=== PATIENT | female | born 1980 | race Caucasian/White ===

== ENCOUNTER 2024-02-06 08:03 | Outpatient (OUT) | payer BC, SELFPAY ==
--- NOTE | 2024-02-06 08:38 | P.CN_ITS ---
Consult Note: HPI Data of Consult Patient: new to practice Requesting Physician: Melissa Chi NP Primary Care Provider: CATRACHO ROSALES Consult Narrative Reason for consult: establish chronic low back pain Narrative: Eileen Dobson a pleasant 43 year old female presents for evaluation and management of chronic low back pain greater than 3 years. Patient reports chronic low back pain, today 6/10 sharp stabbing ache, increasing to 10/10 with twisting standing walking and bending, improved with medications and rest. Patient continues have moderate to severe pain impacting functional ability despite benefit from gabapentin 400mg TID, tramadol 50mg q6hrs, ibuprofen q8hrs, and orphenadrine. Patient underwent recent lumbar xray and MRI which is consistent with lumbar ddd and lumbar facet arthropathy. Patient has an upcoming NS consult next week with Dr Arcos. Engaged in provider guided HEP greater than 6 weeks without benefit, upcoming water therapy. Patient denies numbness tignling radiaiton. cc:: CC: Melissa Chi NP Review of Systems ROS Status of ROS 10 or more systems reviewed and unremark able except as noted in history and below Musculoskeletal Reports: back pain and joint pain Exam Constitutional Documenting provider has reviewed patient's vital signs: yes Common normals: no apparent distress, oriented x3, healthy appearing, alert and well nourished General appearance: cooperative HENMT Common normals: normocephalic, hearing grossly normal bilaterally and moist oral mucous membranes Head and scalp: normocephalic Eye Common normals: PERRL Pupil: PERRL Neck & C-Spine Common normals: full ROM General: normal visual inspection Chest Common normals: inspection of chest normal Respiratory Common normals: normal respiratory effort, no retractions and no use of accessory muscles Back & Pelvis Lumbar spine/lower back: ROM limited, pain with ROM and straight leg raise negative bilaterally Sacroiliac joints: SI joint(s) abnormal Other: positive facet loading left greater than right pain and tenderness over bilateral L4-S1 facets left SIJ positive mahesh(patricks), gaenslens, thigh thrust, compression test strength 5/5 in BLE, sensation equal and intact Extremity Common normals: normal to inspection and full ROM Neuro Common normals: oriented x3, CN's II-XII intact bilaterally, moves all extremities, no focal motor deficits, no sensory deficits noted, deep tendon reflexes 2+ bilaterally and gait normal Sensorium/orientation: alert Motor exam: strength 5/5 throughout and no movement abnormalities noted Psych Common normals: mental status grossly normal, thought process normal, cooperative, affect normal, speech normal and activity/motor behavior normal Speech: normal speech Thought process: normal thought process Results Additional Findings Additional findings: If on a controlled substance or opioids, I have checked an [place] report on this patient and there are no aberrancies noted in the prescribing history.??If on a controlled substance or opioid a drug screen was completed and reviewed within the last year, and if there has not been a drug screen completed we ordered one today to monitor higher risk, state monitored pain medication use. As part of providing excellent, safe, comprehensive care, the following was completed at our patient's visit: 1. A medication reconciliation and review to ensure accurate knowledge of current/active medications, including asking our patients to inform us about any [id number] medications or herbal remedies/nutritional supplements/alternative remedies. 2. A review to specifically ensure our patients have had annual screening for screening for depression, screening for tobacco use, and screening for unhealthy alcohol use. For concerning screenings had a discussion with the patient, provided patient education, and recommended follow-up with primary care provider when appropriate. If patient noted with a risk of falling, they received education on strength, gait, and balance training to prevent future risk of falling. Assessment and Plan Assessment and Plan (1) Lumbar spondylosis: Assessment and Plan: The patient has had over 3 months of moderate to severe low back pain with functional impairment and inadequate response to conservative care including NSAIDS (unless there are contraindication such as concurrent blood thinners), m ultiple oral or topical pain medications, and home exercise program/physical therapy.? Patient has completed >6 weeks of guided home exercise program and/or formal physical therapy program without relief of their symptoms.? I have reviewed the imaging of the lumbar spine and no red flags were identified.? The imaging reveals radiographic findings consistent with lumbar DDD and lumbar spondylosis We discussed the risks and benefits of the procedure with the patient, and we are NOT planning on using sedation as outlined in the guidelines from Medicare unless there is a documented reason that sedation would be strongly recommended.?? The procedure will be completed with fluoroscopic guidance.? (2) Lumbar degenerative disc disease: (3) Chronic low back pain without sciatica: Plan imaging reviewed with patient, based on physical exam, history and failure to respond to greater than 6 weeks HEP and conservative measures I reccomend bilateral L4-5 L5-S1 medial branch block x2 working towards RFA patient would like to meet with NS first, can call to schedule injections f/u 1 week after each injection, or as needed at this time continue medication management through PCP
== END 2024-02-06 08:04 | disposition home or self-care (01) ==
LOC: PM 08:04
PROVIDERS: PCP Family Medicine; Visit Provider Nurse Practitioner
DX: M47.816 Spondylosis without myelopathy or radiculopathy, lumbar region (principal); M51.36 Other intervertebral disc degeneration, lumbar region; M54.50 Low back pain, unspecified
CPT/HCPCS: G0463

== ENCOUNTER 2024-02-13 08:55 | Outpatient (RCR) | payer BC, SELFPAY | END 2024-03-14 10:00 | disposition home or self-care (01) | LOC: PT 08:55 | PROVIDERS: PCP Family Medicine; Visit Provider Family Medicine | DX: M51.37 Other intervertebral disc degeneration, lumbosacral region (principal); M50.30 Other cervical disc degeneration, unspecified cervical region; R20.2 Paresthesia of skin; M79.601 Pain in right arm; M79.602 Pain in left arm; M46.1 Sacroiliitis, not elsewhere classified | CPT/HCPCS: 97113 ==

== ENCOUNTER 2024-03-17 08:20 | Day surgery (SDC) | payer BC, SELFPAY ==
--- OUTSIDE RECORDS SUMMARY | 2024-03-17 08:42 | XMS_ITS | CCD ---
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 Apprentice Name Role Phone CLAUDY ., DR SKY Admitting Unavailable REQUEST, DR MALAIKA LISTED Primary Care Unavaila ble CLAUDY ., DR SKY Consulting Unavailable CLAUDY ., DR SKY Attending Unavailable REQUEST, DR MALAIKA LISTED Consulting Unavaila ble CLAUDY ., DR SKY Admitting Unavailable HEMEYER ., DR HAYDEN Primary Care Unavailable CLAUDY ., DR SKY Consulting Unavailable CLAUDY ., DR SKY Attending Unavailable HEMEYER ., DR HAYDEN Attending Unavailable HEMEYER ., DR HAYDEN Admitting Unavailable HEMEYER ., DR HAYDEN Primary Care Unavailable CLAUDY ., DR SKY Admitting Unavailable HEMEYER ., DR HAYDEN Consulting Unavailable HEMEYER ., DR HAYDEN Primary Care Unavailable CLAUDY ., DR SKY Attending Unavailable CLAUDY ., DR SKY Consulting Unavailable AGUBOSILazarus, ULICES Consulting Unavailable YESSY PATEL Consulting Unavailable CLAUDY ., DR SKY Consulting Unavailable HEMEYER ., DR HAYDEN Primary Care Unavailable CLAUDY ., DR SKY Attending Unavailable CLAUDY ., DR SKY Admitting Unavailable CLAUDY ., DR SKY Admitting Unavailable HEMEYER ., DR HAYDEN Primary Care Unavailable CLAUDY ., DR SKY Consulting Unavailable CLAUDY ., DR SKY Attending Unavailable SANDHU, JULIO Consulting Unavailable HEMEYER ., DR HAYDEN Primary Care Unavailable HELEN SANCHEZ Attending Unavailable HELEN SANCHEZ Admitting Unavailable HELEN SANCHEZ Consulting Unavailable REBA LOWRY Consulting Unavailable HEMEYER ., DR HAYDEN Primary Care Unavailable HAY ., DR HOUSTON Admitting Unavailable HAY ., DR HOUSTON Attending Unavailable GRECHNY ., JILLIAN HORVATH Consulting Unavailabl e HEMEYER ., DR HAYDEN Primary Care Unavailable HEMEYER ., DR HAYDEN Consulting Unavailable HEMEYER ., DR HAYDEN Attending Unavailable HEMEYER ., DR HAYDEN Admitting Unavailable CLAUDY ., DR SKY Admitting Unavailable CLAUDY ., DR SKY Consulting Unavailable CLAUDY ., DR SKY Attending Unavailable HEMEYER ., DR HAYDEN Primary Care Unavailable ZIEBER, DR AHSAN Robert Consulting Unavailable CLAUDY ., DR SKY Consulting Unavailable HEMEYER ., DR HAYDEN Primary Care Unavailable CLAUDY ., DR SKY Attending Unavailable CLAUDY ., DR SKY Admitting Unavailable HEMEYER ., DR HAYDEN Primary Care Unavailable CLAUDY ., DR SKY Consulting Unavailable CLAUDY ., DR SKY Attending Unavailable CLAUDY ., DR SKY Admitting Unavailable CLAUDY ., DR SKY Admitting Unavailable HEMEYER ., DR HAYDEN Primary Care Unavailable CLAUDY ., DR SKY Attending Unavailable CLAUDY ., DR SKY Consulting Unavailable ZIEBER, DR AHSAN Robert Consulting Unavailable HEMEYER, EDWARD J Attending Unavailable HEMEYER, EDWARD J Referring Unavailable HEMEYER, EDWARD J Referring Unavailable HEMEYER, EDWARD J Attending Unavailable HEMEYER, EDWARD J Referring Unavailable HEMEYER, EDWARD J Referring Unavailable HEMEYER, EDWARD J Referring Unavailable SELLFRIEDA Attending Unavailable Allergies Allergy Classification Reported Allergen(s) Allergy Type Date of Onset Reaction(s) Facility (2 sources) Acetaminophen Drug Allergy [facility] Repository (2 sources) ferric carboxymaltose Drug Allergy 2 [facility] Repository (1 source) Acetaminophen; Translations: [ACETAMINOPHEN] Drug Allergy 4 [facility] Repository (1 source) Hydroxychloroquine; Translations: [HYDROXYCHLOROQUINE ] Drug Allergy 3 [facility] Repository Problems Active Problems Problem Classification Problem Date Documented Date Episodic/Chronic E Codes: Adverse effects of medical drugs (1 source) Adverse effect of other systemic antibiotics, initial encounter; Translations: [ADVERSE EFF OTH SYS ABX INITIAL ENC] Onset: 12-05-2022 Episodic Fever of unknown origin (1 source) Fever, unspecified; Translations: [FEVER UNSPECIFIED] Onset: 12-05-2022 Episodic Headache; including migraine (1 source) Headache; including migraine; Translations: [HEADACHE UNSPECIFIED] Onset: 12-05-2022 Malaise and fatigue (1 source) Chronic fatigue, unspecified; Translations: [CHRONIC FATIGUE UNSPECIFIED] Onset: 03-21-2022 Chronic Menstrual disorders (5 sources) Excessive and frequent menstruation with irregular cycle; Translations: [Excessive and frequent menstruation with regular cycle] Onset: 04-05-2022 Chronic Other aftercare (1 source) Other senior care (current) drug therapy; Translations: [OTH RETIREMENT CURRENT DRUG THERAPY] Onset: 12-05-2022 Episodic Other female genital disorders (1 source) Abnormal uterine and vaginal bleeding, unspecified; Translations: [ABNORMAL UTERINE VAGINAL BLEED UNS] Onset: 04-17-2022 Chronic Other upper respiratory infections (1 source) Acute upper respiratory infection, unspecified; Translations: [ACUTE UP RESPIRATORY INFECTION UNS] Onset: 12-05-2022 Episodic Residual codes; unclassified (1 source) Pain, unspecified; Translations: [Pain, unspecified] Onset: 02-27-2024 Episodic Spondylosis; intervertebral disc disorders; other back problems (3 sources) Other intervertebral disc degeneration, lumbosacral region; Translations: [Spondylosis without myelopathy or radiculopathy, cervical region] Onset: 02-27-2024 Chronic Spondylosis; intervertebral disc disorders; other back problems (1 source) Spinal stenosis, cervical region; Translations: [Spinal stenosis, cervical region] Onset: 02-27-2024 Episodic Substance-related disorders (1 source) Nicotine dependence, cigarettes, uncomplicated; Translations: [NICOTINE DEPEND CIGARETTES UNCOMP] Onset: 12-05-2022 Chronic Thyroid disorders (3 sources) Hypothyroidism, unspecified; Translations: [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 crisis or storm] Onset: 03-21-2022 Chronic Unclassified (1 source) CONTACT W/AND (SUSP) EXPOS COVID-19; Translations: [CONTACT W/AND (SUSP) EXPOS COVID-19] Onset: 12-05-2022 Unclassified (2 sources) COUGH, UNSPECIFIED; Translations: [COUGH, UNSPECIFIED] Onset: 12-05-2022 Unclassified (1 source) Low back pain, unspecified; Translations: [Low back pain, unspecified] Onset: 02-27-2024 Unclassified (1 source) Consult Onset: 02-27-2024 Past or Other Problems Problem Classification Problem Date Documented Date Episodic/Chronic Allergic reactions (4 sources) Urticaria, unspecified; Translations: [URTICARIA UNSPECIFIED] Onset: 03-02-2022 Episodic Deficiency and other anemia (1 source) Anemia, unspecified; Translations: [ANEMIA UNSPECIFIED] Onset: 04-04-2022 Episodic Deficiency and other anemia (5 sources) Iron deficiency anemia, unspecified; Translations: [IRON DEFICIENCY ANEMIA UNSPECIFIED] Onset: 03-02-2022 Episodic Immunizations and screening for infectious disease (1 source) Encounter for screening for human papillomavirus (HPV); Translations: [ENC SCREENING HUMAN PAPILLOMAVIRUS] Onset: 06-21-2022 Episodic Other aftercare (4 sources) Encounter for follow-up examination after completed treatment for conditions other than malignant neoplasm; Translations: [ENC F/U EX AFTR CMPL TX NOT MAL JUJU] Onset: 05-08-2022 Episodic Other screening for suspected conditions (not mental disorders or infectious disease) (4 sources) Encounter for screening for malignant neoplasm of cervix; Translations: [ENC SCREENING MALIG NEOPLASM CERV] Onset: 06-19-2022 Episodic Ovarian cyst (4 sources) Other ovarian cyst, unspecified side; Translations: [OTHER OVARIAN CYST UNSPECIFIED SIDE] Onset: 03-30-2022 Episodic Screening and history of mental health and substance abuse codes (1 source) Personal history of nicotine dependence; Translations: [PERSONAL HISTORY OF NICOTINE DEPEND] Onset: 03-03-2022 Episodic Thyroid disorders (4 sources) Sick-euthyroid syndrome; Translations: [SICK-EUTHYROID SYNDROME] Onset: 03-16-2022 Episodic Unclassified (1 source) COUGH, UNSPECIFIED; Translations: [COUGH, UNSPECIFIED] Onset: 12-02-2022 Results Test Name Value Interpretation Reference Range Facility MR CERVICAL SPINE WO CONTRAS Ton 12-06-2023 MR CERVICAL SPINE WO CONTRAST EXAMINATION: MR CERVICAL SPINE WO CONTRAST HISTORY: Neck pain with bilateral upper extremity radiculopathy. No recent injury. No prior cervical spine surgery. TECHNIQUE: Routine cervical spine MR protocol without gadolinium. COMPARISON: Radiographs 11/19/2023. RESULT: CERVICAL: Counting reference: Craniocervical junction. Anatomic Variants: None. Alignment: Alignment is anatomic. Craniocervical junction: Craniocervical junction is normal. Cord: The cervical spinal cord is within normal limits of signal intensity and morphology. Bone marrow signal/fracture: No evidence for acute or chronic fracture. No pathologic marrow infiltration. Cervical soft tissues: The paraspinal soft tissues are unremarkable. C2-C3: No significant canal or foraminal narrowing. C3-C4: No significant canal or foraminal narrowing. C4-C5: No significant canal or foraminal narrowing. C5-C6: Broad-based disc bulge. Endplate osteophytes. No significant canal or foraminal narrowing. C6-C7: Disc height loss. Broad-based disc bulge. Endplate osteophytes. Moderate bilateral foraminal narrowing with mild to moderate canal narrowing. C7-T1: No significant canal or foraminal narrowing. Upper thoracic spine: Visualized upper thoracic canal and foramina are without significant narrowing. IMPRESSION: Degenerative changes, worst at C6-C7. ELECTRONICALLY SIGNED BY: Asa Perez MD Normal Not Available MR LUMBAR SPINE WO CONTRASTo n 12-06-2023 MR LUMBAR SPINE WO CONTRAST EXAMINATION: MR LUMBAR SPINE WO CONTRAST HISTORY: Chronic low back pain. Denies prior lumbar surgery. TECHNIQUE: Routine lumbosacral spine MR protocol without gadolinium. CONTRAST: None. COMPARISON: 11/19/2023 radiographs. RESULT: Counting reference: Lumbosacral junction. For the purposes of this report, there is transitional lumbosacral anatomy, with partial lumbarization of S1 with tiny disc space at the S1-S2 level, with the level of the iliac crest nearest the L4-L5 level. Alignment: Alignment is anatomic. Bone marrow signal: No evidence for acute or chronic fracture. No destructive osseous lesions. Endplate degenerative signal especially at L5-S1. Conus: The conus is within normal limits of signal intensity and morphology. Paraspinal soft tissues: Unremarkable. Lower thoracic spine: Visualized lower thoracic canal and foramina without significant narrowing. T12-L1: Tiny disc bulge without significant canal or foraminal narrowing. L1-L2: Tiny disc bulge without significant canal or foraminal narrowing. L2-L3: No significant canal or foraminal narrowing. L3-L4: Tiny disc bulge and facet degenerative changes without significant canal or foraminal narrowing. L4-L5: Tiny disc bulge and facet degenerative changes without significant canal or foraminal narrowing. L5-S1: Disc height loss. Endplate degenerative signal. Disc bulge with small central zone disc protrusion. Facet degenerative changes. Mild bilateral foraminal narrowing without significant canal narrowing. Sacrum and iliac wings: The visualized sacrum and iliac wings are within normal limits. IMPRESSION: Transitional lumbosacral anatomy as discussed. Degenerative changes as discussed. Small central zone disc protrusion at L5-S1. No high-grade canal or foraminal narrowing. ELECTRONICALLY SIGNED BY: Asa Perez MD Normal Not Available XR CERVICAL SPINE AP/LAT/FLE X/EXT/OBLIQUESon 11-19-2023 XR CERVICAL SPINE AP/LAT/FLEX/EXT/OBLI QUES EXAMINATION: CERVICAL SPINE CLINICAL HISTORY: Bilateral neck pain. No history of acute trauma COMPARISON: NONE Findings: 7 views of the cervical spine including flexion and extension views are submitted. Straightening of the normal expected cervical doses. Prevertebral soft tissues are unremarkable. There is narrowing of the C6-7 disc base. There is anterior spondylosis. No significant listhesis. Flexion and extension views show no significant darryl or retrolisthesis. Neuroforamina are grossly patent. No focal bony abnormality. No acute fracture.. IMPRESSION: MILD OSTEOARTHRITIS OF THE LOWER CERVICAL SPINE. NO ACUTE FRACTURE IF THERE ARE FINDINGS OF RADICULOPATHY THEN TO THE TEST OF CHOICE TO FURTHER EVALUATE IS MRI ELECTRONICALLY SIGNED BY: Humphrey De La Fuente MD Normal Not Available CBC W MANUAL DIFFon 12-03-19 23 ATYPICAL LYMPH # Normal [facility] Comment on above: Performed By: #### C BCMAN #### [facility] [address] [place] [address] Dr. Ellen Ramirez ATYPICAL LYMPH % Normal [facility] Comment on above: Performed By: #### C BCMAN #### [facility] [address] [place] [address] Dr. Ellen Ramirez BAND # 0.0 103/ul Normal 0.0-0.3 [facility] Comment on above: Performed By: #### C BCMAN #### [facility] [address] [place] [address] Dr. Ellen Ramirez BAND % 0 % Normal 0-5 [facility] Comment on above: Performed By: #### C BCMAN #### [facility] [address] [place] [address] Dr. Ellen Ramirez BASOM # 0.00 103/ul Normal 0.00-0.10 [facility] Comment on above: Performed By: #### C BCVIRGINIE #### [facility] [address] [place] [address] Dr. Ellen Ramirez BASOM % 0.0 % Critically low 0.2-2.0 [facility] Comment on above: Performed By: #### C BCMAN #### [facility] [address] [address] [address] Ellen Ramirez BLAST # Normal [facility] Comment on above: Performed By: #### C BCMAN #### [facility] [address] [place] [address] Dr. Ellen Ramirez BLAST % Normal [facility] Comment on above: Performed By: #### C BCVIRGINIE #### [facility] [address] [address] [address] Ellen Ramirez CORRECTED WBC Normal 4.0-11.0 [facility] Comment on above: Performed By: #### C BCVIRGINIE #### [facility] [address] [place] [address] Dr. Ellen Ramirez EOS # 0.46 103/ul Normal 0.00-0.70 [facility] Comment on above: Performed By: #### C BCVIRGINIE #### [facility] [address] [place] [address] Dr. Ellen Ramirez EOS% 6.0 % Normal 0.9-7.0 [facility] Comment on above: Performed By: #### C BCVIRGINIE #### [facility] [address] [place] [address] Dr. Ellen Ramirez HCT 33.6 % Critically low 36.0-48.0 [facility] Comment on above: Performed By: #### C BCMAN #### [facility] [address] [place] [address] Dr. Ellen Ramirez HGB 11.5 g/dl Critically low 12.0-16.0 [facility] Comment on above: Performed By: #### C BCMAN #### [facility] [address] [place] [address] Dr. Ellen Ramirez LYMPHM # 0.15 103/ul Critically low 1.20-3.[address] [facility] Comment on above: Performed By: #### C BCMAN #### [facility] [address] [address] [address] Ellen Ramirez LYMPHM% 2.0 % Critically low 20.5-60.0 [facility] Comment on above: Performed By: #### C HUSSAIN #### [facility] [address] [place] [address] Dr. Ellen Ramirez MCH 29.3 pg Normal 26.7-34.0 [facility] Comment on above: Performed By: #### C HUSSAIN #### [facility] [address] [place] [address] Dr. Ellen Ramirez MCHC 34.2 g/dl Normal 29.9-35.2 [facility] Comment on above: Performed By: #### C HUSSAIN #### [facility] [address] [place] [address] Dr. Ellen Ramirez MCV 85.5 fL Normal 81.0-99.0 [facility] Comment on above: Performed By: #### C HUSSAIN #### [facility] [address] [place] [address] Dr. Ellen Ramirez METAMYELOCYTE # Normal [facility] Comment on above: Performed By: #### C HUSSAIN #### [facility] [address] [place] [address] Dr. Ellen Ramirez METAMYELOCYTE % Normal [facility] Comment on above: Performed By: #### C HUSSAIN #### [facility] [address] [place] [address] Dr. Ellen Ramirez MONOM# 0.38 103/ul Normal 0.30-0.80 [facility] Comment on above: Performed By: #### C HUSSAIN #### [facility] [address] [place] [address] Dr. Ellen Ramirez MONOM% 5.0 % Normal 1.7-12.0 [facility] Comment on above: Performed By: #### C HUSSAIN #### [facility] [address] [place] [address] Dr. Ellen Ramirez MPV 9.4 fL Critically low 9.5-13.5 [facility] Comment on above: Performed By: #### C BCVIRGINIE #### [facility] [address] [address] [address] Ellen Ramirez MYELOCYTE # Normal [facility] Comment on above: Performed By: #### C HUSSAIN #### [facility] [address] [address] [address] Ellen Ramirez MYELOCYTE % Normal [facility] Comment on above: Performed By: #### C BCVIRGINIE #### [facility] [address] [address] [address] Ellen Ramirez NRBC Normal [facility] Comment on above: Performed By: #### C HUSSANI #### [facility] [address] [address] [address] Ellen Ramirez PLT 281 103/ul Normal 150-450 [facility] Comment on above: Performed By: #### C HUSSAIN #### [facility] [address] [address] [address] Ellen Ramirez RBC 3.93 106/ul Critically low 4.20-5.40 [facility] Comment on above: Performed By: #### C HUSSAIN #### [facility] [address] [address] [address] Ellen Ramirez RDW 13.0 % Normal 11.0-15.0 [facility] Comment on above: Performed By: #### C HUSSAIN #### [facility] [address] [address] [address] Ellen Ramirez SEG # 6.61 103/ul Critically high 1.40-6.50 [facility] Comment on above: Performed By: #### C HUSSAIN #### [facility] [address] [address] [address] Ellen Ramirez SEG % 87.0 % Critically high 43.0-75.0 [facility] Comment on above: Performed By: #### C HUSSAIN #### [facility] [address] [address] [address] Ellen Ramirez WBC 7.6 103/ul Normal 4.0-11.0 [facility] Comment on above: Performed By: #### C HUSSAIN #### [facility] [address] [address] [address] Ellen Ramirez CPKon 12-02-2022 CK [Catalytic activity/Vol] 50 U/L Normal 26-192 [facility] Comment on above: Performed By: #### C BCMAN #### [facility] [address] [address] [address] Ellen Ramirez CRPon 12-02-2022 CRP 5.4 mg/dL Critically high <=1.[address] [facility] Comment on above: Performed By: #### C BCMAN #### [facility] [address] [address] [address] HEAD WO CONon 12-02-2022 CT HEAD WO CON EXAMINATION: CT HEAD WO CON HISTORY: HEADACHE COMPARISON: None. TECHNIQUE: CT examination of the head without IV contrast. Multiplanar reformats generated. Dose reduction techniques were achieved by using automated exposure control and/or adjustment of mA and/or kV according to patient size and/or use of iterative reconstruction technique. FINDINGS: Acute Findings: No evidence of acute intracranial hemorrhage, large acute territorial infarct, or suggestion of mass effect. No midline shift. MRI is more sensitive for detecting acute processes such as infarct, and may be considered if clinically warranted. Chronic Changes: None. White matter appears within normal limits for age. Ventricles and sulci: Appear within normal limits. Other: The skull appears grossly intact, without visualized fracture. No significant fluid is seen in the visualized paranasal sinuses. Mild mucosal thickening left maxillary sinus and a few anterior ethmoid air cells. Mastoid air cells are clear. Visualized portions of the orbits and extracranial soft tissues show no gross abnormality. IMPRESSION: No CT evidence of an acute intracranial abnormality. Electronically authenticated by: REBA LOWRY Date: 2022-12-02 00:24 Normal [facility] ER URINE PROFILEon 3 Bilirubin Ql (U) Negative Normal NEGATIVE [facility] Comment on above: Performed By: #### L ACT #### [facility] [address] [place] [address] Dr. Ellen Ramirez Clarity (U) CLEAR Normal CLEAR [facility] Comment on above: Performed By: #### L ACT #### [facility] [address] [place] [address] Dr. Ellen Ramirez Color (U) YELLOW Normal YELLOW [facility] Comment on above: Performed By: #### L ACT #### [facility] [address] [place] [address] Dr. Ellen ESCAMILLA A micrscopic examination will be performed if indicated. Normal [facility] Comment on above: Performed By: #### L ACT #### [facility] [address] [place] [address] Dr. Ellen Ramirez Glucose Ql (U) Negative Normal NEGATIVE [facility] Comment on above: Performed By: #### L ACT #### [facility] [address] [place] [address] Dr. Ellen Ramirez Hemoglobin Ql (U) TRACE-INTACT Abnormal NEGATIVE [facility] Comment on above: Performed By: #### L ACT #### [facility] [address] [place] [address] Dr. Ellen Ramirez Ketones Ql (U) >=80 Abnormal NEGATIVE [facility] Comment on above: Performed By: #### L ACT #### [facility] [address] [place] [address] Dr. Ellen Ramirez LEUKOCYTES Negative Normal NEGATIVE [facility] Comment on above: Performed By: #### L ACT #### [facility] [address] [place] [address] Dr. Ellen Ramirez Nitrite Ql (U) Negative Normal NEGATIVE [facility] Comment on above: Performed By: #### L ACT #### [facility] [address] [place] [address] Dr. Ellen Ramirez pH (U) 6.0 [pH] Normal 5-9 [facility] Comment on above: Performed By: #### L ACT #### [facility] [address] [place] [address] Dr. Ellen Ramirez SPEC GRAVITY 1.015 Normal 1.005-<=1.025 [facility] Comment on above: Performed By: #### L ACT #### [facility] [address] [place], [place] [id number] Dr. Ellen Ramirez UA PROTEIN Negative Normal NEGATIVE/ TRACE [facility] Comment on above: Performed By: #### L ACT #### [facility] [address] [place] [address] Dr. Ellen Ramirez UR MICRO IND NOT INDICATED Normal [facility] Comment on above: Performed By: #### L ACT #### [facility] [address] [place] [address] Dr. Ellen Ramirez Urobilinogen Qn (U) 0.2 {Ajith'U}/dL Normal 0.2 - 1. 0 [facility] Comment on above: Performed By: #### L ACT #### [facility] [address] [place] [address] Dr. Ellen Ramirez LACTATE/LACTIC ACIDon 2022 Lactate [Moles/Vol] 0.7 mmol/L Normal 0.4-2.0 [facility] Comment on above: Performed By: #### L ACT #### [facility] [address] [place] [address] Dr. Ellen Ramirez MYOGLOBINon 12-02-2022 LORENA 30 ng/mL Normal 9-82 [facility] Comment on above: Performed By: #### C HUSSAIN #### [facility] [address] [place] [address] Dr. Ellen Ramirez PROF 14(COMP METB)on 023 Albumin [Mass/Vol] 3.7 g/dL Normal 3.4-5.0 [facility] Comment on above: Performed By: #### C HUSSAIN #### [facility] [address] [place] [address] Dr. Ellen Ramirez Albumin/Globulin [Mass ratio] 1.1 {ratio} Normal [facility] Comment on above: Performed By: #### C HUSSAIN #### [facility] [address] [place] [address] Dr. Ellen Ramirez ALP [Catalytic activity/Vol] 87 U/L Normal 46-116 [facility] Comment on above: Performed By: #### C HUSSAIN #### [facility] [address] [address] [address] Ellen Ramirez ALT [Catalytic activity/Vol] 43 U/L Normal 14-59 [facility] Comment on above: Performed By: #### C HUSSAIN #### [facility] [address] [address] [address] Ellen Ramirez Anion gap [Moles/Vol] 10.9 mmol/L Normal [facility] Comment on above: Performed By: #### C HUSSAIN #### [facility] [address] [address] [address] Ellen Ramirez AST [Catalytic activity/Vol] 35 U/L Normal 15-37 [facility] Comment on above: Performed By: #### C HUSSAIN #### [facility] [address] [place] [address] Dr. Ellen Ramirez Bilirubin [Mass/Vol] 0.3 mg/dL Normal 0.2-1.0 [facility] Comment on above: Performed By: #### C HUSSAIN #### [facility] [address] [place] [address] Dr. Ellen Ramirez Calcium [Mass/Vol] 8.6 mg/dL Normal 8.5-10.1 [facility] Comment on above: Performed By: #### C HUSSAIN #### [facility] [address] [place] [address] Dr. Ellen Ramirez Chloride [Moles/Vol] 102 mmol/L Normal 98-107 [facility] Comment on above: Performed By: #### C HUSSAIN #### [facility] [address] [place] [address] Dr. Ellen Ramirez CO2 [Moles/Vol] 25.4 mmol/L Normal 21.0-32.0 [facility] Comment on above: Performed By: #### C HUSSAIN #### [facility] [address] [address] [address] Ellen Ramirez Creatinine [Mass/Vol] 0.99 mg/dL Normal 0.55-1.02 [facility] Comment on above: Performed By: #### C HUSSAIN #### [facility] [address] [address] [address] Ellen Ramirez EGFR-AF FAROESE >60 Normal >=60 [facility] Comment on above: Performed By: #### C BCMAN #### [facility] [address] [place] [address] Dr. Ellen Ramirez EGFR-NON AF FAROESE >60 Normal >=60 [facility] Comment on above: Performed By: #### C BCMAN #### [facility] [address] [place] [address] Dr. Ellen Ramirez Globulin (S) [Mass/Vol] 3.3 g/dL Normal [facility] Comment on above: Performed By: #### C HUSSAIN #### [facility] [address] [place] [address] Dr. Ellen Ramirez Glucose [Mass/Vol] 107 mg/dL Critically high 74-106 [facility] Comment on above: Performed By: #### C HUSSAIN #### [facility] [address] [place] [address] Dr. Ellen Ramirez Potassium [Moles/Vol] 3.3 mmol/L Critically low 3.5-5.1 [facility] Comment on above: Performed By: #### C HUSSAIN #### [facility] [address] [place] [address] Dr. Ellen Ramirez Protein [Mass/Vol] 7.0 g/dL Normal 6.4-8.2 [facility] Comment on above: Performed By: #### C BCVIRGINIE #### [facility] [address] [place] [address] Dr. Ellen Ramirez Sodium [Moles/Vol] 135 mmol/L Critically low 136-[address] [facility] Comment on above: Performed By: #### C BCVIRGINIE #### [facility] [address] [place] [address] Dr. Ellen Ramirez Urea nitrogen [Mass/Vol] 11.0 mg/dL Normal 7.0-18.0 [facility] Comment on above: Performed By: #### C HUSSAIN #### [facility] [address] [place] [address] Dr. Ellen Ramirez Urea nitrogen/Creatinine [Mass ratio] 11.1 mg/mg Normal [facility] Comment on above: Performed By: #### C BCMAN #### [facility] [address] [place] [address] Dr. Ellen Ramirez RESPIRATORY PANEL PLUSon Adenovirus Not detected Normal NOT DETECTED [facility] Comment on above: Performed By: #### C BCMAN #### [facility] [address] [place] [address] Dr. Ellen Haro Parapertusis Not detected Normal NOT DETECTED [facility] Comment on above: Performed By: #### C BCMAN #### [facility] [address] [place] [address] Dr. Ellen Haro Pertussis Not detected Normal NOT DETECTED [facility] Comment on above: Performed By: #### C BCMAN #### [facility] [address] [place] [address] Dr. Ellen Ramirez Chlamydia Pneumoniae Not detected Normal NOT DETECTED [facility] Comment on above: Performed By: #### C BCMAN #### [facility] [address] [place] [address] Dr. Ellen Ramirez Coronavirus 229E Not detected Normal NOT DETECTED [facility] Comment on above: Performed By: #### C BCMAN #### [facility] [address] [place] [address] Dr. Ellen Ramirez Coronavirus HKU1 Not detected Normal NOT DETECTED [facility] Comment on above: Performed By: #### C BCMAN #### [facility] [address] [place] [address] Dr. Ellen Ramirez Coronavirus NL63 Not detected Normal NOT DETECTED [facility] Comment on above: Performed By: #### C BCMAN #### [facility] [address] [place] [address] Dr. Ellen Ramirez Coronavirus OC43 Not detected Normal NOT DETECTED [facility] Comment on above: Performed By: #### C BCMAN #### [facility] [address] [place] [address] Dr. Ellen Ramirez Influenza A H1 Not detected Normal NOT DETECTED [facility] Comment on above: Performed By: #### C BCMAN #### [facility] [address] [address] [address] Ellen Ramirez Influenza A H1 2009 Not detected Normal NOT DETECTED [facility] Comment on above: Performed By: #### C BCMAN #### [facility] [address] [address] [address] Ellen Ramirez Influenza A H3 Not detected Normal NOT DETECTED [facility] Comment on above: Performed By: #### C BCMAN #### [facility] [address] [address] [address] Ellen Ramirez Influenza B Not detected Normal NOT DETECTED [facility] Comment on above: Performed By: #### C BCMAN #### [facility] [address] [address] [address] Ellen Ramirez Metapneumovirus Not detected Normal NOT DETECTED [facility] Comment on above: Performed By: #### C BCMAN #### [facility] [address] [address] [address] Ellen Ramirez Mycoplas. Pneumoniae Not detected Normal NOT DETECTED [facility] Comment on above: Performed By: #### C BCMAN #### [facility] [address] [address] [address] Ellen Ramirez Parainfluenza 1 Not detected Normal NOT DETECTED [facility] Comment on above: Performed By: #### C BCMAN #### [facility] [address] [address] [address] Ellen Ramirez Parainfluenza 2 Not detected Normal NOT DETECTED [facility] Comment on above: Performed By: #### C BCMAN #### [facility] [address] [address] [address] Ellen Ramirez Parainfluenza 3 Not detected Normal NOT DETECTED [facility] Comment on above: Performed By: #### C BCMAN #### [facility] [address] [address] [address] Ellen Ramirez Parainfluenza 4 Not detected Normal NOT DETECTED [facility] Comment on above: Performed By: #### C HUSSAIN #### [facility] [address] [place] [address] Dr. Ellen Ramirez Rhino/Enterovirus Not detected Normal NOT DETECTED [facility] Comment on above: Performed By: #### C HUSSAIN #### [facility] [address] [place] [address] Dr. Ellen Ramirez RP2 Header 1 RESPIRATORY PANEL: VIRUSES Normal [facility] Comment on above: Performed By: #### C HUSSAIN #### [facility] [address] [place] [address] Dr. Ellen Ramirez RP2 Header 2 RESPIRATORY PANEL: BACTERIA Normal [facility] Comment on above: Performed By: #### C HUSSAIN #### [facility] [address] [place] [address] Dr. Ellen Ramirez RSV Not detected Normal NOT DETECTED [facility] Comment on above: Performed By: #### C HUSSAIN #### [facility] [address] [place] [address] Dr. Ellen Ramirez SARS-CoV-2 (COVID-19) RNA BEULAH+probe Ql (Unsp spec) Not detected Normal NOT DETECTED [facility] Comment on above: Performed By: #### C HUSSAIN #### [facility] [address] [place] [address] Dr. Ellen Ramirez SED RATE [facility] 2022 SED RATE 22 mm/hr Critically high <=20 [facility] Comment on above: Performed By: #### C HUSSAIN #### [facility] [address] [place] [address] Dr. Ellen Ramirez TSHon 12-02-2022 TSH 12.836 uIU/mL Critically high 0.358-3.740 [facility] Comment on above: Performed By: #### T SH #### [facility] [address] [place] [address] Dr. Ellen Ramirez XR CHEST 2 Von 12-02-2022 XR CHEST 2 V EXAM: XR CHEST 2 V HISTORY: COUGH COMPARISON: None. TECHNIQUE: Chest two views. FINDINGS: Lines/tubes/devices: None. Cardiomediastinum: Heart size is normal. Unremarkable mediastinal silhouette. Vasculature: No increased vasculature. Lungs/pleura: No consolidation, sizeable effusion, or visible pneumothorax. Bones/soft tissues: Bony thorax appears grossly intact as seen. Regional soft tissues appear unremarkable. IMPRESSION: No focal airspace disease. Electronically authenticated by: REBA LOWRY Date: 2022-12-02 00:05 Normal [facility] PAP ACOG PANEL 2: 30 to 65on 06-26-2022 . . Normal [facility] Comment on above: Result Comment: Perf ormed at: WB Performed By: #### [id number] #### [facility] [address] [address] [address] Ellen Ramirez Age Gdln ACOG Testing 30-65 Normal [facility] Comment on above: Performed By: #### [id number] #### [facility] [address] [address] [address] Ellen Ramirez DIAGNOSIS: Comment Normal [facility] Comment on above: Result Comment: NEGA TIVE FOR INTRAEPITHELIAL LESION OR MALIGNANCY. Performed at: WB Performed By: #### [id number] #### [facility] [address] [address] [address] Ellen Ramirez HPV Aptima Negative Normal Negative [facility] Comment on above: Result Comment: This nucleic acid amplification test detects fourteen high-risk HPV types (16,18,31,33,35,39,45,51,52,56,58,59,66,68) without differentiation. Performed at: =G Performed By: #### [id number] #### [facility] [address] [address] [address] Ellen Ramirez Methodology: Comment Normal [facility] Comment on above: Result Comment: This liquid based ThinPrep(R) pap test was screened with the use of an image guided system. Performed at: WB Performed By: #### [id number] #### [facility] [address] [address] [address] Ellen Ramirez Note: Comment Normal [facility] Comment on above: Result Comment: The Pap smear is a screening test designed to aid in the detection of premalignant and malignant conditions of the uterine cervix. It is not a diagnostic procedure and should not be used as the sole means of detecting cervical cancer. Both false-positive and false-negative reports do occur. . Performed at: WB Performed By: #### [id number] #### [facility] [address] [place] [address] Dr. Ellen Ramirez Performed by: Comment Normal [facility] Comment on above: Result Comment: Pretty Aguilar, Inspecting Engineer (ASCP) Performed at: WB Performed By: #### [id number] #### [facility] [address] [place] [address] Dr. Ellen Ramirez Specimen adequacy: Comment Normal [facility] Comment on above: Result Comment: Sati sfactory for evaluation. Endocervical and/or squamous metaplastic cells (endocervical component) are present. Performed at: WB Performed By: #### [id number] #### [facility] [address] [place] [address] Dr. Ellen Ramirez CBC AUTO DIFFon 05-08-2022 BASO # 0.0 103/ul Normal 0.0-0.1 [facility] Comment on above: Performed By: #### C BC #### [facility] [address] [place] [address] Dr. Ellen Ramirez Basophils/100 WBC (Bld) 0.4 % Normal 0.2-2.0 [facility] Comment on above: Performed By: #### C BC #### [facility] [address] [place] [address] Dr. Ellen Ramirez EO # 0.1 103/ul Normal 0.0-0.7 [facility] Comment on above: Performed By: #### C BC #### [facility] [address] [place] [address] Dr. Ellen Ramirez Eosinophils/100 WBC (Bld) 1.1 % Normal 0.9-7.0 [facility] Comment on above: Performed By: #### C BC #### [facility] [address] [place] [address] Dr. Ellen Ramirez Erythrocyte distribution width (RBC) [Ratio] 18.5 % Critically high 11.0-15.0 [facility] Comment on above: Performed By: #### C BC #### [facility] [address] [place] [address] Dr. Ellen Ramirez Hematocrit (Bld) [Volume fraction] 37.2 % Normal 36.0-48.0 [facility] Comment on above: Performed By: #### C BC #### [facility] [address] [place] [address] Dr. Ellen Ramirez Hemoglobin (Bld) [Mass/Vol] 12.0 g/dL Normal 12.0-16.0 [facility] Comment on above: Performed By: #### C BC #### [facility] [address] [place] [address] Dr. Ellen Ramirez IG # 0.01 10e3/ul Normal 0.00-0.03 [facility] Comment on above: Performed By: #### C BC #### [facility] [address] [place] [address] Dr. Ellen Ramirez IG % 0.2 % Normal 0.0-0.5 [facility] Comment on above: Performed By: #### C BC #### [facility] [address] [place] [address] Dr. Ellen Ramirez LYMPH # 1.4 103/ul Normal 1.2-3.8 [facility] Comment on above: Performed By: #### C BC #### [facility] [address] [place] [address] Dr. Ellen Ramirez Lymphocytes/100 WBC (Bld) 29.2 % Normal 20.5-60.0 [facility] Comment on above: Performed By: #### C BC #### [facility] [address] [place] [address] Dr. Ellen Ramirez MANUAL DIFF REQ NO Normal [facility] Comment on above: Performed By: #### C BC #### [facility] [address] [place] [address] Dr. Ellen Ramirez MCH (RBC) [Entitic mass] 28.0 pg Normal 26.7-34.0 [facility] Comment on above: Performed By: #### C BC #### [facility] [address] [address] [address] Ellen Ramirez MCHC (RBC) [Mass/Vol] 32.3 g/dL Normal 29.9-35.2 [facility] Comment on above: Performed By: #### C BC #### [facility] [address] [address] [address] Ellen Ramirez MCV (RBC) [Entitic vol] 86.7 fL Normal 81.0-99.0 [facility] Comment on above: Performed By: #### C BC #### [facility] [address] [place] [address] Dr. Ellen Ramirez MONO # 0.4 103/ul Normal 0.3-0.8 [facility] Comment on above: Performed By: #### C BC #### [facility] [address] [place] [address] Dr. Ellen Ramirez Monocytes/100 WBC (Bld) 8.0 % Normal 1.7-12.0 [facility] Comment on above: Performed By: #### C BC #### [facility] [address] [place] [address] Dr. Ellen Ramirez NEUT # 2.9 103/ul Normal 1.4-6.5 [facility] Comment on above: Performed By: #### C BC #### [facility] [address] [place] [address] Dr. Ellen Ramirez Neutrophils/100 WBC (Bld) 61.1 % Normal 43.0-75.0 [facility] Comment on above: Performed By: #### C BC #### [facility] [address] [place] [address] Dr. Ellen Ramirez Platelet mean volume (Bld) [Entitic vol] 9.5 fL Normal 9.5-13.5 [facility] Comment on above: Performed By: #### C BC #### [facility] [address] [place] [address] Dr. Ellen Ramirez PLT 282 103/ul Normal 150-450 [facility] Comment on above: Performed By: #### C BC #### [facility] [address] [place] [address] Dr. Ellen Ramirez RBC 4.29 106/ul Normal 4.20-5.40 [facility] Comment on above: Performed By: #### C BC #### [facility] [address] [place] [address] Dr. Ellen Ramirez WBC 4.7 103/ul Normal 4.0-11.0 [facility] Comment on above: Performed By: #### C BC #### [facility] [address] [place] [address] Dr. Ellen Ramirez FERRITINon 05-08-2022 Ferritin [Mass/Vol] 92.0 ng/mL Normal 6.2-137.0 [facility] Comment on above: Performed By: #### F ERR, FT4 #### [facility] [address] [place] [address] Dr. Ellen Ramirez FREE T4on 05-08-2022 Free T4 [Mass/Vol] 0.72 ng/dL Critically low 0.76-1.46 [facility] Comment on above: Performed By: #### F ERR, FT4 #### [facility] [address] [place] [address] Dr. Ellen Ramirez TSHon 05-08-2022 TSH 3.626 uIU/mL Normal 0.358-3.740 [facility] Comment on above: Performed By: #### C BCMAN #### [facility] [address] [place] [address] Dr. Ellen Ramirez CBC AUTO DIFFon 04-14-2022 BASO # 0.0 103/ul Normal 0.0-0.1 [facility] Comment on above: Performed By: #### L ACT #### [facility] [address] [place] [address] Dr. Ellen Ramirez Basophils/100 WBC (Bld) 0.5 % Normal 0.2-2.0 [facility] Comment on above: Performed By: #### L ACT #### [facility] [address] [place] [address] Dr. Ellen Ramirez EO # 0.1 103/ul Normal 0.0-0.7 [facility] Comment on above: Performed By: #### L ACT #### [facility] [address] [place] [address] Dr. Ellen Ramirez Eosinophils/100 WBC (Bld) 2.8 % Normal 0.9-7.0 [facility] Comment on above: Performed By: #### L ACT #### [facility] [address] [place] [address] Dr. Ellen Ramirez Erythrocyte distribution width (RBC) [Ratio] 24.2 % Critically high 11.0-15.0 [facility] Comment on above: Performed By: #### L ACT #### [facility] [address] [place] [address] Dr. Ellen Ramirez Hematocrit (Bld) [Volume fraction] 36.3 % Normal 36.0-48.0 [facility] Comment on above: Performed By: #### L ACT #### [facility] [address] [place] [address] Dr. Ellen Ramirez Hemoglobin (Bld) [Mass/Vol] 11.4 g/dL Critically low 12.0-16.0 [facility] Comment on above: Performed By: #### L ACT #### [facility] [address] [place] [address] Dr. Ellen Ramirez IG # 0.01 10e3/ul Normal 0.00-0.03 [facility] Comment on above: Performed By: #### L ACT #### [facility] [address] [place] [address] Dr. Ellen Ramirez IG % 0.3 % Normal 0.0-0.5 [facility] Comment on above: Performed By: #### L ACT #### [facility] [address] [place] [address] Dr. Ellen Ramirez LYMPH # 1.3 103/ul Normal 1.2-3.8 [facility] Comment on above: Performed By: #### L ACT #### [facility] [address] [place] [address] Dr. Ellen Ramirez Lymphocytes/100 WBC (Bld) 32.6 % Normal 20.5-60.0 [facility] Comment on above: Performed By: #### L ACT #### [facility] [address] [place] [address] Dr. Ellen Ramirez MANUAL DIFF REQ NO Normal [facility] Comment on above: Performed By: #### L ACT #### [facility] [address] [place] [address] Dr. Ellen Ramirez MCH (RBC) [Entitic mass] 25.9 pg Critically low 26.7-34.0 [facility] Comment on above: Performed By: #### L ACT #### [facility] [address] [place] [address] Dr. Ellen Ramirez MCHC (RBC) [Mass/Vol] 31.4 g/dL Normal 29.9-35.2 [facility] Comment on above: Performed By: #### L ACT #### [facility] [address] [place] [address] Dr. Ellen Ramirez MCV (RBC) [Entitic vol] 82.5 fL Normal 81.0-99.0 [facility] Comment on above: Performed By: #### L ACT #### [facility] [address] [place] [address] Dr. Ellen Ramirez MONO # 0.3 103/ul Normal 0.3-0.8 [facility] Comment on above: Performed By: #### L ACT #### [facility] [address] [place] [address] Dr. Ellen Ramirez Monocytes/100 WBC (Bld) 8.5 % Normal 1.7-12.0 [facility] Comment on above: Performed By: #### L ACT #### [facility] [address] [place] [address] Dr. Ellen Ramirez NEUT # 2.4 103/ul Normal 1.4-6.5 [facility] Comment on above: Performed By: #### L ACT #### [facility] [address] [place] [address] Dr. Ellen Rmairez Neutrophils/100 WBC (Bld) 60.0 % Normal 43.0-75.0 [facility] Comment on above: Performed By: #### L ACT #### [facility] [address] [place] [address] Dr. Ellen Ramirez Platelet mean volume (Bld) [Entitic vol] 9.6 fL Normal 9.5-13.5 [facility] Comment on above: Performed By: #### L ACT #### [facility] [address] [place] [address] Dr. Ellen Ramirez PLT 264 103/ul Normal 150-450 [facility] Comment on above: Performed By: #### L ACT #### [facility] [address] [place] [address] Dr. Ellen Ramirez RBC 4.40 106/ul Normal 4.20-5.40 [facility] Comment on above: Performed By: #### L ACT #### [facility] [address] [place] [address] Dr. Ellen Ramirez WBC 3.9 103/ul Critically low 4.0-11.0 [facility] Comment on above: Performed By: #### L ACT #### [facility] [address] [place] [address] Dr. Ellen Ramirez PREG HCG QUALon 04-14-2022 , QUAL Negative Normal NEGATIVE [facility] Comment on above: Performed By: #### P REG #### [facility] [address] [place] [address] Dr. Ellen Ramirez Covid-19 PCR (CVDTB)on 03-24 SARS-CoV-2 (COVID-19) RNA BEULAH+probe Ql (Unsp spec) Not detected Normal NOT DETECTED [facility] Comment on above: Result Comment: This test is not yet approved or cleared by the [place] FDA. When there are no FDA-approved or cleared tests available, and other criteria are met, FDA can make tests available under an emergency access mechanism called an Emergency Use Authorization (EUA). The EUA for this test is supported by the [place] of Health and Human Service's (HHS's) declaration that circumstances exist to justify the emergency use of in vitro diagnostics for the detection and/or diagnosis of the virus that causes COVID-19. This EUA will remain in effect (meaning this test can be used) for the duration of the COVID-19 declaration justifying emergency of IVDs, unless it is terminated or revoked by FDA (after which the test may no longer be used). When diagnostic testing is negative, the possibility of a false negative should be considered in the context of a patient's recent exposures and the presence of clinical signs and symptoms consistent with SARS-CoV-2. Performed By: #### C VDTB #### [facility] [address] [place] [address] Dr. Ellen Ramirez CBC W MANUAL DIFFon 03-30-20 22 ACANTHOCYTES 1+ Normal [facility] Comment on above: Result Comment: Prev iously reported as: 1+ On 03/30/2022 14:46 By BQ2 Performed By: #### C HUSSAIN #### [facility] [address] [place] [address] Dr. Ellen Ramirez ATYPICAL LYMPH # Normal [facility] Comment on above: Performed By: #### C HUSSAIN #### [facility] [address] [place] [address] Dr. Ellen Ramirez ATYPICAL LYMPH % Normal [facility] Comment on above: Performed By: #### C HUSSAIN #### [facility] [address] [place] [address] Dr. Ellen Ramirez BAND # Normal 0.0-0.3 [facility] Comment on above: Performed By: #### Chavez NIXON #### [facility] [address] [place] [address] Dr. Ellen Ramirez BAND % Normal 0-5 [facility] Comment on above: Performed By: #### C HUSSAIN #### [facility] [address] [place] [address] Dr. Ellen Ramirez BASOM # 0.00 103/ul Normal 0.00-0.10 [facility] Comment on above: Performed By: #### C HUSSAIN #### [facility] [address] [place] [address] Dr. Ellen Ramirez BASOM % 0.0 % Critically low 0.2-2.0 [facility] Comment on above: Performed By: #### C BCVIRGINIE #### [facility] [address] [place] [address] Dr. Ellen Ramirez BLAST # Normal [facility] Comment on above: Performed By: #### C HUSSAIN #### [facility] [address] [place] [address] Dr. Ellen Ramirez BLAST % Normal [facility] Comment on above: Performed By: #### C HUSSAIN #### [facility] [address] [place] [address] Dr. Ellen Ramirez CORRECTED WBC Normal 4.0-11.0 [facility] Comment on above: Performed By: #### C HUSSAIN #### [facility] [address] [place] [address] Dr. Ellen Ramirez EOS # 0.10 103/ul Normal 0.00-0.70 [facility] Comment on above: Performed By: #### C HUSSAIN #### [facility] [address] [place] [address] Dr. Ellen Ramirez EOS% 2.0 % Normal 0.9-7.0 [facility] Comment on above: Performed By: #### C HUSSAIN #### [facility] [address] [place] [address] Dr. Ellen Ramirez HCT 33.3 % Critically low 36.0-48.0 [facility] Comment on above: Performed By: #### C HUSSAIN #### [facility] [address] [place] [address] Dr. Ellen Ramirez HGB 10.4 g/dl Critically low 12.0-16.0 [facility] Comment on above: Performed By: #### C HUSSAIN #### [facility] [address] [place] [address] Dr. Ellen Ramirez LYMPHM # 1.78 103/ul Normal 1.20-3.80 [facility] Comment on above: Performed By: #### C HUSSAIN #### [facility] [address] [place] [address] Dr. Ellen Ramirez LYMPHM% 37.0 % Normal 20.5-60.0 [facility] Comment on above: Performed By: #### C HUSSAIN #### [facility] [address] [place] [address] Dr. Ellen Ramirez MCH 25.6 pg Critically low 26.7-34.0 [facility] Comment on above: Performed By: #### C HUSSAIN #### [facility] [address] [place] [address] Dr. Ellen Ramirez MCHC 31.2 g/dl Normal 29.9-35.2 [facility] Comment on above: Performed By: #### C HUSSAIN #### [facility] [address] [place] [address] Dr. Ellen Ramirez MCV 81.8 fL Normal 81.0-99.0 [facility] Comment on above: Performed By: #### C HUSSAIN #### [facility] [address] [place] [address] Dr. Ellen Ramirez METAMYELOCYTE # Normal [facility] Comment on above: Performed By: #### C HUSSAIN #### [facility] [address] [place] [address] Dr. Ellen Ramirez METAMYELOCYTE % Normal [facility] Comment on above: Performed By: #### C HUSSAIN #### [facility] [address] [place] [address] Dr. Ellen Ramirez MONOM# 0.43 103/ul Normal 0.30-0.80 [facility] Comment on above: Performed By: #### C HUSSAIN #### [facility] [address] [place] [address] Dr. Ellen Ramirez MONOM% 9.0 % Normal 1.7-12.0 [facility] Comment on above: Performed By: #### C HUSSAIN #### [facility] [address] [place] [address] Dr. Ellen Ramirez MPV 10.2 fL Normal 9.5-13.5 [facility] Comment on above: Performed By: #### C HUSSAIN #### [facility] [address] [address] [address] Ellen Ramirez MYELOCYTE # Normal [facility] Comment on above: Performed By: #### C HUSSAIN #### [facility] [address] [place] [address] Dr. Ellen Ramirez MYELOCYTE % Normal [facility] Comment on above: Performed By: #### C HUSSAIN #### [facility] [address] [place] [address] Dr. Ellen Ramirez NRBC Normal [facility] Comment on above: Performed By: #### C HUSSAIN #### [facility] [address] [place] [address] Dr. Ellen Ramirez OVALOCYTES 1+ Normal [facility] Comment on above: Result Comment: Prev iously reported as: 1+ On 03/30/2022 14:46 By BQ2 Performed By: #### C HUSSAIN #### [facility] [address] [place] [address] Dr. Ellen Ramirez PLT 302 103/ul Normal 150-450 [facility] Comment on above: Performed By: #### C HUSSAIN #### [facility] [address] [place] [address] Dr. Ellen Raimrez RBC 4.07 106/ul Critically low 4.20-5.40 [facility] Comment on above: Performed By: #### C HUSSAIN #### [facility] [address] [place] [address] Dr. Ellen Ramirez RDW 26.7 % Critically high 11.0-15.0 [facility] Comment on above: Performed By: #### C HUSSAIN #### [facility] [address] [place] [address] Dr. Ellen Ramirez SEG # 2.50 103/ul Normal 1.40-6.50 [facility] Comment on above: Performed By: #### C HUSSAIN #### [facility] [address] [place] [address] Dr. Ellen Ramirez SEG % 52.0 % Normal 43.0-75.0 [facility] Comment on above: Performed By: #### C HUSSAIN #### [facility] [address] [address] [address] Ellen Ramirez TEAR DROP CELLS 1+ Normal [facility] Comment on above: Result Comment: Prev iously reported as: 1+ On 03/30/2022 14:46 By BQ2 Performed By: #### C HUSSAIN #### [facility] [address] [address] [address] Ellen Ramirez WBC 4.8 103/ul Normal 4.0-11.0 [facility] Comment on above: Performed By: #### C HUSSAIN #### [facility] [address] [address] [address] Ellen Ramirez US PELVIS AND TRANSVAGon US PELVIS AND TRANSVAG EXAMINATION: US PELVIS AND TRANSVAG HISTORY: Cyst of ovary ; follow-up right ovarian cyst COMPARISON: Ultrasound pelvis 02/14/2022 TECHNIQUE: Transabdominal and transvaginal sonographic examination. FINDINGS: UTERUS: Normal size and appearance. Uterus size: 9.7 x 6.7 x 5.4 cm ENDOMETRIUM: Normal homogeneous appearance. Endometrial thickness: 7 mm RIGHT OVARY: Normal size and appearance. Duplex Doppler demonstrates normal waveform and flow; resistive index 0.5. Ovary size: 3.0 x 2.5 x 2.0 cm LEFT OVARY: Normal size and appearance. Duplex Doppler demonstrates normal waveform and flow; resistive index 0.6. Ovary size: 3.2 x 1.7 x 1.7 cm CUL-DE-SAC: Unremarkable. No significant free fluid. BLADDER: Unremarkable. OTHER: None. IMPRESSION: 1. Normal pelvic ultrasound. Resolution of previously seen complex right ovarian cyst. Electronically authenticated by: AHSAN FLORES Date: 2022-03-30 18:10 Normal [facility] TSHon 03-16-2022 TSH 2.199 uIU/mL Normal 0.358-3.740 [facility] Comment on above: Performed By: #### T #### [facility] [address] [place] [address] Dr. Ellen Ramirez CBC AUTO DIFFon 02-14-2022 BASO # 0.0 103/ul Normal 0.0-0.1 [facility] Comment on above: Performed By: #### C HUSSAIN #### [facility] [address] [address] [address] Ellen Ramirez Basophils/100 WBC (Bld) 0.4 % Normal 0.2-2.0 [facility] Comment on above: Performed By: #### C HUSSAIN #### [facility] [address] [place] [address] Dr. Ellen Ramirez EO # 0.0 103/ul Normal 0.0-0.7 [facility] Comment on above: Performed By: #### C HUSSAIN #### [facility] [address] [place] [address] Dr. Ellen Ramirez Eosinophils/100 WBC (Bld) 0.4 % Critically low 0.9-7.0 [facility] Comment on above: Performed By: #### C HUSSAIN #### [facility] [address] [place] [address] Dr. Ellen Ramirez Erythrocyte distribution width (RBC) [Ratio] 16.4 % Critically high 11.0-15.0 [facility] Comment on above: Performed By: #### C HUSSAIN #### [facility] [address] [place] [address] Dr. Ellen Ramirez Hematocrit (Bld) [Volume fraction] 24.4 % Critically low 36.0-48.0 [facility] Comment on above: Performed By: #### C HUSSAIN #### [facility] [address] [place] [address] Dr. Ellen Ramirez Hemoglobin (Bld) [Mass/Vol] 7.0 g/dL Critically low 12.0-16.0 [facility] Comment on above: Performed By: #### C BCVIRGINIE #### [facility] [address] [place] [address] Dr. Ellen Ramirez IG # 0.02 10e3/ul Normal 0.00-0.03 [facility] Comment on above: Performed By: #### C HUSSAIN #### [facility] [address] [place] [address] Dr. Ellen Ramirez IG % 0.3 % Normal 0.0-0.5 [facility] Comment on above: Performed By: #### C HUSSAIN #### [facility] [address] [address] [address] Ellen Ramirez LYMPH # 1.6 103/ul Normal 1.2-3.8 [facility] Comment on above: Performed By: #### C HUSSAIN #### [facility] [address] [address] [address] Ellen Ramirez Lymphocytes/100 WBC (Bld) 21.8 % Normal 20.5-60.0 [facility] Comment on above: Performed By: #### C HUSSAIN #### [facility] [address] [place] [address] Dr. Ellen Ramirez MANUAL DIFF REQ NO Normal [facility] Comment on above: Performed By: #### C HUSSAIN #### [facility] [address] [place] [address] Dr. Ellen Ramirez MCH (RBC) [Entitic mass] 20.0 pg Critically low 26.7-34.0 [facility] Comment on above: Performed By: #### C HUSSAIN #### [facility] [address] [place] [address] Dr. Ellen Ramirez MCHC (RBC) [Mass/Vol] 28.7 g/dL Critically low 29.9-35.2 [facility] Comment on above: Result Comment: HYPO CHROMIC MICROCYTIC STOMATOCYTES SEEN Performed By: #### C HUSSAIN #### [facility] [address] [place] [address] Dr. Ellen Ramirez MCV (RBC) [Entitic vol] 69.7 fL Critically low 81.0-99.0 [facility] Comment on above: Performed By: #### C HUSSAIN #### [facility] [address] [place] [address] Dr. Ellen Ramirez MONO # 0.7 103/ul Normal 0.3-0.8 [facility] Comment on above: Performed By: #### C HUSSAIN #### [facility] [address] [place] [address] Dr. Ellen Ramirez Monocytes/100 WBC (Bld) 9.3 % Normal 1.7-12.0 [facility] Comment on above: Performed By: #### C HUSSAIN #### [facility] [address] [place] [address] Dr. Ellen Ramirez NEUT # 4.9 103/ul Normal 1.4-6.5 [facility] Comment on above: Performed By: #### C HUSSAIN #### [facility] [address] [place] [address] Dr. Ellen Ramirez Neutrophils/100 WBC (Bld) 67.8 % Normal 43.0-75.0 [facility] Comment on above: Performed By: #### C HUSSAIN #### [facility] [address] [place] [address] Dr. Ellen Ramirez Platelet mean volume (Bld) [Entitic vol] 9.8 fL Normal 9.5-13.5 [facility] Comment on above: Performed By: #### Chavez NIXON #### [facility] [address] [place] [address] Dr. Ellen Ramirez PLT 391 103/ul Normal 150-450 [facility] Comment on above: Performed By: #### Chavez NIXON #### [facility] [address] [place] [address] Dr. Ellen Ramirez RBC 3.50 106/ul Critically low 4.20-5.[address] [facility] Comment on above: Performed By: #### Chavez NIXON #### [facility] [address] [place] [address] Dr. Ellen Ramirez WBC 7.2 103/ul Normal 4.0-11.0 [facility] Comment on above: Performed By: #### C HUSSAIN #### [facility] [address] [place] [address] Dr. Ellen Ramirez PREG QUANT HCGon 02-14-2022 HCG QUANT <1 Normal [facility] Comment on above: Performed By: #### L ACT #### [facility] [address] [place] [address] Dr. Ellen Ramirez HCG RANGE SEE BELOW Normal [facility] Comment on above: Result Comment: 5-50 0-1 WEEK 40-300 1-2 WEEKS 100-1,000 2-3 WEEKS 500-6,000 3-4 WEEKS 5,000-200,000 1-2 MONTHS 10,000-100,000 2-3 MONTHS 3,000-50,000 2ND TRIMESTER 1,000-50,000 3RD TRIMESTER Performed By: #### L ACT #### [facility] [address] [address] [address] Ellen Ramirez PROTIMEon 02-14-2022 INR Coag (PPP) [Relative time] 1.00 {INR} Normal [facility] Comment on above: Performed By: #### L ACT #### [facility] [address] [place] [address] Dr. Ellen Ramirez INR GUIDELINES SEE BELOW Normal [facility] Comment on above: Result Comment: CARMEN RED INR: 2.0 - 3.0 CONDITIONS NOT LISTED BELOW 2.5 - 3.5 FOR PROSTHETIC HEART VALVE REPLACEMENT 2.5 - 3.5 RECURRENT THROMBOSIS Performed By: #### L ACT #### [facility] [address] [place] [address] Dr. Ellen Ramirez PT Coag (PPP) [Time] 10.8 s Normal 9.0-11.6 [facility] Comment on above: Performed By: #### L ACT #### [facility] [address] [place] [address] Dr. Ellen Ramirez PTTon 02-14-2022 aPTT Coag (Bld) [Time] 25.7 s Normal 22.3-36.2 [facility] Comment on above: Performed By: #### L ACT #### [facility] [address] [place] [address] Dr. Ellen Ramirez TSHon 02-14-2022 TSH 15.176 uIU/mL Critically high 0.358-3.740 [facility] Comment on above: Performed By: #### L ACT #### [facility] [address] [place] [address] Dr. Ellen Ramirez TSH RANGE SEE BELOW Normal [facility] Comment on above: Result Comment: <0.3 4 UIU/ml HYPERTHYROID 0.34-5.60 UIU/ml EUTHYROID >5.60 UIU/ml HYPOTHYROID Performed By: #### L ACT #### [facility] [address] [place] [address] Dr. Ellen Ramirez US PELVIS AND TRANSVAGon US PELVIS AND TRANSVAG EXAMINATION: US PELVIS AND TRANSVAG HISTORY: Excessive menstruation with irregular cycle COMPARISON: No relevant comparison available. TECHNIQUE: Transabdominal and transvaginal sonographic examination. FINDINGS: UTERUS: Normal size and appearance. Uterus size: 9.7 x 6.6 x 5.8 cm ENDOMETRIUM: Normal homogeneous appearance. Endometrial thickness: 13 mm RIGHT OVARY: Contains a thick-walled 2.5 x 2.2 x 1.7 cm complex cyst. Duplex Doppler demonstrates normal waveform and flow; resistive index 0.5. Ovary size: 3.5 x 2.9 x 2.2 cm LEFT OVARY: Normal size and appearance. Duplex Doppler demonstrates normal waveform and flow; resistive index 0.5. Ovary size: 3.6 x 2.2 x 1.8 cm CUL-DE-SAC: Small moderate free fluid in cul-de-sac, likely physiologic. BLADDER: Unremarkable. OTHER: None. IMPRESSION: 1. Normal appearance of the uterus and endometrium; no suspicious findings to account for patient's symptoms. 2. Complex left ovarian cyst. Consider follow-up ultrasound evaluation in 6 weeks to document regression. Electronically authenticated by: AHSAN FLORES Date: 2022-02-14 15:03 Normal [facility] Encounters Encounter Date Encounter Type Care Provider Facility Start: 02-27-2024 End: 02-27-2024 ambulatory CATRACHO ROSALES [facility] Ambulatory [facility] Start: 12-06-2023 End: 12-07-2023 ambulatory CATRACHO ROSALES Not Available Start: 11-22-2023 End: 11-22-2023 ambulatory CATRACHO ROSALES Not Available Start: 11-19-2023 End: 11-20-2023 ambulatory CATRACHO ROSALES Not Available Start: 11-15-2023 End: 11-15-2023 ambulatory CATRACHO ROSALES Not Available Start: 12-02-2022 End: 12-02-[address] CATRACHO ROSALES . Facility: Start: 08-02-[address] CATRACHO ROSALES . Fac ility:[facility] Start: 06-19-2022 End: 06-19-[address] CATRACHO ROSALES . Facility:[facility] Start: 05-08-2022 End: 05-09-[address] JOSE DANIEL ROOT . Facility:[facility] Start: 04-14-2022 End: 04-14-[address] JOSE DANIEL ROOT . Facility:[facility] Start: 04-13-2022 Encounter for preprocedural laboratory examination DR JOSE DANIEL ROOT . [facility] Start: 04-11-2022 End: 04-12-[address] JOSE DANIEL ROOT . Facility:[facility] Start: 04-11-2022 End: 04-12-2022 Encounter for preprocedural laboratory examination DR JOSE DANIEL ROOT . Facility:[facility] Start: 04-05-2022 Encounter for other preprocedural examination DR JOSE DANIEL ROOT . [facility] Start: 04-03-2022 End: 04-04-[address] JOSE DANIEL ROOT . Facility:[facility] Start: 04-03-2022 End: 04-04-2022 Encounter for other preprocedural examination DR JOSE DANIEL ROOT . Facility:[facility] Start: 03-30-2022 End: 03-31-[address] JOSE DANIEL ROOT . Facility:[facility] Start: 03-16-2022 End: 03-17-[address] CATRACHO ROSALES . Facility:[facility] Start: 03-02-2022 End: 03-02-[address] CATRACHO ROSALES . Facility:[facility] Start: 03-02-2022 End: 03-02-[address] JOSE DANIEL ROOT . Facility:[facility] Start: 02-23-2022 End: 02-23-[address] JOSE DANIEL ROOT . Facility:[facility] Start: 02-14-2022 End: 02-15-[address] JOSE DANIEL ROOT . Facility:[facility] Payers Date Payer Category Payer Unknown [id number] . [id number] 1980 Unknown [id number] 11.09.83 [id number] 1980 Unknown [id number] 2.16.84 0.1.462753.3.579.2.593 1980 Unknown [id number] 2.16.84 0.1.691531.3.579.2.593 1980 Unknown [id number] 2.16.84 0.1.176561.3.579.2.593 1980 Unknown [id number] 2.16.84 0.1.014770.3.579.2.593 1980 Unknown [id number] 2.16.84 0.1.828381.3.579.2.593 1980 Unknown [id number] 2.16.84 0.1.175690.3.579.2.593 1980 Unknown [id number] 2.16.84 0.1.198313.3.579.2.593 1980 Unknown [id number] 2.16.84 0.1.622447.3.579.2.593 1980 Unknown [id number] 2.16.84 0.1.917431.3.579.2.593 1980 Unknown [id number] 2.16.84 0.1.227071.3.579.2.593 1980 Unknown [id number] 2.16.84 0.1.704538.3.579.2.593 1980 Unknown [id number] 2.16.84 0.1.907714.3.579.2.1259 1980 Unknown [id number] 2.16.84 0.1.622163.3.579.2.1259 1980 Unknown [id number] 2.16.84 0.1.181476.3.579.2.1259 1980 Unknown [id number] 2.16.84 0.1.473783.3.579.2.1259 1980 Unknown [id number] 2.16.84 0.1.878113.3.579.2.1259 1980 Unknown [id number] 2.16.84 0.1.072781.3.579.2.1259 1980 Unknown [id number] 2.16.8 40.1.949902.3.579.2.1286 1980 Unknown [id number] 2.16.8 40.1.214055.3.579.2.1285 1980 Unknown [id number] 2.16.8 40.1.545283.3.579.2.1286 1980 Unknown [id number] 2.16.8 40.1.635381.3.579.2.1285 1980 Unknown [id number] 2.16.8 40.1.613178.3.579.2.6 1980 Unknown [id number] 2.16.8 40.1.576525.3.579.2.1286 1959 Self-pay [id number] 1959 Unknown [id number] Clinical Note 11-19-2023 Note Date & Type Note Facility 11-19-2023 Note CLINICAL HISTORY: Pr ogressive Lumbar pain with failed conservative treatment COMPARISON: NONE FINDINGS: There is no acute fracture or subluxation. There is no loss of vertebral body height. There is preservation of the lordotic curvature of the lumbar spine. There is no significant change in alignment between flexion or extension. There is severe degenerative disc narrowing and vacuum joint phenomenon at L5-S1. The remaining levels demonstrate mild intervertebral disc space narrowing. The SI joints are symmetric. IMPRESSION: Impression: There are degenerative changes, spondylosis of the lower lumbar spine. ELECTRONICALLY SIGNED BY: Andres Hui MD Not Available Clinical Note 04-14-2022 Note Date & Type Note Facility 04-14-2022 Note OPERATIVE NOTE OPERATION DATE: 04/14/2022 PROCEDURE: Lilibeth endometrial ablation. PREOPERATIVE DIAGNOSIS: Menorrhagia. POSTOPERATIVE DIAGNOSIS: Menorrhagia. ANESTHESIA: General. SURGEON: Jose Daniel Root D.O. BRASS SORTER: None. FINDINGS: Normal appearing cavity. No gross evidence of polyps, fibroids or malignancy. Both ostia seen. SPECIMEN: None. URINE OUTPUT: Yellow and clear. BLOOD LOSS: 5 mL. PROCEDURE: The patient was taken back to the OR where she was prepped and draped in the normal sterile fashion after being placed in the dorsal lithotomy position, after being placed under general anesthesia without difficulty. A weighted speculum was placed into the vagina. The anterior lip was grasped with a single tooth tenaculum. The patient was then sounded to approximated 8 cm. The patient's cervix was gently dilated using Hegar dilators. The hysteroscope was passed through the cervix into the uterus where both ostia were seen. No gross evidence of polyps, fibroids or malignancy. The cervical length was noted to be 4 cm. The total cavity length is 4 cm. The Lilibeth ablation apparatus was set to approximately 4 cm in length. This was placed through the cervix and into the uterus. After the seal was tested, at that time the total ablation of 120 seconds was performed with the Lilibeth without difficulty. All instruments were removed from the vagina. Excellent hemostasis noted. Sponge and lap count correct times 2. Patient taken to recovery in stable condition. [facility] Summary Purpose Family History No Family History Records FoundNo Family History Records FoundNo Family History Records Found Advance Directives No Advanced Directives Records FoundNo Advanced Directives Records FoundNo Advanced Directives Records Found Additional Source Comments INFORMATION SOURCE (unrecogn ized section and content) DATE CREATED AUTHOR [facility]/06/2022 [facility] DATE CREATED AUTHOR AUTHOR'S ORGANIZ ATION 12/09/2023 [facility] EPIC DATE CREATED AUTHOR AUTHOR'S ORGANIZ ATION 02/28/2024 [facility] FOR RECORDS PERTAINING TO PATIENTS WHO ARE OR HAVE BEEN ENROLLED IN A CHEMICAL DEPENDENCY/SUBSTANCEABUSE PROGRAM, SOME INFORMATION MAY BE OMITTED. This clinical summary was aggregated from multiple sources. Caution should be exercised in using it in the provision of clinical care. This summary normalizes information from multiple sources, and as a consequence, information in this document may materially change the coding, format and clinical context of patient data. In addition, data may be omitted in some cases. CLINICAL DECISIONS SHOULD BE BASED ON THE PRIMARY CLINICAL RECORDS. [facility]. provides no warranty or guarantee of the accuracy or completeness of information in this document.
[2024-03-17 08:51] VITALS: BP 114/77; PULSE 76; TEMP 36.6; O2SAT 100
[2024-03-17 09:42] VITALS: BP 126/66; PULSE 73; O2SAT 99
[2024-03-17 09:43] VITALS: BP 126/71; PULSE 70; O2SAT 98
--- NOTE | 2024-03-17 09:48 | W.PM.PROCNOT ---
Date of procedure: 03/17/24 Pre-op diagnosis: Pain due to lumbar spondylosis without myelopathy Post-op diagnosis: same as pre-op Procedure: Procedure: Bilateral L4-5, L5-S1 medial branch block Medications: Bupivacaine 0.25% 6cc The patient was seen and examined in the preoperative holding area.? An informed consent was obtained and placed on the chart.? The patient was brought to the medical procedure unit and placed in the prone position.? A timeout was completed verifying correct patient, procedure site, positioning, plan, and special equipment.? Using aseptic technique, the needle was placed at left L4. Under direct fluoroscopic visualization a Quincke-tipped spinal needle was advanced to the junction of the superior articulating process with the transverse process at the designated medial branch segment.? Preceded by negative aspiration, the above-mentioned injectate was placed in 1 mL aliquots.? The procedure was repeated at left L5, S1.? The needle was removed and insertion site was covered. The same procedure, at the same levels, was completed on the right side. The patient was taken to the postprocedural recovery area and monitored for an appropriate length of time before found suitable for discharge in the company of a responsible adult. Anesthesia: Local Surgeon: Patsy Villafana Pathology: none sent Condition: stable Disposition: no change
[2024-03-17] MEDS: BUPIVACAINE HCL 0.25% PF 25 MG/10 ML VIAL 8 ML INJ (09:50)
[2024-03-17] MEDS: LIDOCAINE HCL 2% 400 MG/20 ML MDV INJ (09:50)
== END 2024-03-17 09:51 | disposition home or self-care (01) ==
LOC: SURGOUT 08:20
PROVIDERS: PCP Family Medicine; Visit Provider Anesthesiology
DX: M47.816 Spondylosis without myelopathy or radiculopathy, lumbar region (principal)
CPT/HCPCS: 64493; 64494; J0665

== ENCOUNTER 2024-03-20 09:47 | Outpatient (OUT) | payer BC, SELFPAY ==
--- NOTE | 2024-03-20 09:49 | P.CN_ITS ---
Consult Note: HPI Data of Consult Patient: known to practice within the last 3 years Requesting Physician: Melissa Chi NP Primary Care Provider: CATRACHO ROSALES Consult Narrative Reason for consult: establish chronic low back pain Narrative: Eileen Dobson a pleasant 43 year old female presents for evaluation and management of chronic low back pain greater than 3 years. Patient reports chronic low back pain, today 5/10 sharp stabbing ache, increasing to 8/10 with twisting standing walking and bending, improved with medications and rest. Patient continues have moderate to severe pain impacting functional ability despite benefit from gabapentin 400mg TID, tramadol 50mg q6hrs, ibuprofen q8hrs, and orphenadrine. Patient underwent recent lumbar xray and MRI which is consistent with lumbar ddd and lumbar facet arthropathy. Patient has an upcoming NS consult next week with Dr Arcos. Engaged in provider guided HEP greater than 6 weeks without benefit, and water therapy without benefit. recently underwent bilateral L4-5 L5-S1 MBB #1 with >80% improvement greater than 2 hours, patient noticed significant improvement in pain and functional ability. cc:: CC: Melissa Chi NP Review of Systems ROS Status of ROS 10 or more systems reviewed and unremark able except as noted in history and below Musculoskeletal Reports: back pain Meds Home Medications and Allergies Home Medications ?Medication ?Instructions ?Recorded ?Confirmed ?Type gabapentin 400 mg capsule 400 mg PO TID 03/05/24 03/17/24 History ibuprofen 400 mg tablet (IBU) 400 mg PO Q8H PRN pain 03/05/24 03/17/24 History levothyroxine 75 mcg capsule 75 mcg PO DAILY 03/05/24 03/17/24 History orphenadrine citrate 100 mg mg PO 03/05/24 History tablet,extended release tramadol 50 mg tablet mg 03/05/24 History Allergies Allergy/AdvReac Type Severity Reaction Status Date / Time acetaminophen [From Tylenol] Allergy Mild Verified 03/17/24 08:54 iron AdvReac Mild Verified 03/17/24 08:54 Exam Constitutional Documenting provider has reviewed patient's vital signs: yes Common normals: no apparent distress, oriented x3, healthy appearing, alert and well nourished General appearance: cooperative HENMT Common normals: normocephalic, hearing grossly normal bilaterally and moist oral mucous membranes Head and scalp: normocephalic Eye Common normals: PERRL Pupil: PERRL Neck & C-Spine Common normals: full ROM General: normal visual inspection Chest Common normals: inspection of chest normal Respiratory Common normals: normal respiratory effort, no retractions and no use of accessory muscles Back & Pelvis Lumbar spine/lower back: ROM limited, pain with ROM and straight leg raise negative bilaterally Sacroiliac joints: SI joint(s) abnormal Other: positive facet loading left greater than right pain and tenderness over bilateral L4-S1 facets left SIJ positive mahesh(patricks), gaenslens, thigh thrust, compression test strength 5/5 in BLE, sensation equal and intact Extremity Common normals: normal to inspection and full ROM Neuro Common normals: oriented x3, CN's II-XII intact bilaterally, moves all extremities, no focal motor deficits, no sensory deficits noted and deep tendon reflexes 2+ bilaterally Sensorium/orientation: alert Motor exam: strength 5/5 throughout and no movement abnormalities noted Psych Common normals: mental status grossly normal, thought process normal, cooperative, affect normal, speech normal and activity/motor behavior normal Speech: normal speech Thought process: normal thought process Results Additional Findings Additional findings: If on a controlled substance or opioids, I have checked an [place] report on this patient and there are no aberrancies noted in the prescribing history.??If on a controlled substance or opioid a drug screen was completed and reviewed within the last year, and if there has not been a drug screen completed we ordered one today to monitor higher risk, state monitored pain medication use. As part of providing excellent, safe, comprehensive care, the following was completed at our patient's visit: 1. A medication reconciliation and review to ensure accurate knowledge of cu rrent/active medications, including asking our patients to inform us about any [id number] medications or herbal remedies/nutritional supplements/alternative remedies. 2. A review to specifically ensure our patients have had annual screening for screening for depression, screening for tobacco use, and screening for unhealthy alcohol use. For concerning screenings had a discussion with the patient, provided patient education, and recommended follow-up with primary care provider when appropriate. If patient noted with a risk of falling, they received education on strength, gait, and balance training to prevent future risk of falling. Assessment and Plan Assessment and Plan (1) Lumbar spondylosis: Assessment and Plan: The patient has had over 3 months of moderate to severe low back pain with functional impairment and inadequate response to conservative care including NSAIDS (unless there are contraindication such as concurrent blood thinners), multiple oral or topical pain medications, and home exercise program/physical therapy.? Patient has completed >6 weeks of guided home exercise program and/or formal physical therapy program without relief of their symptoms.? I have reviewed the imaging of the lumbar spine and no red flags were identified.? The imaging reveals radiographic findings consistent with lumbar DDD and lumbar spondylosis We discussed the risks and benefits of the procedure with the patient, and we are NOT planning on using sedation as outlined in the guidelines from Medicare unless there is a documented reason that sedation would be strongly recommended.?? The procedure will be completed with fluoroscopic guidance.? (2) Lumbar degenerative disc disease: (3) Chronic low back pain without sciatica: Plan bilateral L4-5 L5-S1 MBB #2 working towards RFA to be completed under fluoroscopy continue HEP as tolerated continue medications through PCP f/u after injection.
--- OUTSIDE RECORDS SUMMARY | 2024-03-20 09:55 | XMS_ITS | CCD ---
Author Organization [facility] Care Team Providers Care Canal Superintendent Name Role Phone CLAUDY ., DR SKY [...] Unavailable CLAUDY ., DR SKY Consulting Unavailable ULICES HAMM Consulting Unavailable YESSY PATEL Consulting Unavailable CLAUDY [...] Referring Unavailable HEMEYER, EDWARD J Referring Unavailable FRIEDA RUBI Attending Unavailable Ledy AVALOS, Patsy Willams Attending Unavailable Allergies Allergy Classification Reported Allergen(s) Allergy Type Date of Onset Reaction(s) Facility (2 sources) Acetaminophen Drug Allergy [facility] Repository (2 sources) ferric carboxymaltose Drug Allergy 2 [facility] Repository (1 source) Acetaminophen; Translations: [ACETAMINOPHEN] [...] 04-05-2022 Chronic Other aftercare (1 source) 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 Ellen Ramirez ATYPICAL LYMPH % Normal [facility] Comment on above: Performed By: #### C HUSSAIN #### [facility] [address] [place] [address] Dr. Ellen Ramirez BAND # 0.0 103/ul Normal 0.0-0.3 [facility] Comment on above: Performed By: #### C HUSSAIN #### [facility] [address] [place] [address] Dr. Ellen Ramirez BAND % 0 % Normal 0-5 [facility] Comment on above: Performed By: #### C HUSSAIN #### [facility] [address] [place] [address] Dr. Ellen Ramirez BASOM # 0.00 103/ul Normal 0.00-0.10 [facility] Comment on above: Performed By: #### C HUSSAIN #### [facility] [address] [address] [address] Ellen Ramirez BASOM % 0.0 % Critically low 0.2-2.0 [facility] Comment on above: Performed By: #### C BCMAN #### [facility] [address] [address] [address] Ellen Ramirez BLAST # Normal [facility] Comment on above: Performed By: #### C BCMAN #### [facility] [address] [address] [address] Ellen Ramirez BLAST % Normal [facility] Comment on above: Performed By: #### C BCVIRGINIE #### [facility] [address] [place] [address] Dr. Ellen Ramirez CORRECTED WBC Normal 4.0-11.0 [facility] Comment on above: Performed By: #### C BCVIRGINIE #### [facility] [address] [place] [address] Dr. Ellen Ramirez EOS # 0.46 103/ul Normal 0.00-0.70 [facility] Comment on above: Performed By: #### C BCVIRGINIE #### [facility] [address] [place] [address] Dr. Ellen Ramirez EOS% 6.0 % Normal 0.9-7.0 [facility] Comment on above: Performed By: #### C BCVIRGINIE #### [facility] [address] [place] [address] Dr. Ellen Ramirez HCT 33.6 % Critically low 36.0-48.0 [facility] Comment on above: Performed By: #### C BCMAN #### [facility] [address] [place] [address] Dr. Ellen Ramirez HGB 11.5 g/dl Critically low 12.0-16.0 [facility] Comment on above: Performed By: #### C BCMAN #### [facility] [address] [place] [address] Dr. Ellen Ramirez LYMPHM # 0.15 103/ul Critically low 1.20-3.80 [facility] Comment on above: Performed By: #### C HUSSAIN #### [facility] [address] [address] [address] Ellen Ramirez LYMPHM% 2.0 % Critically low 20.5-60.0 [facility] Comment on above: Performed By: #### C HUSSAIN #### [facility] [address] [place] [address] Dr. Ellen Ramirez MCH 29.3 pg Normal 26.7-34.0 [facility] Comment on above: Performed By: #### C HUSSAIN #### [facility] [address] [place] [address] Dr. Ellen Ramirez MCHC 34.2 g/dl Normal 29.9-35.2 [facility] Comment on above: Performed By: #### C HUSSAIN #### [facility] [address] [place] [address] Dr. Ellen Ramirez MCV 85.5 fL Normal 81.0-99.0 [facility] Comment on above: Performed By: #### C HUSSAIN #### [facility] [address] [place] [address] Dr. Ellen Ramirez METAMYELOCYTE # Normal [facility] Comment on above: Performed By: #### C HUSSAIN #### [facility] [address] [place] [address] Dr. Ellen Ramirez METAMYELOCYTE % Normal [facility] Comment on above: Performed By: #### C HUSSAIN #### [facility] [address] [place] [address] Dr. Ellen Ramirez MONOM# 0.38 103/ul Normal 0.30-0.80 [facility] Comment on above: Performed By: #### C HUSSAIN #### [facility] [address] [place] [address] Dr. Ellen Ramirez MONOM% 5.0 % Normal 1.7-12.0 [facility] Comment on above: Performed By: #### C HUSSAIN #### [facility] [address] [place] [address] Dr. Ellen Ramirez MPV 9.4 fL Critically low 9.5-13.5 [facility] Comment on above: Performed By: #### C BCVIRGINIE #### [facility] [address] [place] [address] Dr. Ellen Ramirez MYELOCYTE # Normal [facility] Comment on above: Performed By: #### C BCVIRGINIE #### [facility] [address] [address] [address] Ellen Ramirez MYELOCYTE % Normal [facility] Comment on above: Performed By: #### C BCVIRGINIE #### [facility] [address] [address] [address] Ellen Ramirez NRBC Normal [facility] Comment on above: Performed By: #### C HUSSAIN #### [facility] [address] [place] [address] Dr. Ellen Ramirez PLT 281 103/ul Normal 150-450 [facility] Comment on above: Performed By: #### C HUSSAIN #### [facility] [address] [place] [address] Dr. Ellen Ramirez RBC 3.93 106/ul Critically low 4.20-5.40 [facility] Comment on above: Performed By: #### C HUSSAIN #### [facility] [address] [place] [address] Dr. Ellen Ramirez RDW 13.0 % Normal 11.0-15.0 [facility] Comment on above: Performed By: #### C HUSSAIN #### [facility] [address] [place] [address] Dr. Ellen Ramirez SEG # 6.61 103/ul Critically high 1.40-6.50 [facility] Comment on above: Performed By: #### C BCVIRGINIE #### [facility] [address] [place] [address] Dr. Ellen Ramirez SEG % 87.0 % Critically high 43.0-75.0 [facility] Comment on above: Performed By: #### C HUSSAIN #### [facility] [address] [address] [address] Ellen Ramirez WBC 7.6 103/ul Normal 4.0-11.0 [facility] Comment on above: Performed By: #### C BCMAN #### [facility] [address] [address] [address] Ellen Ramirez CPKon 12-02-2022 CK [Catalytic activity/Vol] 50 U/L Normal 26-192 [facility] Comment on above: Performed By: #### C BCMAN #### [facility] [address] [address] [address] Ellen Ramirez CRPon 12-02-2022 CRP 5.4 mg/dL Critically high <=1.0 [facility] Comment on above: Performed By: #### C BCMAN #### [facility] [address] [address] [address] HEAD WO CONon [...] REBA LOWRY Date: 2022-12-02 00:24 Normal [facility] ER URINE PROFILEon 3 Bilirubin Ql (U) Negative Normal NEGATIVE [facility] Comment on above: Performed By: #### L ACT #### [facility] [address] [address] [address] Ellen Ramirez Clarity (U) CLEAR Normal CLEAR [facility] Comment on above: Performed By: #### L ACT #### [facility] [address] [place] [address] Dr. Ellen Ramirez Color (U) YELLOW Normal YELLOW [facility] Comment on above: Performed By: #### L ACT #### [facility] [address] [place] [address] Dr. Ellen Ramirez ERUAHD A micrscopic examination will be performed if indicated. Normal [facility] Comment on above: Performed By: #### L ACT #### [facility] [address] [place] [address] Dr. Ellen Ramirez Glucose Ql (U) Negative Normal NEGATIVE [facility] Comment on above: Performed By: #### L ACT #### [facility] [address] [place] [address] Dr. Ellen Ramirez Hemoglobin Ql (U) TRACE-INTACT Abnormal NEGATIVE [facility] Comment on above: Performed By: #### L ACT #### [facility] [address] [place] [address] Dr. Ellen Ramirez Ketones Ql (U) >=80 Abnormal NEGATIVE [facility] Comment on above: Performed By: #### L ACT #### [facility] [address] [place] [address] Dr. Ellen Ramirez LEUKOCYTES Negative Normal NEGATIVE [facility] Comment on above: Performed By: #### L ACT #### [facility] [address] [place] [address] Dr. Ellen Ramirez Nitrite Ql (U) Negative Normal NEGATIVE [facility] Comment on above: Performed By: #### L ACT #### [facility] [address] [place] [address] Dr. Ellen Ramirez pH (U) 6.0 [pH] Normal 5-9 [facility] Comment on above: Performed By: #### L ACT #### [facility] [address] [place] [address] Dr. Ellen Ramirez SPEC GRAVITY 1.015 Normal 1.005-<=1.025 [facility] Comment on above: Performed By: #### L ACT #### [facility] [address] [address] [address] Ellen Ramirez UA PROTEIN Negative Normal NEGATIVE/ TRACE [facility] Comment on above: Performed By: #### L ACT #### [facility] [address] [address] [address] Ellen Ramirez UR MICRO IND NOT INDICATED Normal [facility] Comment on above: Performed By: #### L ACT #### [facility] [address] [address] [address] Ellen Ramirez Urobilinogen Qn (U) 0.2 {Ajith'U}/dL Normal 0.2 - 1. 0 [facility] Comment on above: Performed By: #### L ACT #### [facility] [address] [place] [address] Dr. Ellen Ramirez LACTATE/LACTIC ACIDon 2022 Lactate [Moles/Vol] 0.7 mmol/L Normal 0.4-2.0 [facility] Comment on above: Performed By: #### L ACT #### [facility] [address] [place] [address] Dr. Ellen Ramirez MYOGLOBINon 12-02-2022 LORENA 30 ng/mL Normal 9-82 [facility] Comment on above: Performed By: #### C HUSSAIN #### [facility] [address] [place] [address] Dr. Ellen Ramirez PROF 14(COMP METB)on 023 Albumin [Mass/Vol] 3.7 g/dL Normal 3.4-5.0 [facility] Comment on above: Performed By: #### C HUSSAIN #### [facility] [address] [place] [address] Dr. Ellen Ramirez Albumin/Globulin [Mass ratio] 1.1 {ratio} Normal [facility] Comment on above: Performed By: #### C HUSSAIN #### [facility] [address] [place] [address] Dr. Ellen Ramirez ALP [Catalytic activity/Vol] 87 U/L Normal 46-116 [facility] Comment on above: Performed By: #### C BCVIRGINIE #### [facility] [address] [address] [address] Ellen Ramirez ALT [Catalytic activity/Vol] 43 U/L Normal 14-59 [facility] Comment on above: Performed By: #### C BCVIRGINIE #### [facility] [address] [address] [address] Ellen Ramirez Anion gap [Moles/Vol] 10.9 mmol/L Normal [facility] Comment on above: Performed By: #### C BCVIRGINIE #### [facility] [address] [address] [address] Ellen Ramirez AST [Catalytic activity/Vol] 35 U/L Normal 15-37 [facility] Comment on above: Performed By: #### C HUSSAIN #### [facility] [address] [place] [address] Dr. Ellen Ramirez Bilirubin [Mass/Vol] 0.3 mg/dL Normal 0.2-1.0 [facility] Comment on above: Performed By: #### C BCVIRGINIE #### [facility] [address] [place] [address] Dr. Ellen Ramirez Calcium [Mass/Vol] 8.6 mg/dL Normal 8.5-10.1 [facility] Comment on above: Performed By: #### C HUSSAIN #### [facility] [address] [place] [address] Dr. Ellen Ramirez Chloride [Moles/Vol] 102 mmol/L Normal 98-107 [facility] Comment on above: Performed By: #### C BCVIRGINIE #### [facility] [address] [address] [address] Ellen aRmirez CO2 [Moles/Vol] 25.4 mmol/L Normal 21.0-32.0 [facility] Comment on above: Performed By: #### C BCVIRGINIE #### [facility] [address] [address] [address] Ellen Ramirez Creatinine [Mass/Vol] 0.99 mg/dL Normal 0.55-1.02 [facility] Comment on above: Performed By: #### C BCVIRGINIE #### [facility] [address] [address] [address] Ellen Ramirez EGFR-AF BELARUSIAN >60 Normal >=60 [facility] Comment on above: Performed By: #### C HUSSAIN #### [facility] [address] [address] [address] Ellen Ramirez EGFR-NON AF BELARUSIAN >60 Normal >=60 [facility] Comment on above: Performed By: #### C JOVANMAN #### [facility] [address] [address] [address] Ellen Ramirez Globulin (S) [Mass/Vol] 3.3 g/dL Normal [facility] Comment on above: Performed By: #### C HUSSAIN #### [facility] [address] [place] [address] Dr. Ellen Ramirez Glucose [Mass/Vol] 107 mg/dL Critically high 74-106 [facility] Comment on above: Performed By: #### C HUSSAIN #### [facility] [address] [address] [address] Ellen Ramirez Potassium [Moles/Vol] 3.3 mmol/L Critically low 3.5-5.1 [facility] Comment on above: Performed By: #### C HUSSAIN #### [facility] [address] [place] [address] Dr. Ellen Ramirez Protein [Mass/Vol] 7.0 g/dL Normal 6.4-8.2 [facility] Comment on above: Performed By: #### C HUSSAIN #### [facility] [address] [address] [address] Ellen Ramirez Sodium [Moles/Vol] 135 mmol/L Critically low 136-145 [facility] Comment on above: Performed By: #### C HUSSAIN #### [facility] [address] [address] [address] Ellen Ramirez Urea nitrogen [Mass/Vol] 11.0 mg/dL Normal 7.0-18.0 [facility] Comment on above: Performed By: #### C HUSSAIN #### [facility] [address] [place] [address] Dr. Ellen Ramirez Urea nitrogen/Creatinine [Mass ratio] 11.1 mg/mg Normal [facility] Comment on above: Performed By: #### C BCMAN #### [facility] [address] [place] [address] Dr. Ellen Ramirez RESPIRATORY PANEL PLUSon Adenovirus Not detected Normal NOT DETECTED [facility] Comment on above: Performed By: #### C BCMAN #### [facility] [address] [place] [address] Dr. Ellen Verduzco. Parapertusis Not detected Normal NOT DETECTED [facility] Comment on above: Performed By: #### C BCMAN #### [facility] [address] [place] [address] Dr. Ellen Verduzco. Pertussis Not detected Normal NOT DETECTED [facility] Comment on above: Performed By: #### C BCMAN #### [facility] [address] [place] [address] Dr. Ellen Ramirez Chlamydia Pneumoniae Not detected Normal NOT DETECTED [facility] Comment on above: Performed By: #### C BCMAN #### [facility] [address] [place] [address] Dr. Ellen Ramirez Coronavirus 229E Not detected Normal NOT DETECTED [facility] Comment on above: Performed By: #### C BCMAN #### [facility] [address] [place] [address] Dr. Ellen Ramirez Coronavirus HKU1 Not detected Normal NOT DETECTED [facility] Comment on above: Performed By: #### C BCMAN #### [facility] [address] [place] [address] Dr. Ellen Ramirez Coronavirus NL63 Not detected Normal NOT DETECTED [facility] Comment on above: Performed By: #### C BCMAN #### [facility] [address] [place] [address] Dr. Ellen Ramirez Coronavirus OC43 Not detected Normal NOT DETECTED [facility] Comment on above: Performed By: #### C BCMAN #### [facility] [address] [place] [address] Dr. Ellen Ramirez Influenza A H1 Not detected Normal NOT DETECTED [facility] Comment on above: Performed By: #### C BCMAN #### [facility] [address] [address] [address] Ellen Ramirez Influenza A H1 2009 Not detected Normal NOT DETECTED [facility] Comment on above: Performed By: #### C BCMAN #### [facility] [address] [address] [address] Ellen Ramirez Influenza A H3 Not detected Normal NOT DETECTED [facility] Comment on above: Performed By: #### C BCMAN #### [facility] [address] [address] [address] Ellen Ramirez Influenza B Not detected Normal NOT DETECTED [facility] Comment on above: Performed By: #### C BCMAN #### [facility] [address] [place] [address] Dr. Ellen Ramirez Metapneumovirus Not detected Normal NOT DETECTED [facility] Comment on above: Performed By: #### C BCMAN #### [facility] [address] [place] [address] Dr. Ellen Ramirez Mycoplas. Pneumoniae Not detected Normal NOT DETECTED [facility] Comment on above: Performed By: #### C BCMAN #### [facility] [address] [place] [address] Dr. Ellen Ramirez Parainfluenza 1 Not detected Normal NOT DETECTED [facility] Comment on above: Performed By: #### C BCMAN #### [facility] [address] [address] [address] Ellen Ramirez Parainfluenza 2 Not detected Normal NOT DETECTED [facility] Comment on above: Performed By: #### C BCMAN #### [facility] [address] [place] [address] Dr. Ellen Ramirez Parainfluenza 3 Not detected Normal NOT DETECTED [facility] Comment on above: Performed By: #### C BCMAN #### [facility] [address] [address] [address] Ellen Ramirez Parainfluenza 4 Not detected Normal NOT DETECTED [facility] Comment on above: Performed By: #### C HUSSAIN #### [facility] [address] [place] [address] Dr. Ellen Ramirez Rhino/Enterovirus Not detected Normal NOT DETECTED [facility] Comment on above: Performed By: #### C HUSSAIN #### [facility] [address] [place] [address] Dr. Ellen Ramirez RP2 Header 1 RESPIRATORY PANEL: VIRUSES Normal [facility] Comment on above: Performed By: #### C HUSSAIN #### [facility] [address] [place] [address] Dr. Ellen Ramirez RP2 Header 2 RESPIRATORY PANEL: BACTERIA Normal [facility] Comment on above: Performed By: #### C HUSSAIN #### [facility] [address] [place] [address] Dr. Ellen Ramirez RSV Not detected Normal NOT DETECTED [facility] Comment on above: Performed By: #### C HUSSAIN #### [facility] [address] [place] [address] Dr. Ellen Ramirez SARS-CoV-2 (COVID-19) RNA BEULAH+probe Ql (Unsp spec) Not detected Normal NOT DETECTED [facility] Comment on above: Performed By: #### C HUSSAIN #### [facility] [address] [place] [address] Dr. Ellen Ramirez [facility] SED [facility]ATE 22 mm/hr Critically high <=20 [facility] Comment on above: Performed By: #### C HUSSAIN #### [facility] [address] [place] [address] Dr. Ellen Ramirez TSHon 12-02-2022 TSH 12.836 uIU/mL Critically high 0.358-3.740 [facility] Comment on above: Performed By: #### T SH #### [facility] [address] [place] [address] Dr. Ellen Ramirez XR CHEST 2 Von [...] by: REBA LOWRY Date: 2022-12-02 00:05 Normal [facility] PAP ACOG PANEL 2: 30 to 65on 06-26-2022 . . Normal [facility] Comment on above: Result Comment: Perf ormed at: WB Performed By: #### [id number] #### [facility] [address] [address] [address] Ellen Ramirez Age Gdln ACOG Testing 30-65 [facility] Comment on above: Performed By: #### [id number] #### [facility] [address] [address] [address] Ellen Ramirez DIAGNOSIS: Comment Normal [facility] Comment on above: Result Comment: NEGA TIVE FOR INTRAEPITHELIAL LESION OR MALIGNANCY. Performed at: WB Performed By: #### [id number] #### [facility] [address] [address] [address] Ellen Ramirez HPV Aptima Negative Normal Negative [facility] Comment on above: Result Comment: This nucleic acid amplification test detects fourteen high-risk HPV types (16,18,31,33,35,39,45,51,52,56,58,59,66,68) without differentiation. Performed at: =G Performed By: #### [id number] #### [facility] [address] [address] [address] Ellen Ramirez Methodology: Comment Normal [facility] Comment on above: Result Comment: This liquid based ThinPrep(R) pap test was screened with the use of an image guided system. Performed at: WB Performed By: #### [id number] #### [facility] [address] [address] [address] Ellen Ramirez Note: Comment Normal [facility] Comment on above: Result Comment: The Pap smear is a screening test designed to aid in the detection of premalignant and malignant conditions of the uterine cervix. It is not a diagnostic procedure and should not be used as the sole means of detecting cervical cancer. Both false-positive and false-negative reports do occur. . Performed at: WB Performed By: #### [id number] #### [facility] [address] [place] [address] Dr. Ellen Ramirez Performed by: Comment Normal [facility] Comment on above: Result Comment: Pretty Aguilar, Assistant Men'S Lacrosse Coach (ASCP) Performed at: WB Performed By: #### [id number] #### [facility] [address] [place] [address] Dr. Ellen Ramirez Specimen adequacy: Comment Normal [facility] Comment on above: Result Comment: Sati sfactory for evaluation. Endocervical and/or squamous metaplastic cells (endocervical component) are present. Performed at: WB Performed By: #### [id number] #### [facility] [address] [place] [address] Dr. Ellen Ramirez CBC AUTO DIFFon 05-08-2022 BASO # 0.0 103/ul Normal 0.0-0.1 [facility] Comment on above: Performed By: #### C BC #### [facility] [address] [place] [address] Dr. Ellen Ramirez Basophils/100 WBC (Bld) 0.4 % Normal 0.2-2.0 [facility] Comment on above: Performed By: #### C BC #### [facility] [address] [place] [address] Dr. Ellen Ramirez EO # 0.1 103/ul Normal 0.0-0.7 [facility] Comment on above: Performed By: #### C BC #### [facility] [address] [place] [address] Dr. Ellen Ramirez Eosinophils/100 WBC (Bld) 1.1 % Normal 0.9-7.0 [facility] Comment on above: Performed By: #### C BC #### [facility] [address] [place] [address] Dr. Ellen Ramirez Erythrocyte distribution width (RBC) [Ratio] 18.5 % Critically high 11.0-15.0 [facility] Comment on above: Performed By: #### C BC #### [facility] [address] [place] [address] Dr. Ellen Ramirez Hematocrit (Bld) [Volume fraction] 37.2 % Normal 36.0-48.0 [facility] Comment on above: Performed By: #### C BC #### [facility] [address] [place] [address] Dr. Ellen Ramirez Hemoglobin (Bld) [Mass/Vol] 12.0 g/dL Normal 12.0-16.0 [facility] Comment on above: Performed By: #### C BC #### [facility] [address] [place] [address] Dr. Ellen Ramirez IG # 0.01 10e3/ul Normal 0.00-0.03 [facility] Comment on above: Performed By: #### C BC #### [facility] [address] [place] [address] Dr. Ellen Ramirez IG % 0.2 % Normal 0.0-0.5 [facility] Comment on above: Performed By: #### C BC #### [facility] [address] [place] [address] Dr. Ellen Ramirez LYMPH # 1.4 103/ul Normal 1.2-3.8 [facility] Comment on above: Performed By: #### C BC #### [facility] [address] [place] [address] Dr. Ellen Ramirez Lymphocytes/100 WBC (Bld) 29.2 % Normal 20.5-60.0 [facility] Comment on above: Performed By: #### C BC #### [facility] [address] [place] [address] Dr. Ellen Ramirez MANUAL DIFF REQ NO Normal [facility] Comment on above: Performed By: #### C BC #### [facility] [address] [place] [address] Dr. Ellen Ramirez MCH (RBC) [Entitic mass] 28.0 pg Normal 26.7-34.0 [facility] Comment on above: Performed By: #### C BC #### [facility] [address] [place] [address] Dr. Ellen Ramirez MCHC (RBC) [Mass/Vol] 32.3 g/dL Normal 29.9-35.2 [facility] Comment on above: Performed By: #### C BC #### [facility] [address] [place] [address] Dr. Ellen Ramirez MCV (RBC) [Entitic vol] 86.7 fL Normal 81.0-99.0 [facility] Comment on above: Performed By: #### C BC #### [facility] [address] [place] [address] Dr. Ellen Ramirez MONO # 0.4 103/ul Normal 0.3-0.8 [facility] Comment on above: Performed By: #### C BC #### [facility] [address] [place] [address] Dr. Ellen Ramirez Monocytes/100 WBC (Bld) 8.0 % Normal 1.7-12.0 [facility] Comment on above: Performed By: #### C BC #### [facility] [address] [place] [address] Dr. Ellen Ramirez NEUT # 2.9 103/ul Normal 1.4-6.5 [facility] Comment on above: Performed By: #### C BC #### [facility] [address] [place] [address] Dr. Ellen Ramirez Neutrophils/100 WBC (Bld) 61.1 % Normal 43.0-75.0 [facility] Comment on above: Performed By: #### C BC #### [facility] [address] [place] [address] Dr. Ellen Ramirez Platelet mean volume (Bld) [Entitic vol] 9.5 fL Normal 9.5-13.5 [facility] Comment on above: Performed By: #### C BC #### [facility] [address] [place] [address] Dr. Ellen Ramirez PLT 282 103/ul Normal 150-450 [facility] Comment on above: Performed By: #### C BC #### [facility] [address] [place] [address] Dr. Ellen Ramirez RBC 4.29 106/ul Normal 4.20-5.40 [facility] Comment on above: Performed By: #### C BC #### [facility] [address] [place] [address] Dr. Ellen Ramirez WBC 4.7 103/ul Normal 4.0-11.0 [facility] Comment on above: Performed By: #### C BC #### [facility] [address] [place] [address] Dr. Ellen Ramirez FERRITINon 05-08-2022 Ferritin [Mass/Vol] 92.0 ng/mL Normal 6.2-137.0 [facility] Comment on above: Performed By: #### F ERR, FT4 #### [facility] [address] [place] [address] Dr. Ellen Ramirez FREE T4on 05-08-2022 Free T4 [Mass/Vol] 0.72 ng/dL Critically low 0.76-1.46 [facility] Comment on above: Performed By: #### F ERR, FT4 #### [facility] [address] [place] [address] Dr. Ellen Ramirez TSHon 05-08-2022 TSH 3.626 uIU/mL Normal 0.358-3.740 [facility] Comment on above: Performed By: #### C BCMAN #### [facility] [address] [place] [address] Dr. Ellen Ramirez CBC AUTO DIFFon 04-14-2022 BASO # 0.0 103/ul Normal 0.0-0.1 [facility] Comment on above: Performed By: #### L ACT #### [facility] [address] [place] [address] Dr. Ellen Ramirez Basophils/100 WBC (Bld) 0.5 % Normal 0.2-2.0 [facility] Comment on above: Performed By: #### L ACT #### [facility] [address] [place] [address] Dr. Ellen Ramirez EO # 0.1 103/ul Normal 0.0-0.7 [facility] Comment on above: Performed By: #### L ACT #### [facility] [address] [place] [address] Dr. Ellen Ramirez Eosinophils/100 WBC (Bld) 2.8 % Normal 0.9-7.0 [facility] Comment on above: Performed By: #### L ACT #### [facility] [address] [place] [address] Dr. Ellen Ramirez Erythrocyte distribution width (RBC) [Ratio] 24.2 % Critically high 11.0-15.0 [facility] Comment on above: Performed By: #### L ACT #### [facility] [address] [place] [address] Dr. Ellen Ramirez Hematocrit (Bld) [Volume fraction] 36.3 % Normal 36.0-48.0 [facility] Comment on above: Performed By: #### L ACT #### [facility] [address] [place] [address] Dr. Ellen Ramirez Hemoglobin (Bld) [Mass/Vol] 11.4 g/dL Critically low 12.0-16.0 [facility] Comment on above: Performed By: #### L ACT #### [facility] [address] [place] [address] Dr. Ellen Ramirez IG # 0.01 10e3/ul Normal 0.00-0.03 [facility] Comment on above: Performed By: #### L ACT #### [facility] [address] [place] [address] Dr. Ellen Ramirez IG % 0.3 % Normal 0.0-0.5 [facility] Comment on above: Performed By: #### L ACT #### [facility] [address] [place] [address] Dr. Ellen Ramirez LYMPH # 1.3 103/ul Normal 1.2-3.8 [facility] Comment on above: Performed By: #### L ACT #### [facility] [address] [address] [address] Ellen Ramirez Lymphocytes/100 WBC (Bld) 32.6 % Normal 20.5-60.0 [facility] Comment on above: Performed By: #### L ACT #### [facility] [address] [place] [address] Dr. Ellen Ramirez MANUAL DIFF REQ NO Normal [facility] Comment on above: Performed By: #### L ACT #### [facility] [address] [address] [address] Ellen Ramirez MCH (RBC) [Entitic mass] 25.9 pg Critically low 26.7-34.0 [facility] Comment on above: Performed By: #### L ACT #### [facility] [address] [place] [address] Dr. Ellen Ramirez MCHC (RBC) [Mass/Vol] 31.4 g/dL Normal 29.9-35.2 [facility] Comment on above: Performed By: #### L ACT #### [facility] [address] [place] [address] Dr. Ellen Ramirez MCV (RBC) [Entitic vol] 82.5 fL Normal 81.0-99.0 [facility] Comment on above: Performed By: #### L ACT #### [facility] [address] [place] [address] Dr. Ellen Ramirez MONO # 0.3 103/ul Normal 0.3-0.8 [facility] Comment on above: Performed By: #### L ACT #### [facility] [address] [place] [address] Dr. Ellen Ramirez Monocytes/100 WBC (Bld) 8.5 % Normal 1.7-12.0 [facility] Comment on above: Performed By: #### L ACT #### [facility] [address] [place] [address] Dr. Ellen Ramirez NEUT # 2.4 103/ul Normal 1.4-6.5 [facility] Comment on above: Performed By: #### L ACT #### [facility] [address] [place] [address] Dr. Ellen Ramirez Neutrophils/100 WBC (Bld) 60.0 % Normal 43.0-75.0 [facility] Comment on above: Performed By: #### L ACT #### [facility] [address] [place] [address] Dr. Ellen Ramirez Platelet mean volume (Bld) [Entitic vol] 9.6 fL Normal 9.5-13.5 [facility] Comment on above: Performed By: #### L ACT #### [facility] [address] [place] [address] Dr. Ellen Ramirez PLT 264 103/ul Normal 150-450 [facility] Comment on above: Performed By: #### L ACT #### [facility] [address] [place] [address] Dr. Ellen Ramirez RBC 4.40 106/ul Normal 4.20-5.40 [facility] Comment on above: Performed By: #### L ACT #### [facility] [address] [place] [address] Dr. Ellen Ramirez WBC 3.9 103/ul Critically low 4.0-11.0 [facility] Comment on above: Performed By: #### L ACT #### [facility] [address] [place] [address] Dr. Ellen Ramirez PREG HCG QUALon 04-14-2022 , QUAL Negative Normal NEGATIVE [facility] Comment on above: Performed By: #### P REG #### [facility] [address] [place] [address] Dr. Ellen Ramirez Covid-19 PCR (CVDTB)on 03-24 SARS-CoV-2 (COVID-19) RNA BEULAH+probe Ql (Unsp spec) Not detected Normal NOT DETECTED [facility] Comment on above: Result Comment: This test is not yet approved or cleared by the [place] FDA. When there are no FDA-approved or cleared tests available, and other criteria are met, FDA can make tests available under an emergency access mechanism called an Emergency Use Authorization (EUA). The EUA for this test is supported by the Hatcher[employer] Manager of Health and Human Service's (HHS's) declaration [...] consistent with SARS-CoV-2. Performed By: #### C VDTBH #### [facility] [address] [place] [address] Dr. Ellen Ramirez CBC W MANUAL DIFFon 03-30-20 22 ACANTHOCYTES 1+ Normal [facility] Comment on above: Result Comment: Prev iously reported as: 1+ On 03/30/2022 14:46 By BQ2 Performed By: #### C HUSSAIN #### [facility] [address] [place] [address] Dr. Ellen Ramirez ATYPICAL LYMPH # Normal [facility] Comment on above: Performed By: #### C HUSSAIN #### [facility] [address] [place] [address] Dr. Ellen Ramirez ATYPICAL LYMPH % Normal [facility] Comment on above: Performed By: #### C HUSSAIN #### [facility] [address] [place] [address] Dr. Ellen Ramirez BAND # Normal 0.0-0.3 [facility] Comment on above: Performed By: #### C HUSSAIN #### [facility] [address] [place] [address] Dr. Ellen Ramirez BAND % Normal 0-5 [facility] Comment on above: Performed By: #### C HUSSAIN #### [facility] [address] [place] [address] Dr. Ellen Ramirez BASOM # 0.00 103/ul Normal 0.00-0.10 [facility] Comment on above: Performed By: #### C HUSSAIN #### [facility] [address] [place] [address] Dr. Ellen Ramirez BASOM % 0.0 % Critically low 0.2-2.0 [facility] Comment on above: Performed By: #### C BCMAN #### [facility] [address] [place] [address] Dr. Ellen Ramirez BLAST # Normal [facility] Comment on above: Performed By: #### C BCVIRGINIE #### [facility] [address] [place] [address] Dr. Ellen Ramirez BLAST % Normal [facility] Comment on above: Performed By: #### C BCVIRGINIE #### [facility] [address] [place] [address] Dr. Ellen Ramirez CORRECTED WBC Normal 4.0-11.0 [facility] Comment on above: Performed By: #### C BCVIRGINIE #### [facility] [address] [place] [address] Dr. Ellen Ramirez EOS # 0.10 103/ul Normal 0.00-0.70 [facility] Comment on above: Performed By: #### C BCVIRGINIE #### [facility] [address] [place] [address] Dr. Ellen Ramirez EOS% 2.0 % Normal 0.9-7.0 [facility] Comment on above: Performed By: #### C HUSSAIN #### [facility] [address] [place] [address] Dr. Ellen Ramirez HCT 33.3 % Critically low 36.0-48.0 [facility] Comment on above: Performed By: #### C BCMAN #### [facility] [address] [place] [address] Dr. Ellen Ramirez HGB 10.4 g/dl Critically low 12.0-16.0 [facility] Comment on above: Performed By: #### C BCVIRGINIE #### [facility] [address] [place] [address] Dr. Ellen Ramirez LYMPHM # 1.78 103/ul Normal 1.20-3.80 [facility] Comment on above: Performed By: #### C BCVIRGINIE #### [facility] [address] [place] [address] Dr. Ellen Ramirez LYMPHM% 37.0 % Normal 20.5-60.0 [facility] Comment on above: Performed By: #### C HUSSAIN #### [facility] [address] [place] [address] Dr. Ellen Ramirez MCH 25.6 pg Critically low 26.7-34.0 [facility] Comment on above: Performed By: #### C HUSSAIN #### [facility] [address] [place] [address] Dr. Ellen Ramirez MCHC 31.2 g/dl Normal 29.9-35.2 [facility] Comment on above: Performed By: #### C HUSSAIN #### [facility] [address] [place] [address] Dr. Ellen Ramirez MCV 81.8 fL Normal 81.0-99.0 [facility] Comment on above: Performed By: #### C HUSSAIN #### [facility] [address] [place] [address] Dr. Ellen Ramirez METAMYELOCYTE # Normal [facility] Comment on above: Performed By: #### C HUSSAIN #### [facility] [address] [place] [address] Dr. Ellen Ramirez METAMYELOCYTE % Normal [facility] Comment on above: Performed By: #### C HUSSAIN #### [facility] [address] [place] [address] Dr. Ellen Ramirez MONOM# 0.43 103/ul Normal 0.30-0.80 [facility] Comment on above: Performed By: #### C HUSSAIN #### [facility] [address] [place] [address] Dr. Ellen Ramirez MONOM% 9.0 % Normal 1.7-12.0 [facility] Comment on above: Performed By: #### C HUSSAIN #### [facility] [address] [place] [address] Dr. Ellen Ramirez MPV 10.2 fL Normal 9.5-13.5 [facility] Comment on above: Performed By: #### C HUSSAIN #### [facility] [address] [address] [address] Ellen Ramirez MYELOCYTE # Normal [facility] Comment on above: Performed By: #### C HUSSAIN #### [facility] [address] [place] [address] Dr. Ellen Ramirez MYELOCYTE % Normal [facility] Comment on above: Performed By: #### C HUSSANI #### [facility] [address] [place] [address] Dr. Ellen Ramirez NRBC Normal [facility] Comment on above: Performed By: #### C HUSSAIN #### [facility] [address] [place] [address] Dr. Ellen Ramirez OVALOCYTES 1+ Normal [facility] Comment on above: Result Comment: Prev iously reported as: 1+ On 03/30/2022 14:46 By BQ2 Performed By: #### C HUSSAIN #### [facility] [address] [place] [address] Dr. Ellen Ramirez PLT 302 103/ul Normal 150-450 [facility] Comment on above: Performed By: #### C HUSSAIN #### [facility] [address] [place] [address] Dr. Ellen Ramirez RBC 4.07 106/ul Critically low 4.20-5.40 [facility] Comment on above: Performed By: #### C HUSSAIN #### [facility] [address] [place] [address] Dr. Ellen Ramirez RDW 26.7 % Critically high 11.0-15.0 [facility] Comment on above: Performed By: #### C HUSSAIN #### [facility] [address] [place] [address] Dr. Ellen Ramirez SEG # 2.50 103/ul Normal 1.40-6.50 [facility] Comment on above: Performed By: #### C HUSSAIN #### [facility] [address] [place] [address] Dr. Ellen Ramirez SEG % 52.0 % Normal 43.0-75.0 [facility] Comment on above: Performed By: #### C BCMAN #### [facility] [address] [address] [address] Ellen Ramirez TEAR DROP CELLS 1+ Normal [facility] Comment on above: Result Comment: Prev iously reported as: 1+ On 03/30/2022 14:46 By BQ2 Performed By: #### C HUSSAIN #### [facility] [address] [address] [address] Ellen Ramirez WBC 4.8 103/ul Normal 4.0-11.0 [facility] Comment on above: Performed By: #### C BCMAN #### [facility] [address] [address] [address] Ellen Ramirez US PELVIS AND TRANSVAGon [...] AHSAN FLORES Date: 2022-03-30 18:10 Normal [facility] TSHon 03-16-2022 TSH 2.199 uIU/mL Normal 0.358-3.740 [facility] Comment on above: Performed By: #### T #### [facility] [address] [address] [address] Ellen Ramirez CBC AUTO DIFFon 02-14-2022 BASO # 0.0 103/ul Normal 0.0-0.1 [facility] Comment on above: Performed By: #### C HUSSAIN #### [facility] [address] [place] [address] Dr. Ellen Ramirez Basophils/100 WBC (Bld) 0.4 % Normal 0.2-2.0 [facility] Comment on above: Performed By: #### C HUSSAIN #### [facility] [address] [place] [address] Dr. Ellen Ramirez EO # 0.0 103/ul Normal 0.0-0.7 [facility] Comment on above: Performed By: #### C HUSSAIN #### [facility] [address] [place] [address] Dr. Ellen Ramirez Eosinophils/100 WBC (Bld) 0.4 % Critically low 0.9-7.0 [facility] Comment on above: Performed By: #### C HUSSAIN #### [facility] [address] [place] [address] Dr. Ellen Ramierz Erythrocyte distribution width (RBC) [Ratio] 16.4 % Critically high 11.0-15.0 [facility] Comment on above: Performed By: #### C HUSSAIN #### [facility] [address] [place] [address] Dr. Ellen Ramirez Hematocrit (Bld) [Volume fraction] 24.4 % Critically low 36.0-48.0 [facility] Comment on above: Performed By: #### C HUSSAIN #### [facility] [address] [place] [address] Dr. Ellen Ramirez Hemoglobin (Bld) [Mass/Vol] 7.0 g/dL Critically low 12.0-16.0 [facility] Comment on above: Performed By: #### C HUSSAIN #### [facility] [address] [place] [address] Dr. Ellen Ramirez IG # 0.02 10e3/ul Normal 0.00-0.03 [facility] Comment on above: Performed By: #### C HUSSAIN #### [facility] [address] [place] [address] Dr. Ellen Ramirez IG % 0.3 % Normal 0.0-0.5 [facility] Comment on above: Performed By: #### C HUSSAIN #### [facility] [address] [place] [address] Dr. Ellen Ramirez LYMPH # 1.6 103/ul Normal 1.2-3.8 [facility] Comment on above: Performed By: #### C HUSSAIN #### [facility] [address] [place] [address] Dr. Ellen Ramirez Lymphocytes/100 WBC (Bld) 21.8 % Normal 20.5-60.0 [facility] Comment on above: Performed By: #### C HUSSAIN #### [facility] [address] [place] [address] Dr. Ellen Ramirez MANUAL DIFF REQ NO Normal [facility] Comment on above: Performed By: #### C HUSSAIN #### [facility] [address] [place] [address] Dr. Ellen Ramirez MCH (RBC) [Entitic mass] 20.0 pg Critically low 26.7-34.0 [facility] Comment on above: Performed By: #### C HUSSAIN #### [facility] [address] [place] [address] Dr. Ellen Ramirez MCHC (RBC) [Mass/Vol] 28.7 g/dL Critically low 29.9-35.2 [facility] Comment on above: Result Comment: HYPO CHROMIC MICROCYTIC STOMATOCYTES SEEN Performed By: #### C HUSSAIN #### [facility] [address] [place] [address] Dr. Ellen Ramirez MCV (RBC) [Entitic vol] 69.7 fL Critically low 81.0-99.0 [facility] Comment on above: Performed By: #### C HUSSAIN #### [facility] [address] [place] [address] Dr. Ellen Ramirez MONO # 0.7 103/ul Normal 0.3-0.8 [facility] Comment on above: Performed By: #### C HUSSAIN #### [facility] [address] [place], [place] [id number] Dr. Ellen Ramirez Monocytes/100 WBC (Bld) 9.3 % Normal 1.7-12.0 [facility] Comment on above: Performed By: #### C HUSSAIN #### [facility] [address] [place] [address] Dr. Ellen Ramirez NEUT # 4.9 103/ul Normal 1.4-6.5 [facility] Comment on above: Performed By: #### C HUSSAIN #### [facility] [address] [place] [address] Dr. Ellen Ramirez Neutrophils/100 WBC (Bld) 67.8 % Normal 43.0-75.0 [facility] Comment on above: Performed By: #### C HUSSAIN #### [facility] [address] [place] [address] Dr. Ellen Ramirez Platelet mean volume (Bld) [Entitic vol] 9.8 fL Normal 9.5-13.5 [facility] Comment on above: Performed By: #### C HUSSAIN #### [facility] [address] [place] [address] Dr. Ellen Ramirez PLT 391 103/ul Normal 150-450 [facility] Comment on above: Performed By: #### C HUSSAIN #### [facility] [address] [place] [address] Dr. Ellen Ramirez RBC 3.50 106/ul Critically low 4.20-5.40 [facility] Comment on above: Performed By: #### C HUSSAIN #### [facility] [address] [place] [address] Dr. Ellen Ramirez WBC 7.2 103/ul Normal 4.0-11.0 [facility] Comment on above: Performed By: #### C HUSSAIN #### [facility] [address] [place] [address] Dr. Ellen Ramirez PREG QUANT HCGon 02-14-2022 HCG QUANT <1 Normal [facility] Comment on above: Performed By: #### L ACT #### [facility] [address] [place] [address] Dr. Ellen Ramirez HCG RANGE SEE BELOW Normal [facility] Comment on above: Result Comment: 5-50 0-1 WEEK 40-300 1-2 WEEKS 100-1,000 2-3 WEEKS 500-6,000 3-4 WEEKS 5,000-200,000 1-2 MONTHS 10,000-100,000 2-3 MONTHS 3,000-50,000 2ND TRIMESTER 1,000-50,000 3RD TRIMESTER Performed By: #### L ACT #### [facility] [address] [address] [address] Ellen Ramirez PROTIMEon 02-14-2022 INR Coag (PPP) [Relative time] 1.00 {INR} Normal [facility] Comment on above: Performed By: #### L ACT #### [facility] [address] [place] [address] Dr. Ellen Ramirez INR GUIDELINES SEE BELOW Normal [facility] Comment on above: Result Comment: CARMEN RED INR: 2.0 - 3.0 CONDITIONS NOT LISTED BELOW 2.5 - 3.5 FOR PROSTHETIC HEART VALVE REPLACEMENT 2.5 - 3.5 RECURRENT THROMBOSIS Performed By: #### L ACT #### [facility] [address] [address] [address] Ellen Ramirez PT Coag (PPP) [Time] 10.8 s Normal 9.0-11.6 [facility] Comment on above: Performed By: #### L ACT #### [facility] [address] [place] [address] Dr. Ellen Ramirez PTTon 02-14-2022 aPTT Coag (Bld) [Time] 25.7 s Normal 22.3-36.2 [facility] Comment on above: Performed By: #### L ACT #### [facility] [address] [address] [address] Ellen Ramirez TSHon 02-14-2022 TSH 15.176 uIU/mL Critically high 0.358-3.740 [facility] Comment on above: Performed By: #### L ACT #### [facility] [address] [address] [address] Ellen Ramirez TSH RANGE SEE BELOW Normal [facility] Comment on above: Result Comment: <0.3 4 UIU/ml HYPERTHYROID 0.34-5.60 UIU/ml EUTHYROID >5.60 UIU/ml HYPOTHYROID Performed By: #### L ACT #### [facility] [address] [address] [address] Ellen Ramirez US PELVIS AND TRANSVAGon [...] AHSAN FLORES Date: 2022-02-14 15:03 Normal [facility] Encounters Encounter Date Encounter Type Care Provider Facility Start: 03-17-2024 End: 03-17-2024 ambulatory Patsy Villafana MD Facility:[facility] Start: 02-27-2024 End: 02-27-2024 ambulatory CATRACHO ROSALES [facility] Start: 12-06-2023 End: 12-07-2023 ambulatory CATRACHO ROSALES Not Available Start: 11-22-2023 End: 11-22-2023 ambulatory CATRACHO ROSALES Not Available Start: 11-19-2023 End: 11-20-2023 ambulatory CATRACHO ROSALES Not Available Start: 11-15-2023 End: 11-15-2023 ambulatory CATRACHO ROSALES Not Available Start: 12-02-2022 End: 12-02-[address] CATRACHO ROSALES . Facility:[facility] Start: 08-02-[address] CATRACHO ROSALES . Fac ility:[facility] Start: 06-19-2022 End: 06-19-[address] CATRACHO ROSALES . Facility:[facility] Start: 05-08-2022 End: 05-09-[address] JOSE DANIEL ROOT . Facility:[facility] Start: 04-14-2022 End: 04-14-[address] JOSE DANIEL ROOT . Facility:[facility] Start: 04-13-2022 Encounter for preprocedural laboratory examination DR JOSE DANIEL ROOT . [facility] Start: 04-11-2022 End: 04-12-[address] JOSE DANIEL ROOT . Facility:[facility] Start: 04-11-2022 End: 04-12-2022 Encounter for preprocedural laboratory examination DR JOSE DANIEL ROOT . Facility:[facility] Start: 04-05-2022 Encounter for other preprocedural examination DR JOSE DANIEL ROOT . [facility] Start: 04-03-2022 End: 04-04-[address] [...] Facility:[facility] Payers Date Payer Category Payer Unknown 1980 Unknown [id number] 2.16.84 0.1.807226.3.579.2.593 1980 Unknown [id number] 2.16.84 0.1.561314.3.579.2.593 1980 Unknown [id number] 2.16.84 0.1.169548.3.579.2.593 1980 Unknown [id number] 2.16.84 0.1.810570.3.579.2.593 1980 Unknown [id number] 2.16.84 0.1.511437.3.579.2.593 1980 Unknown [id number] .16.84 0.1.103149.3.579.2.593 1980 Unknown [id number] 2.16.84 0.1.656094.3.579.2.593 1980 Unknown [id number] 2.16.84 0.1.226743.3.579.2.593 1980 Unknown [id number] 2.16.84 0.1.388657.3.579.2.593 1980 Unknown [id number] 2.16.84 0.1.757472.3.579.2.593 1980 Unknown [id number] 2.16.84 0.1.547400.3.579.2.593 1980 Unknown [id number] 2.16.84 0.1.509165.3.579.2.593 1980 Unknown [id number] 2.16.84 0.1.590973.3.579.2.593 1980 Unknown [id number] 2.16.84 0.1.635758.3.579.2.1259 1980 Unknown [id number] 2.16.84 0.1.283417.3.579.2.1259 1980 Unknown [id number] 2.16.84 0.1.657434.3.579.2.1258 1980 Unknown [id number] 2.16.84 0.1.294063.3.579.2.1258 1980 Unknown [id number] 2.16.84 0.1.407257.3.579.2.1258 1980 Unknown [id number] 2.16.84 0.1.309682.3.579.2.1258 1980 Unknown [id number] 2.16.8 40.1.989715.3.579.2.1285 1980 Unknown [id number] 2.16.8 40.1.861504.3.579.2.1285 1980 Unknown [id number] 2.16.8 40.1.785692.3.579.2.1285 1980 Unknown [id number] 2.16.8 40.1.273881.3.579.2.1285 1980 Unknown [id number] 2.16.8 40.1.915954.3.579.2.1285 1980 Unknown [id number] 2.16.8 40.1.832294.3.579.2.1285 1980 Unknown [id number] 2.16. 840.1.357985.3.579.2.196 1959 Self-pay [id number] Unknown [id number] Clinical Note 11-19-2023 Note Date & Type [...] ANESTHESIA: General. SURGEON: Jose Daniel Root D.O. EXECUTIVE VICE PRESIDENT AND CHIEF OPERATING OFFICER: None. FINDINGS: Normal appearing cavity. No gross [...] taken to recovery in stable condition. [facility] Summary Purpose Family History No Family History Records FoundNo Family History Records FoundNo Family History Records FoundNo Family History Records Found Advance Directives No Advanced Directives Records FoundNo Advanced Directives Records FoundNo Advanced Directives Records FoundNo Advanced Directives Records Found Additional Source Comments INFORMATION SOURCE (unrecogn ized section and content) DATE CREATED AUTHOR [facility] DATE CREATED AUTHOR AUTHOR'S ORGANIZ ATION 12/09/2023 [facility] EPIC DATE CREATED AUTHOR AUTHOR'S ORGANIZ ATION 02/28/2024 [facility] DATE CREATED AUTHOR AUTHOR'S ORGANIZ ATION 03/19/[address] [facility] FOR RECORDS PERTAINING TO PATIENTS WHO ARE [...] BE BASED ON THE PRIMARY CLINICAL RECORDS. [facility] [employer] [facility]. provides no warranty or guarantee of the accuracy or completeness of information in this document.
== END 2024-03-20 09:48 | disposition home or self-care (01) ==
LOC: PM 09:48
PROVIDERS: PCP Family Medicine; Visit Provider Nurse Practitioner
DX: M47.816 Spondylosis without myelopathy or radiculopathy, lumbar region (principal); M51.36 Other intervertebral disc degeneration, lumbar region; M54.50 Low back pain, unspecified; G89.29 Other chronic pain
CPT/HCPCS: G0463

== ENCOUNTER 2024-03-31 07:18 | Day surgery (SDC) | payer BC, SELFPAY ==
--- OUTSIDE RECORDS SUMMARY | 2024-03-31 07:20 | XMS_ITS | CCD ---
Author Organization 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 Ellen Ramirez ATYPICAL LYMPH % Normal [facility] Comment on above: Performed By: #### C HUSSAIN #### [facility] [address] [place] [address] Dr. Ellen Ramirez BAND # 0.0 103/ul Normal 0.0-0.3 [facility] Comment on above: Performed By: #### C HUSSAIN #### [facility] [address] [place] [address] Dr. Ellen Ramirez BAND % 0 % Normal 0-5 [facility] Comment on above: Performed By: #### C HUSSAIN #### [facility] [address] [place] [address] Dr. Ellen Ramirez BASOM # 0.00 103/ul Normal 0.00-0.10 [facility] Comment on above: Performed By: #### C HUSSAIN #### [facility] [address] [address] [address] Ellen Ramirez BASOM % 0.0 % Critically low 0.2-2.0 [facility] Comment on above: Performed By: #### C BCMAN #### [facility] [address] [address] [address] Ellen Ramirez BLAST # Normal [facility] Comment on above: Performed By: #### C BCMAN #### [facility] [address] [address] [address] Ellen Ramirez BLAST % Normal [facility] Comment on above: Performed By: #### C BCVIRGINIE #### [facility] [address] [place] [address] Dr. Ellen Ramirez CORRECTED WBC Normal 4.0-11.0 [facility] Comment on above: Performed By: #### C BCVIRGINIE #### [facility] [address] [place] [address] Dr. Ellen Ramirez EOS # 0.46 103/ul Normal 0.00-0.70 [facility] Comment on above: Performed By: #### C BCVIRGINIE #### [facility] [address] [place] [address] Dr. Ellen Ramirez EOS% 6.0 % Normal 0.9-7.0 [facility] Comment on above: Performed By: #### C BCVIRGINIE #### [facility] [address] [place] [address] Dr. Ellen Ramirez HCT 33.6 % Critically low 36.0-48.0 [facility] Comment on above: Performed By: #### C BCMAN #### [facility] [address] [place] [address] Dr. Ellen Ramirez HGB 11.5 g/dl Critically low 12.0-16.0 [facility] Comment on above: Performed By: #### C BCMAN #### [facility] [address] [place] [address] Dr. Ellen Ramirez LYMPHM # 0.15 103/ul Critically low 1.20-3.80 [facility] Comment on above: Performed By: #### C HUSSAIN #### [facility] [address] [address] [address] Ellen Ramirez LYMPHM% 2.0 % Critically low 20.5-60.0 [facility] Comment on above: Performed By: #### C HUSSAIN #### [facility] [address] [place] [address] Dr. Ellen Ramirez MCH 29.3 pg Normal 26.7-34.0 [facility] Comment on above: Performed By: #### C HUSSAIN #### [facility] [address] [place] [address] Dr. Ellen Ramirez MCHC 34.2 g/dl Normal 29.9-35.2 [facility] Comment on above: Performed By: #### C HUSSAIN #### [facility] [address] [place] [address] Dr. Ellen Ramirez MCV 85.5 fL Normal 81.0-99.0 [facility] Comment on above: Performed By: #### C HUSSAIN #### [facility] [address] [place] [address] Dr. Ellen Ramirez METAMYELOCYTE # Normal [facility] Comment on above: Performed By: #### C HUSSAIN #### [facility] [address] [place] [address] Dr. Ellen Ramirez METAMYELOCYTE % Normal [facility] Comment on above: Performed By: #### C HUSSAIN #### [facility] [address] [place] [address] Dr. Ellne Ramirez MONOM# 0.38 103/ul Normal 0.30-0.80 [facility] Comment on above: Performed By: #### C HUSSAIN #### [facility] [address] [place] [address] Dr. Ellen Ramirez MONOM% 5.0 % Normal 1.7-12.0 [facility] Comment on above: Performed By: #### C HUSSAIN #### [facility] [address] [place] [address] Dr. Ellen Ramirez MPV 9.4 fL Critically low 9.5-13.5 [facility] Comment on above: Performed By: #### C BCVIRGINIE #### [facility] [address] [place] [address] Dr. Ellen Ramirez MYELOCYTE # Normal [facility] Comment on above: Performed By: #### C BCVIRGINIE #### [facility] [address] [address] [address] Ellen Ramirez MYELOCYTE % Normal [facility] Comment on above: Performed By: #### C BCVIRGINIE #### [facility] [address] [address] [address] Ellen Ramirez NRBC Normal [facility] Comment on above: Performed By: #### C HUSSAIN #### [facility] [address] [place] [address] Dr. Ellen Ramirez PLT 281 103/ul Normal 150-450 [facility] Comment on above: Performed By: #### C HUSSAIN #### [facility] [address] [place] [address] Dr. Ellen Ramirez RBC 3.93 106/ul Critically low 4.20-5.40 [facility] Comment on above: Performed By: #### C HUSSAIN #### [facility] [address] [place] [address] Dr. Ellen Ramirez RDW 13.0 % Normal 11.0-15.0 [facility] Comment on above: Performed By: #### C HUSSAIN #### [facility] [address] [place] [address] Dr. Ellen Ramirez SEG # 6.61 103/ul Critically high 1.40-6.50 [facility] Comment on above: Performed By: #### C BCVIRGINIE #### [facility] [address] [place] [address] Dr. Ellen Ramirez SEG % 87.0 % Critically high 43.0-75.0 [facility] Comment on above: Performed By: #### C HUSSAIN #### [facility] [address] [address] [address] Ellen Ramirez WBC 7.6 103/ul Normal 4.0-11.0 [facility] Comment on above: Performed By: #### C BCMAN #### [facility] [address] [address] [address] Ellen Ramirez CPKon 12-02-2022 CK [Catalytic activity/Vol] 50 U/L Normal 26-192 [facility] Comment on above: Performed By: #### C BCMAN #### [facility] [address] [address] [address] Ellen Ramirez CRPon 12-02-2022 CRP 5.4 mg/dL Critically high <=1.0 [facility] Comment on above: Performed By: #### C BCMAN #### [facility] [address] [address] [address] HEAD WO CONon [...] REBA LOWRY Date: 2022-12-02 00:24 Normal [facility] ER URINE PROFILEon 3 Bilirubin Ql (U) Negative Normal NEGATIVE [facility] Comment on above: Performed By: #### L ACT #### [facility] [address] [address] [address] Ellen Ramirez Clarity (U) CLEAR Normal CLEAR [facility] Comment on above: Performed By: #### L ACT #### [facility] [address] [place] [address] Dr. Ellen Ramirez Color (U) YELLOW Normal YELLOW [facility] Comment on above: Performed By: #### L ACT #### [facility] [address] [place] [address] Dr. Ellen Ramirez ERUAHD A micrscopic examination will be performed if indicated. Normal [facility] Comment on above: Performed By: #### L ACT #### [facility] [address] [place] [address] Dr. Ellen Ramirez Glucose Ql (U) Negative Normal NEGATIVE [facility] Comment on above: Performed By: #### L ACT #### [facility] [address] [place] [address] Dr. Ellen Ramirez Hemoglobin Ql (U) TRACE-INTACT Abnormal NEGATIVE [facility] Comment on above: Performed By: #### L ACT #### [facility] [address] [place] [address] Dr. Ellen Ramirez Ketones Ql (U) >=80 Abnormal NEGATIVE [facility] Comment on above: Performed By: #### L ACT #### [facility] [address] [place] [address] Dr. Ellen Ramirez LEUKOCYTES Negative Normal NEGATIVE [facility] Comment on above: Performed By: #### L ACT #### [facility] [address] [place] [address] Dr. Ellen Ramirez Nitrite Ql (U) Negative Normal NEGATIVE [facility] Comment on above: Performed By: #### L ACT #### [facility] [address] [place] [address] Dr. Ellen Ramirez pH (U) 6.0 [pH] Normal 5-9 [facility] Comment on above: Performed By: #### L ACT #### [facility] [address] [place] [address] Dr. Ellen Ramirez SPEC GRAVITY 1.015 Normal 1.005-<=1.025 [facility] Comment on above: Performed By: #### L ACT #### [facility] [address] [address] [address] Ellen Ramirez UA PROTEIN Negative Normal NEGATIVE/ TRACE [facility] Comment on above: Performed By: #### L ACT #### [facility] [address] [address] [address] Ellen Ramirez UR MICRO IND NOT INDICATED Normal [facility] Comment on above: Performed By: #### L ACT #### [facility] [address] [address] [address] Ellen Ramirez Urobilinogen Qn (U) 0.2 {Ajith'U}/dL Normal 0.2 - 1. 0 [facility] Comment on above: Performed By: #### L ACT #### [facility] [address] [place] [address] Dr. Ellen Ramirez LACTATE/LACTIC ACIDon 2022 Lactate [Moles/Vol] 0.7 mmol/L Normal 0.4-2.0 [facility] Comment on above: Performed By: #### L ACT #### [facility] [address] [place] [address] Dr. Ellen Ramirez MYOGLOBINon 12-02-2022 LORENA 30 ng/mL Normal 9-82 [facility] Comment on above: Performed By: #### C HUSSAIN #### [facility] [address] [place] [address] Dr. Ellen Ramirez PROF 14(COMP METB)on 023 Albumin [Mass/Vol] 3.7 g/dL Normal 3.4-5.0 [facility] Comment on above: Performed By: #### C HUSSAIN #### [facility] [address] [place] [address] Dr. Ellen Ramirez Albumin/Globulin [Mass ratio] 1.1 {ratio} Normal [facility] Comment on above: Performed By: #### C HUSSAIN #### [facility] [address] [place] [address] Dr. Ellen Ramirez ALP [Catalytic activity/Vol] 87 U/L Normal 46-116 [facility] Comment on above: Performed By: #### C BCVIRGINIE #### [facility] [address] [address] [address] Ellne Ramirez ALT [Catalytic activity/Vol] 43 U/L Normal 14-59 [facility] Comment on above: Performed By: #### C BCVIRGINIE #### [facility] [address] [address] [address] Ellen Ramirez Anion gap [Moles/Vol] 10.9 mmol/L Normal [facility] Comment on above: Performed By: #### C BCVIRGINIE #### [facility] [address] [address] [address] Ellen Ramirez AST [Catalytic activity/Vol] 35 U/L Normal 15-37 [facility] Comment on above: Performed By: #### C HUSSAIN #### [facility] [address] [place] [address] Dr. Ellen Ramirez Bilirubin [Mass/Vol] 0.3 mg/dL Normal 0.2-1.0 [facility] Comment on above: Performed By: #### C BCVIRGINIE #### [facility] [address] [place] [address] Dr. Ellen Ramirez Calcium [Mass/Vol] 8.6 mg/dL Normal 8.5-10.1 [facility] Comment on above: Performed By: #### C HUSSAIN #### [facility] [address] [place] [address] Dr. Ellen Ramirez Chloride [Moles/Vol] 102 mmol/L Normal 98-107 [facility] Comment on above: Performed By: #### C BCVIRGINIE #### [facility] [address] [address] [address] Ellen Ramirez CO2 [Moles/Vol] 25.4 mmol/L Normal 21.0-32.0 [facility] Comment on above: Performed By: #### C BCVIRGINIE #### [facility] [address] [address] [address] Ellen Ramirez Creatinine [Mass/Vol] 0.99 mg/dL Normal 0.55-1.02 [facility] Comment on above: Performed By: #### C BCVIRGINIE #### [facility] [address] [address] [address] Ellen Ramirez EGFR-AF SRI LANKAN >60 Normal >=60 [facility] Comment on above: Performed By: #### C HUSSAIN #### [facility] [address] [address] [address] Ellen Ramirez EGFR-NON AF SRI LANKAN >60 Normal >=60 [facility] Comment on above: Performed By: #### C JOVANMAN #### [facility] [address] [address] [address] Ellen Ramirez Globulin (S) [Mass/Vol] 3.3 g/dL Normal [facility] Comment on above: Performed By: #### C HUSSAIN #### [facility] [address] [place] [address] Dr. Ellen Ramirez Glucose [Mass/Vol] 107 mg/dL Critically high 74-106 [facility] Comment on above: Performed By: #### C HUSSAIN #### [facility] [address] [address] [address] Ellen Ramirez Potassium [Moles/Vol] 3.3 mmol/L Critically low 3.5-5.1 [facility] Comment on above: Performed By: #### C HUSSAIN #### [facility] [address] [place] [address] Dr. Ellen Ramirez Protein [Mass/Vol] 7.0 g/dL Normal 6.4-8.2 [facility] Comment on above: Performed By: #### C HUSSAIN #### [facility] [address] [address] [address] Ellen Ramirez Sodium [Moles/Vol] 135 mmol/L Critically low 136-145 [facility] Comment on above: Performed By: #### C HUSSAIN #### [facility] [address] [address] [address] Ellen Ramirez Urea nitrogen [Mass/Vol] 11.0 mg/dL Normal 7.0-18.0 [facility] Comment on above: Performed By: #### C HUSSAIN #### [facility] [address] [place] [address] Dr. Ellen Ramirez Urea nitrogen/Creatinine [Mass ratio] 11.1 mg/mg Normal [facility] Comment on above: Performed By: #### C BCMAN #### [facility] [address] [place] [address] Dr. Ellen Ramirez RESPIRATORY PANEL PLUSon Adenovirus Not detected Normal NOT DETECTED [facility] Comment on above: Performed By: #### C BCMAN #### [facility] [address] [place] [address] Dr. Ellen Verduzco. Parapertusis Not detected Normal NOT DETECTED [facility] Comment on above: Performed By: #### C BCMAN #### [facility] [address] [place] [address] Dr. Ellen Verduzco. Pertussis Not detected Normal NOT DETECTED [facility] Comment on above: Performed By: #### C BCMAN #### [facility] [address] [place] [address] Dr. Ellen Ramirez Chlamydia Pneumoniae Not detected Normal NOT DETECTED [facility] Comment on above: Performed By: #### C BCMAN #### [facility] [address] [place] [address] Dr. Ellen Ramirez Coronavirus 229E Not detected Normal NOT DETECTED [facility] Comment on above: Performed By: #### C BCMAN #### [facility] [address] [place] [address] Dr. Ellen Ramirez Coronavirus HKU1 Not detected Normal NOT DETECTED [facility] Comment on above: Performed By: #### C BCMAN #### [facility] [address] [place] [address] Dr. Ellen Ramirez Coronavirus NL63 Not detected Normal NOT DETECTED [facility] Comment on above: Performed By: #### C BCMAN #### [facility] [address] [place] [address] Dr. Ellen Ramirez Coronavirus OC43 Not detected Normal NOT DETECTED [facility] Comment on above: Performed By: #### C BCMAN #### [facility] [address] [place] [address] Dr. Ellen Ramirez Influenza A H1 Not detected Normal NOT DETECTED [facility] Comment on above: Performed By: #### C BCMAN #### [facility] [address] [address] [address] Ellen Ramirez Influenza A H1 2009 Not detected Normal NOT DETECTED [facility] Comment on above: Performed By: #### C BCMAN #### [facility] [address] [address] [address] Ellen aRmirez Influenza A H3 Not detected Normal NOT DETECTED [facility] Comment on above: Performed By: #### C BCMAN #### [facility] [address] [address] [address] Ellen Ramirez Influenza B Not detected Normal NOT DETECTED [facility] Comment on above: Performed By: #### C BCMAN #### [facility] [address] [place] [address] Dr. Ellen Ramirez Metapneumovirus Not detected Normal NOT DETECTED [facility] Comment on above: Performed By: #### C BCMAN #### [facility] [address] [place] [address] Dr. Ellen Ramirez Mycoplas. Pneumoniae Not detected Normal NOT DETECTED [facility] Comment on above: Performed By: #### C BCMAN #### [facility] [address] [place] [address] Dr. Ellen Ramirez Parainfluenza 1 Not detected Normal NOT DETECTED [facility] Comment on above: Performed By: #### C BCMAN #### [facility] [address] [address] [address] Ellen Ramirez Parainfluenza 2 Not detected Normal NOT DETECTED [facility] Comment on above: Performed By: #### C BCMAN #### [facility] [address] [place] [address] Dr. Ellen Ramirez Parainfluenza 3 Not detected Normal NOT DETECTED [facility] Comment on above: Performed By: #### C BCMAN #### [facility] [address] [address] [address] Ellen Ramirez Parainfluenza 4 Not detected Normal NOT DETECTED [facility] Comment on above: Performed By: #### C HUSSAIN #### [facility] [address] [place] [address] Dr. Ellen Ramirez Rhino/Enterovirus Not detected Normal NOT DETECTED [facility] Comment on above: Performed By: #### C HUSSAIN #### [facility] [address] [place] [address] Dr. Ellen Ramirez RP2 Header 1 RESPIRATORY PANEL: VIRUSES Normal [facility] Comment on above: Performed By: #### C HUSSAIN #### [facility] [address] [place] [address] Dr. Ellen Ramirez RP2 Header 2 RESPIRATORY PANEL: BACTERIA Normal [facility] Comment on above: Performed By: #### C HUSSAIN #### [facility] [address] [place] [address] Dr. Ellen Ramirez RSV Not detected Normal NOT DETECTED [facility] Comment on above: Performed By: #### C HUSSAIN #### [facility] [address] [place] [address] Dr. Ellen Ramirez SARS-CoV-2 (COVID-19) RNA BEULAH+probe Ql (Unsp spec) Not detected Normal NOT DETECTED [facility] Comment on above: Performed By: #### C HUSSAIN #### [facility] [address] [place] [address] Dr. Ellen Ramirez [facility] 22 mm/hr Critically high <=20 [facility] Comment on above: Performed By: #### C HUSSAIN #### [facility] [address] [place] [address] Dr. Ellen Ramirez TSHon 12-02-2022 TSH 12.836 uIU/mL Critically high 0.358-3.740 [facility] Comment on above: Performed By: #### T SH #### [facility] [address] [place] [address] Dr. Ellen Ramirez XR CHEST 2 Von [...] by: REBA LOWRY Date: 2022-12-02 00:05 Normal [facility] PAP ACOG PANEL 2: 30 to 65on 06-26-2022 . . Normal [facility] Comment on above: Result Comment: Perf ormed at: WB Performed By: #### [id number] #### [facility] [address] [address] [address] Ellen Ramirez Age Gdln ACOG Testing 30-65 [facility] Comment on above: Performed By: #### [id number] #### [facility] [address] [address] [address] Ellen Ramirez DIAGNOSIS: Comment Normal [facility] Comment on above: Result Comment: NEGA TIVE FOR INTRAEPITHELIAL LESION OR MALIGNANCY. Performed at: WB Performed By: #### [id number] #### [facility] [address] [address] [address] Ellen Ramirez HPV Aptima Negative Normal Negative [facility] Comment on above: Result Comment: This nucleic acid amplification test detects fourteen high-risk HPV types (16,18,31,33,35,39,45,51,52,56,58,59,66,68) without differentiation. Performed at: =G Performed By: #### [id number] #### [facility] [address] [address] [address] Ellen Ramirez Methodology: Comment Normal [facility] Comment on above: Result Comment: This liquid based ThinPrep(R) pap test was screened with the use of an image guided system. Performed at: WB Performed By: #### [id number] #### [facility] [address] [address] [address] Ellen Ramirez Note: Comment Normal [facility] Comment on above: Result Comment: The Pap smear is a screening test designed to aid in the detection of premalignant and malignant conditions of the uterine cervix. It is not a diagnostic procedure and should not be used as the sole means of detecting cervical cancer. Both false-positive and false-negative reports do occur. . Performed at: WB Performed By: #### [id number] #### [facility] [address] [place] [address] Dr. Ellen Ramirez Performed by: Comment Normal [facility] Comment on above: Result Comment: Pretty Aguilar, Portable Trackman (ASCP) Performed at: WB Performed By: #### [id number] #### [facility] [address] [place] [address] Dr. Ellen Ramirez Specimen adequacy: Comment Normal [facility] Comment on above: Result Comment: Sati sfactory for evaluation. Endocervical and/or squamous metaplastic cells (endocervical component) are present. Performed at: WB Performed By: #### [id number] #### [facility] [address] [place] [address] Dr. Ellen Ramirez CBC AUTO DIFFon 05-08-2022 BASO # 0.0 103/ul Normal 0.0-0.1 [facility] Comment on above: Performed By: #### C BC #### [facility] [address] [place] [address] Dr. Ellen Ramirez Basophils/100 WBC (Bld) 0.4 % Normal 0.2-2.0 [facility] Comment on above: Performed By: #### C BC #### [facility] [facility] [address] [place] [address] Dr. Ellen Ramirez EO # 0.1 103/ul Normal 0.0-0.7 [facility] Comment on above: Performed By: #### C BC #### [facility] [address] [place] [address] Dr. Ellen Ramirez Eosinophils/100 WBC (Bld) 1.1 % Normal 0.9-7.0 [facility] Comment on above: Performed By: #### C BC #### [facility] [address] [place] [address] Dr. Ellen Ramirez Erythrocyte distribution width (RBC) [Ratio] 18.5 % Critically high 11.0-15.0 [facility] Comment on above: Performed By: #### C BC #### [facility] [address] [place] [address] Dr. Ellen Ramirez Hematocrit (Bld) [Volume fraction] 37.2 % Normal 36.0-48.0 [facility] Comment on above: Performed By: #### C BC #### [facility] [address] [place] [address] Dr. Ellen Ramirez Hemoglobin (Bld) [Mass/Vol] 12.0 g/dL Normal 12.0-16.0 [facility] Comment on above: Performed By: #### C BC #### [facility] [address] [place] [address] Dr. Ellen Ramirez IG # 0.01 10e3/ul Normal 0.00-0.03 [facility] Comment on above: Performed By: #### C BC #### [facility] [address] [place] [address] Dr. Ellen Ramirez IG % 0.2 % Normal 0.0-0.5 [facility] Comment on above: Performed By: #### C BC #### [facility] [address] [place] [address] Dr. Ellen Ramirez LYMPH # 1.4 103/ul Normal 1.2-3.8 [facility] Comment on above: Performed By: #### C BC #### [facility] [address] [place] [address] Dr. Ellen Ramirez Lymphocytes/100 WBC (Bld) 29.2 % Normal 20.5-60.0 [facility] Comment on above: Performed By: #### C BC #### [facility] [address] [place] [address] Dr. Ellen Ramirez MANUAL DIFF REQ NO Normal [facility] Comment on above: Performed By: #### C BC #### [facility] [address] [place] [address] Dr. Ellen Ramirez MCH (RBC) [Entitic mass] 28.0 pg Normal 26.7-34.0 [facility] Comment on above: Performed By: #### C BC #### [facility] [address] [place] [address] Dr. Ellen Ramirez MCHC (RBC) [Mass/Vol] 32.3 g/dL Normal 29.9-35.2 [facility] Comment on above: Performed By: #### C BC #### [facility] [address] [place] [address] Dr. Ellen Ramirez MCV (RBC) [Entitic vol] 86.7 fL Normal 81.0-99.0 [facility] Comment on above: Performed By: #### C BC #### [facility] [address] [place] [address] Dr. Ellen Ramirez MONO # 0.4 103/ul Normal 0.3-0.8 [facility] Comment on above: Performed By: #### C BC #### [facility] [address] [place] [address] Dr. Ellen Ramirez Monocytes/100 WBC (Bld) 8.0 % Normal 1.7-12.0 [facility] Comment on above: Performed By: #### C BC #### [facility] [address] [place] [address] Dr. Ellen Ramirez NEUT # 2.9 103/ul Normal 1.4-6.5 [facility] Comment on above: Performed By: #### C BC #### [facility] [address] [place] [address] Dr. Ellen Ramirez Neutrophils/100 WBC (Bld) 61.1 % Normal 43.0-75.0 [facility] Comment on above: Performed By: #### C BC #### [facility] [address] [place] [address] Dr. Ellen Ramirez Platelet mean volume (Bld) [Entitic vol] 9.5 fL Normal 9.5-13.5 [facility] Comment on above: Performed By: #### C BC #### [facility] [address] [place] [address] Dr. Ellen Ramirez PLT 282 103/ul Normal 150-450 [facility] Comment on above: Performed By: #### C BC #### [facility] [address] [place] [address] Dr. Ellen Ramirez RBC 4.29 106/ul Normal 4.20-5.40 [facility] Comment on above: Performed By: #### C BC #### [facility] [address] [place] [address] Dr. Ellen Ramirez WBC 4.7 103/ul Normal 4.0-11.0 [facility] Comment on above: Performed By: #### C BC #### [facility] [address] [place] [address] Dr. Ellen Ramirez FERRITINon 05-08-2022 Ferritin [Mass/Vol] 92.0 ng/mL Normal 6.2-137.0 [facility] Comment on above: Performed By: #### F ERR, FT4 #### [facility] [address] [place] [address] Dr. Ellen Ramirez FREE T4on 05-08-2022 Free T4 [Mass/Vol] 0.72 ng/dL Critically low 0.76-1.46 [facility] Comment on above: Performed By: #### F ERR, FT4 #### [facility] [address] [place] [address] Dr. Ellen Ramirez TSHon 05-08-2022 TSH 3.626 uIU/mL Normal 0.358-3.740 [facility] Comment on above: Performed By: #### C BCMAN #### [facility] [address] [place] [address] Dr. Ellen Ramirez CBC AUTO DIFFon 04-14-2022 BASO # 0.0 103/ul Normal 0.0-0.1 [facility] Comment on above: Performed By: #### L ACT #### [facility] [address] [place] [address] Dr. Ellen Ramirez Basophils/100 WBC (Bld) 0.5 % Normal 0.2-2.0 [facility] Comment on above: Performed By: #### L ACT #### [facility] [address] [place] [address] Dr. Ellen Ramirez EO # 0.1 103/ul Normal 0.0-0.7 [facility] Comment on above: Performed By: #### L ACT #### [facility] [address] [place] [address] Dr. Ellen Ramirez Eosinophils/100 WBC (Bld) 2.8 % Normal 0.9-7.0 [facility] Comment on above: Performed By: #### L ACT #### [facility] [address] [place] [address] Dr. Ellen Ramirez Erythrocyte distribution width (RBC) [Ratio] 24.2 % Critically high 11.0-15.0 [facility] Comment on above: Performed By: #### L ACT #### [facility] [address] [place] [address] Dr. Ellen Ramirez Hematocrit (Bld) [Volume fraction] 36.3 % Normal 36.0-48.0 [facility] Comment on above: Performed By: #### L ACT #### [facility] [address] [place] [address] Dr. Ellen Ramirez Hemoglobin (Bld) [Mass/Vol] 11.4 g/dL Critically low 12.0-16.0 [facility] Comment on above: Performed By: #### L ACT #### [facility] [address] [place] [address] Dr. Ellen Ramirez IG # 0.01 10e3/ul Normal 0.00-0.03 [facility] Comment on above: Performed By: #### L ACT #### [facility] [address] [place] [address] Dr. Ellen Ramirez IG % 0.3 % Normal 0.0-0.5 [facility] Comment on above: Performed By: #### L ACT #### [facility] [address] [place] [address] Dr. Ellen Ramirez LYMPH # 1.3 103/ul Normal 1.2-3.8 [facility] Comment on above: Performed By: #### L ACT #### [facility] [address] [address] [address] Ellen Ramirez Lymphocytes/100 WBC (Bld) 32.6 % Normal 20.5-60.0 [facility] Comment on above: Performed By: #### L ACT #### [facility] [address] [place] [address] Dr. Ellen Ramirez MANUAL DIFF REQ NO Normal [facility] Comment on above: Performed By: #### L ACT #### [facility] [address] [address] [address] Ellen Ramirez MCH (RBC) [Entitic mass] 25.9 pg Critically low 26.7-34.0 [facility] Comment on above: Performed By: #### L ACT #### [facility] [address] [place] [address] Dr. Ellen Ramirez MCHC (RBC) [Mass/Vol] 31.4 g/dL Normal 29.9-35.2 [facility] Comment on above: Performed By: #### L ACT #### [facility] [address] [place] [address] Dr. Ellen Ramirez MCV (RBC) [Entitic vol] 82.5 fL Normal 81.0-99.0 [facility] Comment on above: Performed By: #### L ACT #### [facility] [address] [place] [address] Dr. Ellen Ramirez MONO # 0.3 103/ul Normal 0.3-0.8 [facility] Comment on above: Performed By: #### L ACT #### [facility] [address] [place] [address] Dr. Ellen Ramirez Monocytes/100 WBC (Bld) 8.5 % Normal 1.7-12.0 [facility] Comment on above: Performed By: #### L ACT #### [facility] [address] [place] [address] Dr. Ellen Ramirez NEUT # 2.4 103/ul Normal 1.4-6.5 [facility] Comment on above: Performed By: #### L ACT #### [facility] [address] [place] [address] Dr. Ellen Ramirez Neutrophils/100 WBC (Bld) 60.0 % Normal 43.0-75.0 [facility] Comment on above: Performed By: #### L ACT #### [facility] [address] [place] [address] Dr. Ellen Ramirez Platelet mean volume (Bld) [Entitic vol] 9.6 fL Normal 9.5-13.5 [facility] Comment on above: Performed By: #### L ACT #### [facility] [address] [place] [address] Dr. Ellen Ramirez PLT 264 103/ul Normal 150-450 [facility] Comment on above: Performed By: #### L ACT #### [facility] [address] [place] [address] Dr. Ellen Ramirez RBC 4.40 106/ul Normal 4.20-5.40 [facility] Comment on above: Performed By: #### L ACT #### [facility] [address] [place] [address] Dr. Ellen Ramirez WBC 3.9 103/ul Critically low 4.0-11.0 [facility] Comment on above: Performed By: #### L ACT #### [facility] [address] [place] [address] Dr. Ellen Ramirez PREG HCG QUALon 04-14-2022 , QUAL Negative Normal NEGATIVE [facility] Comment on above: Performed By: #### P REG #### [facility] [address] [place] [address] Dr. Ellen Ramirez Covid-19 PCR (CVDTB)on 03-24 SARS-CoV-2 (COVID-19) RNA BEULAH+probe Ql (Unsp spec) Not detected Normal NOT DETECTED [facility] Comment on above: Result Comment: This test is not yet approved or cleared by the [place] FDA. When there are no FDA-approved or cleared tests available, and other criteria are met, FDA can make tests available under an emergency access mechanism called an Emergency Use Authorization (EUA). The EUA for this test is supported by the [employer] of Health and Human Service's (HHS's) declaration [...] SARS-CoV-2. Performed By: #### C VDTBH #### [facility] [address] [place] [address] Dr. Ellen Ramirez CBC W MANUAL DIFFon 03-30-20 22 ACANTHOCYTES 1+ Normal [facility] Comment on above: Result Comment: Prev iously reported as: 1+ On 03/30/2022 14:46 By BQ2 Performed By: #### C HUSSAIN #### [facility] [address] [place] [address] Dr. Ellen Ramirez ATYPICAL LYMPH # Normal [facility] Comment on above: Performed By: #### C HUSSAIN #### [facility] [address] [place] [address] Dr. Ellen Ramirez ATYPICAL LYMPH % Normal [facility] Comment on above: Performed By: #### C HUSSAIN #### [facility] [address] [place] [address] Dr. Ellen Ramirez BAND # Normal 0.0-0.3 [facility] Comment on above: Performed By: #### C HUSSAIN #### [facility] [address] [place] [address] Dr. Ellen Ramirez BAND % Normal 0-5 [facility] Comment on above: Performed By: #### C HUSSAIN #### [facility] [address] [place] [address] Dr. Ellen Ramirez BASOM # 0.00 103/ul Normal 0.00-0.10 [facility] Comment on above: Performed By: #### C HUSSAIN #### [facility] [address] [place] [address] Dr. Ellen Ramirez BASOM % 0.0 % Critically low 0.2-2.0 [facility] Comment on above: Performed By: #### C BCMAN #### [facility] [address] [place] [address] Dr. Ellen Ramirez BLAST # Normal [facility] Comment on above: Performed By: #### C BCVIRGINIE #### [facility] [address] [place] [address] Dr. Ellen Ramirez BLAST % Normal [facility] Comment on above: Performed By: #### C BCVIRGINIE #### [facility] [address] [place] [address] Dr. Ellen Ramirez CORRECTED WBC Normal 4.0-11.0 [facility] Comment on above: Performed By: #### C BCVIRGINIE #### [facility] [address] [place] [address] Dr. Ellen Ramirez EOS # 0.10 103/ul Normal 0.00-0.70 [facility] Comment on above: Performed By: #### C BCVIRGINIE #### [facility] [address] [place] [address] Dr. Ellen Ramirez EOS% 2.0 % Normal 0.9-7.0 [facility] Comment on above: Performed By: #### C HUSSAIN #### [facility] [address] [place] [address] Dr. Ellen Ramirez HCT 33.3 % Critically low 36.0-48.0 [facility] Comment on above: Performed By: #### C BCMAN #### [facility] [address] [place] [address] Dr. Ellen Ramirez HGB 10.4 g/dl Critically low 12.0-16.0 [facility] Comment on above: Performed By: #### C BCVIRGINIE #### [facility] [address] [place] [address] Dr. Ellen Ramirez LYMPHM # 1.78 103/ul Normal 1.20-3.80 [facility] Comment on above: Performed By: #### C BCVIRGINIE #### [facility] [address] [place] [address] Dr. Ellen Ramirez LYMPHM% 37.0 % Normal 20.5-60.0 [facility] Comment on above: Performed By: #### C HUSSAIN #### [facility] [address] [place] [address] Dr. Ellen Ramirez MCH 25.6 pg Critically low 26.7-34.0 [facility] Comment on above: Performed By: #### C HUSSAIN #### [facility] [address] [place] [address] Dr. Ellen Ramirez MCHC 31.2 g/dl Normal 29.9-35.2 [facility] Comment on above: Performed By: #### C HUSSAIN #### [facility] [address] [place] [address] Dr. Ellen Ramirez MCV 81.8 fL Normal 81.0-99.0 [facility] Comment on above: Performed By: #### C HUSSAIN #### [facility] [address] [place] [address] Dr. Ellen Ramirez METAMYELOCYTE # Normal [facility] Comment on above: Performed By: #### C HUSSAIN #### [facility] [address] [place] [address] Dr. Ellen Ramirez METAMYELOCYTE % Normal [facility] Comment on above: Performed By: #### C HUSSAIN #### [facility] [address] [place] [address] Dr. Ellen Ramirez MONOM# 0.43 103/ul Normal 0.30-0.80 [facility] Comment on above: Performed By: #### C HUSSAIN #### [facility] [address] [place] [address] Dr. Ellen Ramirez MONOM% 9.0 % Normal 1.7-12.0 [facility] Comment on above: Performed By: #### C HUSSAIN #### [facility] [address] [place] [address] Dr. Ellen Ramirez MPV 10.2 fL Normal 9.5-13.5 [facility] Comment on above: Performed By: #### C HUSSAIN #### [facility] [address] [address] [address] Ellen Ramirez MYELOCYTE # Normal [facility] Comment on above: Performed By: #### C HUSSAIN #### [facility] [address] [place] [address] Dr. Ellen Ramirez MYELOCYTE % Normal [facility] Comment on above: Performed By: #### C HUSSAIN #### [facility] [address] [place] [address] Dr. Ellen Ramirez NRBC Normal [facility] Comment on above: Performed By: #### C HUSSAIN #### [facility] [address] [place] [address] Dr. Ellen Ramirez OVALOCYTES 1+ Normal [facility] Comment on above: Result Comment: Prev iously reported as: 1+ On 03/30/2022 14:46 By BQ2 Performed By: #### C HUSSAIN #### [facility] [address] [place] [address] Dr. Ellen Ramirez PLT 302 103/ul Normal 150-450 [facility] Comment on above: Performed By: #### C HUSSAIN #### [facility] [address] [place] [address] Dr. Ellen Ramirez RBC 4.07 106/ul Critically low 4.20-5.40 [facility] Comment on above: Performed By: #### C HUSSAIN #### [facility] [address] [place] [address] Dr. Ellen Ramirez RDW 26.7 % Critically high 11.0-15.0 [facility] Comment on above: Performed By: #### C HUSSAIN #### [facility] [address] [place] [address] Dr. Ellen Ramirez SEG # 2.50 103/ul Normal 1.40-6.50 [facility] Comment on above: Performed By: #### C HUSSAIN #### [facility] [address] [place] [address] Dr. Ellen Ramirez SEG % 52.0 % Normal 43.0-75.0 [facility] Comment on above: Performed By: #### C BCMAN #### [facility] [address] [address] [address] Ellen Ramirez TEAR DROP CELLS 1+ Normal [facility] Comment on above: Result Comment: Prev iously reported as: 1+ On 03/30/2022 14:46 By BQ2 Performed By: #### C HUSSAIN #### [facility] [address] [address] [address] Ellen Ramirez WBC 4.8 103/ul Normal 4.0-11.0 [facility] Comment on above: Performed By: #### C BCMAN #### [facility] [address] [address] [address] Ellen Ramirez US PELVIS AND TRANSVAGon [...] AHSAN FLORES Date: 2022-03-30 18:10 Normal [facility] TSHon 03-16-2022 TSH 2.199 uIU/mL Normal 0.358-3.740 [facility] Comment on above: Performed By: #### T #### [facility] [address] [address] [address] Ellen Ramirez CBC AUTO DIFFon 02-14-2022 BASO # 0.0 103/ul Normal 0.0-0.1 [facility] Comment on above: Performed By: #### C HUSSAIN #### [facility] [address] [place] [address] Dr. Ellen Ramirez Basophils/100 WBC (Bld) 0.4 % Normal 0.2-2.0 [facility] Comment on above: Performed By: #### C HUSSAIN #### [facility] [address] [place] [address] Dr. Ellen Ramirez EO # 0.0 103/ul Normal 0.0-0.7 [facility] Comment on above: Performed By: #### C HUSSAIN #### [facility] [address] [place] [address] Dr. Ellen Ramirez Eosinophils/100 WBC (Bld) 0.4 % Critically low 0.9-7.0 [facility] Comment on above: Performed By: #### C HUSSAIN #### [facility] [address] [place] [address] Dr. Ellen Ramirez Erythrocyte distribution width (RBC) [Ratio] 16.4 % Critically high 11.0-15.0 [facility] Comment on above: Performed By: #### C HUSSAIN #### [facility] [address] [place] [address] Dr. Ellen Ramirez Hematocrit (Bld) [Volume fraction] 24.4 % Critically low 36.0-48.0 [facility] Comment on above: Performed By: #### C HUSSAIN #### [facility] [address] [place] [address] Dr. Ellen Ramirez Hemoglobin (Bld) [Mass/Vol] 7.0 g/dL Critically low 12.0-16.0 [facility] Comment on above: Performed By: #### C HUSSAIN #### [facility] [address] [place] [address] Dr. Ellen Ramirez IG # 0.02 10e3/ul Normal 0.00-0.03 [facility] Comment on above: Performed By: #### C HUSSAIN #### [facility] [address] [place] [address] Dr. Ellen Ramirez IG % 0.3 % Normal 0.0-0.5 [facility] Comment on above: Performed By: #### C HUSSAIN #### [facility] [address] [place] [address] Dr. Ellen Ramirez LYMPH # 1.6 103/ul Normal 1.2-3.8 [facility] Comment on above: Performed By: #### C HUSSAIN #### [facility] [address] [place] [address] Dr. Ellen Ramirez Lymphocytes/100 WBC (Bld) 21.8 % Normal 20.5-60.0 [facility] Comment on above: Performed By: #### C HUSSAIN #### [facility] [address] [place] [address] Dr. Ellen Ramirez MANUAL DIFF REQ NO Normal [facility] Comment on above: Performed By: #### C HUSSAIN #### [facility] [address] [place] [address] Dr. Ellen Ramirez MCH (RBC) [Entitic mass] 20.0 pg Critically low 26.7-34.0 [facility] Comment on above: Performed By: #### C HUSSAIN #### [facility] [address] [place] [address] Dr. Ellen Ramirez MCHC (RBC) [Mass/Vol] 28.7 g/dL Critically low 29.9-35.2 [facility] Comment on above: Result Comment: HYPO CHROMIC MICROCYTIC STOMATOCYTES SEEN Performed By: #### C HUSSAIN #### [facility] [address] [place] [address] Dr. Ellen Ramirez MCV (RBC) [Entitic vol] 69.7 fL Critically low 81.0-99.0 [facility] Comment on above: Performed By: #### C HUSSAIN #### [facility] [address] [place] [address] Dr. Ellen Ramirez MONO # 0.7 103/ul Normal 0.3-0.8 [facility] Comment on above: Performed By: #### C HUSSAIN #### [facility] [address] [place], [place] [id number] Dr. Ellen Ramirez Monocytes/100 WBC (Bld) 9.3 % Normal 1.7-12.0 [facility] Comment on above: Performed By: #### C HUSSAIN #### [facility] [address] [place] [address] Dr. Ellen Ramirez NEUT # 4.9 103/ul Normal 1.4-6.5 [facility] Comment on above: Performed By: #### C HUSSAIN #### [facility] [address] [place] [address] Dr. Ellen Ramirez Neutrophils/100 WBC (Bld) 67.8 % Normal 43.0-75.0 [facility] Comment on above: Performed By: #### C HUSSAIN #### [facility] [address] [place] [address] Dr. Ellen Ramirez Platelet mean volume (Bld) [Entitic vol] 9.8 fL Normal 9.5-13.5 [facility] Comment on above: Performed By: #### C HUSSAIN #### [facility] [address] [place] [address] Dr. Ellen Ramirez PLT 391 103/ul Normal 150-450 [facility] Comment on above: Performed By: #### C HUSSAIN #### [facility] [address] [place] [address] Dr. Ellen Ramirez RBC 3.50 106/ul Critically low 4.20-5.40 [facility] Comment on above: Performed By: #### C HUSSAIN #### [facility] [address] [place] [address] Dr. Ellen Ramirez WBC 7.2 103/ul Normal 4.0-11.0 [facility] Comment on above: Performed By: #### C HUSSAIN #### [facility] [address] [place] [address] Dr. Ellen Ramirez PREG QUANT HCGon 02-14-2022 HCG QUANT <1 Normal [facility] Comment on above: Performed By: #### L ACT #### [facility] [address] [place] [address] Dr. Ellen Ramirez HCG RANGE SEE BELOW Normal [facility] Comment on above: Result Comment: 5-50 0-1 WEEK 40-300 1-2 WEEKS 100-1,000 2-3 WEEKS 500-6,000 3-4 WEEKS 5,000-200,000 1-2 MONTHS 10,000-100,000 2-3 MONTHS 3,000-50,000 2ND TRIMESTER 1,000-50,000 3RD TRIMESTER Performed By: #### L ACT #### [facility] [address] [address] [address] Ellen Ramirez PROTIMEon 02-14-2022 INR Coag (PPP) [Relative time] 1.00 {INR} Normal [facility] Comment on above: Performed By: #### L ACT #### [facility] [address] [place] [address] Dr. Ellen Ramirez INR GUIDELINES SEE BELOW Normal [facility] Comment on above: Result Comment: CARMEN RED INR: 2.0 - 3.0 CONDITIONS NOT LISTED BELOW 2.5 - 3.5 FOR PROSTHETIC HEART VALVE REPLACEMENT 2.5 - 3.5 RECURRENT THROMBOSIS Performed By: #### L ACT #### [facility] [address] [address] [address] Ellen Ramirez PT Coag (PPP) [Time] 10.8 s Normal 9.0-11.6 [facility] Comment on above: Performed By: #### L ACT #### [facility] [address] [place] [address] Dr. Ellen Ramirez PTTon 02-14-2022 aPTT Coag (Bld) [Time] 25.7 s Normal 22.3-36.2 [facility] Comment on above: Performed By: #### L ACT #### [facility] [address] [address] [address] Ellen Ramirez TSHon 02-14-2022 TSH 15.176 uIU/mL Critically high 0.358-3.740 [facility] Comment on above: Performed By: #### L ACT #### [facility] [address] [address] [address] Ellen Ramirez TSH RANGE SEE BELOW Normal [facility] Comment on above: Result Comment: <0.3 4 UIU/ml HYPERTHYROID 0.34-5.60 UIU/ml EUTHYROID >5.60 UIU/ml HYPOTHYROID Performed By: #### L ACT #### [facility] [address] [address] [address] Ellen Ramirez US PELVIS AND TRANSVAGon [...] AHSAN FLORES Date: 2022-02-14 15:03 Normal [facility] Encounters Encounter Date Encounter Type Care Provider Facility Start: 03-17-2024 End: 03-17-2024 ambulatory Patsy Villafana MD Facility:[facility] Start: 02-27-2024 End: 02-27-2024 ambulatory CATRACHO ROSALES [facility] Start: 12-06-2023 End: 12-07-2023 [...] examination DR JOSE DANIEL ROOT . [facility] Start: 04-11-2022 End: 04-12-[address] JOSE DANIEL ROTO . Facility:[facility] Start: 04-11-2022 End: 04-12-2022 Encounter for preprocedural laboratory examination DR JOSE DANIEL ROOT . Facility:[facility] Start: 04-05-2022 Encounter for other preprocedural examination DR JOSE DANIEL ROOT . [facility] Start: 04-03-2022 End: 04-04-[address] [...] Date Payer Category Payer Unknown 1980 Unknown [id number] 2.16.84 0.1.352259.3.579.2.593 1980 Unknown [id number] 2.16.84 0.1.981059.3.579.2.593 1980 Unknown [id number] 2.16.84 0.1.365527.3.579.2.593 1980 Unknown [id number] 2.16.84 0.1.285891.3.579.2.593 1980 Unknown [id number] 2.16.84 0.1.805333.3.579.2.593 1980 Unknown [id number] .16.84 0.1.268968.3.579.2.593 1980 Unknown [id number] 2.16.84 0.1.971099.3.579.2.593 1980 Unknown [id number] 2.16.84 0.1.576955.3.579.2.593 1980 Unknown [id number] 2.16.84 0.1.872372.3.579.2.593 1980 Unknown [id number] 2.16.84 0.1.906098.3.579.2.593 1980 Unknown [id number] 2.16.84 0.1.263300.3.579.2.593 1980 Unknown [id number] 2.16.84 0.1.431352.3.579.2.593 1980 Unknown [id number] 2.16.84 0.1.781529.3.579.2.593 1980 Unknown [id number] 2.16.84 0.1.998725.3.579.2.1259 1980 Unknown [id number] 2.16.84 0.1.413628.3.579.2.1259 1980 Unknown [id number] 2.16.84 0.1.473145.3.579.2.1258 1980 Unknown [id number] 2.16.84 0.1.312651.3.579.2.1258 1980 Unknown [id number] 2.16.84 0.1.077284.3.579.2.1258 1980 Unknown [id number] 2.16.84 0.1.779393.3.579.2.1258 1980 Unknown [id number] 2.16.8 40.1.524085.3.579.2.1285 1980 Unknown [id number] 2.16.8 40.1.274456.3.579.2.1285 1980 Unknown [id number] 2.16.8 40.1.336935.3.579.2.1285 1980 Unknown [id number] 2.16.8 40.1.456044.3.579.2.1285 1980 Unknown [id number] 2.16.8 40.1.690123.3.579.2.1285 1980 Unknown [id number] 2.16.8 40.1.815604.3.579.2.1285 1980 Unknown [id number] 2.16. 840.1.118728.3.579.2.196 1959 Self-pay [id number] 1959 Unknown [id number] Clinical Note 11-19-2023 Note Date & Type [...] ANESTHESIA: General. SURGEON: Jose Daniel Root D.O. COMPUTER LAB PARA PROFESSIONAL: None. FINDINGS: Normal appearing cavity. No gross [...] taken to recovery in stable condition. [facility] Summary Purpose Family History No Family History Records FoundNo Family History Records FoundNo Family History Records FoundNo Family History Records Found Advance Directives No Advanced Directives Records FoundNo Advanced Directives Records FoundNo Advanced Directives Records FoundNo Advanced Directives Records Found Additional Source Comments INFORMATION SOURCE (unrecogn ized section and content) DATE CREATED AUTHOR 12/06/2022 [facility] DATE CREATED AUTHOR AUTHOR'S ORGANIZ ATION 12/09/2023 [facility] EP[facility] DATE CREATED AUTHOR AUTHOR'S ORGANIZ ATION 02/28/2024 [facility] DATE CREATED AUTHOR AUTHOR'S ORGANIZ ATION 03/19/2024 [facility] FOR RECORDS PERTAINING TO PATIENTS WHO [...] BE BASED ON THE PRIMARY CLINICAL RECORDS. [facility]. provides no warranty or guarantee of the accuracy or completeness of information in this document.
[2024-03-31 07:22] VITALS: BP 104/70; PULSE 82; TEMP 36.7; O2SAT 99
[2024-03-31] MEDS: BUPIVACAINE HCL 0.25% PF 25 MG/10 ML VIAL INJ (07:32)
[2024-03-31] MEDS: LIDOCAINE HCL 2% 400 MG/20 ML MDV 15 ML INJ (07:33)
[2024-03-31 07:34] VITALS: BP 137/65; BP 139/65; PULSE 86; PULSE 88; O2SAT 98; O2SAT 99
--- NOTE | 2024-03-31 07:35 | P.ON_ITS ---
Date of procedure: 03/31/24 Pre-op diagnosis: Lumbar spondylosis without myelopathy Post-op diagnosis: same as pre-op Procedure: Procedure: Bilateral L4-5, L5-S1 medial branch block Medications: Bupivacaine 0.25% 6cc The patient was seen and examined in the preoperative holding area.? An informed consent was obtained and placed on the chart.? The patient was brought to the medical procedure unit and placed in the prone position.? A timeout was completed verifying correct patient, procedure site, positioning, plan, and special equipment.? Using aseptic technique, the needle was placed at left L4. Under direct fluoroscopic visualization a Quincke-tipped spinal needle was ad vanced to the junction of the superior articulating process with the transverse process at the designated medial branch segment.? Preceded by negative aspiration, the above-mentioned injectate was placed in 1 mL aliquots.? The procedure was repeated at left L5, S1.? The needle was removed and insertion site was covered. The same procedure, at the same levels, was completed on the right side. The patient was taken to the postprocedural recovery area and monitored for an appropriate length of time before found suitable for discharge in the company of a responsible adult. Anesthesia: Local Surgeon: Patsy Villafana Pathology: none sent Condition: stable Disposition: no change
== END 2024-03-31 07:40 | disposition home or self-care (01) ==
PROVIDERS: PCP Family Medicine; Visit Provider Anesthesiology
DX: M47.816 Spondylosis without myelopathy or radiculopathy, lumbar region (principal)
CPT/HCPCS: 64493; 64494; 84703; J0665

== ENCOUNTER 2024-04-09 11:27 | Outpatient (OUT) | payer BC, SELFPAY ==
--- OUTSIDE RECORDS SUMMARY | 2024-04-09 11:30 | XMS_ITS | CCD ---
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 Ellen Ramirez ATYPICAL LYMPH % Normal [facility] Comment on above: Performed By: #### C HUSSAIN #### [facility] [address] [place] [address] Dr. Ellen Ramirez BAND # 0.0 103/ul Normal 0.0-0.3 [facility] Comment on above: Performed By: #### C HUSSAIN #### [facility] [address] [place] [address] Dr. Ellen Ramirez BAND % 0 % Normal 0-5 [facility] Comment on above: Performed By: #### C HUSSAIN #### [facility] [address] [place] [address] Dr. Ellen Ramirez BASOM # 0.00 103/ul Normal 0.00-0.10 [facility] Comment on above: Performed By: #### C HUSSAIN #### [facility] [address] [address] [address] Ellen Ramirez BASOM % 0.0 % Critically low 0.2-2.0 [facility] Comment on above: Performed By: #### C BCMAN #### [facility] [address] [address] [address] Ellen Ramirez BLAST # Normal [facility] Comment on above: Performed By: #### C BCMAN #### [facility] [address] [address] [address] Ellen Ramirez BLAST % Normal [facility] Comment on above: Performed By: #### C BCVIRGINIE #### [facility] [address] [place] [address] Dr. Ellen Ramirez CORRECTED WBC Normal 4.0-11.0 [facility] Comment on above: Performed By: #### C BCVIRGINIE #### [facility] [address] [place] [address] Dr. Ellen Ramirez EOS # 0.46 103/ul Normal 0.00-0.70 [facility] Comment on above: Performed By: #### C BCVIRGINIE #### [facility] [address] [place] [address] Dr. Ellen Ramirez EOS% 6.0 % Normal 0.9-7.0 [facility] Comment on above: Performed By: #### C BCVIRGINIE #### [facility] [address] [place] [address] Dr. Ellen Ramirez HCT 33.6 % Critically low 36.0-48.0 [facility] Comment on above: Performed By: #### C BCMAN #### [facility] [address] [place] [address] Dr. Ellen Ramirez HGB 11.5 g/dl Critically low 12.0-16.0 [facility] Comment on above: Performed By: #### C BCMAN #### [facility] [address] [place] [address] Dr. Ellen Ramirez LYMPHM # 0.15 103/ul Critically low 1.20-3.80 [facility] Comment on above: Performed By: #### C HUSSAIN #### [facility] [address] [address] [address] Ellen Raimrez LYMPHM% 2.0 % Critically low 20.5-60.0 [facility] Comment on above: Performed By: #### C HUSSAIN #### [facility] [address] [place] [address] Dr. Ellen Ramirez MCH 29.3 pg Normal 26.7-34.0 [facility] Comment on above: Performed By: #### C HUSSAIN #### [facility] [address] [place] [address] Dr. Ellen Ramirez MCHC 34.2 g/dl Normal 29.9-35.2 [facility] Comment on above: Performed By: #### C HUSSAIN #### [facility] [address] [place] [address] Dr. Ellen Ramirez MCV 85.5 fL Normal 81.0-99.0 [facility] Comment on above: Performed By: #### C HUSSAIN #### [facility] [address] [place] [address] Dr. Ellen Ramirez METAMYELOCYTE # Normal [facility] Comment on above: Performed By: #### C HUSSAIN #### [facility] [address] [place] [address] Dr. Ellen Ramirez METAMYELOCYTE % Normal [facility] Comment on above: Performed By: #### C HUSSAIN #### [facility] [address] [place] [address] Dr. Ellen Ramirez MONOM# 0.38 103/ul Normal 0.30-0.80 [facility] Comment on above: Performed By: #### C HUSSAIN #### [facility] [address] [place] [address] Dr. Ellen Ramirez MONOM% 5.0 % Normal 1.7-12.0 [facility] Comment on above: Performed By: #### C HUSSAIN #### [facility] [address] [place] [address] Dr. Ellen Ramirez MPV 9.4 fL Critically low 9.5-13.5 [facility] Comment on above: Performed By: #### C BCVIRGINIE #### [facility] [address] [place] [address] Dr. Ellen Ramirez MYELOCYTE # Normal [facility] Comment on above: Performed By: #### C BCVIRGINIE #### [facility] [address] [address] [address] Ellen Ramirez MYELOCYTE % Normal [facility] Comment on above: Performed By: #### C BCVIRGINIE #### [facility] [address] [address] [address] Ellen Ramirez NRBC Normal [facility] Comment on above: Performed By: #### C HUSSAIN #### [facility] [address] [place] [address] Dr. Ellen Ramirez PLT 281 103/ul Normal 150-450 [facility] Comment on above: Performed By: #### C HUSSAIN #### [facility] [address] [place] [address] Dr. Ellen Ramirez RBC 3.93 106/ul Critically low 4.20-5.40 [facility] Comment on above: Performed By: #### C HUSSAIN #### [facility] [address] [place] [address] Dr. Ellen Ramirez RDW 13.0 % Normal 11.0-15.0 [facility] Comment on above: Performed By: #### C HUSSAIN #### [facility] [address] [place] [address] Dr. Ellen Ramirez SEG # 6.61 103/ul Critically high 1.40-6.50 [facility] Comment on above: Performed By: #### C BCVIRGINIE #### [facility] [address] [place] [address] Dr. Ellen Ramirez SEG % 87.0 % Critically high 43.0-75.0 [facility] Comment on above: Performed By: #### C HUSSAIN #### [facility] [address] [address] [address] Ellen Ramirez WBC 7.6 103/ul Normal 4.0-11.0 [facility] Comment on above: Performed By: #### C BCMAN #### [facility] [address] [address] [address] Ellen Ramirez CPKon 12-02-2022 CK [Catalytic activity/Vol] 50 U/L Normal 26-192 [facility] Comment on above: Performed By: #### C BCMAN #### [facility] [address] [address] [address] Ellen Ramirez CRPon 12-02-2022 CRP 5.4 mg/dL Critically high <=1.0 [facility] Comment on above: Performed By: #### C BCMAN #### [facility] [address] [address] [address] HEAD WO CONon [...] REBA LOWRY Date: 2022-12-02 00:24 Normal [facility] ER URINE PROFILEon 3 Bilirubin Ql (U) Negative Normal NEGATIVE [facility] Comment on above: Performed By: #### L ACT #### [facility] [address] [address] [address] Ellen Ramirez Clarity (U) CLEAR Normal CLEAR [facility] Comment on above: Performed By: #### L ACT #### [facility] [address] [place] [address] Dr. Ellen Ramirez Color (U) YELLOW Normal YELLOW [facility] Comment on above: Performed By: #### L ACT #### [facility] [address] [place] [address] Dr. Ellen Ramirez ERUAHD A micrscopic examination will be performed if indicated. Normal [facility] Comment on above: Performed By: #### L ACT #### [facility] [address] [place] [address] Dr. Ellen Ramirez Glucose Ql (U) Negative Normal NEGATIVE [facility] Comment on above: Performed By: #### L ACT #### [facility] [address] [place] [address] Dr. Ellen Ramirez Hemoglobin Ql (U) TRACE-INTACT Abnormal NEGATIVE [facility] Comment on above: Performed By: #### L ACT #### [facility] [address] [place] [address] Dr. Ellen Ramirez Ketones Ql (U) >=80 Abnormal NEGATIVE [facility] Comment on above: Performed By: #### L ACT #### [facility] [address] [place] [address] Dr. Ellen Ramirez LEUKOCYTES Negative Normal NEGATIVE [facility] Comment on above: Performed By: #### L ACT #### [facility] [address] [place] [address] Dr. Ellen Ramirez Nitrite Ql (U) Negative Normal NEGATIVE [facility] Comment on above: Performed By: #### L ACT #### [facility] [address] [place] [address] Dr. Ellen Ramirez pH (U) 6.0 [pH] Normal 5-9 [facility] Comment on above: Performed By: #### L ACT #### [facility] [address] [place] [address] Dr. Ellen Ramirez SPEC GRAVITY 1.015 Normal 1.005-<=1.025 [facility] Comment on above: Performed By: #### L ACT #### [facility] [address] [address] [address] Ellen Ramirez UA PROTEIN Negative Normal NEGATIVE/ TRACE [facility] Comment on above: Performed By: #### L ACT #### [facility] [address] [address] [address] Ellen Ramirez UR MICRO IND NOT INDICATED Normal [facility] Comment on above: Performed By: #### L ACT #### [facility] [address] [address] [address] Ellen Ramirez Urobilinogen Qn (U) 0.2 {Ajith'U}/dL Normal 0.2 - 1. 0 [facility] Comment on above: Performed By: #### L ACT #### [facility] [address] [place] [address] Dr. Ellen Ramirez LACTATE/LACTIC ACIDon 2022 Lactate [Moles/Vol] 0.7 mmol/L Normal 0.4-2.0 [facility] Comment on above: Performed By: #### L ACT #### [facility] [address] [place] [address] Dr. Ellen Ramirez MYOGLOBINon 12-02-2022 LORENA 30 ng/mL Normal 9-82 [facility] Comment on above: Performed By: #### C HUSSAIN #### [facility] [address] [place] [address] Dr. Ellen Ramirez PROF 14(COMP METB)on 023 Albumin [Mass/Vol] 3.7 g/dL Normal 3.4-5.0 [facility] Comment on above: Performed By: #### C HUSSAIN #### [facility] [address] [place] [address] Dr. Ellen Ramirez Albumin/Globulin [Mass ratio] 1.1 {ratio} Normal [facility] Comment on above: Performed By: #### C HUSSAIN #### [facility] [address] [place] [address] Dr. Ellen Ramirez ALP [Catalytic activity/Vol] 87 U/L Normal 46-116 [facility] Comment on above: Performed By: #### C BCVIRGINIE #### [facility] [address] [address] [address] Ellen Ramirez ALT [Catalytic activity/Vol] 43 U/L Normal 14-59 [facility] Comment on above: Performed By: #### C BCVIRGINIE #### [facility] [address] [address] [address] Ellen Ramirez Anion gap [Moles/Vol] 10.9 mmol/L Normal [facility] Comment on above: Performed By: #### C BCVIRGINIE #### [facility] [address] [address] [address] Ellen Ramirez AST [Catalytic activity/Vol] 35 U/L Normal 15-37 [facility] Comment on above: Performed By: #### C HUSSAIN #### [facility] [address] [place] [address] Dr. Ellen Ramirez Bilirubin [Mass/Vol] 0.3 mg/dL Normal 0.2-1.0 [facility] Comment on above: Performed By: #### C BCVIRGINIE #### [facility] [address] [place] [address] Dr. Ellen Ramirez Calcium [Mass/Vol] 8.6 mg/dL Normal 8.5-10.1 [facility] Comment on above: Performed By: #### C HUSSAIN #### [facility] [address] [place] [address] Dr. Ellen Ramirez Chloride [Moles/Vol] 102 mmol/L Normal 98-107 [facility] Comment on above: Performed By: #### C BCVIRGINIE #### [facility] [address] [address] [address] Ellen Ramirez CO2 [Moles/Vol] 25.4 mmol/L Normal 21.0-32.0 [facility] Comment on above: Performed By: #### C BCVIRGINIE #### [facility] [address] [address] [address] Ellen Ramirez Creatinine [Mass/Vol] 0.99 mg/dL Normal 0.55-1.02 [facility] Comment on above: Performed By: #### C BCVIRGINIE #### [facility] [address] [address] [address] Ellen Ramirez EGFR-AF LIBERIAN >60 Normal >=60 [facility] Comment on above: Performed By: #### C HUSSAIN #### [facility] [address] [address] [address] Ellen Ramirez EGFR-NON AF LIBERIAN >60 Normal >=60 [facility] Comment on above: Performed By: #### C JOVANMAN #### [facility] [address] [address] [address] Ellen Ramirez Globulin (S) [Mass/Vol] 3.3 g/dL Normal [facility] Comment on above: Performed By: #### C HUSSAIN #### [facility] [address] [place] [address] Dr. Ellen Ramirez Glucose [Mass/Vol] 107 mg/dL Critically high 74-106 [facility] Comment on above: Performed By: #### C HUSSAIN #### [facility] [address] [address] [address] Ellen Ramirez Potassium [Moles/Vol] 3.3 mmol/L Critically low 3.5-5.1 [facility] Comment on above: Performed By: #### C HUSSAIN #### [facility] [address] [place] [address] Dr. Ellen Ramirez Protein [Mass/Vol] 7.0 g/dL Normal 6.4-8.2 [facility] Comment on above: Performed By: #### C HUSSAIN #### [facility] [address] [address] [address] Ellen Ramirez Sodium [Moles/Vol] 135 mmol/L Critically low 136-145 [facility] Comment on above: Performed By: #### C HUSSAIN #### [facility] [address] [address] [address] Ellen Ramirez Urea nitrogen [Mass/Vol] 11.0 mg/dL Normal 7.0-18.0 [facility] Comment on above: Performed By: #### C HUSSAIN #### [facility] [address] [place] [address] Dr. Ellen Ramirez Urea nitrogen/Creatinine [Mass ratio] 11.1 mg/mg Normal [facility] Comment on above: Performed By: #### C BCMAN #### [facility] [address] [place] [address] Dr. Ellen Ramirez RESPIRATORY PANEL PLUSon Adenovirus Not detected Normal NOT DETECTED [facility] Comment on above: Performed By: #### C BCMAN #### [facility] [address] [place] [address] Dr. Ellen Verduzco. Parapertusis Not detected Normal NOT DETECTED The [facility] Comment on above: Performed By: #### C BCMAN #### [facility] [address] [place] [address] Dr. Ellen Verduzco. Pertussis Not detected Normal NOT DETECTED [facility] Comment on above: Performed By: #### C BCMAN #### [facility] [address] [place] [address] Dr. Ellen Ramirez Chlamydia Pneumoniae Not detected Normal NOT DETECTED [facility] Comment on above: Performed By: #### C BCMAN #### [facility] [address] [place] [address] Dr. Ellen Ramirez Coronavirus 229E Not detected Normal NOT DETECTED [facility] Comment on above: Performed By: #### C BCMAN #### [facility] [address] [place] [address] Dr. Ellen Ramirez Coronavirus HKU1 Not detected Normal NOT DETECTED [facility] Comment on above: Performed By: #### C BCMAN #### [facility] [address] [place] [address] Dr. Ellen Ramirez Coronavirus NL63 Not detected Normal NOT DETECTED [facility] Comment on above: Performed By: #### C BCMAN #### [facility] [address] [place] [address] Dr. Ellen Ramirez Coronavirus OC43 Not detected Normal NOT DETECTED [facility] Comment on above: Performed By: #### C BCMAN #### [facility] [address] [place] [address] Dr. Ellen Ramirez Influenza A H1 Not detected Normal NOT DETECTED [facility] Comment on above: Performed By: #### C BCMAN #### [facility] [address] [address] [address] Ellen Ramirez Influenza A H1 2009 Not detected Normal NOT DETECTED [facility] Comment on above: Performed By: #### C BCMAN #### [facility] [address] [address] [address] Ellen Ramirez Influenza A H3 Not detected Normal NOT DETECTED [facility] Comment on above: Performed By: #### C BCMAN #### [facility] [address] [address] [address] Ellen Ramirez Influenza B Not detected Normal NOT DETECTED [facility] Comment on above: Performed By: #### C BCMAN #### [facility] [address] [place] [address] Dr. Ellen Ramirez Metapneumovirus Not detected Normal NOT DETECTED The [facility] Comment on above: Performed By: #### C BCMAN #### [facility] [address] [place] [address] Dr. Ellen Ramirez Mycoplas. Pneumoniae Not detected Normal NOT DETECTED [facility] Comment on above: Performed By: #### C BCMAN #### [facility] [address] [place] [address] Dr. Ellen Ramirez Parainfluenza 1 Not detected Normal NOT DETECTED The [facility] Comment on above: Performed By: #### C BCMAN #### [facility] [address] [address] [address] Ellen Ramirez Parainfluenza 2 Not detected Normal NOT DETECTED The [facility] Comment on above: Performed By: #### C BCMAN #### [facility] [address] [place] [address] Dr. Ellen Ramirez Parainfluenza 3 Not detected Normal NOT DETECTED The [facility] Comment on above: Performed By: #### C BCMAN #### [facility] [address] [address] [address] Ellen Ramirez Parainfluenza 4 Not detected Normal NOT DETECTED [facility] Comment on above: Performed By: #### C HUSSAIN #### [facility] [address] [place] [address] Dr. Ellen Ramirez Rhino/Enterovirus Not detected Normal NOT DETECTED [facility] Comment on above: Performed By: #### C HUSSAIN #### [facility] [address] [place] [address] Dr. Ellen Ramirez RP2 Header 1 RESPIRATORY PANEL: VIRUSES Normal [facility] Comment on above: Performed By: #### C HUSSAIN #### [facility] [address] [place] [address] Dr. Ellen Ramirez RP2 Header 2 RESPIRATORY PANEL: BACTERIA Normal [facility] Comment on above: Performed By: #### C HUSSAIN #### [facility] [address] [place] [address] Dr. Ellen Ramirez RSV Not detected Normal NOT DETECTED [facility] Comment on above: Performed By: #### C HUSSAIN #### [facility] [address] [place] [address] Dr. Ellen Ramirez SARS-CoV-2 (COVID-19) RNA BEULAH+probe Ql (Unsp spec) Not detected Normal NOT DETECTED [facility] Comment on above: Performed By: #### C HUSSAIN #### [facility] [address] [place] [address] Dr. Ellen Ramirez [facility] mm/hr Critically high <=20 [facility] Comment on above: Performed By: #### C HUSSAIN #### [facility] [address] [place] [address] Dr. Ellen Ramirez TSHon 12-02-2022 TSH 12.836 uIU/mL Critically high 0.358-3.740 [facility] Comment on above: Performed By: #### T SH #### [facility] [address] [place] [address] Dr. Ellen Ramirez XR CHEST 2 Von [...] by: REBA LOWRY Date: 2022-12-02 00:05 Normal [facility] PAP ACOG PANEL 2: 30 to 65on 06-26-2022 . . Normal [facility] Comment on above: Result Comment: Perf ormed at: WB Performed By: #### [id number] #### [facility] [address] [address] [address] Ellen Ramirez Age Gdln ACOG Testing 30-65 [facility] Comment on above: Performed By: #### [id number] #### [facility] [address] [address] [address] Ellen Ramirez DIAGNOSIS: Comment Normal [facility] Comment on above: Result Comment: NEGA TIVE FOR INTRAEPITHELIAL LESION OR MALIGNANCY. Performed at: WB Performed By: [id number] #### [facility] [address] [address] [address] Ellen Ramirez HPV Aptima Negative Normal Negative [facility] Comment on above: Result Comment: This nucleic acid amplification test detects fourteen high-risk HPV types (16,18,31,33,35,39,45,51,52,56,58,59,66,68) without differentiation. Performed at: =G Performed By: [id number] #### [facility] [address] [address] [address] Ellen Ramirez Methodology: Comment Normal [facility] Comment on above: Result Comment: This liquid based ThinPrep(R) pap test was screened with the use of an image guided system. Performed at: WB Performed By: #### [id number] #### [facility] [address] [address] [address] Ellen Ramirez Note: Comment Normal [facility] Comment on above: Result Comment: The Pap smear is a screening test designed to aid in the detection of premalignant and malignant conditions of the uterine cervix. It is not a diagnostic procedure and should not be used as the sole means of detecting cervical cancer. Both false-positive and false-negative reports do occur. . Performed at: WB Performed By: #### [id number] #### [facility] [address] [place] [address] Dr. Ellen Ramirez Performed by: Comment Normal [facility] Comment on above: Result Comment: Pretty Aguilar, Reeling Operator (ASCP) Performed at: WB Performed By: [id number] #### [facility] [address] [place] [address] Dr. Ellen Ramirez Specimen adequacy: Comment Normal [facility] Comment on above: Result Comment: Sati sfactory for evaluation. Endocervical and/or squamous metaplastic cells (endocervical component) are present. Performed at: WB Performed By: #### [id number] #### [facility] [address] [place] [address] Dr. Ellen Ramirez CBC AUTO DIFFon 05-08-2022 BASO # 0.0 103/ul Normal 0.0-0.1 [facility] Comment on above: Performed By: #### C BC #### [facility] [address] [place] [address] Dr. Ellen Ramirez Basophils/100 WBC (Bld) 0.4 % Normal 0.2-2.0 [facility] Comment on above: Performed By: #### C BC #### [facility] [address] [place] [address] Dr. Ellen Ramirez EO # 0.1 103/ul Normal 0.0-0.7 [facility] Comment on above: Performed By: #### C BC #### [facility] [address] [place] [address] Dr. Ellen Ramirez Eosinophils/100 WBC (Bld) 1.1 % Normal 0.9-7.0 [facility] Comment on above: Performed By: #### C BC #### [facility] [address] [place] [address] Dr. Ellen Ramirez Erythrocyte distribution width (RBC) [Ratio] 18.5 % Critically high 11.0-15.0 [facility] Comment on above: Performed By: #### C BC #### [facility] [address] [place] [address] Dr. Ellen Ramirez Hematocrit (Bld) [Volume fraction] 37.2 % Normal 36.0-48.0 [facility] Comment on above: Performed By: #### C BC #### [facility] [address] [place] [address] Dr. Ellen Ramirez Hemoglobin (Bld) [Mass/Vol] 12.0 g/dL Normal 12.0-16.0 [facility] Comment on above: Performed By: #### C BC #### [facility] [address] [place] [address] Dr. Ellen Ramirez IG # 0.01 10e3/ul Normal 0.00-0.03 [facility] Comment on above: Performed By: #### C BC #### [facility] [address] [place] [address] Dr. Ellen Ramirez IG % 0.2 % Normal 0.0-0.5 [facility] Comment on above: Performed By: #### C BC #### [facility] [address] [place] [address] Dr. Ellen Ramirez LYMPH # 1.4 103/ul Normal 1.2-3.8 [facility] Comment on above: Performed By: #### C BC #### [facility] [address] [place] [address] Dr. Ellen Ramirez Lymphocytes/100 WBC (Bld) 29.2 % Normal 20.5-60.0 [facility] Comment on above: Performed By: #### C BC #### [facility] [address] [place] [address] Dr. Ellen Ramirez MANUAL DIFF REQ NO Normal [facility] Comment on above: Performed By: #### C BC #### [facility] [address] [place] [address] Dr. Ellen Ramirez MCH (RBC) [Entitic mass] 28.0 pg Normal 26.7-34.0 [facility] Comment on above: Performed By: #### C BC #### [facility] [address] [place] [address] Dr. Ellen Ramirez MCHC (RBC) [Mass/Vol] 32.3 g/dL Normal 29.9-35.2 [facility] Comment on above: Performed By: #### C BC #### [facility] [address] [place] [address] Dr. Ellen Ramirez MCV (RBC) [Entitic vol] 86.7 fL Normal 81.0-99.0 [facility] Comment on above: Performed By: #### C BC #### [facility] [address] [place] [address] Dr. Ellen Ramirez MONO # 0.4 103/ul Normal 0.3-0.8 [facility] Comment on above: Performed By: #### C BC #### [facility] [address] [place] [address] Dr. Ellen Ramirez Monocytes/100 WBC (Bld) 8.0 % Normal 1.7-12.0 [facility] Comment on above: Performed By: #### C BC #### [facility] [address] [place] [address] Dr. Ellen Ramirez NEUT # 2.9 103/ul Normal 1.4-6.5 [facility] Comment on above: Performed By: #### C BC #### [facility] [address] [place] [address] Dr. Ellen Ramirez Neutrophils/100 WBC (Bld) 61.1 % Normal 43.0-75.0 [facility] Comment on above: Performed By: #### C BC #### [facility] [address] [place] [address] Dr. Ellen Ramirez Platelet mean volume (Bld) [Entitic vol] 9.5 fL Normal 9.5-13.5 [facility] Comment on above: Performed By: #### C BC #### [facility] [address] [place] [address] Dr. Ellen Ramirez PLT 282 103/ul Normal 150-450 [facility] Comment on above: Performed By: #### C BC #### [facility] [address] [place] [address] Dr. Ellen Ramirez RBC 4.29 106/ul Normal 4.20-5.40 [facility] Comment on above: Performed By: #### C BC #### [facility] [address] [place] [address] Dr. Ellen Ramirez WBC 4.7 103/ul Normal 4.0-11.0 [facility] Comment on above: Performed By: #### C BC #### [facility] [address] [place] [address] Dr. Ellen Ramirez FERRITINon 05-08-2022 Ferritin [Mass/Vol] 92.0 ng/mL Normal 6.2-137.0 [facility] Comment on above: Performed By: #### F ERR, FT4 #### [facility] [address] [place] [address] Dr. Ellen Ramirez FREE T4on 05-08-2022 Free T4 [Mass/Vol] 0.72 ng/dL Critically low 0.76-1.46 [facility] Comment on above: Performed By: #### F ERR, FT4 #### [facility] [address] [place] [address] Dr. Ellen Ramirez TSHon 05-08-2022 TSH 3.626 uIU/mL Normal 0.358-3.740 [facility] Comment on above: Performed By: #### C BCMAN #### [facility] [address] [place] [address] Dr. Ellen Ramirez CBC AUTO DIFFon 04-14-2022 BASO # 0.0 103/ul Normal 0.0-0.1 [facility] Comment on above: Performed By: #### L ACT #### [facility] [address] [place] [address] Dr. Ellen Ramirez Basophils/100 WBC (Bld) 0.5 % Normal 0.2-2.0 [facility] Comment on above: Performed By: #### L ACT #### [facility] [address] [place] [address] Dr. Ellen Ramirez EO # 0.1 103/ul Normal 0.0-0.7 [facility] Comment on above: Performed By: #### L ACT #### [facility] [address] [place] [address] Dr. Ellen Ramirez Eosinophils/100 WBC (Bld) 2.8 % Normal 0.9-7.0 [facility] Comment on above: Performed By: #### L ACT #### [facility] [address] [place] [address] Dr. Ellen Ramirez Erythrocyte distribution width (RBC) [Ratio] 24.2 % Critically high 11.0-15.0 [facility] Comment on above: Performed By: #### L ACT #### [facility] [address] [place] [address] Dr. Ellen Ramirez Hematocrit (Bld) [Volume fraction] 36.3 % Normal 36.0-48.0 [facility] Comment on above: Performed By: #### L ACT #### [facility] [address] [place] [address] Dr. Ellen Ramirez Hemoglobin (Bld) [Mass/Vol] 11.4 g/dL Critically low 12.0-16.0 [facility] Comment on above: Performed By: #### L ACT #### [facility] [address] [place] [address] Dr. Ellen Ramirez IG # 0.01 10e3/ul Normal 0.00-0.03 [facility] Comment on above: Performed By: #### L ACT #### [facility] [address] [place] [address] Dr. Ellen Ramirez IG % 0.3 % Normal 0.0-0.5 [facility] Comment on above: Performed By: #### L ACT #### [facility] [address] [place] [address] Dr. Ellen Ramirez LYMPH # 1.3 103/ul Normal 1.2-3.8 [facility] Comment on above: Performed By: #### L ACT #### [facility] [address] [address] [address] Ellen Ramirez Lymphocytes/100 WBC (Bld) 32.6 % Normal 20.5-60.0 [facility] Comment on above: Performed By: #### L ACT #### [facility] [address] [place] [address] Dr. Ellen Ramirez MANUAL DIFF REQ NO Normal [facility] Comment on above: Performed By: #### L ACT #### [facility] [address] [address] [address] Ellen Ramirez MCH (RBC) [Entitic mass] 25.9 pg Critically low 26.7-34.0 [facility] Comment on above: Performed By: #### L ACT #### [facility] [address] [place] [address] Dr. Ellen Ramirez MCHC (RBC) [Mass/Vol] 31.4 g/dL Normal 29.9-35.2 [facility] Comment on above: Performed By: #### L ACT #### [facility] [address] [place] [address] Dr. Ellen Ramirez MCV (RBC) [Entitic vol] 82.5 fL Normal 81.0-99.0 [facility] Comment on above: Performed By: #### L ACT #### [facility] [address] [place] [address] Dr. Ellen Ramirez MONO # 0.3 103/ul Normal 0.3-0.8 [facility] Comment on above: Performed By: #### L ACT #### [facility] [address] [place] [address] Dr. Ellen Ramirez Monocytes/100 WBC (Bld) 8.5 % Normal 1.7-12.0 [facility] Comment on above: Performed By: #### L ACT #### [facility] [address] [place] [address] Dr. Ellen Ramirez NEUT # 2.4 103/ul Normal 1.4-6.5 [facility] Comment on above: Performed By: #### L ACT #### [facility] [address] [place] [address] Dr. Ellen Ramirez Neutrophils/100 WBC (Bld) 60.0 % Normal 43.0-75.0 [facility] Comment on above: Performed By: #### L ACT #### [facility] [address] [place] [address] Dr. Ellen Ramirez Platelet mean volume (Bld) [Entitic vol] 9.6 fL Normal 9.5-13.5 [facility] Comment on above: Performed By: #### L ACT #### [facility] [address] [place] [address] Dr. Ellen Ramirez PLT 264 103/ul Normal 150-450 [facility] Comment on above: Performed By: #### L ACT #### [facility] [address] [place] [address] Dr. Ellen Ramirez RBC 4.40 106/ul Normal 4.20-5.40 [facility] Comment on above: Performed By: #### L ACT #### [facility] [address] [place] [address] Dr. Ellen Ramirez WBC 3.9 103/ul Critically low 4.0-11.0 [facility] Comment on above: Performed By: #### L ACT #### [facility] [address] [place] [address] Dr. Ellen Ramirez PREG HCG QUALon 04-14-2022 , QUAL Negative Normal NEGATIVE [facility] Comment on above: Performed By: #### P REG #### [facility] [address] [place] [address] Dr. Ellen Ramirez Covid-19 PCR (CVDTB)on 03-24 SARS-CoV-2 (COVID-19) RNA BEULAH+probe Ql (Unsp spec) Not detected Normal NOT DETECTED [facility] Comment on above: Result Comment: This test is not yet approved or cleared by the [place] FDA. When there are no FDA-approved or cleared tests available, and other criteria are met, FDA can make tests available under an emergency access mechanism called an Emergency Use Authorization (EUA). The EUA for this test is supported by the [place] Director of Health and Human Service's (HHS's) declaration [...] SARS-CoV-2. Performed By: #### C VDTBH #### [facility] [address] [place] [address] Dr. Ellen Ramirez CBC W MANUAL DIFFon 03-30-20 22 ACANTHOCYTES 1+ Normal [facility] Comment on above: Result Comment: Prev iously reported as: 1+ On 03/30/2022 14:46 By BQ2 Performed By: #### C HUSSAIN #### [facility] [address] [place] [address] Dr. Ellen Ramirez ATYPICAL LYMPH # Normal [facility] Comment on above: Performed By: #### C HUSSAIN #### [facility] [address] [place] [address] Dr. Ellen Ramirez ATYPICAL LYMPH % Normal [facility] Comment on above: Performed By: #### C HUSSAIN #### [facility] [address] [place] [address] Dr. Ellen Ramirez BAND # Normal 0.0-0.3 [facility] Comment on above: Performed By: #### C HUSSAIN #### [facility] [address] [place] [address] Dr. Ellen Ramirez BAND % Normal 0-5 [facility] Comment on above: Performed By: #### C HUSSAIN #### [facility] [address] [place] [address] Dr. Ellen Ramirez BASOM # 0.00 103/ul Normal 0.00-0.10 [facility] Comment on above: Performed By: #### C HUSSAIN #### [facility] [address] [place] [address] Dr. Ellen Ramirez BASOM % 0.0 % Critically low 0.2-2.0 [facility] Comment on above: Performed By: #### C BCMAN #### [facility] [address] [place] [address] Dr. Ellen Ramirez BLAST # Normal [facility] Comment on above: Performed By: #### C BCVIRGINIE #### [facility] [address] [place] [address] Dr. Ellen Ramirez BLAST % Normal [facility] Comment on above: Performed By: #### C BCVIRGINIE #### [facility] [address] [place] [address] Dr. Ellen Ramirez CORRECTED WBC Normal 4.0-11.0 [facility] Comment on above: Performed By: #### C BCVIRGINIE #### [facility] [address] [place] [address] Dr. Ellen Ramirez EOS # 0.10 103/ul Normal 0.00-0.70 [facility] Comment on above: Performed By: #### C BCVIRGINIE #### [facility] [address] [place] [address] Dr. Ellen Ramirez EOS% 2.0 % Normal 0.9-7.0 [facility] Comment on above: Performed By: #### C HUSSAIN #### [facility] [address] [place] [address] Dr. Ellen Ramirez HCT 33.3 % Critically low 36.0-48.0 [facility] Comment on above: Performed By: #### C BCMAN #### [facility] [address] [place] [address] Dr. Ellen Ramirez HGB 10.4 g/dl Critically low 12.0-16.0 [facility] Comment on above: Performed By: #### C BCVIRGINIE #### [facility] [address] [place] [address] Dr. Ellen Ramirez LYMPHM # 1.78 103/ul Normal 1.20-3.80 [facility] Comment on above: Performed By: #### C BCVIRGINIE #### [facility] [address] [place] [address] Dr. Ellen Ramirez LYMPHM% 37.0 % Normal 20.5-60.0 [facility] Comment on above: Performed By: #### C HUSSAIN #### [facility] [address] [place] [address] Dr. Ellen Ramirez MCH 25.6 pg Critically low 26.7-34.0 [facility] Comment on above: Performed By: #### C HUSSAIN #### [facility] [address] [place] [address] Dr. Ellen Ramirez MCHC 31.2 g/dl Normal 29.9-35.2 [facility] Comment on above: Performed By: #### C HUSSAIN #### [facility] [address] [place] [address] Dr. Ellen Ramirez MCV 81.8 fL Normal 81.0-99.0 [facility] Comment on above: Performed By: #### C HUSSANI #### [facility] [address] [place] [address] Dr. Ellen Ramirez METAMYELOCYTE # Normal [facility] Comment on above: Performed By: #### C HUSSAIN #### [facility] [address] [place] [address] Dr. Ellen Ramirez METAMYELOCYTE % Normal [facility] Comment on above: Performed By: #### C HUSSAIN #### [facility] [address] [place] [address] Dr. Ellen Ramirez MONOM# 0.43 103/ul Normal 0.30-0.80 [facility] Comment on above: Performed By: #### C HUSSAIN #### [facility] [address] [place] [address] Dr. Ellen Ramirez MONOM% 9.0 % Normal 1.7-12.0 [facility] Comment on above: Performed By: #### C HUSSAIN #### [facility] [address] [place] [address] Dr. Ellen Ramirez MPV 10.2 fL Normal 9.5-13.5 [facility] Comment on above: Performed By: #### C HUSSAIN #### [facility] [address] [address] [address] Ellen Ramirez MYELOCYTE # Normal [facility] Comment on above: Performed By: #### C HUSSAIN #### [facility] [address] [place] [address] Dr. Ellen Ramirez MYELOCYTE % Normal [facility] Comment on above: Performed By: #### C HUSSAIN #### [facility] [address] [place] [address] Dr. Ellen Ramirez NRBC Normal [facility] Comment on above: Performed By: #### C HUSSAIN #### [facility] [address] [place] [address] Dr. Ellen Ramirez OVALOCYTES 1+ Normal [facility] Comment on above: Result Comment: Prev iously reported as: 1+ On 03/30/2022 14:46 By BQ2 Performed By: #### C HUSSAIN #### [facility] [address] [place] [address] Dr. Ellen Ramirez PLT 302 103/ul Normal 150-450 [facility] Comment on above: Performed By: #### C HUSSAIN #### [facility] [address] [place] [address] Dr. Ellen Ramirez RBC 4.07 106/ul Critically low 4.20-5.40 [facility] Comment on above: Performed By: #### C HUSSAIN #### [facility] [address] [place] [address] Dr. Ellen Ramirez RDW 26.7 % Critically high 11.0-15.0 [facility] Comment on above: Performed By: #### C HUSSAIN #### [facility] [address] [place] [address] Dr. Ellen Ramirez SEG # 2.50 103/ul Normal 1.40-6.50 [facility] Comment on above: Performed By: #### C HUSSAIN #### [facility] [address] [place] [address] Dr. Ellen Ramirez SEG % 52.0 % Normal 43.0-75.0 [facility] Comment on above: Performed By: #### C BCMAN #### [facility] [address] [address] [address] Ellen Ramirez TEAR DROP CELLS 1+ Normal [facility] Comment on above: Result Comment: Prev iously reported as: 1+ On 03/30/2022 14:46 By BQ2 Performed By: #### C HUSSAIN #### [facility] [address] [address] [address] Ellen Ramirez WBC 4.8 103/ul Normal 4.0-11.0 [facility] Comment on above: Performed By: #### C BCMAN #### [facility] [address] [address] [address] Ellen Ramirez US PELVIS AND TRANSVAGon [...] AHSAN FLORES Date: 2022-03-30 18:10 Normal [facility] TSHon 03-16-2022 TSH 2.199 uIU/mL Normal 0.358-3.740 [facility] Comment on above: Performed By: #### T #### [facility] [address] [address] [address] Ellen Ramirez CBC AUTO DIFFon 02-14-2022 BASO # 0.0 103/ul Normal 0.0-0.1 [facility] Comment on above: Performed By: #### C HUSSAIN #### [facility] [address] [place] [address] Dr. Ellen Ramirez Basophils/100 WBC (Bld) 0.4 % Normal 0.2-2.0 [facility] Comment on above: Performed By: #### C HUSSAIN #### [facility] [address] [place] [address] Dr. Ellen Ramirez EO # 0.0 103/ul Normal 0.0-0.7 [facility] Comment on above: Performed By: #### C HUSSAIN #### [facility] [address] [place] [address] Dr. Ellen Ramirez Eosinophils/100 WBC (Bld) 0.4 % Critically low 0.9-7.0 [facility] Comment on above: Performed By: #### C HUSSAIN #### [facility] [address] [place] [address] Dr. Ellen Ramirez Erythrocyte distribution width (RBC) [Ratio] 16.4 % Critically high 11.0-15.0 [facility] Comment on above: Performed By: #### C HUSSAIN #### [facility] [address] [place] [address] Dr. Ellen Ramirez Hematocrit (Bld) [Volume fraction] 24.4 % Critically low 36.0-48.0 [facility] Comment on above: Performed By: #### C HUSSAIN #### [facility] [address] [place] [address] Dr. Ellen Ramirez Hemoglobin (Bld) [Mass/Vol] 7.0 g/dL Critically low 12.0-16.0 [facility] Comment on above: Performed By: #### C HUSSAIN #### [facility] [address] [place] [address] Dr. Ellen Ramirez IG # 0.02 10e3/ul Normal 0.00-0.03 [facility] Comment on above: Performed By: #### C HUSSAIN #### [facility] [address] [place] [address] Dr. Ellen Ramirez IG % 0.3 % Normal 0.0-0.5 [facility] Comment on above: Performed By: #### C HUSSAIN #### [facility] [address] [place] [address] Dr. Ellen Ramirez LYMPH # 1.6 103/ul Normal 1.2-3.8 [facility] Comment on above: Performed By: #### C HUSSAIN #### [facility] [address] [place] [address] Dr. Ellen Ramirez Lymphocytes/100 WBC (Bld) 21.8 % Normal 20.5-60.0 [facility] Comment on above: Performed By: #### C HUSSAIN #### [facility] [address] [place] [address] Dr. Ellen Ramirez MANUAL DIFF REQ NO Normal [facility] Comment on above: Performed By: #### C HUSSAIN #### [facility] [address] [place] [address] Dr. Ellen Ramirez MCH (RBC) [Entitic mass] 20.0 pg Critically low 26.7-34.0 [facility] Comment on above: Performed By: #### C HUSSAIN #### [facility] [address] [place] [address] Dr. Ellen Ramirez MCHC (RBC) [Mass/Vol] 28.7 g/dL Critically low 29.9-35.2 [facility] Comment on above: Result Comment: HYPO CHROMIC MICROCYTIC STOMATOCYTES SEEN Performed By: #### C HUSSAIN #### [facility] [address] [place] [address] Dr. Ellen Ramirez MCV (RBC) [Entitic vol] 69.7 fL Critically low 81.0-99.0 [facility] Comment on above: Performed By: #### C HUSSAIN #### [facility] [address] [place] [address] Dr. Ellen Ramirez MONO # 0.7 103/ul Normal 0.3-0.8 [facility] Comment on above: Performed By: #### C HUSSAIN #### [facility] [address] [place], [place] [id number] Dr. Ellen Ramirez Monocytes/100 WBC (Bld) 9.3 % Normal 1.7-12.0 [facility] Comment on above: Performed By: #### C HUSSAIN #### [facility] [address] [place] [address] Dr. Ellen Ramirez NEUT # 4.9 103/ul Normal 1.4-6.5 [facility] Comment on above: Performed By: #### C HUSSAIN #### [facility] [address] [place] [address] Dr. Ellen Ramirez Neutrophils/100 WBC (Bld) 67.8 % Normal 43.0-75.0 [facility] Comment on above: Performed By: #### C HUSSAIN #### [facility] [address] [place] [address] Dr. Ellen Ramirez Platelet mean volume (Bld) [Entitic vol] 9.8 fL Normal 9.5-13.5 [facility] Comment on above: Performed By: #### C HUSSAIN #### [facility] [address] [place] [address] Dr. Ellen Ramirez PLT 391 103/ul Normal 150-450 [facility] Comment on above: Performed By: #### C HUSSAIN #### [facility] [address] [place] [address] Dr. Ellen Ramirez RBC 3.50 106/ul Critically low 4.20-5.40 [facility] Comment on above: Performed By: #### C HUSSAIN #### [facility] [address] [place] [address] Dr. Ellen Ramirez WBC 7.2 103/ul Normal 4.0-11.0 [facility] Comment on above: Performed By: #### C HUSSAIN #### [facility] [address] [place] [address] Dr. Ellen Ramirez PREG QUANT HCGon 02-14-2022 HCG QUANT <1 Normal [facility] Comment on above: Performed By: #### L ACT #### [facility] [address] [place] [address] Dr. Ellen Ramirez HCG RANGE SEE BELOW Normal [facility] Comment on above: Result Comment: 5-50 0-1 WEEK 40-300 1-2 WEEKS 100-1,000 2-3 WEEKS 500-6,000 3-4 WEEKS 5,000-200,000 1-2 MONTHS 10,000-100,000 2-3 MONTHS 3,000-50,000 2ND TRIMESTER 1,000-50,000 3RD TRIMESTER Performed By: #### L ACT #### [facility] [address] [address] [address] Ellen Ramirez PROTIMEon 02-14-2022 INR Coag (PPP) [Relative time] 1.00 {INR} Normal [facility] Comment on above: Performed By: #### L ACT #### [facility] [address] [place] [address] Dr. Ellen Ramirez INR GUIDELINES SEE BELOW Normal [facility] Comment on above: Result Comment: CARMEN RED INR: 2.0 - 3.0 CONDITIONS NOT LISTED BELOW 2.5 - 3.5 FOR PROSTHETIC HEART VALVE REPLACEMENT 2.5 - 3.5 RECURRENT THROMBOSIS Performed By: #### L ACT #### [facility] [address] [address] [address] Ellen Ramirez PT Coag (PPP) [Time] 10.8 s Normal 9.0-11.6 [facility] Comment on above: Performed By: #### L ACT #### [facility] [address] [place] [address] Dr. Ellen Ramirez PTTon 02-14-2022 aPTT Coag (Bld) [Time] 25.7 s Normal 22.3-36.2 [facility] Comment on above: Performed By: #### L ACT #### [facility] [address] [address] [address] Ellen Ramirez TSHon 02-14-2022 TSH 15.176 uIU/mL Critically high 0.358-3.740 [facility] Comment on above: Performed By: #### L ACT #### [facility] [address] [address] [address] Ellen Ramirez TSH RANGE SEE BELOW Normal [facility] Comment on above: Result Comment: <0.3 4 UIU/ml HYPERTHYROID 0.34-5.60 UIU/ml EUTHYROID >5.60 UIU/ml HYPOTHYROID Performed By: #### L ACT #### [facility] [address] [address] [address] Ellen Ramirez US PELVIS AND TRANSVAGon [...] AHSAN FLORES Date: 2022-02-14 15:03 Normal [facility] Encounters Encounter Date Encounter Type Care Provider Facility Start: 03-17-2024 End: 03-17-2024 ambulatory Patsy Villafana MD Facility:[facility] Start: 02-27-2024 End: 02-27-2024 ambulatory CATRACHO ROSALES [facility] Start: 12-06-2023 End: 12-07-2023 [...] examination DR JOSE DANIEL ROOT . [facility] Start: 04-11-2022 End: 04-12-[address] JOSE DANIEL ROOT . Facility:[facility] Start: 04-11-2022 End: 04-12-2022 Encounter for preprocedural laboratory examination DR JOSE DANIEL ROOT . Facility:[facility] Start: 04-05-2022 Encounter for other preprocedural examination DR JOSE DANIEL ROOT . [facility] Start: 04-03-2022 End: 04-04-[address] [...] Date Payer Category Payer Unknown 1980 Unknown [id number] 2.16.84 0.1.477125.3.579.2.593 1980 Unknown [id number] 2.16.84 0.1.864382.3.579.2.593 1980 Unknown [id number] 2.16.84 0.1.458227.3.579.2.593 1980 Unknown [id number] 2.16.84 0.1.628694.3.579.2.593 1980 Unknown [id number] 2.16.84 0.1.019079.3.579.2.593 1980 Unknown [id number] .16.84 0.1.169556.3.579.2.593 1980 Unknown [id number] 2.16.84 0.1.284295.3.579.2.593 1980 Unknown [id number] 2.16.84 0.1.168680.3.579.2.593 1980 Unknown [id number] 2.16.84 0.1.463713.3.579.2.593 1980 Unknown [id number] 2.16.84 0.1.395189.3.579.2.593 1980 Unknown [id number] 2.16.84 0.1.700379.3.579.2.593 1980 Unknown [id number] 2.16.84 0.1.464509.3.579.2.593 1980 Unknown [id number] 2.16.84 0.1.369022.3.579.2.593 1980 Unknown [id number] 2.16.84 0.1.854657.3.579.2.1259 1980 Unknown [id number] 2.16.84 0.1.189600.3.579.2.1259 1980 Unknown [id number] 2.16.84 0.1.629465.3.579.2.1258 1980 Unknown [id number] 2.16.84 0.1.765678.3.579.2.1258 1980 Unknown [id number] 2.16.84 0.1.440519.3.579.2.1258 1980 Unknown [id number] 2.16.84 0.1.432730.3.579.2.1258 1980 Unknown [id number] 2.16.8 40.1.823895.3.579.2.1285 1980 Unknown [id number] 2.16.8 40.1.880234.3.579.2.1285 1980 Unknown [id number] 2.16.8 40.1.533842.3.579.2.1285 1980 Unknown [id number] 2.16.8 40.1.422042.3.579.2.1285 1980 Unknown [id number] 2.16.8 40.1.776263.3.579.2.1285 1980 Unknown [id number] 2.16.8 40.1.279588.3.579.2.1285 1980 Unknown [id number] 2.16. 840.1.968525.3.579.2.196 1959 Self-pay [id number] 1959 Unknown [id number] Clinical Note 11-19-2023 Note Date & Type [...] ANESTHESIA: General. SURGEON: Jose Daniel Root D.O. IUSS ANALYST: None. FINDINGS: Normal appearing cavity. No gross [...] taken to recovery in stable condition. [facility] Summary Purpose Family History No Family History Records FoundNo Family History Records FoundNo Family History Records FoundNo Family History Records Found Advance Directives No Advanced Directives Records FoundNo Advanced Directives Records FoundNo Advanced Directives Records FoundNo Advanced Directives Records Found Additional Source Comments INFORMATION SOURCE (unrecogn ized section and content) DATE CREATED AUTHOR 12/06/2022 [facility] DATE CREATED AUTHOR AUTHOR'S ORGANIZ ATION 12/09/2023 [facility] EPIC DATE CREATED AUTHOR AUTHOR'S ORGANIZ ATION 02/28/2024 [facility] DATE CREATED AUTHOR AUTHOR'S ORGANIZ ATION 03/19/2024 [facility] FOR RECORDS PERTAINING TO PATIENTS WHO ARE [...] BE BASED ON THE PRIMARY CLINICAL RECORDS. [facility] [employer] [facility]. provides no warranty or guarantee of the accuracy or completeness of information in this document.
--- NOTE | 2024-04-09 11:48 | P.CN_ITS ---
Consult Note: HPI Data of Consult Patient: known to practice within the last 3 years Requesting Physician: Melissa Chi NP Primary Care Provider: CATRACHO ROSALES Consult Narrative Reason for consult: chronic low back pain Narrative: Eileen Dobson a pleasant 43 year old female presents for evaluation and management of chronic low back pain greater than 3 years. Patient reports chronic low back pain, today 5/10 sharp stabbing ache, increasing to 8/10 with twisting standing walking and bending, improved with medications and rest. Patient continues have moderate to severe pain impacting functional ability despite benefit from gabapentin 400mg TID, tramadol 50mg q6hrs, ibuprofen q8hrs, and orphenadrine. Patient underwent recent lumbar xray and MRI which is consistent with lumbar ddd and lumbar facet arthropathy. Patient has an upcoming NS consult next week with Dr Arcos. Engaged in provider guided HEP greater than 6 weeks without benefit, and water therapy without benefit. recently underwent bilateral L4-5 L5-S1 MBB #1 and#2 with >80% improvement greater than 2 hours, patient noticed significant improvement in pain and functional ability. cc:: CC: Melissa Chi NP Review of Systems ROS Status of ROS 10 or more systems reviewed and unremark able except as noted in history and below Musculoskeletal Reports: back pain PFSH PFSH Medical History (Updated 03/25/24 @ 11:44 by Nesha Lundberg RN) Arthritis ?M19.90 - Unspecified osteoarthritis, unspecified site (ICD-10) Acid reflux ?K21.9 - Gastro-esophageal reflux disease without esophagitis (ICD-10) Hypothyroid ?E03.9 - Hypothyroidism, unspecified (ICD-10) Surgical History History of wisdom tooth extraction ?K08.409 - Partial loss of teeth, unspecified cause, unspecified class (ICD- 10) History of endometrial ablation ?Z98.890 - Other specified postprocedural states (ICD-10) History of tubal ligation ?Z98.51 - Tubal ligation status (ICD-10) Meds Home Medications and Allergies Home Medications ?Medication ?Instructions ?Recorded ?Confirmed ?Type gabapentin 400 mg capsule 400 mg PO TID 03/05/24 03/31/24 History ibuprofen 400 mg tablet (IBU) 400 mg PO Q8H PRN pain 03/05/24 03/31/24 History levothyroxine 75 mcg capsule 75 mcg PO DAILY 03/05/24 03/31/24 History orphenadrine citrate 100 mg mg PO 03/05/24 History tablet,extended release tramadol 50 mg tablet mg 03/05/24 History Allergies Allergy/AdvReac Type Severity Reaction Status Date / Time acetaminophen [From Tylenol] Allergy Mild Unknown Verified 03/31/24 07:25 iron AdvReac Mild Unknown Verified 03/31/24 07:25 Exam Constitutional Documenting provider has reviewed patient's vital signs: yes Common normals: no apparent distress, oriented x3, healthy appearing, alert and well nourished General appearance: cooperative HENMT Common normals: normocephalic, hearing grossly normal bilaterally and moist oral mucous membranes Head and scalp: normocephalic Eye Common normals: PERRL Pupil: PERRL Neck & C-Spine Common normals: full ROM General: normal visual inspection Chest Common normals: inspection of chest normal Respiratory Common normals: normal respiratory effort, no retractions and no use of accessory muscles Back & Pelvis Lumbar spine/lower back: ROM limited, pain with ROM and straight leg raise negative bilaterally Sacroiliac joints: SI joint(s) abnormal Other: positive facet loading left greater than right pain and tenderness over bilateral L4-S1 facets left SIJ positive mahesh(patricks), gaenslens, thigh thrust, compression test strength 5/5 in BLE, sensation equal and intact Extremity Common normals: normal to inspection and full ROM Neuro Common normals: oriented x3, CN's II-XII intact bilaterally, moves all extremities, no focal motor deficits, no sensory deficits noted and deep tendon reflexes 2+ bilaterally Sensorium/orientation: alert Motor exam: strength 5/5 throughout and no movement abnormalities noted Psych Common normals: mental status grossly normal, thought process normal, cooperative, affect normal, speech normal and activity/motor behavior normal Speech: normal speech Thought process: normal thought process Results Additional Findings Additional findings: If on a controlled substance or opioids, I have checked an [place] report on this patient and there are no aberrancies noted in the prescribing history.??If on a controlled substance or opioid a drug screen was completed and reviewed within the last year, and if there has not been a drug screen completed we ordered one today to monitor higher risk, state monitored pain medication use. As part of providing excellent, safe, comprehensive care, the following was completed at our patient's visit: 1. A medication reconciliation and review to ensure accurate knowledge of current/active medications, including asking our patients to inform us about any [id number] medications or herbal remedies/nutritional supplements/alternative remedies. 2. A review to specifically ensure our patients have had annual screening for screening for depression, screening for tobacco use, and screening for unhealthy alcohol use. For concerning screenings had a discussion with the patient, provided patient education, and recommended follow-up with primary care provider when appropriate. If patient noted with a risk of falling, they received education on strength, gait, and balance training to prevent future risk of falling. Assessment and Plan Assessment and Plan (1) Lumbar spondylosis: Assessment and Plan: The patient has had over 3 months of moderate to severe low back pain with functional impairment and inadequate response to conservative care including NSAIDS (unless there are contraindication such as concurrent blood thinners), multiple oral or topical pain medications, and home exercise program/physical therapy.? Patient has completed >6 weeks of guided home exercise program and/or formal physical therapy program without relief of their symptoms.? I have reviewed the imaging of the lumbar spine and no red flags were identified.? The imaging reveals radiographic findings consistent with lumbar DDD and lumbar spondylosis We discussed the risks and benefits of the procedure with the patient, and we are NOT planning on using sedation as outlined in the guidelines from Medicare unless there is a documented reason that sedation would be strongly recommended.?? The procedure will be completed with fluoroscopic guidance.? (2) Lumbar degenerative disc disease: (3) Chronic low back pain without sciatica: Plan bilateral L4-5 L5-S1 facet joint RFA to be completed under fluoroscopy with 10mg PO valium 30 mins prior to procedure for anxiety continue HEP as tolerated continue medications through PCP f/u 1 month after RFA complete
== END 2024-04-09 11:28 | disposition home or self-care (01) ==
LOC: PM 11:27
PROVIDERS: PCP Family Medicine; Visit Provider Nurse Practitioner
DX: M47.816 Spondylosis without myelopathy or radiculopathy, lumbar region (principal); M51.36 Other intervertebral disc degeneration, lumbar region; M54.50 Low back pain, unspecified
CPT/HCPCS: G0463

== ENCOUNTER 2024-04-21 07:58 | Day surgery (SDC) | payer BC, SELFPAY ==
--- OUTSIDE RECORDS SUMMARY | 2024-04-21 08:08 | XMS_ITS ---
Patient Summarization (C-CDA 2.1 CCD) Created on: April 21, 2024 Eileen Dobson : 1980 Sex: Female Author Organization Sample organization Care Team Providers Care Building Engineer Name Role Phone CLAUDY ., DR SKY [...] Unavailable CLAUDY ., DR SKY Consulting Unavailable AGUBOSIM, ULICES Consulting Unavailable YESSY PATEL Consulting Unavailable [...] Unavailable Ledy AVALOS, Patsy Willams Attending Unavailable Ledy AVALOS, Patsy Willams Attending Unavailable Allergies Allergy Classification Reported Allergen(s) Allergy Type Date of Onset Reaction(s) Facility (2 sources) Acetaminophen Drug Allergy [facility] Repository (2 sources) ferric carboxymaltose Drug Allergy 2 [facility]ository (1 source) Acetaminophen; Translations: [ACETAMINOPHEN] Drug Allergy 4 [facility] Rep[facility] (1 source) Hydroxychloroquine; Translations: [HYDROXYCHLOROQUINE ] Drug Allergy 3 [facility] Encounters Encounter Date Encounter Type Care Provider Facility Start: 03-31-2024 End: 03-31-2024 ambulatory [facility] Start: 03-17-2024 End: 03-17-2024 ambulatory Patsy Villafana MD [facility] Start: 02-27-2024 End: 02-27-2024 ambulatory CATRACHO ROSALES [facility] Start: 12-06-2023 End: [...] examination DR JOSE DANIEL ROOT . [facility] Start: 04-11-2022 End: 04-12-[address] JOSE DANIEL ROOT . Facility:[facility] Start: 04-11-2022 End: 04-12-2022 Encounter for preprocedural laboratory examination DR JOSE DANIEL ROOT . Facility:[facility] Start: 04-05-2022 Encounter for other preprocedural examination DR JOSE DANIEL ROOT . [facility] Start: 04-03-2022 End: 04-04-[address] [...] 02-15-[address] JOSE DANIEL ROOT . Facility: Payers Date Payer Category Payer Unknown 1980 Unknown [id number] 2.16.84 0.1.816498.3.579.2.593 1980 Unknown [id number] 2.16.84 0.1.771359.3.579.2.593 1980 Unknown [id number] 2.16.84 0.1.528105.3.579.2.593 1980 Unknown [id number] 2.16.84 0.1.443640.3.579.2.593 1980 Unknown [id number] 2.16.84 0.1.429923.3.579.2.593 1980 Unknown [id number] 2.16.84 0.1.140700.3.579.2.593 1980 Unknown [id number] 2.16.84 0.1.191673.3.579.2.593 1980 Unknown [id number] 2.16.84 0.1.466054.3.579.2.593 1980 Unknown [id number] 2.16.84 0.1.578503.3.579.2.593 1980 Unknown [id number] 2.16.84 0.1.918126.3.579.2.593 1980 Unknown [id number] 2.16.84 0.1.818635.3.579.2.593 1980 Unknown [id number] 2.16.84 0.1.415415.3.579.2.593 1980 Unknown [id number] 2.16.84 0.1.985071.3.579.2.593 1980 Unknown [id number] 2.16.84 0.1.790838.3.579.2.1258 1980 Unknown [id number] 2.16.84 0.1.793061.3.579.2.1258 1980 Unknown [id number] 2.16.84 0.1.454176.3.579.2.1258 1980 Unknown [id number] 2.16.84 0.1.042734.3.579.2.1258 1980 Unknown [id number] 2.16.84 0.1.532474.3.579.2.1258 1980 Unknown [id number] 2.16.84 0.1.648944.3.579.2.1258 1980 Unknown [id number] 2.16.8 40.1.280387.3.579.2.1285 1980 Unknown [id number] 2.16.8 40.1.612411.3.579.2.1285 1980 Unknown [id number] 2.16.8 40.1.469614.3.579.2.1285 1980 Unknown [id number] 2.16.8 40.1.347072.3.579.2.1285 1980 Unknown [id number] 2.16.8 40.1.121835.3.579.2.1285 1980 Unknown [id number] 2.16.8 40.1.572409.3.579.2.1285 1980 Unknown [id number] 2.16. 840.1.264286.3.579.2. 1980 Unknown [id number] 2.16. 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 Ellen Ramirez ATYPICAL LYMPH % Normal [facility] Comment on above: Performed By: #### C BCVIRGINIE #### [facility] [address] [address] [address] Ellen Ramirez BAND # 0.0 103/ul Normal 0.0-0.3 [facility] Comment on above: Performed By: #### C HUSSAIN #### [facility] [address] [address] [address] Ellen Ramirez BAND % 0 % Normal 0-5 [facility] Comment on above: Performed By: #### C HUSSAIN #### [facility] [address] [address] [address] Ellen Ramirez BASOM # 0.00 103/ul Normal 0.00-0.10 [facility] Comment on above: Performed By: #### C BCMAN #### [facility] [address] [address] [address] Ellen Ramirez BASOM % 0.0 % Critically low 0.2-2.0 [facility] Comment on above: Performed By: #### C BCMAN #### [facility] [address] [address] [address] Ellen Ramirez BLAST # Normal [facility] Comment on above: Performed By: #### C BCMAN #### [facility] [address] [place] [address] Dr. Ellen Ramirez BLAST % Normal [facility] Comment on above: Performed By: #### C BCVIRGINIE #### [facility] [address] [place] [address] Dr. Ellen Ramirez CORRECTED WBC Normal 4.0-11.0 [facility] Comment on above: Performed By: #### C BCVIRGINIE #### [facility] [address] [place] [address] Dr. Ellen Ramirez EOS # 0.46 103/ul Normal 0.00-0.70 [facility] Comment on above: Performed By: #### C BCVIRGINIE #### [facility] [address] [place] [address] Dr. Ellen Ramirez EOS% 6.0 % Normal 0.9-7.0 [facility] Comment on above: Performed By: #### C BCVIRGINIE #### [facility] [address] [place] [address] Dr. Ellen Ramirez HCT 33.6 % Critically low 36.0-48.0 [facility] Comment on above: Performed By: #### C BCMAN #### [facility] [address] [place] [address] Dr. Ellen Ramirez HGB 11.5 g/dl Critically low 12.0-16.0 [facility] Comment on above: Performed By: #### C HUSSAIN #### [facility] [address] [address] [address] Ellen Ramirez LYMPHM # 0.15 103/ul Critically low 1.20-3.80 [facility] Comment on above: Performed By: #### C HUSSAIN #### [facility] [address] [address] [address] Ellen Ramirez LYMPHM% 2.0 % Critically low 20.5-60.0 [facility] Comment on above: Performed By: #### C HUSSAIN #### [facility] [address] [place] [address] Dr. Ellen Ramirez MCH 29.3 pg Normal 26.7-34.0 [facility] Comment on above: Performed By: #### C HUSSAIN #### [facility] [address] [place] [address] Dr. Ellen Ramirez MCHC 34.2 g/dl Normal 29.9-35.2 [facility] Comment on above: Performed By: #### Chavez NIXON #### [facility] [address] [place] [address] Dr. Ellen Ramirez MCV 85.5 fL Normal 81.0-99.0 [facility] Comment on above: Performed By: #### C HUSSAIN #### [facility] [address] [place] [address] Dr. Ellen Ramirez METAMYELOCYTE # Normal [facility] Comment on above: Performed By: #### Chavez NIXON #### [facility] [address] [place] [address] Dr. Ellen Ramirez METAMYELOCYTE % Normal [facility] Comment on above: Performed By: #### C HUSSAIN #### [facility] [address] [place] [address] Dr. Ellen Ramirez MONOM# 0.38 103/ul Normal 0.30-0.80 [facility] Comment on above: Performed By: #### Chavez NIXON #### [facility] [address] [place] [address] Dr. Ellen Ramirez MONOM% 5.0 % Normal 1.7-12.0 [facility] Comment on above: Performed By: #### C HUSSAIN #### [facility] [address] [place] [address] Dr. Ellen Ramirez MPV 9.4 fL Critically low 9.5-13.5 [facility] Comment on above: Performed By: #### C HUSSAIN #### [facility] [address] [place] [address] Dr. Ellen Ramirez MYELOCYTE # Normal [facility] Comment on above: Performed By: #### C HUSSAIN #### [facility] [address] [place] [address] Dr. Ellen Ramirez MYELOCYTE % Normal [facility] Comment on above: Performed By: #### C HUSSAIN #### [facility] [address] [place] [address] Dr. Ellen Ramirez NRBC Normal [facility] Comment on above: Performed By: #### C HUSSAIN #### [facility] [address] [place] [address] Dr. Ellen Ramirez PLT 281 103/ul Normal 150-450 [facility] Comment on above: Performed By: #### C HUSSAIN #### [facility] [address] [place] [address] Dr. Ellen Ramirez RBC 3.93 106/ul Critically low 4.20-5.40 [facility] Comment on above: Performed By: #### C HUSSAIN #### [facility] [address] [place] [address] Dr. Ellen Ramirez RDW 13.0 % Normal 11.0-15.0 [facility] Comment on above: Performed By: #### C HUSSAIN #### [facility] [address] [place] [address] Dr. Ellen Ramirez SEG # 6.61 103/ul Critically high 1.40-6.50 [facility] Comment on above: Performed By: #### C HUSSAIN #### [facility] [address] [place] [address] Dr. Ellen Ramirez SEG % 87.0 % Critically high 43.0-75.0 [facility] Comment on above: Performed By: #### C HUSSAIN #### [facility] [address] [address] [address] Ellen Ramirez WBC 7.6 103/ul Normal 4.0-11.0 [facility] Comment on above: Performed By: #### C JOVANVIRGINIE #### [facility] [address] [place] [address] Dr. Eleln Ramirez CPKon 12-02-2022 CK [Catalytic activity/Vol] 50 U/L Normal 26-192 [facility] Comment on above: Performed By: #### C JOVANVIRGINIE #### [facility] [address] [place] [address] Dr. Ellen Ramirez CRPon 12-02-2022 CRP 5.4 mg/dL Critically high <=1.0 [facility] Comment on above: Performed By: #### Chvaez NIXON #### [facility] [address] [place] [address] HEAD WO CONon [...] REBA LOWRY Date: 2022-12-02 00:24 Normal [facility] ER URINE PROFILEon 3 Bilirubin Ql (U) Negative Normal NEGATIVE [facility] Comment on above: Performed By: #### L ACT #### [facility] [address] [place] [address] Dr. Ellen Ramirez Clarity (U) CLEAR Normal CLEAR [facility] Comment on above: Performed By: #### L ACT #### [facility] [address] [place] [address] Dr. Ellen Ramirez Color (U) YELLOW Normal YELLOW [facility] Comment on above: Performed By: #### L ACT #### [facility] [address] [place] [address] Dr. Ellen Ramirez ERUAHD A micrscopic examination will be performed if indicated. Normal [facility] Comment on above: Performed By: #### L ACT #### [facility] [address] [place] [address] Dr. Ellen Ramirez Glucose Ql (U) Negative Normal NEGATIVE [facility] Comment on above: Performed By: #### L ACT #### [facility] [address] [place] [address] Dr. Ellen Ramirez Hemoglobin Ql (U) TRACE-INTACT Abnormal NEGATIVE [facility] Comment on above: Performed By: #### L ACT #### [facility] [address] [place] [address] Dr. Ellen Ramirez Ketones Ql (U) >=80 Abnormal NEGATIVE [facility] Comment on above: Performed By: #### L ACT #### [facility] [address] [place] [address] Dr. Ellen Ramirez LEUKOCYTES Negative Normal NEGATIVE [facility] Comment on above: Performed By: #### L ACT #### [facility] [address] [place] [address] Dr. Ellen Ramirez Nitrite Ql (U) Negative Normal NEGATIVE [facility] Comment on above: Performed By: #### L ACT #### [facility] [address] [place] [address] Dr. Ellen Ramirez pH (U) 6.0 [pH] Normal 5-9 [facility] Comment on above: Performed By: #### L ACT #### [facility] [address] [place] [address] Dr. Ellen Ramirez SPEC GRAVITY 1.015 Normal 1.005-<=1.025 [facility] Comment on above: Performed By: #### L ACT #### [facility] [address] [address] [address] Ellen Ramirez UA PROTEIN Negative Normal NEGATIVE/ TRACE [facility] Comment on above: Performed By: #### L ACT #### [facility] [address] [place] [address] Dr. Ellen Ramirez UR MICRO IND NOT INDICATED Normal [facility] Comment on above: Performed By: #### L ACT #### [facility] [address] [place] [address] Dr. Ellen Ramirez Urobilinogen Qn (U) 0.2 {Ajith'U}/dL Normal 0.2 - 1. 0 [facility] Comment on above: Performed By: #### L ACT #### [facility] [address] [place] [address] Dr. Ellen Ramirez LACTATE/LACTIC ACIDon 2022 Lactate [Moles/Vol] 0.7 mmol/L Normal 0.4-2.0 [facility] Comment on above: Performed By: #### L ACT #### [facility] [address] [place] [address] Dr. Ellen Ramirez MYOGLOBINon 12-02-2022 LORENA 30 ng/mL Normal 9-82 [facility] Comment on above: Performed By: #### C HUSSAIN #### [facility] [address] [place] [address] Dr. Ellen Ramirez PROF 14(COMP METB)on 023 Albumin [Mass/Vol] 3.7 g/dL Normal 3.4-5.0 [facility] Comment on above: Performed By: #### C HUSSAIN #### [facility] [address] [place] [address] Dr. Ellen Ramirez Albumin/Globulin [Mass ratio] 1.1 {ratio} Normal [facility] Comment on above: Performed By: #### C BCVIRGINIE #### [facility] [address] [address] [address] Ellen Ramirez ALP [Catalytic activity/Vol] 87 U/L Normal 46-116 [facility] Comment on above: Performed By: #### C BCVIRGINIE #### [facility] [address] [address] [address] Ellen Ramirez ALT [Catalytic activity/Vol] 43 U/L Normal 14-59 [facility] Comment on above: Performed By: #### C BCVIRGINIE #### [facility] [address] [address] [address] Ellen Ramirez Anion gap [Moles/Vol] 10.9 mmol/L Normal [facility] Comment on above: Performed By: #### C BCVIRGINIE #### [facility] [address] [place] [address] Dr. Ellen Ramirez AST [Catalytic activity/Vol] 35 U/L Normal 15-37 [facility] Comment on above: Performed By: #### C BCVIRGINIE #### [facility] [address] [place] [address] Dr. Ellen Ramirez Bilirubin [Mass/Vol] 0.3 mg/dL Normal 0.2-1.0 [facility] Comment on above: Performed By: #### C HUSSAIN #### [facility] [address] [place] [address] Dr. Ellen Ramirez Calcium [Mass/Vol] 8.6 mg/dL Normal 8.5-10.1 [facility] Comment on above: Performed By: #### C BCVIRGINIE #### [facility] [address] [place] [address] Dr. Ellen Ramirez Chloride [Moles/Vol] 102 mmol/L Normal 98-107 [facility] Comment on above: Performed By: #### C BCVIRGINIE #### [facility] [address] [place] [address] Dr. Ellen Ramirez CO2 [Moles/Vol] 25.4 mmol/L Normal 21.0-32.0 [facility] Comment on above: Performed By: #### C BCVIRGINIE #### [facility] [address] [address] [address] Ellen Ramirez Creatinine [Mass/Vol] 0.99 mg/dL Normal 0.55-1.02 [facility] Comment on above: Performed By: #### C HUSSAIN #### [facility] [address] [address] [address] Ellen Ramirez EGFR-AF VINCENTIAN >60 Normal >=60 [facility] Comment on above: Performed By: #### C HUSSAIN #### [facility] [address] [address] [address] Ellen Ramirez EGFR-NON AF VINCENTIAN >60 Normal >=60 [facility] Comment on above: Performed By: #### C HUSSAIN #### [facility] [address] [place] [address] Dr. Ellen Ramirez Globulin (S) [Mass/Vol] 3.3 g/dL Normal [facility] Comment on above: Performed By: #### C HUSSAIN #### [facility] [address] [address] [address] Ellen Ramirez Glucose [Mass/Vol] 107 mg/dL Critically high 74-106 [facility] Comment on above: Performed By: #### C HUSSAIN #### [facility] [address] [place] [address] Dr. Ellen Ramirez Potassium [Moles/Vol] 3.3 mmol/L Critically low 3.5-5.1 [facility] Comment on above: Performed By: #### C HUSSAIN #### [facility] [address] [place] [address] Dr. Ellen Ramirez Protein [Mass/Vol] 7.0 g/dL Normal 6.4-8.2 [facility] Comment on above: Performed By: #### C HUSSAIN #### [facility] [address] [place] [address] Dr. Ellen Ramirez Sodium [Moles/Vol] 135 mmol/L Critically low 136-145 [facility] Comment on above: Performed By: #### C HUSSAIN #### [facility] [address] [place] [address] Dr. Ellen Ramirez Urea nitrogen [Mass/Vol] 11.0 mg/dL Normal 7.0-18.0 [facility] Comment on above: Performed By: #### C BCMAN #### [facility] [address] [place] [address] Dr. Ellen Ramirez Urea nitrogen/Creatinine [Mass ratio] 11.1 mg/mg Normal [facility] Comment on above: Performed By: #### C BCMAN #### [facility] [address] [place] [address] Dr. Ellen Ramirez RESPIRATORY PANEL PLUSon Adenovirus Not detected Normal NOT DETECTED [facility] Comment on above: Performed By: #### C BCMAN #### [facility] [address] [place] [address] Dr. Ellen Verduzco. Parapertusis Not detected Normal NOT DETECTED [facility] Comment on above: Performed By: #### C BCMAN #### [facility] [address] [place] [address] Dr. Ellen Ramirez B. Pertussis Not detected Normal NOT DETECTED [facility] Comment on above: Performed By: #### C BCMAN #### [facility] [address] [place] [address] Dr. Ellen Ramirez Chlamydia Pneumoniae Not detected Normal NOT DETECTED [facility] Comment on above: Performed By: #### C BCMAN #### [facility] [address] [place] [address] Dr. Ellen Ramirez Coronavirus 229E Not detected Normal NOT DETECTED [facility] Comment on above: Performed By: #### C BCMAN #### [facility] [address] [place] [address] Dr. Ellen Ramirez Coronavirus HKU1 Not detected Normal NOT DETECTED [facility] Comment on above: Performed By: #### C BCMAN #### [facility] [address] [place] [address] Dr. Ellen Ramirez Coronavirus NL63 Not detected Normal NOT DETECTED [facility] Comment on above: Performed By: #### C BCMAN #### [facility] [address] [address] [address] Ellen Ramirez Coronavirus OC43 Not detected Normal NOT DETECTED [facility] Comment on above: Performed By: #### C BCMAN #### [facility] [address] [address] [address] Ellen Ramirez Influenza A H1 Not detected Normal NOT DETECTED [facility] Comment on above: Performed By: #### C BCMAN #### [facility] [address] [address] [address] Ellen Ramirez Influenza A H1 2009 Not detected Normal NOT DETECTED [facility] Comment on above: Performed By: #### C BCMAN #### [facility] [address] [place] [address] Dr. Ellen Ramirez Influenza A H3 Not detected Normal NOT DETECTED [facility] Comment on above: Performed By: #### C BCMAN #### [facility] [address] [place] [address] Dr. Ellen Ramirez Influenza B Not detected Normal NOT DETECTED [facility] Comment on above: Performed By: #### C BCMAN #### [facility] [address] [place] [address] Dr. Ellen Ramirez Metapneumovirus Not detected Normal NOT DETECTED [facility] Comment on above: Performed By: #### C BCMAN #### [facility] [address] [place] [address] Dr. Ellen Ramirez Mycoplas. Pneumoniae Not detected Normal NOT DETECTED [facility] Comment on above: Performed By: #### C BCMAN #### [facility] [address] [place] [address] Dr. Ellen Ramirez Parainfluenza 1 Not detected Normal NOT DETECTED [facility] Comment on above: Performed By: #### C BCMAN #### [facility] [address] [place] [address] Dr. Ellen Ramirez Parainfluenza 2 Not detected Normal NOT DETECTED [facility] Comment on above: Performed By: #### C BCMAN #### [facility] [address] [place] [address] Dr. Ellen Ramirez Parainfluenza 3 Not detected Normal NOT DETECTED [facility] Comment on above: Performed By: #### C HUSSAIN #### [facility] [address] [place] [address] Dr. Ellen Ramirez Parainfluenza 4 Not detected Normal NOT DETECTED [facility] Comment on above: Performed By: #### C BCMAN #### [facility] [address] [place] [address] Dr. Ellen Ramirez Rhino/Enterovirus Not detected Normal NOT DETECTED [facility] Comment on above: Performed By: #### C JOVANMAN #### [facility] [address] [place] [address] Dr. Ellen Ramirez RP2 Header 1 RESPIRATORY PANEL: VIRUSES Normal [facility] Comment on above: Performed By: #### C HUSSAIN #### [facility] [address] [place] [address] Dr. Ellen Ramirez RP2 Header 2 RESPIRATORY PANEL: BACTERIA Normal [facility] Comment on above: Performed By: #### C BCMAN #### [facility] [address] [place] [address] Dr. Ellen Ramirez RSV Not detected Normal NOT DETECTED [facility] Comment on above: Performed By: #### C JOVANMAN #### [facility] [address] [place] [address] Dr. Ellen Ramirez SARS-CoV-2 (COVID-19) RNA BEULAH+probe Ql (Unsp spec) Not detected Normal NOT DETECTED [facility] Comment on above: Performed By: #### C BCMAN #### [facility] [address] [place] [address] Dr. Ellen Ramirez SED RATE [facility] 2022 SED RATE 22 mm/hr Critically high <=20 [facility] Comment on above: Performed By: #### C BCMAN #### [facility] [address] [place] [address] Dr. Ellen Ramirez TSHon 12-02-2022 TSH 12.836 uIU/mL Critically high 0.358-3.740 [facility] Comment on above: Performed By: #### T SH #### [facility] [address] [address] [address] Ellen Ramirez XR CHEST 2 Von [...] by: REBA LOWRY Date: 2022-12-02 00:05 Normal [facility] PAP ACOG PANEL 2: 30 to 65on 06-26-2022 . . Normal [facility] Comment on above: Result Comment: Perf ormed at: WB Performed By: #### [id number] #### [facility] [address] [place] [address] Dr. Ellen Ramirez Age Gdln ACOG Testing 30-65 Normal [facility] Comment on above: Performed By: #### [id number] #### [facility] [address] [address] [address] Ellen Ramirez DIAGNOSIS: Comment Normal [facility] Comment on above: Result Comment: NEGA TIVE FOR INTRAEPITHELIAL LESION OR MALIGNANCY. Performed at: WB Performed By: #### [id number] #### [facility] [address] [address] [address] Ellen Ramirez HPV Aptima Negative Normal Negative [facility] Comment on above: Result Comment: This nucleic acid amplification test detects fourteen high-risk HPV types (16,18,31,33,35,39,45,51,52,56,58,59,66,68) without differentiation. Performed at: =G Performed By: #### [id number] #### [facility] [address] [place] [address] Dr. Ellen Ramirez Methodology: Comment Normal [facility] Comment on above: Result Comment: This liquid based ThinPrep(R) pap test was screened with the use of an image guided system. Performed at: WB Performed By: #### [id number] #### [facility] [address] [place] [address] Dr. Ellen Ramirez Note: Comment Normal [facility] Comment on above: Result Comment: The Pap smear is a screening test designed to aid in the detection of premalignant and malignant conditions of the uterine cervix. It is not a diagnostic procedure and should not be used as the sole means of detecting cervical cancer. Both false-positive and false-negative reports do occur. . Performed at: WB Performed By: #### [id number] #### [facility] [address] [place] [address] Dr. Ellen Ramirez Performed by: Comment Normal [facility] Comment on above: Result Comment: Pretty Aguilar, Collator Operator (ASCP) Performed at: WB Performed By: #### [id number] #### [facility] [address] [place] [address] Dr. Ellen Ramirez Specimen adequacy: Comment Normal [facility] Comment on above: Result Comment: Sati sfactory for evaluation. Endocervical and/or squamous metaplastic cells (endocervical component) are present. Performed at: WB Performed By: #### [id number] #### [facility] [address] [place] [address] Dr. Ellen Ramirez CBC AUTO DIFFon 05-08-2022 BASO # 0.0 103/ul Normal 0.0-0.1 [facility] Comment on above: Performed By: #### C BC #### [facility] [address] [place] [address] Dr. Ellen Ramirez Basophils/100 WBC (Bld) 0.4 % Normal 0.2-2.0 [facility] Comment on above: Performed By: #### C BC #### [facility] [address] [place] [address] Dr. Ellen Ramirez EO # 0.1 103/ul Normal 0.0-0.7 [facility] Comment on above: Performed By: #### C BC #### [facility] [address] [place] [address] Dr. Ellen Ramirez Eosinophils/100 WBC (Bld) 1.1 % Normal 0.9-7.0 [facility] Comment on above: Performed By: #### C BC #### [facility] [address] [place] [address] Dr. Ellen Ramirez Erythrocyte distribution width (RBC) [Ratio] 18.5 % Critically high 11.0-15.0 [facility] Comment on above: Performed By: #### C BC #### [facility] [address] [place] [address] Dr. Ellen Ramirez Hematocrit (Bld) [Volume fraction] 37.2 % Normal 36.0-48.0 [facility] Comment on above: Performed By: #### C BC #### [facility] [address] [place] [address] Dr. Ellen Ramirez Hemoglobin (Bld) [Mass/Vol] 12.0 g/dL Normal 12.0-16.0 [facility] Comment on above: Performed By: #### C BC #### [facility] [address] [place] [address] Dr. Ellen Ramirez IG # 0.01 10e3/ul Normal 0.00-0.03 [facility] Comment on above: Performed By: #### C BC #### [facility] [address] [place] [address] Dr. Ellne Ramirez IG % 0.2 % Normal 0.0-0.5 [facility] Comment on above: Performed By: #### C BC #### [facility] [address] [place] [address] Dr. Ellen Ramirez LYMPH # 1.4 103/ul Normal 1.2-3.8 [facility] Comment on above: Performed By: #### C BC #### [facility] [address] [place] [address] Dr. Ellen Ramirez Lymphocytes/100 WBC (Bld) 29.2 % Normal 20.5-60.0 [facility] Comment on above: Performed By: #### C BC #### [facility] [address] [place] [address] Dr. Ellen Ramirez MANUAL DIFF REQ NO Normal [facility] Comment on above: Performed By: #### C BC #### [facility] [address] [place] [address] Dr. Ellen Ramirez MCH (RBC) [Entitic mass] 28.0 pg Normal 26.7-34.0 [facility] Comment on above: Performed By: #### C BC #### [facility] [address] [place] [address] Dr. Ellen Ramirez MCHC (RBC) [Mass/Vol] 32.3 g/dL Normal 29.9-35.2 [facility] Comment on above: Performed By: #### C BC #### [facility] [address] [place] [address] Dr. Ellen Ramirez MCV (RBC) [Entitic vol] 86.7 fL Normal 81.0-99.0 [facility] Comment on above: Performed By: #### C BC #### [facility] [address] [place] [address] Dr. Ellen Ramirez MONO # 0.4 103/ul Normal 0.3-0.8 [facility] Comment on above: Performed By: #### C BC #### [facility] [address] [place] [address] Dr. Ellen Ramirez Monocytes/100 WBC (Bld) 8.0 % Normal 1.7-12.0 [facility] Comment on above: Performed By: #### C BC #### [facility] [address] [place] [address] Dr. Ellen Ramirez NEUT # 2.9 103/ul Normal 1.4-6.5 [facility] Comment on above: Performed By: #### C BC #### [facility] [address] [place] [address] Dr. Ellen Ramirez Neutrophils/100 WBC (Bld) 61.1 % Normal 43.0-75.0 [facility] Comment on above: Performed By: #### C BC #### [facility] [address] [place] [address] Dr. Ellen Ramirez Platelet mean volume (Bld) [Entitic vol] 9.5 fL Normal 9.5-13.5 [facility] Comment on above: Performed By: #### C BC #### [facility] [address] [place] [address] Dr. Ellen Ramirez PLT 282 103/ul Normal 150-450 [facility] Comment on above: Performed By: #### C BC #### [facility] [address] [place] [address] Dr. Ellen Ramirez RBC 4.29 106/ul Normal 4.20-5.40 [facility] Comment on above: Performed By: #### C BC #### [facility] [address] [place] [address] Dr. Ellen Ramirez WBC 4.7 103/ul Normal 4.0-11.0 [facility] Comment on above: Performed By: #### C BC #### [facility] [address] [place] [address] Dr. Ellen Ramirez FERRITINon 05-08-2022 Ferritin [Mass/Vol] 92.0 ng/mL Normal 6.2-137.0 [facility] Comment on above: Performed By: #### F ERR, FT4 #### [facility] [address] [place] [address] Dr. Ellen Ramirez FREE T4on 05-08-2022 Free T4 [Mass/Vol] 0.72 ng/dL Critically low 0.76-1.[address] [facility] Comment on above: Performed By: #### F ERR, FT4 #### [facility] [address] [place] [address] Dr. Ellen Ramirez TSHon 05-08-2022 TSH 3.626 uIU/mL Normal 0.358-3.740 [facility] Comment on above: Performed By: #### C BCMAN #### [facility] [address] [place] [address] Dr. Ellen Ramirez CBC AUTO DIFFon 04-14-2022 BASO # 0.0 103/ul Normal 0.0-0.1 [facility] Comment on above: Performed By: #### L ACT #### [facility] [address] [address] [address] Ellen Rmairez Basophils/100 WBC (Bld) 0.5 % Normal 0.2-2.0 [facility] Comment on above: Performed By: #### L ACT #### [facility] [address] [address] [address] Ellen Ramirez EO # 0.1 103/ul Normal 0.0-0.7 [facility] Comment on above: Performed By: #### L ACT #### [facility] [address] [address] [address] Ellen Ramirez Eosinophils/100 WBC (Bld) 2.8 % Normal 0.9-7.0 [facility] Comment on above: Performed By: #### L ACT #### [facility] [address] [place] [address] Dr. Ellen Ramirez Erythrocyte distribution width (RBC) [Ratio] 24.2 % Critically high 11.0-15.0 [facility] Comment on above: Performed By: #### L ACT #### [facility] [address] [place] [address] Dr. Ellen Ramirez Hematocrit (Bld) [Volume fraction] 36.3 % Normal 36.0-48.0 [facility] Comment on above: Performed By: #### L ACT #### [facility] [address] [place] [address] Dr. Ellen Ramirez Hemoglobin (Bld) [Mass/Vol] 11.4 g/dL Critically low 12.0-16.0 [facility] Comment on above: Performed By: #### L ACT #### [facility] [address] [place] [address] Dr. Ellen Ramirez IG # 0.01 10e3/ul Normal 0.00-0.03 [facility] Comment on above: Performed By: #### L ACT #### [facility] [address] [address] [address] Ellen Ramirez IG % 0.3 % Normal 0.0-0.5 [facility] Comment on above: Performed By: #### L ACT #### [facility] [address] [address] [address] Ellen Ramirez LYMPH # 1.3 103/ul Normal 1.2-3.8 [facility] Comment on above: Performed By: #### L ACT #### [facility] [address] [address] [address] Ellen Ramirez Lymphocytes/100 WBC (Bld) 32.6 % Normal 20.5-60.0 [facility] Comment on above: Performed By: #### L ACT #### [facility] [address] [address] [address] Ellen Ramirez MANUAL DIFF REQ NO Normal [facility] Comment on above: Performed By: #### L ACT #### [facility] [address] [address] [address] Ellen Ramirez MCH (RBC) [Entitic mass] 25.9 pg Critically low 26.7-34.0 [facility] Comment on above: Performed By: #### L ACT #### [facility] [address] [place] [address] Dr. Ellen Ramirez MCHC (RBC) [Mass/Vol] 31.4 g/dL Normal 29.9-35.2 [facility] Comment on above: Performed By: #### L ACT #### [facility] [address] [place] [address] Dr. Ellen Ramirez MCV (RBC) [Entitic vol] 82.5 fL Normal 81.0-99.0 [facility] Comment on above: Performed By: #### L ACT #### [facility] [address] [place] [address] Dr. Ellen Ramirez MONO # 0.3 103/ul Normal 0.3-0.8 [facility] Comment on above: Performed By: #### L ACT #### [facility] [address] [address] [address] Ellen Ramirez Monocytes/100 WBC (Bld) 8.5 % Normal 1.7-12.0 [facility] Comment on above: Performed By: #### L ACT #### [facility] [address] [address] [address] Ellen Ramirez NEUT # 2.4 103/ul Normal 1.4-6.5 [facility] Comment on above: Performed By: #### L ACT #### [facility] [address] [place] [address] Dr. Ellen Ramirez Neutrophils/100 WBC (Bld) 60.0 % Normal 43.0-75.0 [facility] Comment on above: Performed By: #### L ACT #### [facility] [address] [place] [address] Dr. Ellen Ramirez Platelet mean volume (Bld) [Entitic vol] 9.6 fL Normal 9.5-13.5 [facility] Comment on above: Performed By: #### L ACT #### [facility] [address] [place] [address] Dr. Ellen Ramirez PLT 264 103/ul Normal 150-450 [facility] Comment on above: Performed By: #### L ACT #### [facility] [address] [place] [address] Dr. Ellen Ramirez RBC 4.40 106/ul Normal 4.20-5.40 [facility] Comment on above: Performed By: #### L ACT #### [facility] [address] [place] [address] Dr. Ellen Ramirez WBC 3.9 103/ul Critically low 4.0-11.0 [facility] Comment on above: Performed By: #### L ACT #### [facility] [address] [place] [address] Dr. Ellen Ramirez PREG HCG QUALon 04-14-2022 , QUAL Negative Normal NEGATIVE [facility] Comment on above: Performed By: #### P REG #### [facility] [address] [place] [address] Dr. Ellen Ramirez Covid-19 PCR (CVDTB)on 03-24 SARS-CoV-2 (COVID-19) RNA BEULAH+probe Ql (Unsp spec) Not detected Normal NOT DETECTED [facility] Comment on above: Result Comment: This test is not yet approved or cleared by the [place] FDA. When there are no FDA-approved or cleared tests available, and other criteria are met, FDA can make tests available under an emergency access mechanism called an Emergency Use Authorization (EUA). The EUA for this test is supported by the [place] of Health and Human Service's (HHS's) declaration [...] SARS-CoV-2. Performed By: #### C VDTBH #### [facility] [address] [place] [address] Dr. Ellen Ramirez CBC W MANUAL DIFFon 03-30-20 22 ACANTHOCYTES 1+ Normal [facility] Comment on above: Result Comment: Prev iously reported as: 1+ On 03/30/2022 14:46 By BQ2 Performed By: #### C HUSSAIN #### [facility] [address] [place] [address] Dr. Ellen Ramirez ATYPICAL LYMPH # Normal [facility] Comment on above: Performed By: #### C HUSSAIN #### [facility] [address] [place] [address] Dr. Ellen Ramirez ATYPICAL LYMPH % Normal [facility] Comment on above: Performed By: #### C HUSSAIN #### [facility] [address] [place] [address] Dr. Ellen Ramirez BAND # Normal 0.0-0.3 [facility] Comment on above: Performed By: #### C HUSSAIN #### [facility] [address] [place] [address] Dr. Ellen Ramirez BAND % Normal 0-5 [facility] Comment on above: Performed By: #### C HUSSAIN #### [facility] [address] [place] [address] Dr. Ellen Ramirez BASOM # 0.00 103/ul Normal 0.00-0.10 [facility] Comment on above: Performed By: #### C BCMAN #### [facility] [address] [place] [address] Dr. Ellen Ramirez BASOM % 0.0 % Critically low 0.2-2.0 [facility] Comment on above: Performed By: #### C BCMAN #### [facility] [address] [place] [address] Dr. Ellen Ramirez BLAST # Normal [facility] Comment on above: Performed By: #### C BCMAN #### [facility] [address] [place] [address] Dr. Ellen Ramirez BLAST % Normal [facility] Comment on above: Performed By: #### C BCVIRGINIE #### [facility] [address] [place] [address] Dr. Ellen Ramirez CORRECTED WBC Normal 4.0-11.0 [facility] Comment on above: Performed By: #### C BCVIRGINIE #### [facility] [address] [place] [address] Dr. Ellen Ramirez EOS # 0.10 103/ul Normal 0.00-0.70 [facility] Comment on above: Performed By: #### C BCVIRGINIE #### [facility] [address] [place] [address] Dr. Ellen Ramirez EOS% 2.0 % Normal 0.9-7.0 [facility] Comment on above: Performed By: #### C BCMAN #### [facility] [address] [place] [address] Dr. Ellen Ramirez HCT 33.3 % Critically low 36.0-48.0 [facility] Comment on above: Performed By: #### C BCMAN #### [facility] [address] [place] [address] Dr. Ellen Ramirez HGB 10.4 g/dl Critically low 12.0-16.0 [facility] Comment on above: Performed By: #### C BCMAN #### [facility] [address] [place] [address] Dr. Ellen Ramirez LYMPHM # 1.78 103/ul Normal 1.20-3.80 [facility] Comment on above: Performed By: #### C HUSSAIN #### [facility] [address] [place] [address] Dr. Ellen Ramirez LYMPHM% 37.0 % Normal 20.5-60.0 [facility] Comment on above: Performed By: #### C HUSSAIN #### [facility] [address] [place] [address] Dr. Ellen Ramirez MCH 25.6 pg Critically low 26.7-34.0 [facility] Comment on above: Performed By: #### C HUSSAIN #### [facility] [address] [place] [address] Dr. Ellen Ramirez MCHC 31.2 g/dl Normal 29.9-35.2 [facility] Comment on above: Performed By: #### C HUSSAIN #### [facility] [address] [place] [address] Dr. Ellen Ramirez MCV 81.8 fL Normal 81.0-99.0 [facility] Comment on above: Performed By: #### C HUSSAIN #### [facility] [address] [place] [address] Dr. Ellen Ramirez METAMYELOCYTE # Normal [facility] Comment on above: Performed By: #### C HUSSAIN #### [facility] [address] [place] [address] Dr. Ellen Ramirez METAMYELOCYTE % Normal [facility] Comment on above: Performed By: #### C HUSSAIN #### [facility] [address] [place] [address] Dr. Ellen Ramirez MONOM# 0.43 103/ul Normal 0.30-0.80 [facility] Comment on above: Performed By: #### C HUSSAIN #### [facility] [address] [place] [address] Dr. Ellen Ramirez MONOM% 9.0 % Normal 1.7-12.0 [facility] Comment on above: Performed By: #### C HUSSAIN #### [facility] [address] [place] [address] Dr. Ellen Ramirez MPV 10.2 fL Normal 9.5-13.5 [facility] Comment on above: Performed By: #### C HUSSAIN #### [facility] [address] [place] [address] Dr. Ellen Ramirez MYELOCYTE # Normal [facility] Comment on above: Performed By: #### C HUSSAIN #### [facility] [address] [place] [address] Dr. Ellen Ramirez MYELOCYTE % Normal [facility] Comment on above: Performed By: #### C HUSSAIN #### [facility] [address] [place] [address] Dr. Ellen Ramirez NRBC Normal [facility] Comment on above: Performed By: #### C HUSSAIN #### [facility] [address] [place] [address] Dr. Ellen Ramirez OVALOCYTES 1+ Normal [facility] Comment on above: Result Comment: Prev iously reported as: 1+ On 03/30/2022 14:46 By BQ2 Performed By: #### C HUSSAIN #### [facility] [address] [place] [address] Dr. Ellen Ramirez PLT 302 103/ul Normal 150-450 [facility] Comment on above: Performed By: #### C HUSSAIN #### [facility] [address] [place] [address] Dr. Ellen Ramirez RBC 4.07 106/ul Critically low 4.20-5.40 [facility] Comment on above: Performed By: #### C HUSSAIN #### [facility] [address] [place] [address] Dr. Ellen Ramirez RDW 26.7 % Critically high 11.0-15.0 [facility] Comment on above: Performed By: #### C HUSSAIN #### [facility] [address] [place] [address] Dr. Ellen Ramirez SEG # 2.50 103/ul Normal 1.40-6.50 [facility] Comment on above: Performed By: #### C BCMAN #### [facility] [address] [address] [address] Ellen Ramirez SEG % 52.0 % Normal 43.0-75.0 [facility] Comment on above: Performed By: #### C JOVANMAN #### [facility] [address] [address] [address] Ellen Ramirez TEAR DROP CELLS 1+ Normal [facility] Comment on above: Result Comment: Prev iously reported as: 1+ On 03/30/2022 14:46 By BQ2 Performed By: #### C JOVANVIRGINIE #### [facility] [address] [address] [address] Ellen Ramirez WBC 4.8 103/ul Normal 4.0-11.0 [facility] Comment on above: Performed By: #### C HUSSAIN #### [facility] [address] [place] [address] Dr. Ellen Ramirez US PELVIS AND TRANSVAGon [...] AHSAN FLORES Date: 2022-03-30 18:10 Normal [facility] TSHon 03-16-2022 TSH 2.199 uIU/mL Normal 0.358-3.740 [facility] Comment on above: Performed By: #### T SH #### [facility] [address] [place] [address] Dr. Ellen Ramirez CBC AUTO DIFFon 02-14-2022 BASO # 0.0 103/ul Normal 0.0-0.1 [facility] Comment on above: Performed By: #### C HUSSAIN #### [facility] [address] [place] [address] Dr. Ellen Ramirez Basophils/100 WBC (Bld) 0.4 % Normal 0.2-2.0 [facility] Comment on above: Performed By: #### C HUSSAIN #### [facility] [address] [place] [address] Dr. Ellen Ramirez EO # 0.0 103/ul Normal 0.0-0.7 [facility] Comment on above: Performed By: #### C HUSSAIN #### [facility] [address] [place] [address] Dr. Ellen Ramirez Eosinophils/100 WBC (Bld) 0.4 % Critically low 0.9-7.0 [facility] Comment on above: Performed By: #### C HUSSAIN #### [facility] [address] [place] [address] Dr. Ellen Ramirez Erythrocyte distribution width (RBC) [Ratio] 16.4 % Critically high 11.0-15.0 [facility] Comment on above: Performed By: #### C HUSSAIN #### [facility] [address] [place] [address] Dr. Ellen Ramirez Hematocrit (Bld) [Volume fraction] 24.4 % Critically low 36.0-48.0 [facility] Comment on above: Performed By: #### C HUSSAIN #### [facility] [address] [place] [address] Dr. Ellen Ramirez Hemoglobin (Bld) [Mass/Vol] 7.0 g/dL Critically low 12.0-16.0 [facility] Comment on above: Performed By: #### C HUSSAIN #### [facility] [address] [place] [address] Dr. Ellen Ramirez IG # 0.02 10e3/ul Normal 0.00-0.03 [facility] Comment on above: Performed By: #### C HUSSAIN #### [facility] [address] [place] [address] Dr. Ellen Ramirez IG % 0.3 % Normal 0.0-0.5 [facility] Comment on above: Performed By: #### C HUSSAIN #### [facility] [address] [place] [address] Dr. Ellen Ramirez LYMPH # 1.6 103/ul Normal 1.2-3.8 [facility] Comment on above: Performed By: #### C HUSSAIN #### [facility] [address] [place] [address] Dr. Ellen Ramirez Lymphocytes/100 WBC (Bld) 21.8 % Normal 20.5-60.0 [facility] Comment on above: Performed By: #### C HUSSAIN #### [facility] [address] [place] [address] Dr. Ellen Ramirez MANUAL DIFF REQ NO Normal [facility] Comment on above: Performed By: #### C HUSSAIN #### [facility] [address] [place] [address] Dr. Ellen Ramirez MCH (RBC) [Entitic mass] 20.0 pg Critically low 26.7-34.0 [facility] Comment on above: Performed By: #### C HUSSAIN #### [facility] [address] [place] [address] Dr. Ellen Ramirez MCHC (RBC) [Mass/Vol] 28.7 g/dL Critically low 29.9-35.2 [facility] Comment on above: Result Comment: HYPO CHROMIC MICROCYTIC STOMATOCYTES SEEN Performed By: #### C HUSSAIN #### [facility] [address] [place] [address] Dr. Ellen Ramirez MCV (RBC) [Entitic vol] 69.7 fL Critically low 81.0-99.0 [facility] Comment on above: Performed By: #### C HUSSAIN #### [facility] [address] [address] [address] Ellen Ramirez MONO # 0.7 103/ul Normal 0.3-0.8 [facility] Comment on above: Performed By: #### Chavez NIXON #### [facility] [address] [place] [address] Dr. Ellen Ramirez Monocytes/100 WBC (Bld) 9.3 % Normal 1.7-12.0 [facility] Comment on above: Performed By: #### C HUSSAIN #### [facility] [address] [place] [address] Dr. Ellen Ramirez NEUT # 4.9 103/ul Normal 1.4-6.5 [facility] Comment on above: Performed By: #### C HUSSAIN #### [facility] [address] [place] [address] Dr. Ellen Ramirez Neutrophils/100 WBC (Bld) 67.8 % Normal 43.0-75.0 [facility] Comment on above: Performed By: #### Chavez NIXON #### [facility] [address] [place] [address] Dr. Ellen Ramirez Platelet mean volume (Bld) [Entitic vol] 9.8 fL Normal 9.5-13.5 [facility] Comment on above: Performed By: #### Chavez NIXON #### [facility] [address] [place] [address] Dr. Ellen Ramirez PLT 391 103/ul Normal 150-450 [facility] Comment on above: Performed By: #### C HUSSAIN #### [facility] [address] [place] [address] Dr. Ellen Ramirez RBC 3.50 106/ul Critically low 4.20-5.40 [facility] Comment on above: Performed By: #### Chavez NIXON #### [facility] [address] [place] [address] Dr. Ellen Ramirez WBC 7.2 103/ul Normal 4.0-11.0 [facility] Comment on above: Performed By: #### Chavez NIXON #### [facility] [address] [place] [address] Dr. Ellen Ramirez PREG QUANT HCGon 02-14-2022 HCG QUANT <1 Normal [facility] Comment on above: Performed By: #### L ACT #### [facility] [address] [place] [address] Dr. Ellen Ramirez HCG RANGE SEE BELOW Normal [facility] Comment on above: Result Comment: 5-50 0-1 WEEK 40-300 1-2 WEEKS 100-1,000 2-3 WEEKS 500-6,000 3-4 WEEKS 5,000-200,000 1-2 MONTHS 10,000-100,000 2-3 MONTHS 3,000-50,000 2ND TRIMESTER 1,000-50,000 3RD TRIMESTER Performed By: #### L ACT #### [facility] [address] [place] [address] Dr. Ellen Ramirez PROTIMEon 02-14-2022 INR Coag (PPP) [Relative time] 1.00 {INR} Normal [facility] Comment on above: Performed By: #### L ACT #### [facility] [address] [place] [address] Dr. Ellen Ramirez INR GUIDELINES SEE BELOW Normal [facility] Comment on above: Result Comment: CARMEN RED INR: 2.0 - 3.0 CONDITIONS NOT LISTED BELOW 2.5 - 3.5 FOR PROSTHETIC HEART VALVE REPLACEMENT 2.5 - 3.5 RECURRENT THROMBOSIS Performed By: #### L ACT #### [facility] [address] [place] [address] Dr. Ellen Ramirez PT Coag (PPP) [Time] 10.8 s Normal 9.0-11.6 [facility] Comment on above: Performed By: #### L ACT #### [facility] [address] [place] [address] Dr. Ellen Ramirez PTTon 02-14-2022 aPTT Coag (Bld) [Time] 25.7 s Normal 22.3-36.2 [facility] Comment on above: Performed By: #### L ACT #### [facility] [address] [place] [address] Dr. Ellen Ramirez TSHon 02-14-2022 TSH 15.176 uIU/mL Critically high 0.358-3.740 [facility] [place] Comment on above: Performed By: #### L ACT #### [facility] [address] [place], [place] [address] Dr. Ellen Ramirez TSH RANGE SEE BELOW Normal [facility] Comment on above: Result Comment: <0.3 4 UIU/ml HYPERTHYROID 0.34-5.60 UIU/ml EUTHYROID >5.60 UIU/ml HYPOTHYROID Performed By: #### L ACT #### [facility] [address] [place], [place] [address] Dr. Ellen Ramirez US PELVIS AND TRANSVAGon [...] by: AHSAN FLORES Date: 2022-02-14 15:03 Normal [facility] Clinical Note 11-19-2023 Note Date & Type [...] ANESTHESIA: General. SURGEON: Jose Daniel Root D.O. CAST IRON DRAIN PIPE LAYER: None. FINDINGS: Normal appearing cavity. No gross [...] taken to recovery in stable condition. [facility] Summary Purpose Family History No Family History Records FoundNo Family History Records FoundNo Family History Records FoundNo Family History Records Found Advance Directives No Advanced Directives Records FoundNo Advanced Directives Records FoundNo Advanced Directives Records FoundNo Advanced Directives Records Found Additional Source Comments INFORMATION SOURCE (unrecogn ized section and content) DATE CREATED AUTHOR 12/06/2022 [facility] DATE CREATED AUTHOR 'S ORGANIZ ATION 12/09/2023 [facility] EPIC DATE CREATED AUTHOR AUTHOR'S ORGANIZ ATION 02/28/2024 [facility] DATE CREATED AUTHOR AUTHOR'S ORGANIZ ATION 04/12/2024 [facility] FOR RECORDS PERTAINING TO PATIENTS WHO ARE [...] BE BASED ON THE PRIMARY CLINICAL RECORDS. [facility] [employer] [facility]. provides no warranty or guarantee of the accuracy or completeness of information in this document.
[2024-04-21 08:35] LABS: HCG Qualitative NEGATIVE (NEGATIVE); Internal Control Within Normal Limits
[2024-04-21 08:36] VITALS: BP 107/66; PULSE 80; TEMP 36.7; O2SAT 100
[2024-04-21 09:17] VITALS: BP 108/73; PULSE 73; O2SAT 98
[2024-04-21 09:22] VITALS: BP 115/70; PULSE 80; O2SAT 98
[2024-04-21] MEDS: BUPIVACAINE HCL 0.25% PF 25 MG/10 ML VIAL 4 ML INJ (09:23)
[2024-04-21] MEDS: LIDOCAINE HCL 2% 400 MG/20 ML MDV 16 ML INJ (09:23)
[2024-04-21] MEDS: TRIAMCINOLONE ACETONIDE 40 MG/ML VIAL 80 MG INJ (09:23)
--- NOTE | 2024-04-21 09:41 | P.ON_ITS ---
Date of procedure: 04/21/24 Pre-op diagnosis: Pain due to lumbar spondylosis without myelopathy Post-op diagnosis: same as pre-op Procedure: Procedure: Bilateral L4-5, l5-S1 radiofrequency ablation Medications: Bupivacaine 0.25% 6cc, lidocaine 2% 5cc, kenalog 80mg The patient was seen and examined in the preoperative holding area.? The site was marked.? Written informed consent was obtained and placed on the chart.? The patient was brought to the medical procedure unit and placed in the prone position.? A timeout was completed verifying correct patient, procedure, positioning, and special requirements.? The skin overlying the target points, the designated medial branch, were prepped and draped in the usual sterile fashion.? The target point was achieved with a 20-gauge 15 cm with a 10 mm curved active tip radiofrequency cannula under direct fluoroscopic visualization.? The needle was inserted at level L4 on the right side. Needle tip position was confirmed with lateral fluoroscopic position.? Motor stimulation was carried out at 2 Hz up to 5 volts with the absence of extremity activity.? This was repeated at level L5, S1 on right side.?? Sensory stimulation was carried out.? Concordant pain was realized at the above- mentioned sites.? Then radiofrequency lesioning was carried out times 90 seconds at 80 degrees times 2 lesions at each level.? The radiofrequency probe was removed prior to cannula removal.? The above-mentioned injectate was placed in 1 mL increments.? The needle was removed. The same procedure, with the same steps, was then completed on the left side at the same levels. Insertion sites were covered.? The patient was taken to the postoperative recovery area and monitored for an appropriate length of time before being found suitable for discharge in the company of a responsible adult. Anesthesia: Local Surgeon: Patsy Villafana Pathology: none sent Condition: stable Disposition: no change
== END 2024-04-21 09:37 | disposition home or self-care (01) ==
LOC: SURGOUT 07:58
PROVIDERS: PCP Family Medicine; Visit Provider Anesthesiology
DX: M47.816 Spondylosis without myelopathy or radiculopathy, lumbar region (principal)
CPT/HCPCS: 36415; 64635; 64636; 84703; J0665; J3301

== ENCOUNTER 2024-05-22 10:57 | Outpatient (OUT) | payer BC, SELFPAY ==
--- NOTE | 2024-05-22 11:26 | P.CN_ITS ---
Consult Note: HPI Data of Consult Patient: known to practice within the last 3 years Requesting Physician: Melissa Chi NP Primary Care Provider: CATRACHO ROSALES Consult Narrative Reason for consult: chronic low back pain Narrative: Eileen Dobson a pleasant 43 year old female presents for evaluation and management of chronic low back pain greater than 3 years. Patient reports chronic low back pain, today 3/10 sharp stabbing ache, increasing to 8/10 with twisting standing walking and bending, improved with medications and rest. Patient continues have moderate to severe pain impacting functional ability despite benefit from gabapentin 400mg TID, tramadol 50mg q6hrs, ibuprofen q8hrs, and orphenadrine. Patient underwent recent lumbar xray and MRI which is consistent with lumbar ddd and lumbar facet arthropathy. Patient has an upcoming NS consult next week with Dr Arcos. Engaged in provider guided HEP greater than 6 weeks without benefit, and water therapy without benefit. recently underwent bilateral L4-5 L5-S1 RFA with 10% improvement ongoing. cc:: CC: Melissa Chi NP Review of Systems ROS Status of ROS 10 or more systems reviewed and unremark able except as noted in history and below Musculoskeletal Reports: back pain PFSH PFSH Medical History (Updated 05/22/24 @ 13:26 by Melissa Chi NP) Arthritis ?M19.90 - Unspecified osteoarthritis, unspecified site (ICD-10) Acid reflux ?K21.9 - Gastro-esophageal reflux disease without esophagitis (ICD-10) Hypothyroid ?E03.9 - Hypothyroidism, unspecified (ICD-10) Surgical History History of wisdom tooth extraction ?K08.409 - Partial loss of teeth, unspecified cause, unspecified class (ICD- 10) History of endometrial ablation ?Z98.890 - Other specified postprocedural states (ICD-10) History of tubal ligation ?Z98.51 - Tubal ligation status (ICD-10) Meds Home Medications and Allergies Home Medications ?Medication ?Instructions ?Recorded ?Confirmed ?Type gabapentin 400 mg capsule 400 mg PO TID 03/05/24 04/21/24 History ibuprofen 400 mg tablet (IBU) 400 mg PO Q8H PRN pain 03/05/24 04/21/24 History levothyroxine 75 mcg capsule 75 mcg PO DAILY 03/05/24 04/21/24 History orphenadrine citrate 100 mg mg PO 03/05/24 History tablet,extended release tramadol 50 mg tablet mg 03/05/24 History Allergies Allergy/AdvReac Type Severity Reaction Status Date / Time acetaminophen [From Tylenol] Allergy Mild Unknown Verified 03/31/24 07:25 iron AdvReac Mild Unknown Verified 03/31/24 07:25 Exam Constitutional Documenting provider has reviewed patient's vital signs: yes Common normals: no apparent distress, oriented x3, healthy appearing, alert and well nourished General appearance: cooperative HENAZ Common normals: normocephalic, hearing grossly normal bilaterally and moist oral mucous membranes Head and scalp: normocephalic Eye Common normals: PERRL Pupil: PERRL Neck & C-Spine Common normals: full ROM General: normal visual inspection Chest Common normals: inspection of chest normal Respiratory Common normals: normal respiratory effort, no retractions and no use of accessory muscles Back & Pelvis Lumbar spine/lower back: ROM limited, pain with ROM and straight leg raise negative bilaterally Sacroiliac joints: SI joint(s) abnormal Other: positive facet loading left greater than right pain and tenderness over bilateral L4-S1 facets left SIJ positive mahesh(patricks), gaenslens, thigh thrust, compression test strength 5/5 in BLE, sensation equal and intact pain increased with standing and walking improved with forward flexion and sitting Extremity Common normals: normal to inspection and full ROM Neuro Common normals: oriented x3, CN's II-XII intact bilaterally, moves all extremities, no focal motor deficits, no sensory deficits noted and deep tendon reflexes 2+ bilaterally Sensorium/orientation: alert Motor exam: strength 5/5 throughout and no movement abnormalities noted Psych Common normals: mental status grossly normal, thought process normal, cooperative, affect normal, speech normal and activity/motor behavior normal Speech: normal speech Thought process: normal thought process Results Additional Findings Additional findings: If on a controlled substance or opioids, I have checked an [place] report on this patient and there are no aberrancies noted in the prescribing history.??If on a controlled substance or opioid a drug screen was completed and reviewed within the last year, and if there has not been a drug screen completed we ordered one today to monitor higher risk, state monitored pain medication use. As part of providing excellent, safe, comprehensive care, the following was completed at our patient's visit: 1. A medication reconciliation and review to ensure accurate knowledge of current/active medications, including asking our patients to inform us about any [id number] medications or herbal remedies/nutritional supplements/alternative remedies. 2. A review to specifically ensure our patients have had annual screening for screening for depression, screening for tobacco use, and screening for unhealthy alcohol use. For concerning screenings had a discussion with the patient, provided patient education, and recommended follow-up with primary care provider when appropriate. If patient noted with a risk of falling, they received education on strength, gait, and balance training to prevent future risk of falling. Assessment and Plan Assessment and Plan (1) Lumbar stenosis with neurogenic claudication: (2) Lumbar degenerative disc disease: (3) Lumbar spondylosis: Plan bilateral l5-S1 TFESI under fluoroscopy with 10mg PO valium 30-60mins prior to procedure for anxiolysis for chronic bilateral low back pain, lumbar stenosis with NC, lumbar DDD continue f/u with NS as planned f/u 2 weeks after CHRIS
== END 2024-05-22 10:58 | disposition home or self-care (01) ==
LOC: PM 10:57
PROVIDERS: PCP Family Medicine; Visit Provider Nurse Practitioner
DX: M48.062 Spinal stenosis, lumbar region with neurogenic claudication (principal); M51.36 Other intervertebral disc degeneration, lumbar region; M47.816 Spondylosis without myelopathy or radiculopathy, lumbar region
CPT/HCPCS: G0463

== ENCOUNTER 2024-06-09 08:06 | Day surgery (SDC) | payer BC, SELFPAY ==
--- OUTSIDE RECORDS SUMMARY | 2024-06-09 08:22 | XMS_ITS | CCD ---
Author Organization [facility] Care Team Providers Care Medical Imaging Tech Name Role Phone CLAUDY ., DR SKY [...] J Referring Unavailable FRIEDA RUBI Attending Unavailable Giedraitis , Andrius Willams Attending Unavailable Giedraitis , Andrius Imer Attending Unavailable Giedraitis , Andrius Imer Attending Unavailable Allergies Allergy Classification Reported Allergen(s) Allergy Type Date of Onset Reaction(s) Facility (2 sources) Acetaminophen Drug Allergy [facility] (2 sources) ferric carboxymaltose Drug Allergy 2 [facility] (1 source) Acetaminophen; Translations: [ACETAMINOPHEN] [...] 04-05-2022 Chronic Other aftercare (1 source) Other detention (current) drug therapy; Translations: [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 Ellen Ramirez ATYPICAL LYMPH % Normal [facility] Comment on above: Performed By: #### C HUSSAIN #### [facility] [address] [place] [address] Dr. Ellen Ramirez BAND # 0.0 103/ul Normal 0.0-0.3 [facility] Comment on above: Performed By: #### C HUSSAIN #### [facility] [address] [place] [address] Dr. Ellen Ramirez BAND % 0 % Normal 0-5 [facility] Comment on above: Performed By: #### C HUSSAIN #### [facility] [address] [place] [address] Dr. Ellen Ramirez BASOM # 0.00 103/ul Normal 0.00-0.[address] [facility] Comment on above: Performed By: #### C HUSSAIN #### [facility] [address] [place] [address] Dr. Ellen Ramirez BASOM % 0.0 % Critically low 0.2-2.0 [facility] Comment on above: Performed By: #### C HUSSAIN #### [facility] [address] [place] [address] Dr. Ellen Ramirez BLAST # Normal [facility] Comment on above: Performed By: #### C HUSSAIN #### [facility] [address] [place] [address] Dr. Ellen Ramirez BLAST % Normal [facility] Comment on above: Performed By: #### C HUSSAIN #### [facility] [address] [place] [address] Dr. Ellen Ramirez CORRECTED WBC Normal 4.0-11.0 [facility] Comment on above: Performed By: #### C HUSSAIN #### [facility] [address] [place] [address] Dr. Ellen Ramirez EOS # 0.46 103/ul Normal 0.00-0.[address] [facility] Comment on above: Performed By: #### C HUSSAIN #### [facility] [address] [place] [address] Dr. Ellen Ramirez EOS% 6.0 % Normal 0.9-7.[address] [facility] Comment on above: Performed By: #### C HUSSAIN #### [facility] [address] [place] [address] Dr. Ellen Ramirez HCT 33.6 % Critically low 36.0-48.0 [facility] Comment on above: Performed By: #### C HUSSAIN #### [facility] [address] [place] [address] Dr. Ellen Ramirez HGB 11.5 g/dl Critically low 12.0-16.0 [facility] Comment on above: Performed By: #### C HUSSAIN #### [facility] [address] [place] [address] Dr. Ellen Ramirez LYMPHM # 0.15 103/ul Critically low 1.20-3.80 [facility] Comment on above: Performed By: #### C HUSSAIN #### [facility] [address] [address] [address] Ellen Ramirez LYMPHM% 2.0 % Critically low 20.5-60.0 [facility] Comment on above: Performed By: #### C HUSSAIN #### [facility] [address] [address] [address] Ellen Ramirez MCH 29.3 pg Normal 26.7-34.[address] [facility] Comment on above: Performed By: #### C HUSSAIN #### [facility] [address] [place] [address] Dr. Ellen Ramirez MCHC 34.2 g/dl Normal 29.9-35.[address] [facility] Comment on above: Performed By: #### C HUSSAIN #### [facility] [address] [place] [address] Dr. Ellen Ramirez MCV 85.5 fL Normal 81.0-99.[address] [facility] Comment on above: Performed By: #### C HUSSAIN #### [facility] [address] [place] [address] Dr. Ellen Ramirez METAMYELOCYTE # Normal [facility] Comment on above: Performed By: #### C HUSSAIN #### [facility] [address] [place] [address] Dr. Ellen Ramirez METAMYELOCYTE % Normal [facility] Comment on above: Performed By: #### C HUSSAIN #### [facility] [address] [place] [address] Dr. Ellen Ramirez MONOM# 0.38 103/ul Normal 0.30-0.80 [facility] Comment on above: Performed By: #### C HUSSAIN #### [facility] [address] [place] [address] Dr. Ellen Ramirez MONOM% 5.0 % Normal 1.7-12.[address] [facility] Comment on above: Performed By: #### C HUSSAIN #### [facility] [address] [address] [address] Ellen Ramirez MPV 9.4 fL Critically low 9.5-13.5 [facility] Comment on above: Performed By: #### C HUSSAIN #### [facility] [address] [address] [address] Ellen Ramirez MYELOCYTE # Normal [facility] Comment on above: Performed By: #### C HUSSAIN #### [facility] [address] [address] [address] Ellen Ramirez MYELOCYTE % Normal [facility] Comment on above: Performed By: #### C HUSSAIN #### [facility] [address] [address] [address] Ellen Ramirez NRBC Normal [facility] Comment on above: Performed By: #### C HUSSAIN #### [facility] [address] [place] [address] Dr. Ellen Ramirez PLT 281 103/ul Normal 150-[address] [facility] Comment on above: Performed By: #### C HUSSAIN #### [facility] [address] [address] [address] Ellen Ramirez RBC 3.93 106/ul Critically low 4.20-5.40 [facility] Comment on above: Performed By: #### C HUSSAIN #### [facility] [address] [place] [address] Dr. Ellen Ramirez RDW 13.0 % Normal 11.0-15.0 [facility] Comment on above: Performed By: #### C HUSSAIN #### [facility] [address] [address] [address] Ellen Ramirez SEG # 6.61 103/ul Critically high 1.40-6.50 [facility] Comment on above: Performed By: #### C HUSSAIN #### [facility] [address] [address] [address] Ellen Ramirez SEG % 87.0 % Critically high 43.0-75.0 [facility] Comment on above: Performed By: #### C HUSSAIN #### [facility] [address] [address] [address] Ellen Ramirez WBC 7.6 103/ul Normal 4.0-11.[address] [facility] Comment on above: Performed By: #### C HUSSAIN #### [facility] [address] [address] [address] Ellen Ramirez CPKon 12-02-2022 CK [Catalytic activity/Vol] 50 U/L Normal 26-192 [facility] Comment on above: Performed By: #### C HUSSAIN #### [facility] [address] [address] [address] Ellen Ramirez CRPon 12-02-2022 CRP 5.4 mg/dL Critically high <=1.0 [facility] Comment on above: Performed By: #### C HUSSAIN #### [facility] [address] [place] [address] HEAD WO CONon [...] Date: 2022-12-02 00:24 Normal [facility] ER URINE PROFILEon 3 Bilirubin Ql (U) Negative Normal NEGATIVE [facility] Comment on above: Performed By: #### L ACT #### [facility] [address] [place] [address] Dr. Ellen Ramirez Clarity (U) CLEAR Normal CLEAR [facility] Comment on above: Performed By: #### L ACT #### [facility] [address] [place] [address] Dr. Ellen Ramirez Color (U) YELLOW Normal YELLOW [facility] Comment on above: Performed By: #### L ACT #### [facility] [address] [place] [address] Dr. Ellen Ramirez ERUAHBonilla A micrscopic examination will be performed if indicated. Normal [facility] Comment on above: Performed By: #### L ACT #### [facility] [address] [place] [address] Dr. Ellen Ramirez Glucose Ql (U) Negative Normal NEGATIVE [facility] Comment on above: Performed By: #### L ACT #### [facility] [address] [place] [address] Dr. Ellen Ramirez Hemoglobin Ql (U) TRACE-INTACT Abnormal NEGATIVE [facility] Comment on above: Performed By: #### L ACT #### [facility] [address] [place] [address] Dr. Ellen Ramirez Ketones Ql (U) >=80 Abnormal NEGATIVE [facility] Comment on above: Performed By: #### L ACT #### [facility] [address] [place] [address] Dr. Ellen Ramirez LEUKOCYTES Negative Normal NEGATIVE [facility] Comment on above: Performed By: #### L ACT #### [facility] [address] [place] [address] Dr. Ellen Ramirez Nitrite Ql (U) Negative Normal NEGATIVE [facility] Comment on above: Performed By: #### L ACT #### [facility] [address] [place] [address] Dr. Ellen Ramirez pH (U) 6.0 [pH] Normal 5-[address] [facility] Comment on above: Performed By: #### L ACT #### [facility] [address] [place] [address] Dr. Ellen Ramirez SPEC GRAVITY 1.015 Normal 1.005-<=1.025 [facility] Comment on above: Performed By: #### L ACT #### [facility] [address] [place] [address] Dr. Ellen Ramirez UA PROTEIN Negative Normal NEGATIVE/ TRACE [facility] Comment on above: Performed By: #### L ACT #### [facility] [address] [place] [address] Dr. Ellen Ramirez UR MICRO IND NOT INDICATED Normal [facility] Comment on above: Performed By: #### L ACT #### [facility] [address] [place] [address] Dr. Ellen Ramirez Urobilinogen Qn (U) 0.2 {Ajith'U}/dL Normal 0.2 - 1. [address] [facility] Comment on above: Performed By: #### L ACT #### [facility] [address] [place] [address] Dr. Ellen Ramirez LACTATE/LACTIC ACIDon 2022 Lactate [Moles/Vol] 0.7 mmol/L Normal 0.4-2.0 [facility] Comment on above: Performed By: #### L ACT #### [facility] [address] [place] [address] Dr. Ellen Ramirez MYOGLOBINon 12-02-2022 LORENA 30 ng/mL Normal 9-[address] [facility] Comment on above: Performed By: #### C HUSSAIN #### [facility] [address] [place] [address] Dr. Ellen Ramirez PROF 14(COMP METB)on 023 Albumin [Mass/Vol] 3.7 g/dL Normal 3.4-5.0 [facility] Comment on above: Performed By: #### C JOVANMAN #### [facility] [address] [place] [address] Dr. Ellen Ramirez Albumin/Globulin [Mass ratio] 1.1 {ratio} Normal [facility] Comment on above: Performed By: #### C HUSSAIN #### [facility] [address] [place] [address] Dr. Ellen Ramirez ALP [Catalytic activity/Vol] 87 U/L Normal 46-[address] [facility] Comment on above: Performed By: #### C HUSSAIN #### [facility] [address] [address] [address] Ellen Ramirez ALT [Catalytic activity/Vol] 43 U/L Normal 14-[address] [facility] Comment on above: Performed By: #### C HUSSAIN #### [facility] [address] [address] [address] Ellen Ramirez Anion gap [Moles/Vol] 10.9 mmol/L Normal [facility] Comment on above: Performed By: #### C HUSSAIN #### [facility] [address] [place] [address] Dr. Ellen Ramirez AST [Catalytic activity/Vol] 35 U/L Normal 15-[address] [facility] Comment on above: Performed By: #### C HUSSAIN #### [facility] [address] [place] [address] Dr. Ellen Ramirez Bilirubin [Mass/Vol] 0.3 mg/dL Normal 0.2-1.[address] [facility] Comment on above: Performed By: #### C HUSSAIN #### [facility] [address] [place] [address] Dr. Ellen Ramirez Calcium [Mass/Vol] 8.6 mg/dL Normal 8.5-10.1 [facility] Comment on above: Performed By: #### C HUSSAIN #### [facility] [address] [address] [address] Ellen Ramirez Chloride [Moles/Vol] 102 mmol/L Normal 98-107 [facility] Comment on above: Performed By: #### C HUSSAIN #### [facility] [address] [place] [address] Dr. Ellen Ramirez CO2 [Moles/Vol] 25.4 mmol/L Normal 21.0-32.0 [facility] Comment on above: Performed By: #### C HUSSAIN #### [facility] [address] [address] [address] Ellen Ramirez Creatinine [Mass/Vol] 0.99 mg/dL Normal 0.55-1.[address] [facility] Comment on above: Performed By: #### C BCMAN #### [facility] [address] [address] [address] Ellen Ramirez EGFR-AF PARAGUAYAN >60 Normal >=60 [facility] Comment on above: Performed By: #### C BCMAN #### [facility] [address] [address] [address] Ellen Ramirez EGFR-NON AF PARAGUAYAN >60 Normal >=[address] [facility] Comment on above: Performed By: #### C BCMAN #### [facility] [address] [address] [address] Ellen Ramirez Globulin (S) [Mass/Vol] 3.3 g/dL Normal [facility] Comment on above: Performed By: #### C BCMAN #### [facility] [address] [address] [address] Ellen Ramirez Glucose [Mass/Vol] 107 mg/dL Critically high 74-[address] [facility] Comment on above: Performed By: #### C BCVIRGINIE #### [facility] [address] [address] [address] Ellen Ramirez Potassium [Moles/Vol] 3.3 mmol/L Critically low 3.5-5.[address] [facility] Comment on above: Performed By: #### C BCMAN #### [facility] [address] [address] [address] Ellen Ramirez Protein [Mass/Vol] 7.0 g/dL Normal 6.4-8.2 [facility] Comment on above: Performed By: #### C BCMAN #### [facility] [address] [address] [address] Ellen Ramirez Sodium [Moles/Vol] 135 mmol/L Critically low 136-145 [facility] Comment on above: Performed By: #### C BCVIRGINIE #### [facility] [address] [address] [address] Ellen Ramirez Urea nitrogen [Mass/Vol] 11.0 mg/dL Normal 7.0-18.[address] [facility] Comment on above: Performed By: #### C BCMAN #### [facility] [address] [place] [address] Dr. Ellen Ramirez Urea nitrogen/Creatinine [Mass ratio] 11.1 mg/mg Normal [facility] Comment on above: Performed By: #### C BCMAN #### [facility] [address] [place] [address] Dr. Ellen Ramirez RESPIRATORY PANEL PLUSon Adenovirus Not detected Normal NOT DETECTED [facility] Comment on above: Performed By: #### C BCMAN #### [facility] [address] [place] [address] Dr. Ellen Verduzco. Parapertusis Not detected Normal NOT DETECTED [facility] Comment on above: Performed By: #### C BCMAN #### [facility] [address] [place] [address] Dr. Ellen Verduzco. Pertussis Not detected Normal NOT DETECTED [facility] Comment on above: Performed By: #### C BCMAN #### [facility] [address] [place] [address] Dr. Ellen Ramirez Chlamydia Pneumoniae Not detected Normal NOT DETECTED [facility] Comment on above: Performed By: #### C BCMAN #### [facility] [address] [place] [address] Dr. Ellen Ramirez Coronavirus 229E Not detected Normal NOT DETECTED [facility] Comment on above: Performed By: #### C BCMAN #### [facility] [address] [place] [address] Dr. Ellen Ramirez Coronavirus HKU1 Not detected Normal NOT DETECTED [facility] Comment on above: Performed By: #### C BCMAN #### [facility] [address] [place] [address] Dr. Ellen Ramirez Coronavirus NL63 Not detected Normal NOT DETECTED [facility] Comment on above: Performed By: #### C BCMAN #### [facility] [address] [place] [address] Dr. Ellen Ramirez Coronavirus OC43 Not detected Normal NOT DETECTED [facility] Comment on above: Performed By: #### C BCMAN #### [facility] [address] [address] [address] Ellen Ramirez Influenza A H1 Not detected Normal NOT DETECTED [facility] Comment on above: Performed By: #### C BCMAN #### [facility] [address] [address] [address] Ellen Ramirez Influenza A H1 2009 Not detected Normal NOT DETECTED [facility] Comment on above: Performed By: #### C BCMAN #### [facility] [address] [address] [address] Ellen Ramirez Influenza A H3 Not detected Normal NOT DETECTED [facility] Comment on above: Performed By: #### C BCMAN #### [facility] [address] [address] [address] Ellen Ramirez Influenza B Not detected Normal NOT DETECTED [facility] Comment on above: Performed By: #### C BCMAN #### [facility] [address] [address] [address] Ellen Ramirez Metapneumovirus Not detected Normal NOT DETECTED [facility] Comment on above: Performed By: #### C BCMAN #### [facility] [address] [place] [address] Dr. Ellen Ramirez Mycoplas. Pneumoniae Not detected Normal NOT DETECTED [facility] Comment on above: Performed By: #### C BCMAN #### [facility] [address] [address] [address] Ellen Ramirez Parainfluenza 1 Not detected Normal NOT DETECTED [facility] Comment on above: Performed By: #### C BCMAN #### [facility] [address] [address] [address] Ellen Ramirez Parainfluenza 2 Not detected Normal NOT DETECTED [facility] Comment on above: Performed By: #### C BCMAN #### [facility] [address] [address] [address] Ellen Ramirez Parainfluenza 3 Not detected Normal NOT DETECTED [facility] Comment on above: Performed By: #### C BCMAN #### [facility] [address] [place] [address] Dr. Ellen Ramirez Parainfluenza 4 Not detected Normal NOT DETECTED [facility] Comment on above: Performed By: #### C HUSSAIN #### [facility] [address] [place] [address] Dr. Ellen Ramirez Rhino/Enterovirus Not detected Normal NOT DETECTED [facility] Comment on above: Performed By: #### C HUSSAIN #### [facility] [address] [place] [address] Dr. Ellen Ramirez RP2 Header 1 RESPIRATORY PANEL: VIRUSES Normal [facility] Comment on above: Performed By: #### C HUSSAIN #### [facility] [address] [place] [address] Dr. Ellen Ramirez RP2 Header 2 RESPIRATORY PANEL: BACTERIA Normal [facility] Comment on above: Performed By: #### C HUSSAIN #### [facility] [address] [place] [address] Dr. Ellen Ramirez RSV Not detected Normal NOT DETECTED [facility] Comment on above: Performed By: #### C HUSSAIN #### [facility] [address] [place] [address] Dr. Ellen Ramirez SARS-CoV-2 (COVID-19) RNA BEULAH+probe Ql (Unsp spec) Not detected Normal NOT DETECTED [facility] Comment on above: Performed By: #### C HUSSAIN #### [facility] [address] [place] [address] Dr. Ellen Ramirez SED RATE [facility] 2022 SED RATE 22 mm/hr Critically high <=20 [facility] Comment on above: Performed By: #### C HUSSAIN #### [facility] [address] [place] [address] Dr. Ellen Ramirez TSHon 12-02-2022 TSH 12.836 uIU/mL Critically high 0.358-3.740 [facility] Comment on above: Performed By: #### T SH #### [facility] [address] [place] [address] Dr. Ellen Ramirez XR CHEST 2 Von [...] LOWRY Date: 2022-12-02 00:[address] [facility] PAP ACOG PANEL 2: 30 to 65on 06-26-2022 . . Normal [facility] Comment on above: Result Comment: Perf ormed at: WB Performed By: #### [id number] #### [facility] [address] [address] [address] Ellen Ramirez Age Gdln ACOG Testing 30-[address] [facility] Comment on above: Performed By: #### [id number] #### [facility] [address] [address] [address] Ellen Ramirez DIAGNOSIS: Comment Normal [facility] Comment on above: Result Comment: NEGA TIVE FOR INTRAEPITHELIAL LESION OR MALIGNANCY. Performed at: WB Performed By: #### [id number] #### [facility] [address] [address] [address] Ellen Ramirez HPV Aptima Negative Normal Negative [facility] Comment on above: Result Comment: This nucleic acid amplification test detects fourteen high-risk HPV types (16,18,31,33,35,39,45,51,52,56,58,59,66,68) without differentiation. Performed at: =G Performed By: #### [id number] #### [facility] [address] [address] [address] Ellen Ramirez Methodology: Comment Normal [facility] Comment on above: Result Comment: This liquid based ThinPrep(R) pap test was screened with the use of an image guided system. Performed at: WB Performed By: #### [id number] #### [facility] [address] [address] [address] Ellen aRmirez Note: Comment Normal [facility] Comment on above: Result Comment: The Pap smear is a screening test designed to aid in the detection of premalignant and malignant conditions of the uterine cervix. It is not a diagnostic procedure and should not be used as the sole means of detecting cervical cancer. Both false-positive and false-negative reports do occur. . Performed at: WB Performed By: #### [id number] #### [facility] [address] [place] [address] Dr. Ellen Ramirez Performed by: Comment Normal [facility] Comment on above: Result Comment: Pretty Aguilar, Collet Gluer (ASCP) Performed at: WB Performed By: #### [id number] #### [facility] [address] [place] [address] Dr. Ellen Ramirez Specimen adequacy: Comment Normal [facility] Comment on above: Result Comment: Sati sfactory for evaluation. Endocervical and/or squamous metaplastic cells (endocervical component) are present. Performed at: WB Performed By: #### [id number] #### [facility] [address] [place] [address] Dr. Ellen Ramirez CBC AUTO DIFFon 05-08-2022 BASO # 0.0 103/ul Normal 0.0-0.[address] [facility] Comment on above: Performed By: #### C BC #### [facility] [address] [place] [address] Dr. Ellen Ramirez Basophils/100 WBC (Bld) 0.4 % Normal 0.2-2.[address] [facility] Comment on above: Performed By: #### C BC #### [facility] [address] [place] [address] Dr. Ellen Ramirez EO # 0.1 103/ul Normal 0.0-0.[address] [facility] Comment on above: Performed By: #### C BC #### [facility] [address] [place] [address] Dr. Ellen Ramirez Eosinophils/100 WBC (Bld) 1.1 % Normal 0.9-7.[address] [facility] Comment on above: Performed By: #### C BC #### [facility] [address] [address] [address] Ellen Ramirez Erythrocyte distribution width (RBC) [Ratio] 18.5 % Critically high 11.0-15.[address] [facility] Comment on above: Performed By: #### C BC #### [facility] [address] [place] [address] Dr. Ellen Ramirez Hematocrit (Bld) [Volume fraction] 37.2 % Normal 36.0-48.[address] [facility] Comment on above: Performed By: #### C BC #### [facility] [address] [place] [address] Dr. Ellen Ramirez Hemoglobin (Bld) [Mass/Vol] 12.0 g/dL Normal 12.0-16.[address] [facility] Comment on above: Performed By: #### C BC #### [facility] [address] [place] [address] Dr. Ellen Ramirez IG # 0.01 10e3/ul Normal 0.00-0.[address] [facility] Comment on above: Performed By: #### C BC #### [facility] [address] [place] [address] Dr. Ellen Ramirez IG % 0.2 % Normal 0.0-0.[address] [facility] Comment on above: Performed By: #### C BC #### [facility] [address] [place] [address] Dr. Ellen Ramirez LYMPH # 1.4 103/ul Normal 1.2-3.[address] [facility] Comment on above: Performed By: #### C BC #### [facility] [address] [place] [address] Dr. Ellen Ramirez Lymphocytes/100 WBC (Bld) 29.2 % Normal 20.5-60.[address] [facility] Comment on above: Performed By: #### C BC #### [facility] [address] [place] [address] Dr. Ellen Ramirez MANUAL DIFF REQ NO Normal [facility] Comment on above: Performed By: #### C BC #### [facility] [address] [place] [address] Dr. Ellen Ramirez MCH (RBC) [Entitic mass] 28.0 pg Normal 26.7-34.0 [facility] Comment on above: Performed By: #### C BC #### [facility] [address] [place] [address] Dr. Ellen Ramirez MCHC (RBC) [Mass/Vol] 32.3 g/dL Normal 29.9-35.2 [facility] Comment on above: Performed By: #### C BC #### [facility] [address] [place] [address] Dr. Ellen Ramirez MCV (RBC) [Entitic vol] 86.7 fL Normal 81.0-99.[address] [facility] Comment on above: Performed By: #### C BC #### [facility] [address] [place] [address] Dr. Ellen Ramirez MONO # 0.4 103/ul Normal 0.3-0.[address] [facility] Comment on above: Performed By: #### C BC #### [facility] [address] [place] [address] Dr. Ellen Ramirez Monocytes/100 WBC (Bld) 8.0 % Normal 1.7-12.[address] [facility] Comment on above: Performed By: #### C BC #### [facility] [address] [place] [address] Dr. Ellen Ramirez NEUT # 2.9 103/ul Normal 1.4-6.5 [facility] Comment on above: Performed By: #### C BC #### [facility] [address] [place] [address] Dr. Ellen Ramirez Neutrophils/100 WBC (Bld) 61.1 % Normal 43.0-75.0 [facility] Comment on above: Performed By: #### C BC #### [facility] [address] [place] [address] Dr. Ellen Ramirez Platelet mean volume (Bld) [Entitic vol] 9.5 fL Normal 9.5-13.5 [facility] Comment on above: Performed By: #### C BC #### [facility] [address] [place] [address] Dr. Ellen Ramirez PLT 282 103/ul Normal 150-[address] [facility] Comment on above: Performed By: #### C BC #### [facility] [address] [place] [address] Dr. Ellen Ramirez RBC 4.29 106/ul Normal 4.20-5.[address] [facility] Comment on above: Performed By: #### C BC #### [facility] [address] [place] [address] Dr. Ellen Ramirez WBC 4.7 103/ul Normal 4.0-11.[address] [facility] Comment on above: Performed By: #### C BC #### [facility] [address] [place] [address] Dr. Ellen Ramirez FERRITINon 05-08-2022 Ferritin [Mass/Vol] 92.0 ng/mL Normal 6.2-137.0 [facility] Comment on above: Performed By: #### F ERR, FT4 #### [facility] [address] [place] [address] Dr. Ellen Ramirez FREE T4on 05-08-2022 Free T4 [Mass/Vol] 0.72 ng/dL Critically low 0.76-1.46 [facility] Comment on above: Performed By: #### F ERR, FT4 #### [facility] [address] [place] [address] Dr. Ellen Ramirez TSHon 05-08-2022 TSH 3.626 uIU/mL Normal 0.358-3.740 [facility] Comment on above: Performed By: #### C BCMAN #### [facility] [address] [place] [address] Dr. Ellen Ramirez CBC AUTO DIFFon 04-14-2022 BASO # 0.0 103/ul Normal 0.0-0.[address] [facility] Comment on above: Performed By: #### L ACT #### [facility] [address] [place] [address] Dr. Ellen Ramirez Basophils/100 WBC (Bld) 0.5 % Normal 0.2-2.[address] [facility] Comment on above: Performed By: #### L ACT #### [facility] [address] [place] [address] Dr. Ellen Ramirez EO # 0.1 103/ul Normal 0.0-0.[address] [facility] Comment on above: Performed By: #### L ACT #### [facility] [address] [place] [address] Dr. Ellen Ramirez Eosinophils/100 WBC (Bld) 2.8 % Normal 0.9-7.[address] [facility] Comment on above: Performed By: #### L ACT #### [facility] [address] [place] [address] Dr. Ellen Ramirez Erythrocyte distribution width (RBC) [Ratio] 24.2 % Critically high 11.0-15.[address] [facility] Comment on above: Performed By: #### L ACT #### [facility] [address] [place] [address] Dr. Ellen Ramirez Hematocrit (Bld) [Volume fraction] 36.3 % Normal 36.0-48.[address] [facility] Comment on above: Performed By: #### L ACT #### [facility] [address] [place] [address] Dr. Ellen Ramirez Hemoglobin (Bld) [Mass/Vol] 11.4 g/dL Critically low 12.0-16.[address] [facility] Comment on above: Performed By: #### L ACT #### [facility] [address] [place] [address] Dr. Ellen Ramirez IG # 0.01 10e3/ul Normal 0.00-0.[address] [facility] Comment on above: Performed By: #### L ACT #### [facility] [address] [place] [address] Dr. Ellen Ramirez IG % 0.3 % Normal 0.0-0.[address] [facility] Comment on above: Performed By: #### L ACT #### [facility] [address] [place] [address] Dr. Ellen Ramirez LYMPH # 1.3 103/ul Normal 1.2-3.[address] [facility] Comment on above: Performed By: #### L ACT #### [facility] [address] [place] [address] Dr. Ellen Ramirez Lymphocytes/100 WBC (Bld) 32.6 % Normal 20.5-60.[address] [facility] Comment on above: Performed By: #### L ACT #### [facility] [address] [place] [address] Dr. Ellen Ramirez MANUAL DIFF REQ NO Normal [facility] Comment on above: Performed By: #### L ACT #### [facility] [address] [place] [address] Dr. Ellen Ramirez MCH (RBC) [Entitic mass] 25.9 pg Critically low 26.7-34.[address] [facility] Comment on above: Performed By: #### L ACT #### [facility] [address] [place] [address] Dr. Ellen Ramirez MCHC (RBC) [Mass/Vol] 31.4 g/dL Normal 29.9-35.[address] [facility] Comment on above: Performed By: #### L ACT #### [facility] [address] [place] [address] Dr. Ellen Ramirez MCV (RBC) [Entitic vol] 82.5 fL Normal 81.0-99.[address] [facility] Comment on above: Performed By: #### L ACT #### [facility] [address] [place] [address] Dr. Ellen Ramirez MONO # 0.3 103/ul Normal 0.3-0.[address] [facility] Comment on above: Performed By: #### L ACT #### [facility] [address] [place] [address] Dr. Ellen Ramirez Monocytes/100 WBC (Bld) 8.5 % Normal 1.7-12.[address] [facility] Comment on above: Performed By: #### L ACT #### [facility] [address] [place] [address] Dr. Ellen Ramirez NEUT # 2.4 103/ul Normal 1.4-6.5 [facility] Comment on above: Performed By: #### L ACT #### [facility] [address] [address] [address] Ellen Ramirez Neutrophils/100 WBC (Bld) 60.0 % Normal 43.0-75.[address] [facility] Comment on above: Performed By: #### L ACT #### [facility] [address] [address] [address] Ellen Ramirez Platelet mean volume (Bld) [Entitic vol] 9.6 fL Normal 9.5-13.[address] [facility] Comment on above: Performed By: #### L ACT #### [facility] [address] [address] [address] Ellen Ramirez PLT 264 103/ul Normal 150-[address] [facility] Comment on above: Performed By: #### L ACT #### [facility] [address] [place] [address] Dr. Ellen Ramirez RBC 4.40 106/ul Normal 4.20-5.[address] [facility] Comment on above: Performed By: #### L ACT #### [facility] [address] [address] [address] Ellen Ramirez WBC 3.9 103/ul Critically low 4.0-11.0 [facility] Comment on above: Performed By: #### L ACT #### [facility] [address] [address] [address] Ellen Ramirez PREG HCG QUALon 04-14-2022 , QUAL Negative Normal NEGATIVE [facility] Comment on above: Performed By: #### P REG #### [facility] [address] [place] [address] Dr. Ellen Ramirez Covid-19 PCR (CVDTB)on 03-24 SARS-CoV-2 (COVID-19) RNA BEULAH+probe Ql (Unsp spec) Not detected Normal NOT DETECTED [facility] Comment on above: Result Comment: This test is not yet approved or cleared by the [place] FDA. When there are no FDA-approved or cleared tests available, and other criteria are met, FDA can make tests available under an emergency access mechanism called an Emergency Use Authorization (EUA). The EUA for this test is supported by the [place] of Health and Human Service's (HHS's) declaration [...] By: #### C VDTBH #### [facility] [address] [place] [address] Dr. Ellen Ramirze CBC W MANUAL DIFFon 03-30-20 22 ACANTHOCYTES 1+ Normal [facility] Comment on above: Result Comment: Prev iously reported as: 1+ On 03/30/2022 14:46 By BQ2 Performed By: #### C HUSSAIN #### [facility] [address] [place] [address] Dr. Ellen Ramirez ATYPICAL LYMPH # Normal [facility] Comment on above: Performed By: #### C HUSSAIN #### [facility] [address] [place] [address] Dr. Ellen Ramirez ATYPICAL LYMPH % Normal [facility] Comment on above: Performed By: #### C HUSSAIN #### [facility] [address] [place] [address] Dr. Ellen Ramirez BAND # Normal 0.0-0.[address] [facility] Comment on above: Performed By: #### C HUSSAIN #### [facility] [address] [place] [address] Dr. Ellen Ramirez BAND % Normal 0-[address] [facility] Comment on above: Performed By: #### C HUSSAIN #### [facility] [address] [place] [address] Dr. Ellen Ramirez BASOM # 0.00 103/ul Normal 0.00-0.[address] [facility] Comment on above: Performed By: #### C HUSSAIN #### [facility] [address] [place] [address] Dr. Ellen Ramirez BASOM % 0.0 % Critically low 0.2-2.0 [facility] Comment on above: Performed By: #### C HUSSAIN #### [facility] [address] [place] [address] Dr. Ellen Ramirez BLAST # Normal [facility] Comment on above: Performed By: #### C HUSSAIN #### [facility] [address] [place] [address] Dr. Ellen Ramirez BLAST % Normal [facility] Comment on above: Performed By: #### C HUSSAIN #### [facility] [address] [place] [address] Dr. Ellen Ramirez CORRECTED WBC Normal 4.0-11.0 [facility] Comment on above: Performed By: #### C HUSSAIN #### [facility] [address] [place] [address] Dr. Ellen Ramirez EOS # 0.10 103/ul Normal 0.00-0.[address] [facility] Comment on above: Performed By: #### C HUSSAIN #### [facility] [address] [place] [address] Dr. Ellen Ramirez EOS% 2.0 % Normal 0.9-7.[address] [facility] Comment on above: Performed By: #### C HUSSAIN #### [facility] [address] [place] [address] Dr. Ellen Ramirez HCT 33.3 % Critically low 36.0-48.0 [facility] Comment on above: Performed By: #### C HUSSAIN #### [facility] [address] [place] [address] Dr. Ellen Ramirez HGB 10.4 g/dl Critically low 12.0-16.0 [facility] Comment on above: Performed By: #### C HUSSAIN #### [facility] [address] [place] [address] Dr. Ellen Ramirez LYMPHM # 1.78 103/ul Normal 1.20-3.80 [facility] Comment on above: Performed By: #### C HUSSAIN #### [facility] [address] [place] [address] Dr. Ellen Ramirez LYMPHM% 37.0 % Normal 20.5-60.[address] [facility] Comment on above: Performed By: #### C HUSSAIN #### [facility] [address] [place] [address] Dr. Ellen Ramirez MCH 25.6 pg Critically low 26.7-34.0 [facility] Comment on above: Performed By: #### C HUSSAIN #### [facility] [address] [place] [address] Dr. Ellen Ramirez MCHC 31.2 g/dl Normal 29.9-35.[address] [facility] Comment on above: Performed By: #### C HUSSAIN #### [facility] [address] [place] [address] Dr. Ellen Ramirez MCV 81.8 fL Normal 81.0-99.[address] [facility] Comment on above: Performed By: #### C HUSSAIN #### [facility] [address] [place] [address] Dr. Ellen Ramirez METAMYELOCYTE # Normal [facility] Comment on above: Performed By: #### C HUSSAIN #### [facility] [address] [place] [address] Dr. Ellen Ramirez METAMYELOCYTE % Normal [facility] Comment on above: Performed By: #### C HUSSAIN #### [facility] [address] [place] [address] Dr. Ellen Ramirez MONOM# 0.43 103/ul Normal 0.30-0.80 [facility] Comment on above: Performed By: #### C HUSSAIN #### [facility] [address] [place] [address] Dr. Ellen Ramirez MONOM% 9.0 % Normal 1.7-12.[address] [facility] Comment on above: Performed By: #### C HUSSAIN #### [facility] [address] [place] [address] Dr. Ellen Ramirez MPV 10.2 fL Normal 9.5-13.[address] [facility] Comment on above: Performed By: #### Chavez NIXON #### [facility] [address] [place] [address] Dr. Ellen Ramirez MYELOCYTE # Normal [facility] Comment on above: Performed By: #### C HUSSAIN #### [facility] [address] [place] [address] Dr. Ellen Ramirez MYELOCYTE % Normal [facility] Comment on above: Performed By: #### C HUSSAIN #### [facility] [address] [place] [address] Dr. Ellen Ramirez NRBC Normal [facility] Comment on above: Performed By: #### C HUSSAIN #### [facility] [address] [place] [address] Dr. Ellen Ramirez OVALOCYTES 1+ Normal [facility] Comment on above: Result Comment: Prev iously reported as: 1+ On 03/30/2022 14:46 By BQ2 Performed By: #### C HUSSAIN #### [facility] [address] [place] [address] Dr. Ellen Ramirez PLT 302 103/ul Normal 150-[address] [facility] Comment on above: Performed By: #### C HUSSAIN #### [facility] [address] [place] [address] Dr. Ellen Ramirez RBC 4.07 106/ul Critically low 4.20-5.40 [facility] Comment on above: Performed By: #### C HUSSAIN #### [facility] [address] [place] [address] Dr. Ellen Ramirez RDW 26.7 % Critically high 11.0-15.0 [facility] Comment on above: Performed By: #### C HUSSAIN #### [facility] [address] [place] [address] Dr. Ellen Ramirez SEG # 2.50 103/ul Normal 1.40-6.[address] [facility] Comment on above: Performed By: #### C HUSSAIN #### [facility] [address] [place] [address] Dr. Ellen Ramirez SEG % 52.0 % Normal 43.0-75.[address] [facility] Comment on above: Performed By: #### C HUSSAIN #### [facility] [address] [address] [address] Ellen Ramirez TEAR DROP CELLS 1+ Normal [facility] Comment on above: Result Comment: Prev iously reported as: 1+ On 03/30/2022 14:46 By BQ2 Performed By: #### C HUSSAIN #### [facility] [address] [address] [address] Ellen Ramirez WBC 4.8 103/ul Normal 4.0-11.[address] [facility] Comment on above: Performed By: #### C HUSSAIN #### [facility] [address] [place] [address] Dr. Ellen Ramirez US PELVIS AND TRANSVAGon [...] Date: 2022-03-30 18:10 Normal [facility] TSHon 03-16-2022 TSH 2.199 uIU/mL Normal 0.358-3.740 [facility] Comment on above: Performed By: #### T #### [facility] [address] [address] [address] Ellen Ramirez CBC AUTO DIFFon 02-14-2022 BASO # 0.0 103/ul Normal 0.0-0.[address] [facility] Comment on above: Performed By: #### C HUSSAIN #### [facility] [address] [place] [address] Dr. Ellen Ramirez Basophils/100 WBC (Bld) 0.4 % Normal 0.2-2.[address] [facility] Comment on above: Performed By: #### C HUSSAIN #### [facility] [address] [place] [address] Dr. Ellen Ramirez EO # 0.0 103/ul Normal 0.0-0.[address] [facility] Comment on above: Performed By: #### C HUSSAIN #### [facility] [address] [place] [address] Dr. Ellen Ramirez Eosinophils/100 WBC (Bld) 0.4 % Critically low 0.9-7.[address] [facility] Comment on above: Performed By: #### C HUSSAIN #### [facility] [address] [place] [address] Dr. Ellen Ramirez Erythrocyte distribution width (RBC) [Ratio] 16.4 % Critically high 11.0-15.[address] [facility] Comment on above: Performed By: #### C HUSSAIN #### [facility] [address] [place] [address] Dr. Ellen Ramirez Hematocrit (Bld) [Volume fraction] 24.4 % Critically low 36.0-48.[address] [facility] Comment on above: Performed By: #### C HUSSAIN #### [facility] [address] [place] [address] Dr. Ellen Ramirez Hemoglobin (Bld) [Mass/Vol] 7.0 g/dL Critically low 12.0-16.[address] [facility] Comment on above: Performed By: #### C HUSSAIN #### [facility] [address] [place] [address] Dr. Ellen Ramirez IG # 0.02 10e3/ul Normal 0.00-0.03 [facility] Comment on above: Performed By: #### C HUSSAIN #### [facility] [address] [place] [address] Dr. Ellen Ramirez IG % 0.3 % Normal 0.0-0.[address] [facility] Comment on above: Performed By: #### C HUSSAIN #### [facility] [address] [address] [address] Ellen Ramirez LYMPH # 1.6 103/ul Normal 1.2-3.[address] [facility] Comment on above: Performed By: #### C HUSSAIN #### [facility] [address] [place] [address] Dr. Ellen Ramirez Lymphocytes/100 WBC (Bld) 21.8 % Normal 20.5-60.[address] [facility] Comment on above: Performed By: #### C HUSSAIN #### [facility] [address] [place] [address] Dr. Ellen Ramirez MANUAL DIFF REQ NO Normal [facility] Comment on above: Performed By: #### C HUSSAIN #### [facility] [address] [place] [address] Dr. Ellen Ramirez MCH (RBC) [Entitic mass] 20.0 pg Critically low 26.7-34.[address] [facility] Comment on above: Performed By: #### C HUSSAIN #### [facility] [address] [place] [address] Dr. Ellen Ramirez MCHC (RBC) [Mass/Vol] 28.7 g/dL Critically low 29.9-35.[address] [facility] Comment on above: Result Comment: HYPO CHROMIC MICROCYTIC STOMATOCYTES SEEN Performed By: #### C HUSSAIN #### [facility] [address] [place] [address] Dr. Ellen Ramirez MCV (RBC) [Entitic vol] 69.7 fL Critically low 81.0-99.[address] [facility] Comment on above: Performed By: #### C HUSSAIN #### [facility] [address] [place] [address] Dr. Ellen Ramirez MONO # 0.7 103/ul Normal 0.3-0.[address] [facility] Comment on above: Performed By: #### C HUSSAIN #### [facility] [address] [address] [address] Ellen Ramirze Monocytes/100 WBC (Bld) 9.3 % Normal 1.7-12.[address] [facility] Comment on above: Performed By: #### C HUSSAIN #### [facility] [address] [address] [address] Ellen Ramirez NEUT # 4.9 103/ul Normal 1.4-6.[address] [facility] Comment on above: Performed By: #### C HUSSAIN #### [facility] [address] [address] [address] Ellen Ramirez Neutrophils/100 WBC (Bld) 67.8 % Normal 43.0-75.[address] [facility] Comment on above: Performed By: #### C HUSSAIN #### [facility] [address] [place] [address] Dr. Ellen Ramirez Platelet mean volume (Bld) [Entitic vol] 9.8 fL Normal 9.5-13.[address] [facility] Comment on above: Performed By: #### C HUSSAIN #### [facility] [address] [place] [address] Dr. Ellen Ramirez PLT 391 103/ul Normal 150-[address] [facility] Comment on above: Performed By: #### C HUSSAIN #### [facility] [address] [address] [address] Ellen Ramierz RBC 3.50 106/ul Critically low 4.20-5.40 [facility] Comment on above: Performed By: #### C HUSSAIN #### [facility] [address] [place] [address] Dr. Ellen Ramirez WBC 7.2 103/ul Normal 4.0-11.[address] [facility] Comment on above: Performed By: #### C HUSSAIN #### [facility] [address] [place] [address] Dr. Ellen Ramirez PREG QUANT HCGon 02-14-2022 HCG QUANT <1 Normal [facility] Comment on above: Performed By: #### L ACT #### [facility] [address] [place] [address] Dr. Ellen Ramirez HCG RANGE SEE BELOW Normal [facility] Comment on above: Result Comment: 5-50 0-1 WEEK 40-300 1-2 WEEKS 100-1,000 2-3 WEEKS 500-6,000 3-4 WEEKS 5,000-200,000 1-2 MONTHS 10,000-100,000 2-3 MONTHS 3,000-50,000 2ND TRIMESTER 1,000-50,000 3RD TRIMESTER Performed By: #### L ACT #### [facility] [address] [place] [address] Dr. Ellen Ramirez PROTIMEon 02-14-2022 INR Coag (PPP) [Relative time] 1.00 {INR} Normal [facility] Comment on above: Performed By: #### L ACT #### [facility] [address] [place] [address] Dr. Ellen Ramirez INR GUIDELINES SEE BELOW Normal [facility] Comment on above: Result Comment: CARMEN RED INR: 2.0 - 3.0 CONDITIONS NOT LISTED BELOW 2.5 - 3.5 FOR PROSTHETIC HEART VALVE REPLACEMENT 2.5 - 3.5 RECURRENT THROMBOSIS Performed By: #### L ACT #### [facility] [address] [place] [address] Dr. Ellen Ramirez PT Coag (PPP) [Time] 10.8 s Normal 9.0-11.[address] [facility] Comment on above: Performed By: #### L ACT #### [facility] [address] [place] [address] Dr. Ellen Ramirez PTTon 02-14-2022 aPTT Coag (Bld) [Time] 25.7 s Normal 22.3-36.[address] [facility] Comment on above: Performed By: #### L ACT #### [facility] [address] [place] [address] Dr. Ellen Ramirez TSHon 02-14-2022 TSH 15.176 uIU/mL Critically high 0.358-3.740 [facility] Comment on above: Performed By: #### L ACT #### [facility] [address] [address] [address] Ellen Ramirez TSH RANGE SEE BELOW Normal [facility] Comment on above: Result Comment: <0.3 4 UIU/ml HYPERTHYROID 0.34-5.60 UIU/ml EUTHYROID >5.60 UIU/ml HYPOTHYROID Performed By: #### L ACT #### [facility] [address] [address] [address] Ellen Ramirez US PELVIS AND TRANSVAGon [...] by: AHSAN FLORES Date: 2022-02-14 15:[address] [facility] Encounters Encounter Date Encounter Type Care Provider Facility Start: 04-21-2024 End: 04-21-2024 ambulatory Patsy Villafana MD Facility:[facility] Start: 03-31-2024 End: 03-31-2024 ambulatory Patsy Villafana MD Facility:[facility] Start: 03-17-2024 End: 03-17-2024 ambulatory Patsy Villafana MD Facility:[facility] Start: 02-27-2024 End: 02-27-2024 ambulatory CATRACHO ROSALES [facility] Start: 12-06-2023 End: 12-07-2023 [...] JOSE DANIEL ROOT . [facility] Start: 04-11-2022 End: 04-12-[address] JOSE DANIEL ROOT . Facility:[facility] Start: 04-11-2022 End: 04-12-2022 Encounter for preprocedural laboratory examination DR JOSE DANIEL ROOT . Facility:[facility] Start: 04-05-2022 Encounter for other preprocedural examination DR JOSE DANIEL ROOT . [facility] Start: 04-03-2022 End: 04-04-[address] JOSE DANIEL ROOT . Facility:[facility] Start: 04-03-2022 End: 04-04-2022 Encounter for other preprocedural examination DR JOSE DANIEL ROOT . Facility:[facility] Start: 03-30-2022 End: 03-31-[address] JOSE DANIEL ROTO . Facility:[facility] Start: 03-16-2022 End: 03-17-[address] CATRACHO ROSALES . Facility:[facility] Start: 03-02-2022 End: 03-02-[address] CATRACHO ROSALES . Facility:[facility] Start: 03-02-2022 End: 03-02-[address] JOSE DANIEL ROOT . Facility:[facility] Start: 02-23-2022 End: 02-23-[address] JOSE DANIEL ROOT . Facility:[facility] Start: 02-14-2022 End: 02-15-[address] JOSE DANIEL ROOT . Facility:[facility] Payers Date Payer Category Payer Unknown 1980 Unknown [id number] 2.16.84 0.1.244965.3.579.2.593 1980 Unknown [id number] 2.16.84 0.1.724565.3.579.2.593 1980 Unknown [id number] 2.16.84 0.1.782408.3.579.2.593 1980 Unknown [id number] 2.16.84 0.1.062974.3.579.2.593 1980 Unknown [id number] 2.16.84 0.1.053732.3.579.2.593 1980 Unknown [id number] 2.16.84 0.1.253560.3.579.2.593 1980 Unknown [id number] 2.16.84 0.1.149012.3.579.2.593 1980 Unknown [id number] 2.16.84 0.1.095507.3.579.2.593 1980 Unknown [id number] 2.16.84 0.1.815044.3.579.2.593 1980 Unknown [id number] 2.16.84 0.1.192385.3.579.2.593 1980 Unknown [id number] 2.16.84 0.1.877162.3.579.2.593 1980 Unknown [id number] 2.16.84 0.1.082888.3.579.2.593 1980 Unknown [id number] 2.16.84 0.1.959099.3.579.2.593 1980 Unknown [id number] 2.16.84 0.1.455687.3.579.2.9 1980 Unknown [id number] 2.16.84 0.1.591224.3.579.2.9 1980 Unknown [id number] 2.16.84 0.1.915144.3.579.2.1258 1980 Unknown [id number] 2.16.84 0.1.630241.3.579.2.1258 1980 Unknown [id number] 2.16.84 0.1.168888.3.579.2.1258 1980 Unknown [id number] 2.16.84 0.1.244521.3.579.2.9 1980 Unknown [id number] 2.16.8 40.1.495675.3.579.2.1285 1980 Unknown [id number] 2.16.8 40.1.391557.3.579.2.1285 1980 Unknown [id number] 2.16.8 40.1.018105.3.579.2.1285 1980 Unknown [id number] 2.16.8 40.1.904251.3.579.2.1285 1980 Unknown [id number] 2.16.8 40.1.072835.3.579.2.1285 1980 Unknown [id number] 2.16.8 40.1.278501.3.579.2.1285 1980 Unknown [id number] 2.16. 840.1.192149.3.579.2. 1980 Unknown [id number] 2.16. 840.1.395762.3.579.2. 1980 Unknown [id number] 2.16. 840.1.735717.3.579.2.196 1959 Self-pay [id number] 1959 Unknown [id number] Clinical Note 11-19-2023 Note Date & Type [...] ANESTHESIA: General. SURGEON: Jose Daniel Root D.O. CONTRACT AGENT: None. FINDINGS: Normal appearing cavity. No gross [...] total cavity length is 4 cm. The Liliebth ablation apparatus was set to approximately 4 [...] recovery in stable condition. [facility] Summary Purpose Family History No Family History Records FoundNo Family History Records FoundNo Family History Records FoundNo Family History Records Found Advance Directives No Advanced Directives Records FoundNo Advanced Directives Records FoundNo Advanced Directives Records FoundNo Advanced Directives Records Found Additional Source Comments INFORMATION SOURCE (unrecogn ized section and content) DATE CREATED AUTHOR 12/06/2022 [facility] DATE CREATED AUTHOR AUTHOR'S ORGANIZ ATION 12/09/2023 [facility] EP[facility] DATE CREATED AUTHOR AUTHOR'S ORGANIZ ATION 02/28/2024 [facility] DATE CREATED AUTHOR AUTHOR'S ORGANIZ ATION 05/06/2024 [facility] FOR RECORDS PERTAINING TO PATIENTS [...] BE BASED ON THE PRIMARY CLINICAL RECORDS. [facility]. provides no warranty or guarantee of the accuracy or completeness of information in this document.
[2024-06-09 08:28] VITALS: BP 114/81; PULSE 84; TEMP 36.7; O2SAT 99
[2024-06-09 09:17] VITALS: BP 134/65; PULSE 77; O2SAT 99
[2024-06-09 09:21] VITALS: BP 138/69; PULSE 88; O2SAT 98
[2024-06-09] MEDS: 0.9 % SODIUM CHLORIDE 10 ML SYRINGE - SALINE FLUSH INJ (09:22)
--- NOTE | 2024-06-09 09:22 | W.PM.PROCNOT ---
Date of procedure: 06/09/24 Pre-op diagnosis: Pain due to lumbar stenosis with neurogenic claudication Post-op diagnosis: same as pre-op Procedure: Procedure: Bilateral L5-S1 transforaminal epidural steroid injection Medications: Bupivacaine 0.25% 2cc, lidocaine 2% 1cc, kenalog 80mg The patient was seen and examined in the preoperative holding area.? Informed consent was obtained and placed on the chart.? Patient was brought to the medical procedure unit and placed in the prone position where a timeout was completed verifying the correct patient, procedure site, position, and planned special equipment using sterile aseptic technique.? Under direct fluoroscopic visualization a 25-gauge Quincke tipped spinal needle was advanced at level left L5-S1 to the designated neural foramen where contrast dye was injected to show adequate spread.? There was no evidence of vascular or adverse uptake.? Epidural spread was appreciated.? The above-mentioned injectate was then placed in a 1.5 mL aliquot preceded by negative aspiration.? The needle was removed. The same procedure, at the same level, was completed on the opposite side. ? Patient was taken to the postprocedural recovery area and monitored for an appropriate length of time before found suitable for discharge in the accompaniment of a responsible adult. Anesthesia: Local Surgeon: Patsy Villafana Pathology: none sent Condition: stable Disposition: no change
[2024-06-09] MEDS: BUPIVACAINE HCL 0.25% PF 25 MG/10 ML VIAL INJ (09:23)
[2024-06-09] MEDS: IOHEXOL 240 MG/ML - 10 ML VIAL INJ (09:23)
[2024-06-09] MEDS: LIDOCAINE HCL 2% 400 MG/20 ML MDV 5 ML INJ (09:24)
[2024-06-09] MEDS: TRIAMCINOLONE ACETONIDE 40 MG/ML VIAL 80 MG INJ (09:24)
== END 2024-06-09 09:27 | disposition home or self-care (01) ==
LOC: SURGOUT 08:07
PROVIDERS: PCP Family Medicine; Visit Provider Anesthesiology
DX: M48.062 Spinal stenosis, lumbar region with neurogenic claudication (principal)
CPT/HCPCS: 64483; J0665; J3301; Q9966

== ENCOUNTER 2024-06-19 12:32 | Outpatient (OUT) | payer BC, SELFPAY ==
--- OUTSIDE RECORDS SUMMARY | 2024-06-19 12:41 | XMS_ITS | CCD ---
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 Ellen Ramirez ATYPICAL LYMPH % Normal [facility] Comment on above: Performed By: #### C HUSSAIN #### [facility] [address] [place] [address] Dr. Ellen Ramirez BAND # 0.0 103/ul Normal 0.0-0.3 [facility] Comment on above: Performed By: #### C HUSSAIN #### [facility] [address] [place] [address] Dr. Ellen Ramirez BAND % 0 % Normal 0-5 [facility] Comment on above: Performed By: #### C HUSSAIN #### [facility] [address] [place] [address] Dr. Ellen Ramirez BASOM # 0.00 103/ul Normal 0.00-0.10 [facility] Comment on above: Performed By: #### C HUSSAIN #### [facility] [address] [place] [address] Dr. Ellen Ramirez BASOM % 0.0 % Critically low 0.2-2.0 [facility] Comment on above: Performed By: #### C HUSSAIN #### [facility] [address] [place] [address] Dr. Ellen Ramirez BLAST # Normal [facility] Comment on above: Performed By: #### C HUSSAIN #### [facility] [address] [place] [address] Dr. Ellen Ramirez BLAST % Normal [facility] Comment on above: Performed By: #### C HUSSAIN #### [facility] [address] [place] [address] Dr. Ellen Ramirez CORRECTED WBC Normal 4.0-11.0 [facility] Comment on above: Performed By: #### C HUSSAIN #### [facility] [address] [place] [address] Dr. Ellen Ramirez EOS # 0.46 103/ul Normal 0.00-0.70 [facility] Comment on above: Performed By: #### C HUSSAIN #### [facility] [address] [place] [address] Dr. Ellen Ramirez EOS% 6.0 % Normal 0.9-7.0 [facility] Comment on above: Performed By: #### C HUSSAIN #### [facility] [address] [place] [address] Dr. Ellen Ramirez HCT 33.6 % Critically low 36.0-48.0 [facility] Comment on above: Performed By: #### C HUSSAIN #### [facility] [address] [place] [address] Dr. Ellen Ramirez HGB 11.5 g/dl Critically low 12.0-16.0 [facility] Comment on above: Performed By: #### C HUSSAIN #### [facility] [address] [place] [address] Dr. Ellen Ramirez LYMPHM # 0.15 103/ul Critically low 1.20-3.80 [facility] Comment on above: Performed By: #### C HUSSAIN #### [facility] [address] [address] [address] Ellen Ramirez LYMPHM% 2.0 % Critically low 20.5-60.0 [facility] Comment on above: Performed By: #### C HUSSAIN #### [facility] [address] [address] [address] Ellen Ramirez MCH 29.3 pg Normal 26.7-34.0 [facility] Comment on above: Performed By: #### C HUSSAIN #### [facility] [address] [place] [address] Dr. Ellen Ramirez MCHC 34.2 g/dl Normal 29.9-35.2 [facility] Comment on above: Performed By: #### C HUSSAIN #### [facility] [address] [place] [address] Dr. Ellen Ramirez MCV 85.5 fL Normal 81.0-99.0 [facility] Comment on above: Performed By: #### C HUSSAIN #### [facility] [address] [place] [address] Dr. Ellen Ramirez METAMYELOCYTE # Normal [facility] Comment on above: Performed By: #### C HUSSAIN #### [facility] [address] [place] [address] Dr. Ellen Ramirez METAMYELOCYTE % Normal [facility] Comment on above: Performed By: #### C HUSSAIN #### [facility] [address] [place] [address] Dr. Ellen Ramirez MONOM# 0.38 103/ul Normal 0.30-0.80 [facility] Comment on above: Performed By: #### C HUSSAIN #### [facility] [address] [place] [address] Dr. Ellen Ramirez MONOM% 5.0 % Normal 1.7-12.0 [facility] Comment on above: Performed By: #### C HUSSAIN #### [facility] [address] [address] [address] Ellen Ramirez MPV 9.4 fL Critically low 9.5-13.5 [facility] Comment on above: Performed By: #### C HUSSAIN #### [facility] [address] [address] [address] Ellen Ramirez MYELOCYTE # Normal [facility] Comment on above: Performed By: #### C HUSSAIN #### [facility] [address] [address] [address] Ellen Ramirez MYELOCYTE % Normal [facility] Comment on above: Performed By: #### C HUSSAIN #### [facility] [address] [address] [address] Ellen Ramirez NRBC Normal [facility] Comment on above: Performed By: #### C HUSSAIN #### [facility] [address] [place] [address] Dr. Ellen Ramirez PLT 281 103/ul Normal 150-450 [facility] Comment on above: Performed By: #### C HUSSAIN #### [facility] [address] [address] [address] Ellen Ramirez RBC 3.93 106/ul Critically low 4.20-5.40 [facility] Comment on above: Performed By: #### C HUSSAIN #### [facility] [address] [place] [address] Dr. Ellen Ramirez RDW 13.0 % Normal 11.0-15.0 [facility] Comment on above: Performed By: #### C HUSSAIN #### [facility] [address] [address] [address] Ellen Ramirez SEG # 6.61 103/ul Critically high 1.40-6.50 [facility] Comment on above: Performed By: #### C HUSSAIN #### [facility] [address] [address] [address] Ellen Ramirez SEG % 87.0 % Critically high 43.0-75.0 [facility] Comment on above: Performed By: #### C HUSSAIN #### [facility] [address] [address] [address] Ellen Ramirez WBC 7.6 103/ul Normal 4.0-11.0 [facility] Comment on above: Performed By: #### C HUSSAIN #### [facility] [address] [address] [address] Ellen Ramirez CPKon 12-02-2022 CK [Catalytic activity/Vol] 50 U/L Normal 26-192 [facility] Comment on above: Performed By: #### C HUSSAIN #### [facility] [address] [address] [address] Ellen Ramirez CRPon 12-02-2022 CRP 5.4 mg/dL Critically high <=1.0 [facility] Comment on above: Performed By: #### C HUSSAIN #### [facility] [address] [place] [address] HEAD WO CONon [...] REBA LOWRY Date: 2022-12-02 00:24 Normal [facility] ER URINE PROFILEon 3 Bilirubin Ql (U) Negative Normal NEGATIVE [facility] Comment on above: Performed By: #### L ACT #### [facility] [address] [place] [address] Dr. Ellen Ramirez Clarity (U) CLEAR Normal CLEAR [facility] Comment on above: Performed By: #### L ACT #### [facility] [address] [place] [address] Dr. Ellen Ramirez Color (U) YELLOW Normal YELLOW [facility] Comment on above: Performed By: #### L ACT #### [facility] [address] [place] [address] Dr. Ellen Ramirez ERUAHBonilla A micrscopic examination will be performed if indicated. Normal [facility] Comment on above: Performed By: #### L ACT #### [facility] [address] [place] [address] Dr. Ellen Ramirez Glucose Ql (U) Negative Normal NEGATIVE [facility] Comment on above: Performed By: #### L ACT #### [facility] [address] [place] [address] Dr. Ellen Ramirez Hemoglobin Ql (U) TRACE-INTACT Abnormal NEGATIVE [facility] Comment on above: Performed By: #### L ACT #### [facility] [address] [place] [address] Dr. Ellen Ramirez Ketones Ql (U) >=80 Abnormal NEGATIVE [facility] Comment on above: Performed By: #### L ACT #### [facility] [address] [place] [address] Dr. Ellen Ramirez LEUKOCYTES Negative Normal NEGATIVE [facility] Comment on above: Performed By: #### L ACT #### [facility] [address] [place] [address] Dr. Ellen Ramirez Nitrite Ql (U) Negative Normal NEGATIVE [facility] Comment on above: Performed By: #### L ACT #### [facility] [address] [place] [address] Dr. Ellen Ramirez pH (U) 6.0 [pH] Normal 5-9 [facility] Comment on above: Performed By: #### L ACT #### [facility] [address] [place] [address] Dr. Ellen Ramirez SPEC GRAVITY 1.015 Normal 1.005-<=1.025 [facility] Comment on above: Performed By: #### L ACT #### [facility] [address] [place] [address] Dr. Ellen Ramirez UA PROTEIN Negative Normal NEGATIVE/ TRACE [facility] Comment on above: Performed By: #### L ACT #### [facility] [address] [place] [address] Dr. Ellen Ramirez UR MICRO IND NOT INDICATED Normal [facility] Comment on above: Performed By: #### L ACT #### [facility] [address] [place] [address] Dr. Ellen Ramirez Urobilinogen Qn (U) 0.2 {Ajith'U}/dL Normal 0.2 - 1. 0 [facility] Comment on above: Performed By: #### L ACT #### [facility] [address] [place] [address] Dr. Ellen Ramirez LACTATE/LACTIC ACIDon 2022 Lactate [Moles/Vol] 0.7 mmol/L Normal 0.4-2.0 [facility] Comment on above: Performed By: #### L ACT #### [facility] [address] [place] [address] Dr. Ellen Ramirez MYOGLOBINon 12-02-2022 LORENA 30 ng/mL Normal 9-82 [facility] Comment on above: Performed By: #### C HUSSAIN #### [facility] [address] [place] [address] Dr. Ellen Ramirez PROF 14(COMP METB)on 023 Albumin [Mass/Vol] 3.7 g/dL Normal 3.4-5.0 [facility] Comment on above: Performed By: #### C JOVANMAN #### [facility] [address] [place] [address] Dr. Ellen Ramirez Albumin/Globulin [Mass ratio] 1.1 {ratio} Normal [facility] Comment on above: Performed By: #### C HUSSAIN #### [facility] [address] [place] [address] Dr. Ellen Ramirez ALP [Catalytic activity/Vol] 87 U/L Normal 46-116 [facility] Comment on above: Performed By: #### C HUSSAIN #### [facility] [address] [address] [address] Ellen Ramirez ALT [Catalytic activity/Vol] 43 U/L Normal 14-59 [facility] Comment on above: Performed By: #### C HUSSAIN #### [facility] [address] [address] [address] Ellen Ramirez Anion gap [Moles/Vol] 10.9 mmol/L Normal [facility] Comment on above: Performed By: #### C HUSSAIN #### [facility] [address] [place] [address] Dr. Ellen Ramirez AST [Catalytic activity/Vol] 35 U/L Normal 15-37 [facility] Comment on above: Performed By: #### C HUSSAIN #### [facility] [address] [place] [address] Dr. Ellen Ramirez Bilirubin [Mass/Vol] 0.3 mg/dL Normal 0.2-1.0 [facility] Comment on above: Performed By: #### C HUSSAIN #### [facility] [address] [place] [address] Dr. Ellen Ramirez Calcium [Mass/Vol] 8.6 mg/dL Normal 8.5-10.1 [facility] Comment on above: Performed By: #### C HUSSAIN #### [facility] [address] [address] [address] Ellen Ramirez Chloride [Moles/Vol] 102 mmol/L Normal 98-107 [facility] Comment on above: Performed By: #### C HUSSAIN #### [facility] [address] [place] [address] Dr. Ellen Ramirez CO2 [Moles/Vol] 25.4 mmol/L Normal 21.0-32.0 [facility] Comment on above: Performed By: #### C HUSSAIN #### [facility] [address] [address] [address] Ellen Ramirez Creatinine [Mass/Vol] 0.99 mg/dL Normal 0.55-1.02 [facility] Comment on above: Performed By: #### C BCMAN #### [facility] [address] [address] [address] Ellen Ramirez EGFR-AF IVORIAN >60 Normal >=60 [facility] Comment on above: Performed By: #### C BCMAN #### [facility] [address] [address] [address] Ellen Ramirez EGFR-NON AF IVORIAN >60 Normal >=60 [facility] Comment on above: Performed By: #### C BCMAN #### [facility] [address] [address] [address] Ellen Ramirez Globulin (S) [Mass/Vol] 3.3 g/dL Normal [facility] Comment on above: Performed By: #### C BCMAN #### [facility] [address] [address] [address] Ellen Ramirez Glucose [Mass/Vol] 107 mg/dL Critically high 74-106 [facility] Comment on above: Performed By: #### C BCVIRGINIE #### [facility] [address] [address] [address] Ellen Ramirez Potassium [Moles/Vol] 3.3 mmol/L Critically low 3.5-5.1 [facility] Comment on above: Performed By: #### C BCMAN #### [facility] [address] [address] [address] Ellen Ramirez Protein [Mass/Vol] 7.0 g/dL Normal 6.4-8.2 [facility] Comment on above: Performed By: #### C BCMAN #### [facility] [address] [address] [address] Ellen Ramirez Sodium [Moles/Vol] 135 mmol/L Critically low 136-145 [facility] Comment on above: Performed By: #### C BCVIRGINIE #### [facility] [address] [address] [address] Ellen Ramirez Urea nitrogen [Mass/Vol] 11.0 mg/dL Normal 7.0-18.0 [facility] Comment on above: Performed By: #### C BCMAN #### [facility] [address] [place] [address] Dr. Ellen Ramirez Urea nitrogen/Creatinine [Mass ratio] 11.1 mg/mg Normal [facility] Comment on above: Performed By: #### C BCMAN #### [facility] [address] [place] [address] Dr. Ellen Ramirez RESPIRATORY PANEL PLUSon Adenovirus Not detected Normal NOT DETECTED [facility] Comment on above: Performed By: #### C BCMAN #### [facility] [address] [place] [address] Dr. Ellen Verduzco. Parapertusis Not detected Normal NOT DETECTED [facility] Comment on above: Performed By: #### C BCMAN #### [facility] [address] [place] [address] Dr. Ellen Verduzco. Pertussis Not detected Normal NOT DETECTED [facility] Comment on above: Performed By: #### C BCMAN #### [facility] [address] [place] [address] Dr. Ellen Ramirez Chlamydia Pneumoniae Not detected Normal NOT DETECTED [facility] Comment on above: Performed By: #### C BCMAN #### [facility] [address] [place] [address] Dr. Ellen Ramirez Coronavirus 229E Not detected Normal NOT DETECTED [facility] Comment on above: Performed By: #### C BCMAN #### [facility] [address] [place] [address] Dr. Ellen Ramirez Coronavirus HKU1 Not detected Normal NOT DETECTED [facility] Comment on above: Performed By: #### C BCMAN #### [facility] [address] [place] [address] Dr. Ellen Ramirez Coronavirus NL63 Not detected Normal NOT DETECTED [facility] Comment on above: Performed By: #### C BCMAN #### [facility] [address] [place] [address] Dr. Ellen Ramirez Coronavirus OC43 Not detected Normal NOT DETECTED [facility] Comment on above: Performed By: #### C BCMAN #### [facility] [address] [address] [address] Ellen Ramirez Influenza A H1 Not detected Normal NOT DETECTED [facility] Comment on above: Performed By: #### C BCMAN #### [facility] [address] [address] [address] Ellen Ramirez Influenza A H1 2009 Not detected Normal NOT DETECTED [facility] Comment on above: Performed By: #### C BCMAN #### [facility] [address] [address] [address] Ellen Ramirez Influenza A H3 Not detected Normal NOT DETECTED [facility] Comment on above: Performed By: #### C BCMAN #### [facility] [address] [address] [address] Ellen Ramirez Influenza B Not detected Normal NOT DETECTED [facility] Comment on above: Performed By: #### C BCMAN #### [facility] [address] [address] [address] Ellen Ramirez Metapneumovirus Not detected Normal NOT DETECTED [facility] Comment on above: Performed By: #### C BCMAN #### [facility] [address] [place] [address] Dr. Ellen Ramirez Mycoplas. Pneumoniae Not detected Normal NOT DETECTED [facility] Comment on above: Performed By: #### C BCMAN #### [facility] [address] [address] [address] Ellen Ramirez Parainfluenza 1 Not detected Normal NOT DETECTED [facility] Comment on above: Performed By: #### C BCMAN #### [facility] [address] [address] [address] Ellen Ramirez Parainfluenza 2 Not detected Normal NOT DETECTED [facility] Comment on above: Performed By: #### C BCMAN #### [facility] [address] [address] [address] Ellen Ramirez Parainfluenza 3 Not detected Normal NOT DETECTED [facility] Comment on above: Performed By: #### C BCMAN #### [facility] [address] [place] [address] Dr. Ellen Ramirez Parainfluenza 4 Not detected Normal NOT DETECTED [facility] Comment on above: Performed By: #### C HUSSAIN #### [facility] [address] [place] [address] Dr. Ellen Ramirez Rhino/Enterovirus Not detected Normal NOT DETECTED [facility] Comment on above: Performed By: #### C HUSSAIN #### [facility] [address] [place] [address] Dr. Ellen Ramirez RP2 Header 1 RESPIRATORY PANEL: VIRUSES Normal [facility] Comment on above: Performed By: #### C HUSSAIN #### [facility] [address] [place] [address] Dr. Ellen Ramirez RP2 Header 2 RESPIRATORY PANEL: BACTERIA Normal [facility] Comment on above: Performed By: #### C HUSSAIN #### [facility] [address] [place] [address] Dr. Ellen Ramirez RSV Not detected Normal NOT DETECTED [facility] Comment on above: Performed By: #### C HUSSAIN #### [facility] [address] [place] [address] Dr. Ellen Ramirez SARS-CoV-2 (COVID-19) RNA BEULAH+probe Ql (Unsp spec) Not detected Normal NOT DETECTED [facility] Comment on above: Performed By: #### C HUSSAIN #### [facility] [address] [place] [address] Dr. Ellen Ramirez SED RATE [facility] 2022 SED RATE 22 mm/hr Critically high <=20 [facility] Comment on above: Performed By: #### C HUSSAIN #### [facility] [address] [place] [address] Dr. Ellen Ramirez TSHon 12-02-2022 TSH 12.836 uIU/mL Critically high 0.358-3.740 [facility] Comment on above: Performed By: #### T SH #### [facility] [address] [place] [address] Dr. Ellen Ramirez XR CHEST 2 Von [...] by: REBA LOWRY Date: 2022-12-02 00:05 Normal [facility] PAP ACOG PANEL 2: 30 to 65on 06-26-2022 . . Normal [facility] Comment on above: Result Comment: Perf ormed at: WB Performed By: #### [id number] #### [facility] [address] [address] [address] Ellen Ramirez Age Gdln ACOG Testing 30-65 Normal [facility] Comment on above: Performed By: #### [id number] #### [facility] [address] [address] [address] Ellen Ramirez DIAGNOSIS: Comment Normal [facility] Comment on above: Result Comment: NEGA TIVE FOR INTRAEPITHELIAL LESION OR MALIGNANCY. Performed at: WB Performed By: #### [id number] #### [facility] [address] [address] [address] Ellen Ramirez HPV Aptima Negative Normal Negative [facility] Comment on above: Result Comment: This nucleic acid amplification test detects fourteen high-risk HPV types (16,18,31,33,35,39,45,51,52,56,58,59,66,68) without differentiation. Performed at: =G Performed By: #### [id number] #### [facility] [address] [address] [address] Ellen Ramirez Methodology: Comment Normal [facility] Comment on above: Result Comment: This liquid based ThinPrep(R) pap test was screened with the use of an image guided system. Performed at: WB Performed By: #### [id number] #### [facility] [address] [address] [address] Ellen Ramirez Note: Comment Normal [facility] Comment on above: Result Comment: The Pap smear is a screening test designed to aid in the detection of premalignant and malignant conditions of the uterine cervix. It is not a diagnostic procedure and should not be used as the sole means of detecting cervical cancer. Both false-positive and false-negative reports do occur. . Performed at: WB Performed By: #### [id number] #### [facility] [address] [place] [address] Dr. Ellen Ramirez Performed by: Comment Normal [facility] Comment on above: Result Comment: Pretty Aguilar, Bundle Wrapper (ASCP) Performed at: WB Performed By: #### [id number] #### [facility] [address] [place] [address] Dr. Ellen Ramirez Specimen adequacy: Comment Normal [facility] Comment on above: Result Comment: Sati sfactory for evaluation. Endocervical and/or squamous metaplastic cells (endocervical component) are present. Performed at: WB Performed By: #### [id number] #### [facility] [address] [place] [address] Dr. Ellen Ramirez CBC AUTO DIFFon 05-08-2022 BASO # 0.0 103/ul Normal 0.0-0.1 [facility] Comment on above: Performed By: #### C BC #### [facility] [address] [place] [address] Dr. Ellen Ramirez Basophils/100 WBC (Bld) 0.4 % Normal 0.2-2.0 [facility] Comment on above: Performed By: #### C BC #### [facility] [address] [place] [address] Dr. Ellen Ramirez EO # 0.1 103/ul Normal 0.0-0.7 [facility] Comment on above: Performed By: #### C BC #### [facility] [address] [place] [address] Dr. Ellen Ramirez Eosinophils/100 WBC (Bld) 1.1 % Normal 0.9-7.0 [facility] Comment on above: Performed By: #### C BC #### [facility] [address] [address] [address] Ellen Ramirez Erythrocyte distribution width (RBC) [Ratio] 18.5 % Critically high 11.0-15.0 [facility] Comment on above: Performed By: #### C BC #### [facility] [address] [place] [address] Dr. Ellen Ramirez Hematocrit (Bld) [Volume fraction] 37.2 % Normal 36.0-48.0 [facility] Comment on above: Performed By: #### C BC #### [facility] [address] [place] [address] Dr. Ellen Ramirez Hemoglobin (Bld) [Mass/Vol] 12.0 g/dL Normal 12.0-16.0 [facility] Comment on above: Performed By: #### C BC #### [facility] [address] [place] [address] Dr. Ellen Ramirez IG # 0.01 10e3/ul Normal 0.00-0.03 [facility] Comment on above: Performed By: #### C BC #### [facility] [address] [place] [address] Dr. Ellen Ramirez IG % 0.2 % Normal 0.0-0.5 [facility] Comment on above: Performed By: #### C BC #### [facility] [address] [place] [address] Dr. Ellen Ramirez LYMPH # 1.4 103/ul Normal 1.2-3.8 [facility] Comment on above: Performed By: #### C BC #### [facility] [address] [place] [address] Dr. Ellen Ramirez Lymphocytes/100 WBC (Bld) 29.2 % Normal 20.5-60.0 [facility] Comment on above: Performed By: #### C BC #### [facility] [address] [place] [address] Dr. Ellen Ramirez MANUAL DIFF REQ NO Normal [facility] Comment on above: Performed By: #### C BC #### [facility] [address] [place] [address] Dr. Ellen Ramirez MCH (RBC) [Entitic mass] 28.0 pg Normal 26.7-34.0 [facility] Comment on above: Performed By: #### C BC #### [facility] [address] [place] [address] Dr. Ellen Ramirez MCHC (RBC) [Mass/Vol] 32.3 g/dL Normal 29.9-35.2 [facility] Comment on above: Performed By: #### C BC #### [facility] [address] [place] [address] Dr. Ellen Ramirez MCV (RBC) [Entitic vol] 86.7 fL Normal 81.0-99.0 [facility] Comment on above: Performed By: #### C BC #### [facility] [address] [place] [address] Dr. Ellen Ramirez MONO # 0.4 103/ul Normal 0.3-0.8 [facility] Comment on above: Performed By: #### C BC #### [facility] [address] [place] [address] Dr. Ellen Ramirez Monocytes/100 WBC (Bld) 8.0 % Normal 1.7-12.0 [facility] Comment on above: Performed By: #### C BC #### [facility] [address] [place] [address] Dr. Ellen Ramirez NEUT # 2.9 103/ul Normal 1.4-6.5 [facility] Comment on above: Performed By: #### C BC #### [facility] [address] [place] [address] Dr. Ellen Ramirez Neutrophils/100 WBC (Bld) 61.1 % Normal 43.0-75.0 [facility] Comment on above: Performed By: #### C BC #### [facility] [address] [place] [address] Dr. Ellen Ramirez Platelet mean volume (Bld) [Entitic vol] 9.5 fL Normal 9.5-13.5 [facility] Comment on above: Performed By: #### C BC #### [facility] [address] [place] [address] Dr. Ellen Ramirez PLT 282 103/ul Normal 150-450 [facility] Comment on above: Performed By: #### C BC #### [facility] [address] [place] [address] Dr. Ellen Ramirez RBC 4.29 106/ul Normal 4.20-5.40 [facility] Comment on above: Performed By: #### C BC #### [facility] [address] [place] [address] Dr. Ellen Ramirez WBC 4.7 103/ul Normal 4.0-11.0 [facility] Comment on above: Performed By: #### C BC #### [facility] [address] [place] [address] Dr. Ellen Ramirez FERRITINon 05-08-2022 Ferritin [Mass/Vol] 92.0 ng/mL Normal 6.2-137.0 [facility] Comment on above: Performed By: #### F ERR, FT4 #### [facility] [address] [place] [address] Dr. Ellen Ramirez FREE T4on 05-08-2022 Free T4 [Mass/Vol] 0.72 ng/dL Critically low 0.76-1.46 [facility] Comment on above: Performed By: #### F ERR, FT4 #### [facility] [address] [place] [address] Dr. Ellen Ramirez TSHon 05-08-2022 TSH 3.626 uIU/mL Normal 0.358-3.740 [facility] Comment on above: Performed By: #### C BCMAN #### [facility] [address] [place] [address] Dr. Ellen Ramirez CBC AUTO DIFFon 04-14-2022 BASO # 0.0 103/ul Normal 0.0-0.1 [facility] Comment on above: Performed By: #### L ACT #### [facility] [address] [place] [address] Dr. Ellne Ramirez Basophils/100 WBC (Bld) 0.5 % Normal 0.2-2.0 [facility] Comment on above: Performed By: #### L ACT #### [facility] [address] [place] [address] Dr. Ellen Ramirez EO # 0.1 103/ul Normal 0.0-0.7 [facility] Comment on above: Performed By: #### L ACT #### [facility] [address] [place] [address] Dr. Ellen Ramirez Eosinophils/100 WBC (Bld) 2.8 % Normal 0.9-7.0 [facility] Comment on above: Performed By: #### L ACT #### [facility] [address] [place] [address] Dr. Ellen Ramirez Erythrocyte distribution width (RBC) [Ratio] 24.2 % Critically high 11.0-15.0 [facility] Comment on above: Performed By: #### L ACT #### [facility] [address] [place] [address] Dr. Ellen Ramirez Hematocrit (Bld) [Volume fraction] 36.3 % Normal 36.0-48.0 [facility] Comment on above: Performed By: #### L ACT #### [facility] [address] [place] [address] Dr. Ellen Ramirez Hemoglobin (Bld) [Mass/Vol] 11.4 g/dL Critically low 12.0-16.0 [facility] Comment on above: Performed By: #### L ACT #### [facility] [address] [place] [address] Dr. Ellen Ramirez IG # 0.01 10e3/ul Normal 0.00-0.03 [facility] Comment on above: Performed By: #### L ACT #### [facility] [address] [place] [address] Dr. Ellen Ramirez IG % 0.3 % Normal 0.0-0.5 [facility] Comment on above: Performed By: #### L ACT #### [facility] [address] [place] [address] Dr. Ellen Ramirez LYMPH # 1.3 103/ul Normal 1.2-3.8 [facility] Comment on above: Performed By: #### L ACT #### [facility] [address] [place] [address] Dr. Ellen Ramirez Lymphocytes/100 WBC (Bld) 32.6 % Normal 20.5-60.0 [facility] Comment on above: Performed By: #### L ACT #### [facility] [address] [place] [address] Dr. Ellen Ramirez MANUAL DIFF REQ NO Normal [facility] Comment on above: Performed By: #### L ACT #### [facility] [address] [place] [address] Dr. Ellen Ramirez MCH (RBC) [Entitic mass] 25.9 pg Critically low 26.7-34.0 [facility] Comment on above: Performed By: #### L ACT #### [facility] [address] [place] [address] Dr. Ellen Ramirez MCHC (RBC) [Mass/Vol] 31.4 g/dL Normal 29.9-35.2 [facility] Comment on above: Performed By: #### L ACT #### [facility] [address] [place] [address] Dr. Ellen Ramirez MCV (RBC) [Entitic vol] 82.5 fL Normal 81.0-99.0 [facility] Comment on above: Performed By: #### L ACT #### [facility] [address] [place] [address] Dr. Ellen Ramirze MONO # 0.3 103/ul Normal 0.3-0.8 [facility] Comment on above: Performed By: #### L ACT #### [facility] [address] [place] [address] Dr. Ellen Ramirez Monocytes/100 WBC (Bld) 8.5 % Normal 1.7-12.0 [facility] Comment on above: Performed By: #### L ACT #### [facility] [address] [place] [address] Dr. Ellen Ramirez NEUT # 2.4 103/ul Normal 1.4-6.5 [facility] Comment on above: Performed By: #### L ACT #### [facility] [address] [address] [address] Ellen Ramirez Neutrophils/100 WBC (Bld) 60.0 % Normal 43.0-75.0 [facility] Comment on above: Performed By: #### L ACT #### [facility] [address] [address] [address] Ellen Ramirez Platelet mean volume (Bld) [Entitic vol] 9.6 fL Normal 9.5-13.5 [facility] Comment on above: Performed By: #### L ACT #### [facility] [address] [address] [address] Ellen Ramirez PLT 264 103/ul Normal 150-450 [facility] Comment on above: Performed By: #### L ACT #### [facility] [address] [place] [address] Dr. Ellen Ramirez RBC 4.40 106/ul Normal 4.20-5.40 [facility] Comment on above: Performed By: #### L ACT #### [facility] [address] [address] [address] Ellen Ramirez WBC 3.9 103/ul Critically low 4.0-11.0 [facility] Comment on above: Performed By: #### L ACT #### [facility] [address] [address] [address] Ellen Ramirez PREG HCG QUALon 04-14-2022 , QUAL Negative Normal NEGATIVE [facility] Comment on above: Performed By: #### P REG #### [facility] [address] [place] [address] Dr. Ellen Ramirez Covid-19 PCR (CVDTB)on 03-24 SARS-CoV-2 (COVID-19) RNA BEULAH+probe Ql (Unsp spec) Not detected Normal NOT DETECTED [facility] Comment on above: Result Comment: This test is not yet approved or cleared by the [place] FDA. When there are no FDA-approved or cleared tests available, and other criteria are met, FDA can make tests available under an emergency access mechanism called an Emergency Use Authorization (EUA). The EUA for this test is supported by the [place] of Health and Human Service's (HHS's) declaration [...] SARS-CoV-2. Performed By: #### C VDTBH #### [facility] [address] [place] [address] Dr. Ellen Ramirez CBC W MANUAL DIFFon 03-30-20 22 ACANTHOCYTES 1+ Normal [facility] Comment on above: Result Comment: Prev iously reported as: 1+ On 03/30/2022 14:46 By BQ2 Performed By: #### C HUSSAIN #### [facility] [address] [place] [address] Dr. Ellen Ramirez ATYPICAL LYMPH # Normal [facility] Comment on above: Performed By: #### C HUSSAIN #### [facility] [address] [place] [address] Dr. Ellen Ramirez ATYPICAL LYMPH % Normal [facility] Comment on above: Performed By: #### C HUSSAIN #### [facility] [address] [place] [address] Dr. Ellen Ramirez BAND # Normal 0.0-0.3 [facility] Comment on above: Performed By: #### C HUSSAIN #### [facility] [address] [place] [address] Dr. Ellen Ramirez BAND % Normal 0-5 [facility] Comment on above: Performed By: #### C HUSSAIN #### [facility] [address] [place] [address] Dr. Ellen Ramirez BASOM # 0.00 103/ul Normal 0.00-0.10 [facility] Comment on above: Performed By: #### C HUSSAIN #### [facility] [address] [place] [address] Dr. Ellen Ramirez BASOM % 0.0 % Critically low 0.2-2.0 [facility] Comment on above: Performed By: #### C HUSSAIN #### [facility] [address] [place] [address] Dr. Ellen Ramirez BLAST # Normal [facility] Comment on above: Performed By: #### C HUSSAIN #### [facility] [address] [place] [address] Dr. Ellen Ramirez BLAST % Normal [facility] Comment on above: Performed By: #### C HUSSAIN #### [facility] [address] [place] [address] Dr. Ellen Ramirez CORRECTED WBC Normal 4.0-11.0 [facility] Comment on above: Performed By: #### C HUSSAIN #### [facility] [address] [place] [address] Dr. Ellen Ramirez EOS # 0.10 103/ul Normal 0.00-0.70 [facility] Comment on above: Performed By: #### C HUSSAIN #### [facility] [address] [place] [address] Dr. Ellen Ramirez EOS% 2.0 % Normal 0.9-7.0 [facility] Comment on above: Performed By: #### C HUSSAIN #### [facility] [address] [place] [address] Dr. Ellen Ramirez HCT 33.3 % Critically low 36.0-48.0 [facility] Comment on above: Performed By: #### C HUSSAIN #### [facility] [address] [place] [address] Dr. Ellen Ramirez HGB 10.4 g/dl Critically low 12.0-16.0 [facility] Comment on above: Performed By: #### C HUSSAIN #### [facility] [address] [place] [address] Dr. Ellen Ramirez LYMPHM # 1.78 103/ul Normal 1.20-3.80 [facility] Comment on above: Performed By: #### C HUSSAIN #### [facility] [address] [place] [address] Dr. Ellen Ramirez LYMPHM% 37.0 % Normal 20.5-60.0 [facility] Comment on above: Performed By: #### C HUSSAIN #### [facility] [address] [place] [address] Dr. Ellen Ramirez MCH 25.6 pg Critically low 26.7-34.0 [facility] Comment on above: Performed By: #### C HUSSAIN #### [facility] [address] [place] [address] Dr. Ellen Ramirez MCHC 31.2 g/dl Normal 29.9-35.2 [facility] Comment on above: Performed By: #### C HUSSAIN #### [facility] [address] [place] [address] Dr. Ellen Ramirez MCV 81.8 fL Normal 81.0-99.0 [facility] Comment on above: Performed By: #### C HUSSAIN #### [facility] [address] [place] [address] Dr. Ellen Ramirez METAMYELOCYTE # Normal [facility] Comment on above: Performed By: #### C HUSSAIN #### [facility] [address] [place] [address] Dr. Ellen Ramirez METAMYELOCYTE % Normal [facility] Comment on above: Performed By: #### C HUSSAIN #### [facility] [address] [place] [address] Dr. Ellen Ramirez MONOM# 0.43 103/ul Normal 0.30-0.80 [facility] Comment on above: Performed By: #### C HUSSAIN #### [facility] [address] [place] [address] Dr. Ellen Ramirez MONOM% 9.0 % Normal 1.7-12.0 [facility] Comment on above: Performed By: #### C HUSSAIN #### [facility] [address] [place] [address] Dr. Ellen Ramirez MPV 10.2 fL Normal 9.5-13.5 [facility] Comment on above: Performed By: #### Chavez NIXON #### [facility] [address] [place] [address] Dr. Ellen Ramirez MYELOCYTE # Normal [facility] Comment on above: Performed By: #### C HUSSAIN #### [facility] [address] [place] [address] Dr. Ellen Ramirez MYELOCYTE % Normal [facility] Comment on above: Performed By: #### C HUSSAIN #### [facility] [address] [place] [address] Dr. Ellen Ramirez NRBC Normal [facility] Comment on above: Performed By: #### C HUSSAIN #### [facility] [address] [place] [address] Dr. Ellen Ramirez OVALOCYTES 1+ Normal [facility] Comment on above: Result Comment: Prev iously reported as: 1+ On 03/30/2022 14:46 By BQ2 Performed By: #### C HUSSAIN #### [facility] [address] [place] [address] Dr. Ellen Ramirez PLT 302 103/ul Normal 150-450 [facility] Comment on above: Performed By: #### C HUSSAIN #### [facility] [address] [place] [address] Dr. Ellen Ramirez RBC 4.07 106/ul Critically low 4.20-5.40 [facility] Comment on above: Performed By: #### C HUSSAIN #### [facility] [address] [place] [address] Dr. Ellen Ramirez RDW 26.7 % Critically high 11.0-15.0 [facility] Comment on above: Performed By: #### C HUSSAIN #### [facility] [address] [place] [address] Dr. Ellen Ramirez SEG # 2.50 103/ul Normal 1.40-6.50 [facility] Comment on above: Performed By: #### C HUSSAIN #### [facility] [address] [place] [address] Dr. Ellen Ramirez SEG % 52.0 % Normal 43.0-75.0 [facility] Comment on above: Performed By: #### C HUSSAIN #### [facility] [address] [address] [address] Ellen Ramirez TEAR DROP CELLS 1+ Normal [facility] Comment on above: Result Comment: Prev iously reported as: 1+ On 03/30/2022 14:46 By BQ2 Performed By: #### C HUSSAIN #### [facility] [address] [address] [address] Ellen Ramirez WBC 4.8 103/ul Normal 4.0-11.0 [facility] Comment on above: Performed By: #### C HUSSAIN #### [facility] [address] [place] [address] Dr. Ellen Ramirez US PELVIS AND TRANSVAGon [...] AHSAN FLORES Date: 2022-03-30 18:10 Normal [facility] TSHon 03-16-2022 TSH 2.199 uIU/mL Normal 0.358-3.740 [facility] Comment on above: Performed By: #### T #### [facility] [address] [address] [address] Ellen Ramirez CBC AUTO DIFFon 02-14-2022 BASO # 0.0 103/ul Normal 0.0-0.1 [facility] Comment on above: Performed By: #### C HUSSAIN #### [facility] [address] [place] [address] Dr. Ellen Ramirez Basophils/100 WBC (Bld) 0.4 % Normal 0.2-2.0 [facility] Comment on above: Performed By: #### C HUSSAIN #### [facility] [address] [place] [address] Dr. Ellen Ramirez EO # 0.0 103/ul Normal 0.0-0.7 [facility] Comment on above: Performed By: #### C HUSSAIN #### [facility] [address] [place] [address] Dr. Ellen Ramirez Eosinophils/100 WBC (Bld) 0.4 % Critically low 0.9-7.0 [facility] Comment on above: Performed By: #### C HUSSAIN #### [facility] [address] [place] [address] Dr. Ellen Ramirez Erythrocyte distribution width (RBC) [Ratio] 16.4 % Critically high 11.0-15.0 [facility] Comment on above: Performed By: #### C HUSSAIN #### [facility] [address] [place] [address] Dr. Ellen Ramirez Hematocrit (Bld) [Volume fraction] 24.4 % Critically low 36.0-48.0 [facility] Comment on above: Performed By: #### C HUSSAIN #### [facility] [address] [place] [address] Dr. Ellen Ramirez Hemoglobin (Bld) [Mass/Vol] 7.0 g/dL Critically low 12.0-16.0 [facility] Comment on above: Performed By: #### C HUSSAIN #### [facility] [address] [place] [address] Dr. Ellen Ramirez IG # 0.02 10e3/ul Normal 0.00-0.03 [facility] Comment on above: Performed By: #### C HUSSAIN #### [facility] [address] [place] [address] Dr. Ellen Ramirez IG % 0.3 % Normal 0.0-0.5 [facility] Comment on above: Performed By: #### C HUSSAIN #### [facility] [address] [address] [address] Ellen Ramirez LYMPH # 1.6 103/ul Normal 1.2-3.8 [facility] Comment on above: Performed By: #### C HUSSAIN #### [facility] [address] [place] [address] Dr. Ellen Ramirez Lymphocytes/100 WBC (Bld) 21.8 % Normal 20.5-60.0 [facility] Comment on above: Performed By: #### C HUSSAIN #### [facility] [address] [place] [address] Dr. Ellen Ramirez MANUAL DIFF REQ NO Normal [facility] Comment on above: Performed By: #### C HUSSAIN #### [facility] [address] [place] [address] Dr. Ellen Ramirez MCH (RBC) [Entitic mass] 20.0 pg Critically low 26.7-34.0 [facility] Comment on above: Performed By: #### C HUSSAIN #### [facility] [address] [place] [address] Dr. Ellen Ramirez MCHC (RBC) [Mass/Vol] 28.7 g/dL Critically low 29.9-35.2 [facility] Comment on above: Result Comment: HYPO CHROMIC MICROCYTIC STOMATOCYTES SEEN Performed By: #### C HUSSAIN #### [facility] [address] [place] [address] Dr. Ellen Ramirez MCV (RBC) [Entitic vol] 69.7 fL Critically low 81.0-99.0 [facility] Comment on above: Performed By: #### C HUSSAIN #### [facility] [address] [place] [address] Dr. Ellen Ramirez MONO # 0.7 103/ul Normal 0.3-0.8 [facility] Comment on above: Performed By: #### C HUSSAIN #### [facility] [address] [address] [address] Ellen Ramirez Monocytes/100 WBC (Bld) 9.3 % Normal 1.7-12.0 [facility] Comment on above: Performed By: #### C HUSSAIN #### [facility] [address] [address] [address] Ellen Ramirez NEUT # 4.9 103/ul Normal 1.4-6.5 [facility] Comment on above: Performed By: #### C HUSSAIN #### [facility] [address] [address] [address] Ellen Ramirez Neutrophils/100 WBC (Bld) 67.8 % Normal 43.0-75.0 [facility] Comment on above: Performed By: #### C HUSSAIN #### [facility] [address] [place] [address] Dr. Ellen Ramirez Platelet mean volume (Bld) [Entitic vol] 9.8 fL Normal 9.5-13.5 [facility] Comment on above: Performed By: #### C HUSSAIN #### [facility] [address] [place] [address] Dr. Ellen Ramirez PLT 391 103/ul Normal 150-450 [facility] Comment on above: Performed By: #### C HUSSAIN #### [facility] [address] [address] [address] Ellen Ramirez RBC 3.50 106/ul Critically low 4.20-5.40 [facility] Comment on above: Performed By: #### C HUSSAIN #### [facility] [address] [place] [address] Dr. Ellen Ramirez WBC 7.2 103/ul Normal 4.0-11.0 [facility] Comment on above: Performed By: #### C HUSSAIN #### [facility] [address] [place] [address] Dr. Ellen Ramirez PREG QUANT HCGon 02-14-2022 HCG QUANT <1 Normal [facility] Comment on above: Performed By: #### L ACT #### [facility] [address] [place] [address] Dr. Ellen Ramirez HCG RANGE SEE BELOW Normal [facility] Comment on above: Result Comment: 5-50 0-1 WEEK 40-300 1-2 WEEKS 100-1,000 2-3 WEEKS 500-6,000 3-4 WEEKS 5,000-200,000 1-2 MONTHS 10,000-100,000 2-3 MONTHS 3,000-50,000 2ND TRIMESTER 1,000-50,000 3RD TRIMESTER Performed By: #### L ACT #### [facility] [address] [place] [address] Dr. Ellen Ramirez PROTIMEon 02-14-2022 INR Coag (PPP) [Relative time] 1.00 {INR} Normal [facility] Comment on above: Performed By: #### L ACT #### [facility] [address] [place] [address] Dr. Ellen Ramirez INR GUIDELINES SEE BELOW Normal [facility] Comment on above: Result Comment: CARMEN RED INR: 2.0 - 3.0 CONDITIONS NOT LISTED BELOW 2.5 - 3.5 FOR PROSTHETIC HEART VALVE REPLACEMENT 2.5 - 3.5 RECURRENT THROMBOSIS Performed By: #### L ACT #### [facility] [address] [place] [address] Dr. Ellen Ramirez PT Coag (PPP) [Time] 10.8 s Normal 9.0-11.6 [facility] Comment on above: Performed By: #### L ACT #### [facility] [address] [place] [address] Dr. Ellen Ramirez PTTon 02-14-2022 aPTT Coag (Bld) [Time] 25.7 s Normal 22.3-36.2 [facility] Comment on above: Performed By: #### L ACT #### [facility] [address] [place] [address] Dr. Ellen Ramirez TSHon 02-14-2022 TSH 15.176 uIU/mL Critically high 0.358-3.740 [facility] Comment on above: Performed By: #### L ACT #### [facility] [address] [address] [address] Ellen Ramirez TSH RANGE SEE BELOW Normal [facility] Comment on above: Result Comment: <0.3 4 UIU/ml HYPERTHYROID 0.34-5.60 UIU/ml EUTHYROID >5.60 UIU/ml HYPOTHYROID Performed By: #### L ACT #### [facility] [address] [address] [address] Ellen Ramirez US PELVIS AND TRANSVAGon [...] by: AHSAN FLORES Date: 2022-02-14 15:03 Normal [facility] Encounters Encounter Date Encounter Type Care Provider Facility Start: 04-21-2024 End: 04-21-2024 ambulatory Patsy Villafana MD Facility:[facility] Start: 03-31-2024 End: 03-31-2024 ambulatory Patsy Villafana MD Facility:[facility] Start: 03-17-2024 End: 03-17-2024 ambulatory Patsy Villafana MD Facility:[facility] Start: 02-27-2024 End: 02-27-2024 ambulatory CATRACHO ROSALES [facility] Start: 12-06-2023 End: 12-07-2023 ambulatory [...] examination DR JOSE DANIEL ROOT . [facility] Start: 04-11-2022 End: 04-12-[address] JOSE DANIEL ROOT . Facility:[facility] Start: 04-11-2022 End: 04-12-2022 Encounter for preprocedural laboratory examination DR JOSE DANIEL ROOT . Facility:[facility] Start: 04-05-2022 Encounter for other preprocedural examination DR JOSE DANIEL ROOT . [facility] Start: 04-03-2022 End: 04-04-[address] JOSE DANIEL ROOT . Facility:[facility] Start: 04-03-2022 End: 04-04-2022 Encounter for other preprocedural examination DR JOSE DANIEL OROT . Facility:[facility] Start: 03-30-2022 End: 03-31-2022 ambulatory [...] Date Payer Category Payer Unknown 1980 Unknown [id number] 2.16.84 0.1.160573.3.579.2.593 1980 Unknown [id number] 2.16.84 0.1.343216.3.579.2.593 1980 Unknown [id number] 2.16.84 0.1.177492.3.579.2.593 1980 Unknown [id number] 2.16.84 0.1.173986.3.579.2.593 1980 Unknown [id number] 2.16.84 0.1.956106.3.579.2.593 1980 Unknown [id number] 2.16.84 0.1.861126.3.579.2.593 1980 Unknown [id number] 2.16.84 0.1.516943.3.579.2.593 1980 Unknown [id number] 2.16.84 0.1.657068.3.579.2.593 1980 Unknown [id number] 2.16.84 0.1.957446.3.579.2.593 1980 Unknown [id number] 2.16.84 0.1.435238.3.579.2.593 1980 Unknown [id number] 2.16.84 0.1.172191.3.579.2.593 1980 Unknown [id number] 2.16.84 0.1.583091.3.579.2.593 1980 Unknown [id number] 2.16.84 0.1.462381.3.579.2.593 1980 Unknown [id number] 2.16.84 0.1.718128.3.579.2.9 1980 Unknown [id number] 2.16.84 0.1.038900.3.579.2.9 1980 Unknown [id number] 2.16.84 0.1.321568.3.579.2.1258 1980 Unknown [id number] 2.16.84 0.1.556001.3.579.2.1258 1980 Unknown [id number] 2.16.84 0.1.108878.3.579.2.1258 1980 Unknown [id number] 2.16.84 0.1.049162.3.579.2.9 1980 Unknown [id number] 2.16.8 40.1.637991.3.579.2.1285 1980 Unknown [id number] 2.16.8 40.1.084734.3.579.2.1285 1980 Unknown [id number] 2.16.8 40.1.306300.3.579.2.1285 1980 Unknown [id number] 2.16.8 40.1.757671.3.579.2.1285 1980 Unknown [id number] 2.16.8 40.1.211773.3.579.2.1285 1980 Unknown [id number] 2.16.8 40.1.745556.3.579.2.1285 1980 Unknown [id number] 2.16. 840.1.957583.3.579.2. 1980 Unknown [id number] 2.16. 840.1.969405.3.579.2. 1980 Unknown [id number] 2.16. 840.1.905352.3.579.2.196 1959 Self-pay [id number] 1959 Unknown [id number] Clinical Note 11-19-2023 Note Date & Type [...] ANESTHESIA: General. SURGEON: Jose Daniel Root D.O. WATER JET LOOM FIXER: None. FINDINGS: Normal appearing cavity. No gross [...] taken to recovery in stable condition. [facility] Summary Purpose Family History No Family History [...] DATE CREATED AUTHOR AUTHOR'S ORGANIZ ATION 12/09/2023 [facility] EPIC DATE CREATED AUTHOR AUTHOR'S ORGANIZ ATION 02/28/2024 [facility] DATE CREATED AUTHOR AUTHOR'S ORGANIZ ATION 05/06/2024 [facility] FOR RECORDS PERTAINING TO PATIENTS WHO ARE [...] BE BASED ON THE PRIMARY CLINICAL RECORDS. [facility]. provides no warranty or guarantee of the accuracy or completeness of information in this document.
--- NOTE | 2024-06-19 12:42 | PM.CN ---
Consult Note: HPI Data of Consult Patient: known to practice within the last 3 years Requesting Physician: Melissa Chi NP Primary Care Provider: CATRACHO ROSALES Consult Narrative Reason for consult: chronic low back pain Narrative: Eileen Dobson a pleasant 43 year old female presents for evaluation and management of chronic low back pain greater than 3 years. Patient reports chronic low back pain, today 4/10 sharp stabbing ache, increasing to 8/10 with twisting standing walking and bending, improved with medications and rest. Patient continues have moderate to severe pain impacting functional ability despite benefit from gabapentin 400mg TID, tramadol 50mg q6hrs, ibuprofen q8hrs, and orphenadrine. Patient underwent recent lumbar xray and MRI which is consistent with lumbar ddd and lumbar facet arthropathy. Patient has an upcoming NS consult next week with Dr Arcos. Engaged in provider guided HEP greater than 6 weeks without benefit, and water therapy without benefit. recently underwent bilateral L4-5 L5-S1 RFA with >50% improvement ongoing, bilateral L5/S1 TFESI with >50% improvement ongoing. cc:: CC: Melissa Chi NP Review of Systems ROS Status of ROS 10 or more systems reviewed and unremarkable except as noted in history and below [facility] Medical History (Updated 06/19/24 @ 13:10 by Melissa Chi NP) Arthritis ?M19.90 - Unspecified osteoarthritis, unspecified site (ICD-10) Acid reflux ?K21.9 - Gastro-esophageal reflux disease without esophagitis (ICD-10) Hypothyroid ?E03.9 - Hypothyroidism, unspecified (ICD-10) Surgical History History of wisdom tooth extraction ?K08.409 - Partial loss of teeth, unspecified cause, unspecified class (ICD-10) History of endometrial ablation ?Z98.890 - Other specified postprocedural states (ICD-10) History of tubal ligation ?Z98.51 - Tubal ligation status (ICD-10) Meds Home Medications and Allergies Home Medications ?Medication ?Instructions ?Recorded ?Confirmed ?Type gabapentin 400 mg capsule 400 mg PO TID 03/05/24 06/09/24 History ibuprofen 400 mg tablet (IBU) 400 mg PO Q8H PRN pain 03/05/24 06/09/24 History levothyroxine 75 mcg capsule 75 mcg PO DAILY 03/05/24 06/09/24 History orphenadrine citrate 100 mg mg PO 03/05/24 History tablet,extended release tramadol 50 mg tablet mg 03/05/24 History Allergies Allergy/AdvReac Type Severity Reaction Status Date / Time acetaminophen [From Tylenol] Allergy Mild Unknown Verified 06/09/24 08:31 iron AdvReac Mild Unknown Verified 06/09/24 08:31 Exam Constitutional Documenting provider has reviewed patient's vital signs: yes Common normals: no apparent distress, oriented x3, healthy appearing, alert and well nourished General appearance: cooperative HENMT Common normals: normocephalic, hearing grossly normal bilaterally and moist oral mucous membranes Head and scalp: normocephalic Eye Common normals: PERRL Pupil: PERRL Neck & C-Spine Common normals: full ROM General: normal visual inspection Chest Common normals: inspection of chest normal Respiratory Common normals: normal respiratory effort, no retractions and no use of accessory muscles Back & Pelvis Lumbar spine/lower back: ROM limited, pain with ROM and straight leg raise negative bilaterally; no lumbar spinal tenderness and no paraspinal muscle tenderness Sacroiliac joints: SI joint(s) abnormal Other: negative facet loading left SIJ positive mahesh(patricks), gaenslens, thigh thrust, compression test strength 5/5 in BLE, sensation equal and intact Extremity Common normals: normal to inspection and full ROM Neuro Common normals: oriented x3, CN's II-XII intact bilaterally, moves all extremities, no focal motor deficits, no sensory deficits noted and deep tendon reflexes 2+ bilaterally Sensorium/orientation: alert Motor exam: strength 5/5 throughout and no movement abnormalities noted Psych Common normals: mental status grossly normal, thought process normal, cooperative, affect normal, speech normal and activity/motor behavior normal Speech: normal speech Thought process: normal thought process Results Additional Findings Additional findings: If on a controlled substance or opioids, I have checked an [place] report on this patient and there are no aberrancies noted in the prescribing history.??If on a controlled substance or opioid a drug screen was completed and reviewed within the last year, and if there has not been a drug screen completed we ordered one today to monitor higher risk, state monitored pain medication use. As part of providing excellent, safe, comprehensive care, the following was completed at our patient's visit: 1. A medication reconciliation and review to ensure accurate knowledge of current/active medications, including asking our patients to inform us about any [id number] medications or herbal remedies/nutritional supplements/alternative remedies. 2. A review to specifically ensure our patients have had annual screening for screening for depression, screening for tobacco use, and screening for unhealthy alcohol use. For concerning screenings had a discussion with the patient, provided patient education, and recommended follow-up with primary care provider when appropriate. If patient noted with a risk of falling, they received education on strength, gait, and balance training to prevent future risk of falling. Assessment and Plan Assessment and Plan (1) Sacroiliitis: (2) Lumbar stenosis with neurogenic claudication: Assessment and Plan: >50% improvement ongoing (3) Lumbar degenerative disc disease: (4) Lumbar spondylosis: Assessment and Plan: >50% improvement ongoing Plan left SIJ injection under fluoroscopy, risks vs benefits reviewed continue medications through PCP f/u after injection
== END 2024-06-19 12:33 | disposition home or self-care (01) ==
LOC: PM 12:32
PROVIDERS: PCP Family Medicine; Visit Provider Nurse Practitioner
DX: M46.1 Sacroiliitis, not elsewhere classified (principal); M48.062 Spinal stenosis, lumbar region with neurogenic claudication; M51.36 Other intervertebral disc degeneration, lumbar region; M47.816 Spondylosis without myelopathy or radiculopathy, lumbar region
CPT/HCPCS: G0463

== ENCOUNTER 2024-07-07 07:10 | Day surgery (SDC) | payer BC, SELFPAY ==
--- OUTSIDE RECORDS SUMMARY | 2024-07-07 07:13 | XMS_ITS | CCD ---
Author Organization [facility] Care Team Providers Care Caving Guide Name Role Phone CLAUDY ., DR SKY [...] Unavailable CLAUDY ., DR SKY Admitting Unavailable CLUADY ., DR SKY Consulting Unavailable CLAUDY ., DR SKY Attending Unavailable HEMEYER ., DR HAYDEN Primary Care Unavailable ZIEBER, DR AHSAN Robert Consulting Unavailable CLAUDY ., DR SYK Consulting Unavailable HEMEYER ., DR HAYDEN Primary Care Unavailable CLAUDY ., DR SKY Attending Unavailable CLAUDY ., DR SKY Admitting Unavailable HEMEYER ., DR HAYDEN Primary Care Unavailable CLAUDY ., DR SKY Consulting Unavailable CLAUDY ., DR SKY Attending Unavailable CLAUDY ., DR KSY Admitting Unavailable CLAUDY ., DR SKY Admitting [...] Andrius Willams Attending Unavailable Giedraitis , Andrius Vjarek Attending Unavailable Giedraitis , Andrius Imer Attending Unavailable Giedraitis , Andrius Vjarek Attending Unavailable Allergies Allergy Classification Reported Allergen(s) Allergy Type Date of Onset Reaction(s) Facility (2 sources) Acetaminophen Drug Allergy [facility] Rep[facility] (2 sources) ferric carboxymaltose Drug Allergy 2 [facility] (1 source) Acetaminophen; Translations: [ACETAMINOPHEN] Drug [...] 04-05-2022 Chronic Other aftercare (1 source) Other custodial (current) drug therapy; Translations: [OTH [facility] CURRENT DRUG THERAPY] Onset: 12-05-2022 Episodic Other [...] 12-03-19 23 ATYPICAL LYMPH # Normal [facility] Comment on above: Performed By: #### C HUSSAIN #### [facility] [address] [place] [address] Dr. Ellen Ramirez ATYPICAL LYMPH % Normal [facility] Comment on above: Performed By: #### C HUSSAIN #### [facility] [address] [address] [address] Ellen Ramirez BAND # 0.0 103/ul Normal 0.0-0.3 [facility] Comment on above: Performed By: #### C HUSSAIN #### [facility] [address] [place] [address] Dr. Ellen Ramirez BAND % 0 % Normal 0-5 [facility] Comment on above: Performed By: #### C HUSSAIN #### [facility] [address] [place] [address] Dr. Ellen Ramirez BASOM # 0.00 103/ul Normal 0.00-0.10 [facility] Comment on above: Performed By: #### C BCMAN #### [facility] [address] [place] [address] Dr. Ellen Ramirez BASOM % 0.0 % Critically low 0.2-2.0 [facility] Comment on above: Performed By: #### C BCMAN #### [facility] [address] [place] [address] Dr. Ellen Ramirez BLAST # Normal [facility] Comment on above: Performed By: #### C BCVIRGINIE #### [facility] [address] [place] [address] Dr. Ellen Ramirez BLAST % Normal [facility] Comment on above: Performed By: #### C BCVIRGINIE #### [facility] [address] [place] [address] Dr. Ellen Ramirez CORRECTED WBC Normal 4.0-11.0 [facility] Comment on above: Performed By: #### C BCVIRGINIE #### [facility] [address] [place] [address] Dr. Ellen Ramirez EOS # 0.46 103/ul Normal 0.00-0.70 [facility] Comment on above: Performed By: #### C BCVIRGINIE #### [facility] [address] [place] [address] Dr. Ellen Ramirez EOS% 6.0 % Normal 0.9-7.0 [facility] Comment on above: Performed By: #### C BCVIRGINIE #### [facility] [address] [place] [address] Dr. Ellen Ramirez HCT 33.6 % Critically low 36.0-48.0 [facility] Comment on above: Performed By: #### C BCMAN #### [facility] [address] [place] [address] Dr. Ellen Ramirez HGB 11.5 g/dl Critically low 12.0-16.0 [facility] Comment on above: Performed By: #### C BCVIRGINIE #### [facility] [address] [address] [address] Ellen Ramirez LYMPHM # 0.15 103/ul Critically low 1.20-3.80 [facility] Comment on above: Performed By: #### C HUSSAIN #### [facility] [address] [address] [address] Ellen Ramirez LYMPHM% 2.0 % Critically low 20.5-60.0 [facility] Comment on above: Performed By: #### C HUSSAIN #### [facility] [address] [address] [address] Ellen Ramirez MCH 29.3 pg Normal 26.7-34.0 [facility] Comment on above: Performed By: #### C HUSSAIN #### [facility] [address] [place] [address] Dr. Ellen Ramirez MCHC 34.2 g/dl Normal 29.9-35.2 [facility] Comment on above: Performed By: #### C HUSSAIN #### [facility] [address] [place] [address] Dr. Ellen Ramirez MCV 85.5 fL Normal 81.0-99.0 [facility] Comment on above: Performed By: #### C HUSSAIN #### [facility] [address] [place] [address] Dr. Ellen Ramirez METAMYELOCYTE # Normal [facility] Comment on above: Performed By: #### C HUSSAIN #### [facility] [address] [place] [address] Dr. Ellen Ramirez METAMYELOCYTE % Normal [facility] Comment on above: Performed By: #### C HUSSAIN #### [facility] [address] [address] [address] Ellen Ramirez MONOM# 0.38 103/ul Normal 0.30-0.80 [facility] Comment on above: Performed By: #### C HUSSAIN #### [facility] [address] [place] [address] Dr. Ellen Ramirez MONOM% 5.0 % Normal 1.7-12.0 [facility] Comment on above: Performed By: #### C HUSSAIN #### [facility] [address] [address] [address] Ellen Ramirez MPV 9.4 fL Critically low 9.5-13.[address] [facility] Comment on above: Performed By: #### C HUSSAIN #### [facility] [address] [address] [address] Ellen Ramirez MYELOCYTE # Normal [facility] Comment on above: Performed By: #### C HUSSAIN #### [facility] [address] [address] [address] Ellen Ramirez MYELOCYTE % Normal [facility] Comment on above: Performed By: #### C HUSSAIN #### [facility] [address] [address] [address] Ellen Ramirez NRBC Normal [facility] Comment on above: Performed By: #### C HUSSAIN #### [facility] [address] [address] [address] Ellen Ramirez PLT 281 103/ul Normal 150-450 [facility] Comment on above: Performed By: #### C HUSSAIN #### [facility] [address] [address] [address] Ellen Ramirez RBC 3.93 106/ul Critically low 4.20-5.40 [facility] Comment on above: Performed By: #### C HUSSAIN #### [facility] [address] [address] [address] Ellen Ramirez RDW 13.0 % Normal 11.0-15.0 [facility] Comment on above: Performed By: #### C HUSSAIN #### [facility] [address] [address] [address] Ellen Ramirez SEG # 6.61 103/ul Critically high 1.40-6.50 [facility] Comment on above: Performed By: #### C HUSSAIN #### [facility] [address] [address] [address] Ellen Ramirez SEG % 87.0 % Critically high 43.0-75.0 [facility] Comment on above: Performed By: #### C BCMAN #### [facility] [address] [address] [address] Ellen Ramirez WBC 7.6 103/ul Normal 4.0-11.0 [facility] Comment on above: Performed By: #### C BCMAN #### [facility] [address] [address] [address] Ellen Ramirez CPKon 12-02-2022 CK [Catalytic activity/Vol] 50 U/L Normal 26-192 [facility] Comment on above: Performed By: #### C BCMAN #### [facility] [address] [address] [address] Ellen Ramirez CRPon 12-02-2022 CRP 5.4 mg/dL Critically high <=1.0 [facility] Comment on above: Performed By: #### C JOVANMAN #### [facility] [address] [address] [address] HEAD WO CONon [...] REBA LOWRY Date: 2022-12-02 00:24 Normal [facility] ER URINE PROFILEon 3 Bilirubin Ql (U) Negative Normal NEGATIVE [facility] Comment on above: Performed By: #### L ACT #### [facility] [address] [place] [address] Dr. Ellen Ramirez Clarity (U) CLEAR Normal CLEAR [facility] Comment on above: Performed By: #### L ACT #### [facility] [address] [address] [address] Ellen Ramirez Color (U) YELLOW Normal YELLOW [facility] Comment on above: Performed By: #### L ACT #### [facility] [address] [place] [address] Dr. Ellen ESCAMILLA A micrscopic examination will be performed if indicated. Normal [facility] Comment on above: Performed By: #### L ACT #### [facility] [address] [place] [address] Dr. Ellen Ramirez Glucose Ql (U) Negative Normal NEGATIVE [facility] Comment on above: Performed By: #### L ACT #### [facility] [address] [place] [address] Dr. Ellen Ramirez Hemoglobin Ql (U) TRACE-INTACT Abnormal NEGATIVE [facility] Comment on above: Performed By: #### L ACT #### [facility] [address] [place] [address] Dr. Ellen Ramirez Ketones Ql (U) >=80 Abnormal NEGATIVE [facility] Comment on above: Performed By: #### L ACT #### [facility] [address] [place] [address] Dr. Ellen Ramirez LEUKOCYTES Negative Normal NEGATIVE [facility] Comment on above: Performed By: #### L ACT #### [facility] [address] [place] [address] Dr. Ellen Ramirez Nitrite Ql (U) Negative Normal NEGATIVE [facility] Comment on above: Performed By: #### L ACT #### [facility] [address] [place] [address] Dr. Ellen Ramirez pH (U) 6.0 [pH] Normal 5-9 [facility] Comment on above: Performed By: #### L ACT #### [facility] [address] [address] [address] Ellen Ramirez SPEC GRAVITY 1.015 Normal 1.005-<=1.025 [facility] Comment on above: Performed By: #### L ACT #### [facility] [address] [place] [address] Dr. Ellen Ramirez UA PROTEIN Negative Normal NEGATIVE/ TRACE [facility] Comment on above: Performed By: #### L ACT #### [facility] [address] [place] [address] Dr. Ellen Ramirez UR MICRO IND NOT INDICATED Normal [facility] Comment on above: Performed By: #### L ACT #### [facility] [address] [place] [address] Dr. Ellen Ramirez Urobilinogen Qn (U) 0.2 {Ajith'U}/dL Normal 0.2 - 1. 0 [facility] Comment on above: Performed By: #### L ACT #### [facility] [address] [place] [address] Dr. Ellen Ramirez LACTATE/LACTIC ACIDon 2022 Lactate [Moles/Vol] 0.7 mmol/L Normal 0.4-2.0 [facility] Comment on above: Performed By: #### L ACT #### [facility] [address] [place] [address] Dr. Ellen Ramirez MYOGLOBINon 12-02-2022 LORENA 30 ng/mL Normal 9-82 [facility] Comment on above: Performed By: #### C JOVANMAN #### [facility] [address] [place] [address] Dr. Ellen Ramirez PROF 14(COMP METB)on 023 Albumin [Mass/Vol] 3.7 g/dL Normal 3.4-5.0 [facility] Comment on above: Performed By: #### C JOVANMAN #### [facility] [address] [place] [address] Dr. Ellen Ramirez Albumin/Globulin [Mass ratio] 1.1 {ratio} Normal [facility] Comment on above: Performed By: #### C JOVANMAN #### [facility] [address] [address] [address] Ellen Ramirez ALP [Catalytic activity/Vol] 87 U/L Normal 46-116 [facility] Comment on above: Performed By: #### C HUSSAIN #### [facility] [address] [place] [address] Dr. Ellen Ramirez ALT [Catalytic activity/Vol] 43 U/L Normal 14-59 [facility] Comment on above: Performed By: #### C HUSSAIN #### [facility] [address] [place] [address] Dr. Ellen Ramirez Anion gap [Moles/Vol] 10.9 mmol/L Normal [facility] Comment on above: Performed By: #### C HUSSAIN #### [facility] [address] [place] [address] Dr. Ellen Ramirez AST [Catalytic activity/Vol] 35 U/L Normal 15-37 [facility] Comment on above: Performed By: #### C HUSSAIN #### [facility] [address] [place] [address] Dr. Ellen Ramirez Bilirubin [Mass/Vol] 0.3 mg/dL Normal 0.2-1.0 [facility] Comment on above: Performed By: #### C HUSSAIN #### [facility] [address] [place] [address] Dr. Ellen Ramirez Calcium [Mass/Vol] 8.6 mg/dL Normal 8.5-10.1 [facility] Comment on above: Performed By: #### C HUSSAIN #### [facility] [address] [place] [address] Dr. Ellen Ramirez Chloride [Moles/Vol] 102 mmol/L Normal 98-107 [facility] Comment on above: Performed By: #### C HUSSAIN #### [facility] [address] [place] [address] Dr. Ellen Ramirez CO2 [Moles/Vol] 25.4 mmol/L Normal 21.0-32.0 [facility] Comment on above: Performed By: #### C HUSSAIN #### [facility] [address] [place] [address] Dr. Ellen Ramirez Creatinine [Mass/Vol] 0.99 mg/dL Normal 0.55-1.02 [facility] Comment on above: Performed By: #### C BCVIRGINIE #### [facility] [address] [place] [address] Dr. Ellen Ramirez EGFR-AF ICELANDIC >60 Normal >=60 [facility] Comment on above: Performed By: #### C BCMAN #### [facility] [address] [address] [address] Ellen Ramirez EGFR-NON AF ICELANDIC >60 Normal >=60 [facility] Comment on above: Performed By: #### C HUSSAIN #### [facility] [address] [place] [address] Dr. Ellen Ramirez Globulin (S) [Mass/Vol] 3.3 g/dL Normal [facility] Comment on above: Performed By: #### C HUSSAIN #### [facility] [address] [place] [address] Dr. Ellen Ramirez Glucose [Mass/Vol] 107 mg/dL Critically high 74-106 [facility] Comment on above: Performed By: #### C HUSSAIN #### [facility] [address] [place] [address] Dr. Ellen Ramirez Potassium [Moles/Vol] 3.3 mmol/L Critically low 3.5-5.1 [facility] Comment on above: Performed By: #### C HUSSAIN #### [facility] [address] [place] [address] Dr. Ellen Ramirez Protein [Mass/Vol] 7.0 g/dL Normal 6.4-8.2 [facility] Comment on above: Performed By: #### C BCVIRGINIE #### [facility] [address] [place] [address] Dr. Ellen Ramirez Sodium [Moles/Vol] 135 mmol/L Critically low 136-145 [facility] Comment on above: Performed By: #### C HUSSAIN #### [facility] [address] [place] [address] Dr. Ellen Ramirez Urea nitrogen [Mass/Vol] 11.0 mg/dL Normal 7.0-18.0 [facility] Comment on above: Performed By: #### C BCMAN #### [facility] [address] [place] [address] Dr. Ellen Ramirez Urea nitrogen/Creatinine [Mass ratio] 11.1 mg/mg Normal [facility] Comment on above: Performed By: #### C BCMAN #### [facility] [address] [place] [address] Dr. Ellen Ramirez RESPIRATORY PANEL PLUSon Adenovirus Not detected Normal NOT DETECTED [facility] Comment on above: Performed By: #### C BCMAN #### [facility] [address] [place] [address] Dr. Ellen Verduzco. Parapertusis Not detected Normal NOT DETECTED [facility] Comment on above: Performed By: #### C BCMAN #### [facility] [address] [place] [address] Dr. Ellen Verduzco. Pertussis Not detected Normal NOT DETECTED [facility] Comment on above: Performed By: #### C BCMAN #### [facility] [address] [place] [address] Dr. Ellen Ramirez Chlamydia Pneumoniae Not detected Normal NOT DETECTED [facility] Comment on above: Performed By: #### C BCMAN #### [facility] [address] [place] [address] Dr. Ellen Ramirez Coronavirus 229E Not detected Normal NOT DETECTED [facility] Comment on above: Performed By: #### C BCMAN #### [facility] [address] [place] [address] Dr. Ellen Ramirez Coronavirus HKU1 Not detected Normal NOT DETECTED [facility] Comment on above: Performed By: #### C BCMAN #### [facility] [address] [place] [address] Dr. Ellen Ramirez Coronavirus NL63 Not detected Normal NOT DETECTED [facility] Comment on above: Performed By: #### C BCMAN #### [facility] [address] [place] [address] Dr. Ellen Ramirez Coronavirus OC43 Not detected Normal NOT DETECTED [facility] Comment on above: Performed By: #### C BCMAN #### [facility] [address] [address] [address] Ellen Ramirez Influenza A H1 Not detected Normal NOT DETECTED [facility] Comment on above: Performed By: #### C BCMAN #### [facility] [address] [address] [address] Ellen Ramirez Influenza A H1 2009 Not detected Normal NOT DETECTED [facility] Comment on above: Performed By: #### C BCMAN #### [facility] [address] [address] [address] Ellen Ramirez Influenza A H3 Not detected Normal NOT DETECTED [facility] Comment on above: Performed By: #### C BCMAN #### [facility] [address] [address] [address] Ellen Ramirez Influenza B Not detected Normal NOT DETECTED [facility] Comment on above: Performed By: #### C BCMAN #### [facility] [address] [address] [address] Ellen Ramirez Metapneumovirus Not detected Normal NOT DETECTED [facility] Comment on above: Performed By: #### C BCMAN #### [facility] [address] [address] [address] Ellen Ramirez Mycoplas. Pneumoniae Not detected Normal NOT DETECTED [facility] Comment on above: Performed By: #### C BCMAN #### [facility] [address] [address] [address] Ellen Ramirez Parainfluenza 1 Not detected Normal NOT DETECTED [facility] Comment on above: Performed By: #### C BCMAN #### [facility] [address] [address] [address] Ellen Ramirez Parainfluenza 2 Not detected Normal NOT DETECTED [facility] Comment on above: Performed By: #### C BCMAN #### [facility] [address] [address] [address] Ellen Ramirez Parainfluenza 3 Not detected Normal NOT DETECTED [facility] Comment on above: Performed By: #### C HUSSAIN #### [facility] [address] [place] [address] Dr. Ellen Ramirez Parainfluenza 4 Not detected Normal NOT DETECTED [facility] Comment on above: Performed By: #### C HUSSAIN #### [facility] [address] [place] [address] Dr. Ellen Ramirez Rhino/Enterovirus Not detected Normal NOT DETECTED [facility] Comment on above: Performed By: #### C HUSSAIN #### [facility] [address] [place] [address] Dr. Ellen Ramirez RP2 Header 1 RESPIRATORY PANEL: VIRUSES Normal [facility] Comment on above: Performed By: #### C HUSSAIN #### [facility] [address] [place] [address] Dr. Ellen Ramirez RP2 Header 2 RESPIRATORY PANEL: BACTERIA Normal [facility] Comment on above: Performed By: #### C HUSSAIN #### [facility] [address] [place] [address] Dr. Ellen Ramirez RSV Not detected Normal NOT DETECTED [facility] Comment on above: Performed By: #### C HUSSAIN #### [facility] [address] [place] [address] Dr. Ellen Ramirez SARS-CoV-2 (COVID-19) RNA BEULAH+probe Ql (Unsp spec) Not detected Normal NOT DETECTED [facility] Comment on above: Performed By: #### C HUSSAIN #### [facility] [address] [place] [address] Dr. Ellen Ramirez SED RATE CIBECUEERGREN 2022 SED RATE 22 mm/hr Critically high <=20 [facility] Comment on above: Performed By: #### C HUSSAIN #### [facility] [address] [place] [address] Dr. Ellen Ramirez TSHon 12-02-2022 TSH 12.836 uIU/mL Critically high 0.358-3.740 [facility] Comment on above: Performed By: #### T #### [facility] [address] [address] [address] Ellen Ramirez XR CHEST 2 Von [...] by: REBA LOWRY Date: 2022-12-02 00:05 Normal [facility] PAP ACOG PANEL 2: 30 to 65on 06-26-2022 . . Normal [facility] Comment on above: Result Comment: Perf ormed at: WB Performed By: #### [id number] #### [facility] [address] [address] [address] Ellen Ramirez Age Gdln ACOG Testing 30-65 Normal [facility] Comment on above: Performed By: #### [id number] #### [facility] [address] [address] [address] Ellen Ramirez DIAGNOSIS: Comment Normal [facility] Comment on above: Result Comment: NEGA TIVE FOR INTRAEPITHELIAL LESION OR MALIGNANCY. Performed at: WB Performed By: #### [id number] #### [facility] [address] [address] [address] Ellen Ramirez HPV Aptima Negative Normal Negative [facility] Comment on above: Result Comment: This nucleic acid amplification test detects fourteen high-risk HPV types (16,18,31,33,35,39,45,51,52,56,58,59,66,68) without differentiation. Performed at: =G Performed By: #### [id number] #### [facility] [address] [address] [address] Ellen Ramirez Methodology: Comment Normal [facility] Comment on above: Result Comment: This liquid based ThinPrep(R) pap test was screened with the use of an image guided system. Performed at: WB Performed By: #### [id number] #### [facility] [facility] [address] [place] [address] Dr. Ellen Ramirez Note: Comment Normal [facility] Comment on above: Result Comment: The Pap smear is a screening test designed to aid in the detection of premalignant and malignant conditions of the uterine cervix. It is not a diagnostic procedure and should not be used as the sole means of detecting cervical cancer. Both false-positive and false-negative reports do occur. . Performed at: WB Performed By: #### [id number] #### [facility] [address] [place] [address] Dr. Ellen Ramirez Performed by: Comment Normal [facility] Comment on above: Result Comment: Pretty Aguilar, Grades 9 Through 12 Teacher ([employer]) Performed at: WB Performed By: #### [id number] #### [facility] [address] [place] [address] Dr. Ellen Ramirez Specimen adequacy: Comment Normal [facility] Comment on above: Result Comment: Sati sfactory for evaluation. Endocervical and/or squamous metaplastic cells (endocervical component) are present. Performed at: WB Performed By: #### [id number] #### [facility] [address] [place] [address] Dr. Ellen Ramirez CBC AUTO DIFFon 05-08-2022 BASO # 0.0 103/ul Normal 0.0-0.1 [facility] Comment on above: Performed By: #### C BC #### [facility] [address] [place] [address] Dr. Ellen Ramirez Basophils/100 WBC (Bld) 0.4 % Normal 0.2-2.0 [facility] Comment on above: Performed By: #### C BC #### [facility] [address] [place] [address] Dr. Ellen Ramirez EO # 0.1 103/ul Normal 0.0-0.7 [facility] Comment on above: Performed By: #### C BC #### [facility] [address] [place] [address] Dr. Ellen Ramirez Eosinophils/100 WBC (Bld) 1.1 % Normal 0.9-7.0 [facility] Comment on above: Performed By: #### C BC #### [facility] [address] [place] [address] Dr. Ellen Ramirez Erythrocyte distribution width (RBC) [Ratio] 18.5 % Critically high 11.0-15.0 [facility] Comment on above: Performed By: #### C BC #### [facility] [address] [place] [address] Dr. Ellen Ramirez Hematocrit (Bld) [Volume fraction] 37.2 % Normal 36.0-48.0 [facility] Comment on above: Performed By: #### C BC #### [facility] [address] [place] [address] Dr. Ellen Ramirez Hemoglobin (Bld) [Mass/Vol] 12.0 g/dL Normal 12.0-16.0 [facility] Comment on above: Performed By: #### C BC #### [facility] [address] [place] [address] Dr. Ellen Ramirez IG # 0.01 10e3/ul Normal 0.00-0.03 [facility] Comment on above: Performed By: #### C BC #### [facility] [address] [place] [address] Dr. Ellen Ramirez IG % 0.2 % Normal 0.0-0.5 [facility] Comment on above: Performed By: #### C BC #### [facility] [address] [place] [address] Dr. Ellen aRmirez LYMPH # 1.4 103/ul Normal 1.2-3.8 [facility] Comment on above: Performed By: #### C BC #### [facility] [address] [place] [address] Dr. Ellen Ramirez Lymphocytes/100 WBC (Bld) 29.2 % Normal 20.5-60.0 [facility] Comment on above: Performed By: #### C BC #### [facility] [address] [place] [address] Dr. Ellen Ramirez MANUAL DIFF REQ NO Normal [facility] Comment on above: Performed By: #### C BC #### [facility] [address] [address] [address] Ellen Ramirez MCH (RBC) [Entitic mass] 28.0 pg Normal 26.7-34.0 [facility] Comment on above: Performed By: #### C BC #### [facility] [address] [place] [address] Dr. Ellen Ramirez MCHC (RBC) [Mass/Vol] 32.3 g/dL Normal 29.9-35.2 [facility] Comment on above: Performed By: #### C BC #### [facility] [address] [address] [address] Ellen Ramirez MCV (RBC) [Entitic vol] 86.7 fL Normal 81.0-99.0 [facility] Comment on above: Performed By: #### C BC #### [facility] [address] [place] [address] Dr. Ellen Ramirez MONO # 0.4 103/ul Normal 0.3-0.8 [facility] Comment on above: Performed By: #### C BC #### [facility] [address] [place] [address] Dr. Ellen Ramirez Monocytes/100 WBC (Bld) 8.0 % Normal 1.7-12.0 [facility] Comment on above: Performed By: #### C BC #### [facility] [address] [place] [address] Dr. Ellen Ramirez NEUT # 2.9 103/ul Normal 1.4-6.5 [facility] Comment on above: Performed By: #### C BC #### [facility] [address] [place] [address] Dr. Ellen Ramirez Neutrophils/100 WBC (Bld) 61.1 % Normal 43.0-75.0 [facility] Comment on above: Performed By: #### C BC #### [facility] [address] [place] [address] Dr. Ellen Ramirez Platelet mean volume (Bld) [Entitic vol] 9.5 fL Normal 9.5-13.5 [facility] Comment on above: Performed By: #### C BC #### [facility] [address] [place] [address] Dr. Ellen Ramirez PLT 282 103/ul Normal 150-450 [facility] Comment on above: Performed By: #### C BC #### [facility] [address] [place] [address] Dr. Ellen Ramirez RBC 4.29 106/ul Normal 4.20-5.40 [facility] Comment on above: Performed By: #### C BC #### [facility] [address] [place] [address] Dr. Ellen Ramirez WBC 4.7 103/ul Normal 4.0-11.0 [facility] Comment on above: Performed By: #### C BC #### [facility] [address] [place] [address] Dr. Ellen Ramirez FERRITINon 05-08-2022 Ferritin [Mass/Vol] 92.0 ng/mL Normal 6.2-137.0 [facility] Comment on above: Performed By: #### F ERR, FT4 #### [facility] [address] [place] [address] Dr. Ellen Ramirez FREE T4on 05-08-2022 Free T4 [Mass/Vol] 0.72 ng/dL Critically low 0.76-1.46 [facility] Comment on above: Performed By: #### F ERR, FT4 #### [facility] [address] [place] [address] Dr. Ellen Ramirez TSHon 05-08-2022 TSH 3.626 uIU/mL Normal 0.358-3.740 [facility] Comment on above: Performed By: #### C BCMAN #### [facility] [address] [place] [address] Dr. Ellen Ramirez CBC AUTO DIFFon 04-14-2022 BASO # 0.0 103/ul Normal 0.0-0.1 [facility] Comment on above: Performed By: #### L ACT #### [facility] [address] [place] [address] Dr. Ellen Ramirez Basophils/100 WBC (Bld) 0.5 % Normal 0.2-2.0 [facility] Comment on above: Performed By: #### L ACT #### [facility] [address] [place] [address] Dr. Ellen Ramirez EO # 0.1 103/ul Normal 0.0-0.7 [facility] Comment on above: Performed By: #### L ACT #### [facility] [address] [place] [address] Dr. Ellen Ramirez Eosinophils/100 WBC (Bld) 2.8 % Normal 0.9-7.0 [facility] Comment on above: Performed By: #### L ACT #### [facility] [address] [place] [address] Dr. Ellen Ramirez Erythrocyte distribution width (RBC) [Ratio] 24.2 % Critically high 11.0-15.0 [facility] Comment on above: Performed By: #### L ACT #### [facility] [address] [place] [address] Dr. Ellen Ramirez Hematocrit (Bld) [Volume fraction] 36.3 % Normal 36.0-48.0 [facility] Comment on above: Performed By: #### L ACT #### [facility] [address] [place] [address] Dr. Ellen Ramirez Hemoglobin (Bld) [Mass/Vol] 11.4 g/dL Critically low 12.0-16.0 [facility] Comment on above: Performed By: #### L ACT #### [facility] [address] [place] [address] Dr. Ellen Ramirez IG # 0.01 10e3/ul Normal 0.00-0.03 [facility] Comment on above: Performed By: #### L ACT #### [facility] [address] [place] [address] Dr. Ellen Ramirez IG % 0.3 % Normal 0.0-0.5 [facility] Comment on above: Performed By: #### L ACT #### [facility] [address] [place] [address] Dr. Ellen Ramirez LYMPH # 1.3 103/ul Normal 1.2-3.8 [facility] Comment on above: Performed By: #### L ACT #### [facility] [address] [place] [address] Dr. Ellen Ramirez Lymphocytes/100 WBC (Bld) 32.6 % Normal 20.5-60.0 [facility] Comment on above: Performed By: #### L ACT #### [facility] [address] [place] [address] Dr. Ellen Ramirez MANUAL DIFF REQ NO Normal [facility] Comment on above: Performed By: #### L ACT #### [facility] [address] [place] [address] Dr. Ellen Ramirez MCH (RBC) [Entitic mass] 25.9 pg Critically low 26.7-34.0 [facility] Comment on above: Performed By: #### L ACT #### [facility] [address] [place] [address] Dr. Ellen Ramirez MCHC (RBC) [Mass/Vol] 31.4 g/dL Normal 29.9-35.2 [facility] Comment on above: Performed By: #### L ACT #### [facility] [address] [place] [address] Dr. Ellen Ramirez MCV (RBC) [Entitic vol] 82.5 fL Normal 81.0-99.0 [facility] Comment on above: Performed By: #### L ACT #### [facility] [address] [place] [address] Dr. Ellen Ramirez MONO # 0.3 103/ul Normal 0.3-0.8 [facility] Comment on above: Performed By: #### L ACT #### [facility] [address] [place] [address] Dr. Ellen Ramirez Monocytes/100 WBC (Bld) 8.5 % Normal 1.7-12.0 [facility] Comment on above: Performed By: #### L ACT #### [facility] [address] [place] [address] Dr. Ellen Ramirez NEUT # 2.4 103/ul Normal 1.4-6.5 [facility] Comment on above: Performed By: #### L ACT #### [facility] [address] [place] [address] Dr. Ellen Ramirez Neutrophils/100 WBC (Bld) 60.0 % Normal 43.0-75.0 [facility] Comment on above: Performed By: #### L ACT #### [facility] [address] [address] [address] Ellen Ramirez Platelet mean volume (Bld) [Entitic vol] 9.6 fL Normal 9.5-13.5 [facility] Comment on above: Performed By: #### L ACT #### [facility] [address] [place] [address] Dr. Ellen Ramirez PLT 264 103/ul Normal 150-450 [facility] Comment on above: Performed By: #### L ACT #### [facility] [address] [place] [address] Dr. Ellen Ramirez RBC 4.40 106/ul Normal 4.20-5.40 [facility] Comment on above: Performed By: #### L ACT #### [facility] [address] [place] [address] Dr. Ellen Ramirez WBC 3.9 103/ul Critically low 4.0-11.[address] [facility] Comment on above: Performed By: #### L ACT #### [facility] [address] [place] [address] Dr. Ellen Ramirez PREG HCG QUALon 04-14-2022 , QUAL Negative Normal NEGATIVE [facility] Comment on above: Performed By: #### P REG #### [facility] [address] [place] [address] Dr. Ellen Ramirez [facility]on [facility]-24 SARS-CoV-2 (COVID-19) RNA BEULAH+probe Ql (Unsp spec) Not detected Normal NOT DETECTED [facility] Comment on above: Result Comment: This test is not yet approved or cleared by the [place] FDA. When there are no FDA-approved or cleared tests available, and other criteria are met, FDA can make tests available under an emergency access mechanism called an Emergency Use Authorization (EUA). The EUA for this test is supported by the [place] of Health and Human Service's (HHS's) declaration [...] SARS-CoV-2. Performed By: #### C VDTB #### [facility] [address] [place] [address] Dr. Ellen Ramirez CBC W MANUAL DIFFon 03-30-20 22 ACANTHOCYTES 1+ Normal [facility] Comment on above: Result Comment: Prev iously reported as: 1+ On 03/30/2022 14:46 By BQ2 Performed By: #### C HUSSAIN #### [facility] [address] [place] [address] Dr. Ellen Ramirez ATYPICAL LYMPH # Normal [facility] Comment on above: Performed By: #### C HUSSAIN #### [facility] [address] [place] [address] Dr. Ellen aRmirez ATYPICAL LYMPH % Normal [facility] Comment on above: Performed By: #### C HUSSAIN #### [facility] [address] [place] [address] Dr. Ellen Ramirez BAND # Normal 0.0-0.3 [facility] Comment on above: Performed By: #### C HUSSAIN #### [facility] [address] [place] [address] Dr. Ellen Ramirez BAND % Normal 0-5 [facility] Comment on above: Performed By: #### C HUSSAIN #### [facility] [address] [place] [address] Dr. Ellen Ramirez BASOM # 0.00 103/ul Normal 0.00-0.10 [facility] Comment on above: Performed By: #### C HUSSAIN #### [facility] [address] [place] [address] Dr. Ellen Ramirez BASOM % 0.0 % Critically low 0.2-2.[address] [facility] Comment on above: Performed By: #### C BCVIRGINIE #### [facility] [address] [place] [address] Dr. Ellen Ramirez BLAST # Normal [facility] Comment on above: Performed By: #### C HUSSAIN #### [facility] [address] [place] [address] Dr. Ellen Ramirez BLAST % Normal [facility] Comment on above: Performed By: #### C HUSSAIN #### [facility] [address] [place] [address] Dr. Ellen Ramirez CORRECTED WBC Normal 4.0-11.0 [facility] Comment on above: Performed By: #### C HUSSAIN #### [facility] [address] [place] [address] Dr. Ellen Ramirez EOS # 0.10 103/ul Normal 0.00-0.70 [facility] Comment on above: Performed By: #### C HUSSAIN #### [facility] [address] [place] [address] Dr. Ellen Ramirez EOS% 2.0 % Normal 0.9-7.0 [facility] Comment on above: Performed By: #### C HUSSAIN #### [facility] [address] [place] [address] Dr. Ellen Ramirez HCT 33.3 % Critically low 36.0-48.0 [facility] Comment on above: Performed By: #### C HUSSAIN #### [facility] [address] [place] [address] Dr. Ellen Ramirez HGB 10.4 g/dl Critically low 12.0-16.[address] [facility] Comment on above: Performed By: #### C HUSSAIN #### [facility] [address] [place] [address] Dr. Ellen Ramirez LYMPHM # 1.78 103/ul Normal 1.20-3.80 [facility] Comment on above: Performed By: #### C HUSSAIN #### [facility] [address] [place] [address] Dr. Ellen Ramirez LYMPHM% 37.0 % Normal 20.5-60.0 [facility] Comment on above: Performed By: #### C HUSSAIN #### [facility] [address] [place] [address] Dr. Ellen Ramirez MCH 25.6 pg Critically low 26.7-34.[address] [facility] Comment on above: Performed By: #### C HUSSAIN #### [facility] [address] [place] [address] Dr. Ellen Ramirez MCHC 31.2 g/dl Normal 29.9-35.2 [facility] Comment on above: Performed By: #### C HUSSAIN #### [facility] [address] [place] [address] Dr. Ellen Ramirez MCV 81.8 fL Normal 81.0-99.0 [facility] Comment on above: Performed By: #### C HUSSAIN #### [facility] [address] [place] [address] Dr. Ellen Ramirez METAMYELOCYTE # Normal [facility] Comment on above: Performed By: #### C HUSSAIN #### [facility] [address] [place] [address] Dr. Ellen Ramirez METAMYELOCYTE % Normal [facility] Comment on above: Performed By: #### C BCVIRGINIE #### [facility] [address] [place] [address] Dr. Ellen Ramirez MONOM# 0.43 103/ul Normal 0.30-0.80 [facility] Comment on above: Performed By: #### C HUSSAIN #### [facility] [address] [place] [address] Dr. Ellen Ramirez MONOM% 9.0 % Normal 1.7-12.0 [facility] Comment on above: Performed By: #### C HUSSAIN #### [facility] [address] [address] [address] Ellen Ramirez MPV 10.2 fL Normal 9.5-13.5 [facility] Comment on above: Performed By: #### C BCMAN #### [facility] [address] [place] [address] Dr. Ellen Ramirez MYELOCYTE # Normal [facility] Comment on above: Performed By: #### C HUSSAIN #### [facility] [address] [place] [address] Dr. Ellen Ramirez MYELOCYTE % Normal [facility] Comment on above: Performed By: #### C HUSSAIN #### [facility] [address] [place] [address] Dr. Ellen Ramirez NRBC Normal [facility] Comment on above: Performed By: #### C HUSSAIN #### [facility] [address] [place] [address] Dr. Ellen Ramirez OVALOCYTES 1+ Normal [facility] Comment on above: Result Comment: Prev iously reported as: 1+ On 03/30/2022 14:46 By BQ2 Performed By: #### C HUSSAIN #### [facility] [address] [place] [address] Dr. Ellen Ramirez PLT 302 103/ul Normal 150-450 [facility] Comment on above: Performed By: #### C HUSSAIN #### [facility] [address] [place] [address] Dr. Ellen Ramirez RBC 4.07 106/ul Critically low 4.20-5.40 [facility] Comment on above: Performed By: #### C HUSSAIN #### [facility] [address] [place] [address] Dr. Ellen Ramirez RDW 26.7 % Critically high 11.0-15.0 [facility] Comment on above: Performed By: #### C HUSSAIN #### [facility] [address] [place] [address] Dr. Ellen Ramirez SEG # 2.50 103/ul Normal 1.40-6.50 [facility] Comment on above: Performed By: #### C HUSSAIN #### [facility] [address] [address] [address] Ellen Ramirez SEG % 52.0 % Normal 43.0-75.0 [facility] Comment on above: Performed By: #### C HUSSAIN #### [facility] [address] [address] [address] Ellen Ramirez TEAR DROP CELLS 1+ Normal [facility] Comment on above: Result Comment: Prev iously reported as: 1+ On 03/30/2022 14:46 By BQ2 Performed By: #### C HUSSAIN #### [facility] [address] [place] [address] Dr. Ellen Ramirez WBC 4.8 103/ul Normal 4.0-11.0 [facility] Comment on above: Performed By: #### C HUSSAIN #### [facility] [address] [place] [address] Dr. Ellen Ramirez US PELVIS AND TRANSVAGon [...] AHSAN FLORES Date: 2022-03-30 18:10 Normal [facility] TSHon 03-16-2022 TSH 2.199 uIU/mL Normal 0.358-3.740 [facility] Comment on above: Performed By: #### T #### [facility] [address] [address] [address] Ellen Ramirez CBC AUTO DIFFon 02-14-2022 BASO # 0.0 103/ul Normal 0.0-0.1 [facility] Comment on above: Performed By: #### C HUSSAIN #### [facility] [address] [place] [address] Dr. Ellen Ramirez Basophils/100 WBC (Bld) 0.4 % Normal 0.2-2.0 [facility] Comment on above: Performed By: #### C HUSSAIN #### [facility] [address] [place] [address] Dr. Ellen Ramirez EO # 0.0 103/ul Normal 0.0-0.7 [facility] Comment on above: Performed By: #### C HUSSAIN #### [facility] [address] [place] [address] Dr. Ellen Ramirez Eosinophils/100 WBC (Bld) 0.4 % Critically low 0.9-7.0 [facility] Comment on above: Performed By: #### C HUSSAIN #### [facility] [address] [place] [address] Dr. Ellen Ramirez Erythrocyte distribution width (RBC) [Ratio] 16.4 % Critically high 11.0-15.0 [facility] Comment on above: Performed By: #### C HUSSAIN #### [facility] [address] [place] [address] Dr. Ellen Ramirez Hematocrit (Bld) [Volume fraction] 24.4 % Critically low 36.0-48.0 [facility] Comment on above: Performed By: #### C HUSSAIN #### [facility] [address] [place] [address] Dr. Ellen Ramirez Hemoglobin (Bld) [Mass/Vol] 7.0 g/dL Critically low 12.0-16.0 [facility] Comment on above: Performed By: #### C HUSSAIN #### [facility] [address] [place] [address] Dr. Ellen Ramirez IG # 0.02 10e3/ul Normal 0.00-0.03 [facility] Comment on above: Performed By: #### C BCMAN #### [facility] [address] [place] [address] Dr. Ellen Ramirez IG % 0.3 % Normal 0.0-0.5 [facility] Comment on above: Performed By: #### C BCVIRGINIE #### [facility] [address] [address] [address] Ellen Ramirez LYMPH # 1.6 103/ul Normal 1.2-3.8 [facility] Comment on above: Performed By: #### C HUSSAIN #### [facility] [address] [place] [address] Dr. Ellen Ramirez Lymphocytes/100 WBC (Bld) 21.8 % Normal 20.5-60.0 [facility] Comment on above: Performed By: #### C HUSSAIN #### [facility] [address] [place] [address] Dr. Ellen Ramirez MANUAL DIFF REQ NO Normal [facility] Comment on above: Performed By: #### C HUSSAIN #### [facility] [address] [place] [address] Dr. Ellen Ramirez MCH (RBC) [Entitic mass] 20.0 pg Critically low 26.7-34.0 [facility] Comment on above: Performed By: #### C HUSSAIN #### [facility] [address] [place] [address] Dr. Ellen Ramirez MCHC (RBC) [Mass/Vol] 28.7 g/dL Critically low 29.9-35.2 [facility] Comment on above: Result Comment: HYPO CHROMIC MICROCYTIC STOMATOCYTES SEEN Performed By: #### C BCVIRGINIE #### [facility] [address] [place] [address] Dr. Ellen Ramirez MCV (RBC) [Entitic vol] 69.7 fL Critically low 81.0-99.0 [facility] Comment on above: Performed By: #### C HUSSAIN #### [facility] [address] [place] [address] Dr. Ellen Ramirez MONO # 0.7 103/ul Normal 0.3-0.8 [facility] Comment on above: Performed By: #### Chavez NIXON #### [facility] [address] [place] [address] Dr. Ellen Ramirez Monocytes/100 WBC (Bld) 9.3 % Normal 1.7-12.0 [facility] Comment on above: Performed By: #### Chavez NIXON #### [facility] [address] [place] [address] Dr. Ellen Ramirez NEUT # 4.9 103/ul Normal 1.4-6.5 [facility] Comment on above: Performed By: #### Chavez NIXON #### [facility] [address] [place] [address] Dr. Ellen Ramirez Neutrophils/100 WBC (Bld) 67.8 % Normal 43.0-75.0 [facility] Comment on above: Performed By: #### Chavez NIXON #### [facility] [address] [place] [address] Dr. Ellen Ramirez Platelet mean volume (Bld) [Entitic vol] 9.8 fL Normal 9.5-13.5 [facility] Comment on above: Performed By: #### Chavez NIXON #### [facility] [address] [place] [address] Dr. Ellen Ramirez PLT 391 103/ul Normal 150-450 [facility] Comment on above: Performed By: #### Chavez NIXON #### [facility] [address] [place] [address] Dr. Ellen Ramirez RBC 3.50 106/ul Critically low 4.20-5.40 [facility] Comment on above: Performed By: #### Chavez NIXON #### [facility] [address] [place] [address] Dr. Ellen Ramirez WBC 7.2 103/ul Normal 4.0-11.0 [facility] Comment on above: Performed By: #### Chavez NIXON #### [facility] [address] [place] [address] Dr. Ellen Ramirez PREG QUANT HCGon 02-14-2022 HCG QUANT <1 Normal [facility] Comment on above: Performed By: #### L ACT #### [facility] [address] [place] [address] Dr. Ellen Ramirez HCG RANGE SEE BELOW Normal [facility] Comment on above: Result Comment: 5-50 0-1 WEEK 40-300 1-2 WEEKS 100-1,000 2-3 WEEKS 500-6,000 3-4 WEEKS 5,000-200,000 1-2 MONTHS 10,000-100,000 2-3 MONTHS 3,000-50,000 2ND TRIMESTER 1,000-50,000 3RD TRIMESTER Performed By: #### L ACT #### [facility] [address] [place] [address] Dr. Ellen Ramirez PROTIMEon 02-14-2022 INR Coag (PPP) [Relative time] 1.00 {INR} Normal [facility] Comment on above: Performed By: #### L ACT #### [facility] [address] [place] [address] Dr. Ellen Ramirez INR GUIDELINES SEE BELOW Normal [facility] Comment on above: Result Comment: CARMEN RED INR: 2.0 - 3.0 CONDITIONS NOT LISTED BELOW 2.5 - 3.5 FOR PROSTHETIC HEART VALVE REPLACEMENT 2.5 - 3.5 RECURRENT THROMBOSIS Performed By: #### L ACT #### [facility] [address] [place] [address] Dr. Ellen Ramirez PT Coag (PPP) [Time] 10.8 s Normal 9.0-11.6 [facility] Comment on above: Performed By: #### L ACT #### [facility] [address] [place] [address] Dr. Ellen Ramirez PTTon 02-14-2022 aPTT Coag (Bld) [Time] 25.7 s Normal 22.3-36.2 [facility] Comment on above: Performed By: #### L ACT #### [facility] [address] [place] [address] Dr. Ellen Ramirez TSHon 02-14-2022 TSH 15.176 uIU/mL Critically high 0.358-3.740 [facility] Comment on above: Performed By: #### L ACT #### [facility] [address] [place], [place] [address] Dr. Ellen Ramirez TSH RANGE SEE BELOW Normal [facility] Comment on above: Result Comment: <0.3 4 UIU/ml HYPERTHYROID 0.34-5.60 UIU/ml EUTHYROID >5.60 UIU/ml HYPOTHYROID Performed By: #### L ACT #### [facility] [address] [address] [address] Ellen Ramirez US PELVIS AND TRANSVAGon [...] by: AHSAN FLORES Date: 2022-02-14 15:03 Normal [facility] Encounters Encounter Date Encounter Type Care Provider Facility Start: 06-09-2024 End: 06-09-2024 ambulatory Patsy Villafana MD Facility:[facility] Start: 04-21-2024 End: 04-21-2024 ambulatory Patsy Villafana MD Facility:[facility] Start: 03-31-2024 End: 03-31-2024 ambulatory P[facility]ana MD [facility] Start: 03-17-2024 End: 03-17-2024 ambulatory Patsy Villafana MD Facility:[facility] Start: 02-27-2024 End: 02-27-2024 ambulatory CATRACHO ROSALES [facility] Start: 12-06-2023 End: [...] examination DR JOSE DANIEL ROOT . [facility] Start: 04-11-2022 End: 04-12-[address] JOSE DANIEL ROOT . Facility:[facility] Start: 04-11-2022 End: 04-12-2022 Encounter for preprocedural laboratory examination DR JOSE DANIEL ROOT . Facility:[facility] Start: 04-05-2022 Encounter for other preprocedural examination DR JOSE DANIEL ROOT . [facility] Start: 04-03-2022 End: 04-04-[address] JOSE [...] Date Payer Category Payer Unknown 1980 Unknown [id number] 2.16.84 0.1.945735.3.579.2.593 1980 Unknown [id number] 2.16.84 0.1.124537.3.579.2.593 1980 Unknown [id number] 2.16.84 0.1.442426.3.579.2.593 1980 Unknown [id number] 2.16.84 0.1.332491.3.579.2.593 1980 Unknown [id number] 2.16.84 0.1.455155.3.579.2.593 1980 Unknown [id number] 2.16.84 0.1.717586.3.579.2.593 1980 Unknown [id number] 2.16.84 0.1.741874.3.579.2.593 1980 Unknown [id number] 2.16.84 0.1.845900.3.579.2.593 1980 Unknown [id number] 2.16.84 0.1.039276.3.579.2.593 1980 Unknown [id number] 2.16.84 0.1.286776.3.579.2.593 1980 Unknown [id number] 2.16.84 0.1.992951.3.579.2.593 1980 Unknown [id number] 2.16.84 0.1.853793.3.579.2.593 1980 Unknown [id number] 2.16.84 0.1.661895.3.579.2.593 1980 Unknown [id number] 2.16.84 0.1.542381.3.579.2.1258 1980 Unknown [id number] 2.16.84 0.1.764403.3.579.2.1258 1980 Unknown [id number] 2.16.84 0.1.700709.3.579.2.1258 1980 Unknown [id number] 2.16.84 0.1.550576.3.579.2.1258 1980 Unknown [id number] 2.16.84 0.1.175242.3.579.2.1258 1980 Unknown [id number] 2.16.84 0.1.859333.3.579.2.1258 1980 Unknown [id number] 2.16.8 40.1.341663.3.579.2.1285 1980 Unknown [id number] 2.16.8 40.1.974995.3.579.2.1285 1980 Unknown [id number] 2.16.8 40.1.279658.3.579.2.1285 1980 Unknown [id number] 2.16.8 40.1.432372.3.579.2.1285 1980 Unknown [id number] 2.16.8 40.1.155152.3.579.2.1285 1980 Unknown [id number] 2.16.8 40.1.284992.3.579.2.1285 1980 Unknown [id number] 2.16. 840.1.686466.3.579.2.196 1980 Unknown [id number] 2.16. 840.1.884232.3.579.2.196 1980 Unknown [id number] 2.16. 840.1.188423.3.579.2.196 1980 Unknown [id number] 2.16. 840.1.263151.3.579.2.196 1959 Self-pay [id number] 1959 Unknown [id number] Clinical Note 11-19-2023 Note Date & Type [...] ANESTHESIA: General. SURGEON: Jose Daniel Root D.O. PARIMUTUEL CLERK: None. FINDINGS: Normal appearing cavity. No gross [...] taken to recovery in stable condition. [facility] Summary Purpose Family History No Family History Records FoundNo Family History Records FoundNo Family History Records FoundNo Family History Records Found Advance Directives No Advanced Directives Records FoundNo Advanced Directives Records FoundNo Advanced Directives Records FoundNo Advanced Directives Records Found Additional Source Comments INFORMATION SOURCE (unrecogn ized section and content) DATE CREATED AUTHOR 12/06/2022 [facility] DATE CREATED AUTHOR AUTHOR'S ORGANIZ ATION 12/09/2023 [facility] EPIC DATE CREATED AUTHOR AUTHOR'S ORGANIZ ATION 02/28/2024 [facility] DATE CREATED AUTHOR AUTHOR'S ORGANIZ ATION 06/20/2024 [facility] FOR RECORDS PERTAINING TO PATIENTS WHO [...] BE BASED ON THE PRIMARY CLINICAL RECORDS. [facility] [employer] [facility]. provides no warranty or guarantee of the accuracy or completeness of information in this document.
[2024-07-07 07:24] VITALS: BP 123/77; PULSE 91; TEMP 36.5
[2024-07-07 08:17] VITALS: BP 134/72; PULSE 81; O2SAT 98
[2024-07-07] MEDS: BUPIVACAINE HCL 0.25% PF 25 MG/10 ML VIAL 2 ML INJ (08:18)
[2024-07-07] MEDS: IOHEXOL 240 MG/ML - 10 ML VIAL 24 MG INJ (08:18)
[2024-07-07] MEDS: LIDOCAINE HCL 2% 400 MG/20 ML MDV INJ (08:18)
[2024-07-07] MEDS: TRIAMCINOLONE ACETONIDE 40 MG/ML VIAL INJ (08:19)
[2024-07-07 08:20] VITALS: BP 135/71; PULSE 75; O2SAT 98
--- NOTE | 2024-07-07 08:25 | W.PM.PROCNOT ---
Date of procedure: 07/07/24 Pre-op diagnosis: Pain due to left sacroiliitis Post-op diagnosis: same as pre-op Procedure: Procedure: Left block of the nerve innervating the sacroiliac joint Medications: Bupivacaine 0.25% 3cc, kenalog 40mg After informed consent was obtained, the patient was brought to the medical procedure unit and placed in the prone position, when a timeout was completed verifying correct patient, procedure, site, positioning, implant, and/or special equipment.? The skin overlying the area was prepped and draped in standard sterile fashion using alcohol.? A 25-gauge needle was inserted towards the superior gluteal nerve innervating the left sacroiliac joint under direct fluoroscopic imaging.? Needle tip was advanced until the nerve was encountered.? We instilled a total of 0.5 mL of solution. Subsequently, the dorsal rami of L5, S1, and S2 were approached, and the procedure completed in the same fashion.? Postoperatively needles were removed.? The patient tolerated the procedure well without complication.? The patient reported reduction in pain symptoms postoperatively. Anesthesia: Local Surgeon: Patsy Villafana Pathology: none sent Condition: stable Disposition: no change
== END 2024-07-07 08:22 | disposition home or self-care (01) ==
LOC: SURGOUT 07:10
PROVIDERS: PCP Family Medicine; Visit Provider Anesthesiology
DX: M46.1 Sacroiliitis, not elsewhere classified (principal)
CPT/HCPCS: 64451; J0665; J3301; Q9966

== ENCOUNTER 2024-07-17 13:02 | Outpatient (OUT) | payer BC, SELFPAY ==
--- OUTSIDE RECORDS SUMMARY | 2024-07-17 13:10 | XMS_ITS | CCD ---
Author Organization [facility] Care Team Providers Care Hse Coordinator Name Role Phone CLAUDY ., DR SKY Admitting Unavailable REQUEST, DR MALAIKA LISTED Primary Care Unavaila ble CLAUDY ., DR SKY Consulting Unavailable CLAUDY ., DR SKY Attending Unavailable REQUEST, DR MALAIKA LISTED Consulting Unavaila ble CLAUDY ., DR SKY Admitting Unavailable HEMEYER ., DR HAYDEN Primary Care Unavailable CLAUDY ., DR SKY Consulting Unavailable CLAUDY ., DR KSY Attending Unavailable HEMEYER ., DR HAYDEN Attending [...] DR SKY Admitting Unavailable HEMEYER ., DR AHYDEN Primary Care Unavailable CLAUDY ., DR SKY Consulting Unavailable CLAUDY ., DR SKY Attending Unavailable SANDHU, JULIO Consulting Unavailable HEMEYER ., DR AHYDEN Primary Care Unavailable HELEN SANCHEZ Attending Unavailable [...] Facility (2 sources) Acetaminophen Drug Allergy [facility] (2 sources) ferric carboxymaltose Drug Allergy 2 [facility] (1 source) Acetaminophen; Translations: [ACETAMINOPHEN] [...] 04-05-2022 Chronic Other aftercare (1 source) Other shelter (current) drug therapy; Translations: [OTH GROUP HOME CURRENT DRUG THERAPY] Onset: 12-05-2022 Episodic Other [...] 12-03-19 23 ATYPICAL LYMPH # Normal [facility] Comment on above: Performed By: #### C HUSSAIN #### [facility] [address] [place] [address] Dr. Ellen Ramirez ATYPICAL LYMPH % Normal [facility] Comment on above: Performed By: #### C HUSSAIN #### [facility] [address] [address] [address] Ellen Ramirez BAND # 0.0 103/ul Normal 0.0-0.3 [facility] Comment on above: Performed By: #### C HUSSAIN #### [facility] [address] [place] [address] Dr. Ellen Ramirez BAND % 0 % Normal 0-5 [facility] Comment on above: Performed By: #### C HUSSAIN #### [facility] [address] [place] [address] Dr. Ellen Ramirez BASOM # 0.00 103/ul Normal 0.00-0.10 [facility] Comment on above: Performed By: #### C BCMAN #### [facility] [address] [place] [address] Dr. Ellen Ramirez BASOM % 0.0 % Critically low 0.2-2.0 [facility] Comment on above: Performed By: #### C BCMAN #### [facility] [address] [place] [address] Dr. Ellen Ramirez BLAST # Normal Comment on above: Performed By: #### C BCVIRGINIE #### [facility] [address] [place] [address] Dr. Ellen Ramirez BLAST % Normal Comment on above: Performed By: #### C BCVIRGINIE #### [facility] [address] [place] [address] Dr. Ellen Ramirez CORRECTED WBC Normal 4.0-11.0 [facility] Comment on above: Performed By: #### C BCVIRGINIE #### [facility] [address] [place] [address] Dr. Ellen Ramirez EOS # 0.46 103/ul Normal 0.00-0.70 Comment on above: Performed By: #### C BCVIRGINIE #### [facility] [address] [place] [address] Dr. Ellen Ramirez EOS% 6.0 % Normal 0.9-7.0 [facility] Comment on above: Performed By: #### C BCVIRGINIE #### [facility] [address] [place] [address] Dr. Ellen Ramirez HCT 33.6 % Critically low 36.0-48.0 [facility] Comment on above: Performed By: #### C BCMAN #### [facility] [address] [place] [address] Dr. Ellen Ramirez HGB 11.5 g/dl Critically low 12.0-16.0 [facility] Comment on above: Performed By: #### C BCVIRGINIE #### [facility] [address] [address] [address] Ellen Ramirez LYMPHM # 0.15 103/ul Critically low 1.20-3.80 [facility] Comment on above: Performed By: #### C HUSSAIN #### [facility] [address] [address] [address] Ellen Ramirez LYMPHM% 2.0 % Critically low 20.5-60.0 [facility] Comment on above: Performed By: #### C HUSSAIN #### [facility] [address] [address] [address] Ellen Ramirez MCH 29.3 pg Normal 26.7-34.0 Comment on above: Performed By: #### C HUSSAIN #### [facility] [address] [place] [address] Dr. Ellen Ramirez MCHC 34.2 g/dl Normal 29.9-35.2 Comment on above: Performed By: #### C HUSSAIN #### [facility] [address] [place] [address] Dr. Ellen Ramirez MCV 85.5 fL Normal 81.0-99.0 Comment on above: Performed By: #### C HUSSAIN #### [facility] [address] [place] [address] Dr. Ellen Ramirez METAMYELOCYTE # Normal [facility] Comment on above: Performed By: #### C HUSSAIN #### [facility] [address] [place] [address] Dr. Ellen Ramirez METAMYELOCYTE % Normal [facility] Comment on above: Performed By: #### C HUSSAIN #### [facility] [address] [address] [address] Ellen Ramirez MONOM# 0.38 103/ul Normal 0.30-0.80 [facility] Comment on above: Performed By: #### C HUSSAIN #### [facility] [address] [place] [address] Dr. Ellen Ramirez MONOM% 5.0 % Normal 1.7-12.0 Comment on above: Performed By: #### C HUSSAIN #### [facility] [address] [address] [address] Ellen Ramirez MPV 9.4 fL Critically low 9.5-13.5 [facility] Comment on above: Performed By: #### C HUSSAIN #### [facility] [address] [address] [address] Ellen Ramirez MYELOCYTE # Normal Comment on above: Performed By: #### C HUSSAIN #### [facility] [address] [address] [address] Ellen Ramirez MYELOCYTE % Normal Comment on above: Performed By: #### C HUSSAIN #### [facility] [address] [address] [address] Ellen Ramirez NRBC Normal Comment on above: Performed By: #### C HUSSAIN #### [facility] [address] [address] [address] Ellen Ramirez PLT 281 103/ul Normal 150-450 Comment on above: Performed By: #### C HUSSAIN #### [facility] [address] [address] [address] Ellen Ramirez RBC 3.93 106/ul Critically low 4.20-5.40 [facility] Comment on above: Performed By: #### C HUSSAIN #### [facility] [address] [address] [address] Ellen Ramirez RDW 13.0 % Normal 11.0-15.0 Comment on above: Performed By: #### C HUSSAIN #### [facility] [address] [address] [address] Ellen Ramirez SEG # 6.61 103/ul Critically high 1.40-6.50 [facility] Comment on above: Performed By: #### C HUSSAIN #### [facility] [address] [address] [address] Ellen Ramirez SEG % 87.0 % Critically high 43.0-75.0 [facility] Comment on above: Performed By: #### C BCMAN #### [facility] [address] [address] [address] Ellen Ramirez WBC 7.6 103/ul Normal 4.0-11.0 Comment on above: Performed By: #### C BCMAN #### [facility] [address] [address] [address] Ellen Ramirez CPKon 12-02-2022 CK [Catalytic activity/Vol] 50 U/L Normal 26-192 [facility] Comment on above: Performed By: #### C BCMAN #### [facility] [address] [address] [address] Ellen Ramirez CRPon 12-02-2022 CRP 5.4 mg/dL Critically high <=1.0 [facility] Comment on above: Performed By: #### C JOVANMAN #### [facility] [address] [address] [address] HEAD WO CONon [...] REBA LOWRY Date: 2022-12-02 00:24 Normal [facility] ER URINE PROFILEon 3 Bilirubin Ql (U) Negative Normal NEGATIVE [facility] Comment on above: Performed By: #### L ACT #### [facility] [address] [place] [address] Dr. Ellen Ramirez Clarity (U) CLEAR Normal CLEAR Comment on above: Performed By: #### L ACT #### [facility] [address] [address] [address] Ellen Ramirez Color (U) YELLOW Normal YELLOW Comment on above: Performed By: #### L ACT #### [facility] [address] [place] [address] Dr. Ellen ESCAMILLA A micrscopic examination will be performed if indicated. Normal Comment on above: Performed By: #### L ACT #### [facility] [address] [place] [address] Dr. Ellen Ramirez Glucose Ql (U) Negative Normal NEGATIVE [facility] Comment on above: Performed By: #### L ACT #### [facility] [address] [place] [address] Dr. Ellen Ramirez Hemoglobin Ql (U) TRACE-INTACT Abnormal NEGATIVE [facility] Comment on above: Performed By: #### L ACT #### [facility] [address] [place] [address] Dr. Ellen Ramirez Ketones Ql (U) >=80 Abnormal NEGATIVE [facility] Comment on above: Performed By: #### L ACT #### [facility] [address] [place] [address] Dr. Ellen Ramirez LEUKOCYTES Negative Normal NEGATIVE Comment on above: Performed By: #### L ACT #### [facility] [address] [place] [address] Dr. Ellen Ramirez Nitrite Ql (U) Negative Normal NEGATIVE [facility] Comment on above: Performed By: #### L ACT #### [facility] [address] [place] [address] Dr. Ellen Ramirez pH (U) 6.0 [pH] Normal 5-9 Comment on above: Performed By: #### L ACT #### [facility] [address] [address] [address] Ellen Ramirez SPEC GRAVITY 1.015 Normal 1.005-<=1.025 [facility] Comment on above: Performed By: #### L ACT #### [facility] [address] [place] [address] Dr. Ellen Ramirez UA PROTEIN Negative Normal NEGATIVE/ TRACE Comment on above: Performed By: #### L ACT #### [facility] [address] [place] [address] Dr. Eleln Ramirez UR MICRO IND NOT INDICATED Normal [facility] Comment on above: Performed By: #### L ACT #### [facility] [address] [place] [address] Dr. Ellen Ramirez Urobilinogen Qn (U) 0.2 {Ajith'U}/dL Normal 0.2 - 1. 0 Comment on above: Performed By: #### L ACT #### [facility] [address] [place] [address] Dr. Ellen Ramirez LACTATE/LACTIC ACIDon 2022 Lactate [Moles/Vol] 0.7 mmol/L Normal 0.4-2.[address] [facility] Comment on above: Performed By: #### L ACT #### [facility] [address] [place] [address] Dr. Ellen Ramirez MYOGLOBINon 12-02-2022 LORENA 30 ng/mL Normal 9-82 Comment on above: Performed By: #### C JOVANMAN #### [facility] [address] [place] [address] Dr. Ellen Ramirez PROF 14(COMP METB)on 023 Albumin [Mass/Vol] 3.7 g/dL Normal 3.4-5.0 [facility] Comment on above: Performed By: #### C JOVANMAN #### [facility] [address] [place] [address] Dr. Ellen Ramirez Albumin/Globulin [Mass ratio] 1.1 {ratio} Normal Comment on above: Performed By: #### C JOVANMAN #### [facility] [address] [address] [address] Ellen Ramirez ALP [Catalytic activity/Vol] 87 U/L Normal 46-116 Comment on above: Performed By: #### C HUSSAIN #### [facility] [address] [place] [address] Dr. Ellen Ramirez ALT [Catalytic activity/Vol] 43 U/L Normal 14-59 [facility] Comment on above: Performed By: #### C HUSSAIN #### [facility] [address] [place] [address] Dr. Ellen Ramirez Anion gap [Moles/Vol] 10.9 mmol/L Normal Comment on above: Performed By: #### C HUSSAIN #### [facility] [address] [place] [address] Dr. Ellen Ramirez AST [Catalytic activity/Vol] 35 U/L Normal 15-37 Comment on above: Performed By: #### C HUSSAIN #### [facility] [address] [place] [address] Dr. Ellen Ramirez Bilirubin [Mass/Vol] 0.3 mg/dL Normal 0.2-1.0 Comment on above: Performed By: #### C HUSSAIN #### [facility] [address] [place] [address] Dr. Ellen Ramirez Calcium [Mass/Vol] 8.6 mg/dL Normal 8.5-10.1 [facility] Comment on above: Performed By: #### C HUSSAIN #### [facility] [address] [place] [address] Dr. Ellen Ramirez Chloride [Moles/Vol] 102 mmol/L Normal 98-107 [facility] Comment on above: Performed By: #### C HUSSAIN #### [facility] [address] [place] [address] Dr. Ellen Ramirez CO2 [Moles/Vol] 25.4 mmol/L Normal 21.0-32.0 [facility] Comment on above: Performed By: #### C HUSSAIN #### [facility] [address] [place] [address] Dr. Ellen Ramirez Creatinine [Mass/Vol] 0.99 mg/dL Normal 0.55-1.02 Comment on above: Performed By: #### C BCVIRGINIE #### [facility] [address] [place] [address] Dr. Ellen Ramirez EGFR-AF DJIBOUTIAN >60 Normal >=60 [facility] Comment on above: Performed By: #### C BCMAN #### [facility] [address] [address] [address] Ellen Ramirez EGFR-NON AF DJIBOUTIAN >60 Normal >=60 Comment on above: Performed By: #### C HUSSAIN #### [facility] [address] [place] [address] Dr. Ellen Ramirez Globulin (S) [Mass/Vol] 3.3 g/dL Normal Comment on above: Performed By: #### C HUSSAIN #### [facility] [address] [place] [address] Dr. Ellen Ramirez Glucose [Mass/Vol] 107 mg/dL Critically high 74-[address] [facility] Comment on above: Performed By: #### C HUSSAIN #### [facility] [address] [place] [address] Dr. Ellen Ramirez Potassium [Moles/Vol] 3.3 mmol/L Critically low 3.5-5.1 Comment on above: Performed By: #### C HUSSAIN #### [facility] [address] [place] [address] Dr. Ellen Ramirez Protein [Mass/Vol] 7.0 g/dL Normal 6.4-8.2 [facility] Comment on above: Performed By: #### C BCVIRGINIE #### [facility] [address] [place] [address] Dr. Ellen Ramirez Sodium [Moles/Vol] 135 mmol/L Critically low 136-145 [facility] Comment on above: Performed By: #### C HUSSAIN #### [facility] [address] [place] [address] Dr. Ellen Ramirez Urea nitrogen [Mass/Vol] 11.0 mg/dL Normal 7.0-18.0 Comment on above: Performed By: #### C BCMAN #### [facility] [address] [place] [address] Dr. Ellen Ramirez Urea nitrogen/Creatinine [Mass ratio] 11.1 mg/mg Normal [facility] Comment on above: Performed By: #### C BCMAN #### [facility] [address] [place] [address] Dr. Ellen Ramirez RESPIRATORY PANEL PLUSon Adenovirus Not detected Normal NOT DETECTED [facility] Comment on above: Performed By: #### C BCMAN #### [facility] [address] [place] [address] Dr. Ellen Verduzoc. Parapertusis Not detected Normal NOT DETECTED [facility] Comment on above: Performed By: #### C BCMAN #### [facility] [address] [place] [address] Dr. Ellen Verduzco. Pertussis Not detected Normal NOT DETECTED [facility] Comment on above: Performed By: #### C BCMAN #### [facility] [address] [place] [address] Dr. Ellen Ramirez Chlamydia Pneumoniae Not detected Normal NOT DETECTED [facility] Comment on above: Performed By: #### C BCMAN #### [facility] [address] [place] [address] Dr. Ellen Ramirez Coronavirus 229E Not detected Normal NOT DETECTED [facility] Comment on above: Performed By: #### C BCMAN #### [facility] [address] [place] [address] Dr. Ellen Ramirez Coronavirus HKU1 Not detected Normal NOT DETECTED [facility] Comment on above: Performed By: #### C BCMAN #### [facility] [address] [place] [address] Dr. Ellen Ramirez Coronavirus NL63 Not detected Normal NOT DETECTED [facility] Comment on above: Performed By: #### C BCMAN #### [facility] [address] [place] [address] Dr. Ellen Ramirez Coronavirus OC43 Not detected Normal NOT DETECTED [facility] Comment on above: Performed By: #### C BCMAN #### [facility] [address] [address] [address] Ellen Ramirez Influenza A H1 Not detected Normal NOT DETECTED [facility] Comment on above: Performed By: #### C BCMAN #### [facility] [address] [address] [address] Ellen Ramirez Influenza A H1 2009 Not detected Normal NOT DETECTED [facility] Comment on above: Performed By: #### C BCMAN #### [facility] [address] [address] [address] Ellen Ramirez Influenza A H3 Not detected Normal NOT DETECTED [facility] Comment on above: Performed By: #### C BCMAN #### [facility] [address] [address] [address] Ellen Ramirez Influenza B Not detected Normal NOT DETECTED [facility] Comment on above: Performed By: #### C BCMAN #### [facility] [address] [address] [address] Ellen Ramirez Metapneumovirus Not detected Normal NOT DETECTED [facility] Comment on above: Performed By: #### C BCMAN #### [facility] [address] [address] [address] Ellen Ramirez Mycoplas. Pneumoniae Not detected Normal NOT DETECTED [facility] Comment on above: Performed By: #### C BCMAN #### [facility] [address] [address] [address] Ellen Ramirez Parainfluenza 1 Not detected Normal NOT DETECTED [facility] Comment on above: Performed By: #### C BCMAN #### [facility] [address] [address] [address] Ellen Ramirez Parainfluenza 2 Not detected Normal NOT DETECTED [facility] Comment on above: Performed By: #### C BCMAN #### [facility] [address] [address] [address] Ellen Ramirez Parainfluenza 3 Not detected Normal NOT DETECTED [facility] Comment on above: Performed By: #### C HUSSAIN #### [facility] [address] [place] [address] Dr. Ellen Ramirez Parainfluenza 4 Not detected Normal NOT DETECTED [facility] Comment on above: Performed By: #### C HUSSAIN #### [facility] [address] [place] [address] Dr. Ellen Ramirez Rhino/Enterovirus Not detected Normal NOT DETECTED [facility] Comment on above: Performed By: #### C HUSSAIN #### [facility] [address] [place] [address] Dr. Ellen Ramirez RP2 Header 1 RESPIRATORY PANEL: VIRUSES Normal [facility] Comment on above: Performed By: #### C HUSSAIN #### [facility] [address] [place] [address] Dr. Ellen Ramirez RP2 Header 2 RESPIRATORY PANEL: BACTERIA Normal [facility] Comment on above: Performed By: #### C HUSSAIN #### [facility] [address] [place] [address] Dr. Ellen Ramirez RSV Not detected Normal NOT DETECTED [facility] Comment on above: Performed By: #### C HUSSAIN #### [facility] [address] [place] [address] Dr. Ellen Ramirez SARS-CoV-2 (COVID-19) RNA BEULAH+probe Ql (Unsp spec) Not detected Normal NOT DETECTED [facility] Comment on above: Performed By: #### C HUSSAIN #### [facility] [address] [place] [address] Dr. Ellen Ramirez SED RATE MANSFIELDERGREN 2022 SED RATE 22 mm/hr Critically high <=20 [facility] Comment on above: Performed By: #### C HUSSAIN #### [facility] [address] [place] [address] Dr. Ellen Ramirez TSHon 12-02-2022 TSH 12.836 uIU/mL Critically high 0.358-3.740 [facility] Comment on above: Performed By: #### T #### [facility] [address] [address] [address] Ellen Ramirez XR CHEST 2 Von [...] by: REBA LOWRY Date: 2022-12-02 00:05 Normal PAP ACOG PANEL 2: 30 to 65on 06-26-2022 . . Normal Comment on above: Result Comment: Perf ormed at: WB Performed By: #### [id number] #### [facility] [address] [address] [address] Ellen Ramirez Age Gdln ACOG Testing 30-65 Normal Comment on above: Performed By: #### [id number] #### [facility] [address] [address] [address] Ellen Ramirez DIAGNOSIS: Comment Normal Comment on above: Result Comment: NEGA TIVE FOR INTRAEPITHELIAL LESION OR MALIGNANCY. Performed at: WB Performed By: #### [id number] #### [facility] [address] [address] [address] Ellen Ramirez HPV Aptima Negative Normal Negative Comment on above: Result Comment: This nucleic acid amplification test detects fourteen high-risk HPV types (16,18,31,33,35,39,45,51,52,56,58,59,66,68) without differentiation. Performed at: =G Performed By: #### [id number] #### [facility] [address] [address] [address] Ellen Ramirez Methodology: Comment Normal Comment on above: Result Comment: This liquid based ThinPrep(R) pap test was screened with the use of an image guided system. Performed at: WB Performed By: #### [id number] #### [facility] [address] [place] [address] Dr. Ellen Ramirez Note: Comment Normal Comment on above: Result Comment: The Pap smear is a screening test designed to aid in the detection of premalignant and malignant conditions of the uterine cervix. It is not a diagnostic procedure and should not be used as the sole means of detecting cervical cancer. Both false-positive and false-negative reports do occur. . Performed at: WB Performed By: #### [id number] #### [facility] [address] [place] [address] Dr. Ellen Ramirez Performed by: Comment Normal [facility] Comment on above: Result Comment: Pretty Aguilar, Community Product Specialist (ASCP) Performed at: WB Performed By: #### [id number] #### [facility] [address] [place] [address] Dr. Ellen Ramirez Specimen adequacy: Comment Normal [facility] Comment on above: Result Comment: Sati sfactory for evaluation. Endocervical and/or squamous metaplastic cells (endocervical component) are present. Performed at: WB Performed By: #### [id number] #### [facility] [address] [place] [address] Dr. Ellen Ramirez CBC AUTO DIFFon 05-08-2022 BASO # 0.0 103/ul Normal 0.0-0.1 Comment on above: Performed By: #### C BC #### [facility] [address] [place] [address] Dr. Ellen Ramirez Basophils/100 WBC (Bld) 0.4 % Normal 0.2-2.0 Comment on above: Performed By: #### C BC #### [facility] [address] [place] [address] Dr. Ellen Ramirez EO # 0.1 103/ul Normal 0.0-0.7 Comment on above: Performed By: #### C BC #### [facility] [address] [place] [address] Dr. Ellen Ramirez Eosinophils/100 WBC (Bld) 1.1 % Normal 0.9-7.0 Comment on above: Performed By: #### C BC #### [facility] [address] [place] [address] Dr. Ellen Ramirez Erythrocyte distribution width (RBC) [Ratio] 18.5 % Critically high 11.0-15.0 Comment on above: Performed By: #### C BC #### [facility] [address] [place] [address] Dr. Ellen Ramirez Hematocrit (Bld) [Volume fraction] 37.2 % Normal 36.0-48.0 Comment on above: Performed By: #### C BC #### [facility] [address] [place] [address] Dr. Ellen Ramirez Hemoglobin (Bld) [Mass/Vol] 12.0 g/dL Normal 12.0-16.0 Comment on above: Performed By: #### C BC #### [facility] [address] [place] [address] Dr. Ellen Ramirez IG # 0.01 10e3/ul Normal 0.00-0.03 Comment on above: Performed By: #### C BC #### [facility] [address] [place] [address] Dr. Ellen Ramirez IG % 0.2 % Normal 0.0-0.5 Comment on above: Performed By: #### C BC #### [facility] [address] [place] [address] Dr. Ellen Ramirez LYMPH # 1.4 103/ul Normal 1.2-3.8 Comment on above: Performed By: #### C BC #### [facility] [address] [place] [address] Dr. Ellen Ramirez Lymphocytes/100 WBC (Bld) 29.2 % Normal 20.5-60.0 Comment on above: Performed By: #### C BC #### [facility] [address] [place] [address] Dr. Ellen Ramirez MANUAL DIFF REQ NO Normal [facility] Comment on above: Performed By: #### C BC #### [facility] [address] [address] [address] Ellen Ramirez MCH (RBC) [Entitic mass] 28.0 pg Normal 26.7-34.0 Comment on above: Performed By: #### C BC #### [facility] [address] [place] [address] Dr. Ellen Ramirez MCHC (RBC) [Mass/Vol] 32.3 g/dL Normal 29.9-35.2 Comment on above: Performed By: #### C BC #### [facility] [address] [address] [address] Ellen Ramirez MCV (RBC) [Entitic vol] 86.7 fL Normal 81.0-99.0 Comment on above: Performed By: #### C BC #### [facility] [address] [place] [address] Dr. Ellen Ramirez MONO # 0.4 103/ul Normal 0.3-0.8 Comment on above: Performed By: #### C BC #### [facility] [address] [place] [address] Dr. Ellen Ramirez Monocytes/100 WBC (Bld) 8.0 % Normal 1.7-12.0 Comment on above: Performed By: #### C BC #### [facility] [address] [place] [address] Dr. Ellen Ramirez NEUT # 2.9 103/ul Normal 1.4-6.5 [facility] Comment on above: Performed By: #### C BC #### [facility] [address] [place] [address] Dr. Ellen Ramirez Neutrophils/100 WBC (Bld) 61.1 % Normal 43.0-75.0 [facility] Comment on above: Performed By: #### C BC #### [facility] [address] [place] [address] Dr. Ellen Ramirez Platelet mean volume (Bld) [Entitic vol] 9.5 fL Normal 9.5-13.5 [facility] Comment on above: Performed By: #### C BC #### [facility] [address] [place] [address] Dr. Ellen Ramirez PLT 282 103/ul Normal 150-450 Comment on above: Performed By: #### C BC #### [facility] [address] [place] [address] Dr. Ellen Ramirez RBC 4.29 106/ul Normal 4.20-5.40 Comment on above: Performed By: #### C BC #### [facility] [address] [place] [address] Dr. Ellen Ramirez WBC 4.7 103/ul Normal 4.0-11.0 Comment on above: Performed By: #### C BC #### [facility] [address] [place] [address] Dr. Ellen Ramirez FERRITINon 05-08-2022 Ferritin [Mass/Vol] 92.0 ng/mL Normal 6.2-137.[address] [facility] Comment on above: Performed By: #### F ERR, FT4 #### [facility] [address] [place] [address] Dr. Ellen Ramirez FREE T4on 05-08-2022 Free T4 [Mass/Vol] 0.72 ng/dL Critically low 0.76-1.46 [facility] Comment on above: Performed By: #### F ERR, FT4 #### [facility] [address] [place] [address] Dr. Ellen Ramirez TSHon 05-08-2022 TSH 3.626 uIU/mL Normal 0.358-3.740 [facility] Comment on above: Performed By: #### C BCMAN #### [facility] [address] [place] [address] Dr. Ellen Ramirez CBC AUTO DIFFon 04-14-2022 BASO # 0.0 103/ul Normal 0.0-0.1 Comment on above: Performed By: #### L ACT #### [facility] [address] [place] [address] Dr. Ellen Ramirez Basophils/100 WBC (Bld) 0.5 % Normal 0.2-2.0 Comment on above: Performed By: #### L ACT #### [facility] [address] [place] [address] Dr. Ellen Ramirez EO # 0.1 103/ul Normal 0.0-0.7 [facility] Comment on above: Performed By: #### L ACT #### [facility] [address] [place] [address] Dr. Ellen Ramirez Eosinophils/100 WBC (Bld) 2.8 % Normal 0.9-7.0 Comment on above: Performed By: #### L ACT #### [facility] [address] [place] [address] Dr. Ellen Ramirez Erythrocyte distribution width (RBC) [Ratio] 24.2 % Critically high 11.0-15.0 Comment on above: Performed By: #### L ACT #### [facility] [address] [place] [address] Dr. Ellen Ramirez Hematocrit (Bld) [Volume fraction] 36.3 % Normal 36.0-48.0 Comment on above: Performed By: #### L ACT #### [facility] [address] [place] [address] Dr. Ellen Ramirez Hemoglobin (Bld) [Mass/Vol] 11.4 g/dL Critically low 12.0-16.0 Comment on above: Performed By: #### L ACT #### [facility] [address] [place] [address] Dr. Ellen Ramirez IG # 0.01 10e3/ul Normal 0.00-0.03 Comment on above: Performed By: #### L ACT #### [facility] [address] [place] [address] Dr. Ellen Ramirez IG % 0.3 % Normal 0.0-0.5 Comment on above: Performed By: #### L ACT #### [facility] [address] [place] [address] Dr. Ellen Ramirez LYMPH # 1.3 103/ul Normal 1.2-3.8 Comment on above: Performed By: #### L ACT #### [facility] [address] [place] [address] Dr. Ellen Ramirez Lymphocytes/100 WBC (Bld) 32.6 % Normal 20.5-60.0 Comment on above: Performed By: #### L ACT #### [facility] [address] [place] [address] Dr. Ellen Ramirez MANUAL DIFF REQ NO Normal [facility] Comment on above: Performed By: #### L ACT #### [facility] [address] [place] [address] Dr. Ellen Ramirez MCH (RBC) [Entitic mass] 25.9 pg Critically low 26.7-34.0 Comment on above: Performed By: #### L ACT #### [facility] [address] [place] [address] Dr. Ellen Ramirez MCHC (RBC) [Mass/Vol] 31.4 g/dL Normal 29.9-35.2 [facility] Comment on above: Performed By: #### L ACT #### [facility] [address] [place] [address] Dr. Ellen Ramirez MCV (RBC) [Entitic vol] 82.5 fL Normal 81.0-99.0 Comment on above: Performed By: #### L ACT #### [facility] [address] [place] [address] Dr. Ellen Ramirez MONO # 0.3 103/ul Normal 0.3-0.8 [facility] Comment on above: Performed By: #### L ACT #### [facility] [address] [place] [address] Dr. Ellen Ramirez Monocytes/100 WBC (Bld) 8.5 % Normal 1.7-12.0 Comment on above: Performed By: #### L ACT #### [facility] [address] [place] [address] Dr. Ellen Ramirez NEUT # 2.4 103/ul Normal 1.4-6.5 Comment on above: Performed By: #### L ACT #### [facility] [address] [place] [address] Dr. Ellen Ramirez Neutrophils/100 WBC (Bld) 60.0 % Normal 43.0-75.0 Comment on above: Performed By: #### L ACT #### [facility] [address] [address] [address] Ellen Ramirez Platelet mean volume (Bld) [Entitic vol] 9.6 fL Normal 9.5-13.5 Comment on above: Performed By: #### L ACT #### [facility] [address] [place] [address] Dr. Ellen Ramirez PLT 264 103/ul Normal 150-450 [facility] Comment on above: Performed By: #### L ACT #### [facility] [address] [place] [address] Dr. Ellen Ramirez RBC 4.40 106/ul Normal 4.20-5.40 Comment on above: Performed By: #### L ACT #### [facility] [address] [place] [address] Dr. Ellen Ramirez WBC 3.9 103/ul Critically low 4.0-11.0 [facility] Comment on above: Performed By: #### L ACT #### [facility] [address] [place] [address] Dr. Ellen Ramirez PREG HCG QUALon 04-14-2022 , QUAL Negative Normal NEGATIVE [facility] Comment on above: Performed By: #### P REG #### [facility] [address] [place] [address] Dr. Ellen Ramirez [facility] SARS-CoV-2 (COVID-19) RNA BEULAH+probe Ql (Unsp spec) Not detected Normal NOT DETECTED [facility] Comment on above: Result Comment: This test is not yet approved or cleared by the [place] FDA. When there are no FDA-approved or cleared tests available, and other criteria are met, FDA can make tests available under an emergency access mechanism called an Emergency Use Authorization (EUA). The EUA for this test is supported by the [place] of Health and Human Service's (HHS's) declaration [...] SARS-CoV-2. Performed By: #### C VDTB #### [facility] [address] [place] [address] Dr. Ellen Ramirez CBC W MANUAL DIFFon 03-30-20 22 ACANTHOCYTES 1+ Normal [facility] Comment on above: Result Comment: Prev iously reported as: 1+ On 03/30/2022 14:46 By BQ2 Performed By: #### C HUSSAIN #### [facility] [address] [place] [address] Dr. Ellen Ramirez ATYPICAL LYMPH # Normal [facility] Comment on above: Performed By: #### C HUSSAIN #### [facility] [address] [place] [address] Dr. Ellen Ramirez ATYPICAL LYMPH % Normal [facility] Comment on above: Performed By: #### C HUSSAIN #### [facility] [address] [place] [address] Dr. Ellen Ramirez BAND # Normal 0.0-0.3 [facility] Comment on above: Performed By: #### C HUSSAIN #### [facility] [address] [place] [address] Dr. Ellen Ramirez BAND % Normal 0-5 [facility] Comment on above: Performed By: #### C HUSSAIN #### [facility] [address] [place] [address] Dr. Ellen Ramirez BASOM # 0.00 103/ul Normal 0.00-0.10 Comment on above: Performed By: #### C HUSSAIN #### [facility] [address] [place] [address] Dr. Ellen Ramirez BASOM % 0.0 % Critically low 0.2-2.0 [facility] Comment on above: Performed By: #### C BCVIRGINIE #### [facility] [address] [place] [address] Dr. Ellen Ramirez BLAST # Normal Comment on above: Performed By: #### C HUSSAIN #### [facility] [address] [place] [address] Dr. Ellen Ramirez BLAST % Normal Comment on above: Performed By: #### C HUSSAIN #### [facility] [address] [place] [address] Dr. Ellen Ramirez CORRECTED WBC Normal 4.0-11.0 [facility] Comment on above: Performed By: #### C HUSSAIN #### [facility] [address] [place] [address] Dr. Ellen Ramirez EOS # 0.10 103/ul Normal 0.00-0.70 Comment on above: Performed By: #### C HUSSAIN #### [facility] [address] [place] [address] Dr. Ellen Ramirez EOS% 2.0 % Normal 0.9-7.0 Comment on above: Performed By: #### C HUSSAIN #### [facility] [address] [place] [address] Dr. Ellen Ramirez HCT 33.3 % Critically low 36.0-48.0 [facility] Comment on above: Performed By: #### C HUSSAIN #### [facility] [address] [place] [address] Dr. Ellen Ramirez HGB 10.4 g/dl Critically low 12.0-16.0 [facility] Comment on above: Performed By: #### C HUSSAIN #### [facility] [address] [place] [address] Dr. Ellen Ramirez LYMPHM # 1.78 103/ul Normal 1.20-3.80 Comment on above: Performed By: #### C HUSSAIN #### [facility] [address] [place] [address] Dr. Ellen Ramirez LYMPHM% 37.0 % Normal 20.5-60.0 Comment on above: Performed By: #### C HUSSAIN #### [facility] [address] [place] [address] Dr. Ellen Ramirez MCH 25.6 pg Critically low 26.7-34.0 [facility] Comment on above: Performed By: #### C HUSSAIN #### [facility] [address] [place] [address] Dr. Ellen Ramirez MCHC 31.2 g/dl Normal 29.9-35.2 Comment on above: Performed By: #### C HUSSAIN #### [facility] [address] [place] [address] Dr. Ellen Ramirez MCV 81.8 fL Normal 81.0-99.0 Comment on above: Performed By: #### C HUSSAIN #### [facility] [address] [place] [address] Dr. Ellen Ramirez METAMYELOCYTE # Normal [facility] Comment on above: Performed By: #### C HUSSAIN #### [facility] [address] [place] [address] Dr. Ellen Ramirez METAMYELOCYTE % Normal [facility] Comment on above: Performed By: #### C BCVIRGINIE #### [facility] [address] [place] [address] Dr. Ellen Ramirez MONOM# 0.43 103/ul Normal 0.30-0.80 Comment on above: Performed By: #### C HUSSAIN #### [facility] [address] [place] [address] Dr. Ellen Ramirez MONOM% 9.0 % Normal 1.7-12.0 Comment on above: Performed By: #### C HUSSAIN #### [facility] [address] [address] [address] Ellen Ramirez MPV 10.2 fL Normal 9.5-13.5 Comment on above: Performed By: #### C BCMAN #### [facility] [address] [place] [address] Dr. Ellen Ramirez MYELOCYTE # Normal Comment on above: Performed By: #### C HUSSAIN #### [facility] [address] [place] [address] Dr. Ellen Ramirez MYELOCYTE % Normal Comment on above: Performed By: #### C HUSSAIN #### [facility] [address] [place] [address] Dr. Ellen Ramirez NRBC Normal Comment on above: Performed By: #### C HUSSAIN #### [facility] [address] [place] [address] Dr. Ellen Ramirez OVALOCYTES 1+ Normal [facility] Comment on above: Result Comment: Prev iously reported as: 1+ On 03/30/2022 14:46 By BQ2 Performed By: #### C HUSSAIN #### [facility] [address] [place] [address] Dr. Ellen Ramirez PLT 302 103/ul Normal 150-450 Comment on above: Performed By: #### C HUSSAIN #### [facility] [address] [place] [address] Dr. Ellen Ramirez RBC 4.07 106/ul Critically low 4.20-5.40 [facility] Comment on above: Performed By: #### C HUSSAIN #### [facility] [address] [place] [address] Dr. Ellen Ramirez RDW 26.7 % Critically high 11.0-15.0 [facility] Comment on above: Performed By: #### C HUSSAIN #### [facility] [address] [place] [address] Dr. Ellen Ramirez SEG # 2.50 103/ul Normal 1.40-6.50 Comment on above: Performed By: #### C HUSSAIN #### [facility] [address] [address] [address] Ellen Ramirez SEG % 52.0 % Normal 43.0-75.0 Comment on above: Performed By: #### C HUSSAIN #### [facility] [address] [address] [address] Ellen Ramirez TEAR DROP CELLS 1+ Normal [facility] Comment on above: Result Comment: Prev iously reported as: 1+ On 03/30/2022 14:46 By BQ2 Performed By: #### C HUSSAIN #### [facility] [address] [place] [address] Dr. Ellen Ramirez WBC 4.8 103/ul Normal 4.0-11.0 Comment on above: Performed By: #### C HUSSAIN #### [facility] [address] [place] [address] Dr. Ellen Ramirez US PELVIS AND TRANSVAGon [...] AHSAN FLORES Date: 2022-03-30 18:10 Normal [facility] TSHon 03-16-2022 TSH 2.199 uIU/mL Normal 0.358-3.740 [facility] Comment on above: Performed By: #### T #### [facility] [address] [address] [address] Ellen Ramirez CBC AUTO DIFFon 02-14-2022 BASO # 0.0 103/ul Normal 0.0-0.1 Comment on above: Performed By: #### C HUSSAIN #### [facility] [address] [place] [address] Dr. Ellen Ramirez Basophils/100 WBC (Bld) 0.4 % Normal 0.2-2.0 Comment on above: Performed By: #### C HUSSAIN #### [facility] [address] [place] [address] Dr. Ellen Ramirez EO # 0.0 103/ul Normal 0.0-0.7 Comment on above: Performed By: #### C HUSSAIN #### [facility] [address] [place] [address] Dr. Ellen Ramirez Eosinophils/100 WBC (Bld) 0.4 % Critically low 0.9-7.0 Comment on above: Performed By: #### C HUSSAIN #### [facility] [address] [place] [address] Dr. Ellen Ramirez Erythrocyte distribution width (RBC) [Ratio] 16.4 % Critically high 11.0-15.0 Comment on above: Performed By: #### C HUSSAIN #### [facility] [address] [place] [address] Dr. Ellen Ramirez Hematocrit (Bld) [Volume fraction] 24.4 % Critically low 36.0-48.0 Comment on above: Performed By: #### C HUSSAIN #### [facility] [address] [place] [address] Dr. Ellen Ramirez Hemoglobin (Bld) [Mass/Vol] 7.0 g/dL Critically low 12.0-16.0 Comment on above: Performed By: #### C HUSSAIN #### [facility] [address] [place] [address] Dr. Ellen Ramirez IG # 0.02 10e3/ul Normal 0.00-0.03 Comment on above: Performed By: #### C BCMAN #### [facility] [address] [place] [address] Dr. Ellen Ramirez IG % 0.3 % Normal 0.0-0.5 Comment on above: Performed By: #### C BCVIRGINIE #### [facility] [address] [address] [address] Ellen Ramirez LYMPH # 1.6 103/ul Normal 1.2-3.8 Comment on above: Performed By: #### C HUSSAIN #### [facility] [address] [place] [address] Dr. Ellen Ramirez Lymphocytes/100 WBC (Bld) 21.8 % Normal 20.5-60.0 Comment on above: Performed By: #### C HUSSAIN #### [facility] [address] [place] [address] Dr. Ellen Ramirez MANUAL DIFF REQ NO Normal [facility] Comment on above: Performed By: #### C HUSSAIN #### [facility] [address] [place] [address] Dr. Ellen Ramirez MCH (RBC) [Entitic mass] 20.0 pg Critically low 26.7-34.0 Comment on above: Performed By: #### C HUSSAIN #### [facility] [address] [place] [address] Dr. Ellen Ramirez MCHC (RBC) [Mass/Vol] 28.7 g/dL Critically low 29.9-35.2 Comment on above: Result Comment: HYPO CHROMIC MICROCYTIC STOMATOCYTES SEEN Performed By: #### C BCVIRGINIE #### [facility] [address] [place] [address] Dr. Ellen Ramirez MCV (RBC) [Entitic vol] 69.7 fL Critically low 81.0-99.0 Comment on above: Performed By: #### C HUSSAIN #### [facility] [address] [place] [address] Dr. Ellen Ramirez MONO # 0.7 103/ul Normal 0.3-0.8 Comment on above: Performed By: #### Chavez NIXON #### [facility] [address] [place] [address] Dr. Ellen Ramirez Monocytes/100 WBC (Bld) 9.3 % Normal 1.7-12.0 Comment on above: Performed By: #### Chavez NIXON #### [facility] [address] [place] [address] Dr. Ellen Ramirez NEUT # 4.9 103/ul Normal 1.4-6.5 Comment on above: Performed By: #### Chavez NIXON #### [facility] [address] [place] [address] Dr. Ellen Ramirez Neutrophils/100 WBC (Bld) 67.8 % Normal 43.0-75.0 Comment on above: Performed By: #### Chavez NIXON #### [facility] [address] [place] [address] Dr. Ellen Ramirez Platelet mean volume (Bld) [Entitic vol] 9.8 fL Normal 9.5-13.5 Comment on above: Performed By: #### Chavez NIXON #### [facility] [address] [place] [address] Dr. Ellen Ramirez PLT 391 103/ul Normal 150-450 [facility] Comment on above: Performed By: #### Chavez NIXON #### [facility] [address] [place] [address] Dr. Ellen Ramirez RBC 3.50 106/ul Critically low 4.20-5.40 [facility] Comment on above: Performed By: #### Chavez NIXON #### [facility] [address] [place] [address] Dr. Ellen Ramirez WBC 7.2 103/ul Normal 4.0-11.0 [facility] Comment on above: Performed By: #### Chavez NIXON #### [facility] [address] [place] [address] Dr. Ellen Ramirez PREG QUANT HCGon 02-14-2022 HCG QUANT <1 Normal [facility] Comment on above: Performed By: #### L ACT #### [facility] [address] [place] [address] Dr. Ellen Ramirez HCG RANGE SEE BELOW Normal Comment on above: Result Comment: 5-50 0-1 WEEK 40-300 1-2 WEEKS 100-1,000 2-3 WEEKS 500-6,000 3-4 WEEKS 5,000-200,000 1-2 MONTHS 10,000-100,000 2-3 MONTHS 3,000-50,000 2ND TRIMESTER 1,000-50,000 3RD TRIMESTER Performed By: #### L ACT #### [facility] [address] [place] [address] Dr. Ellen Ramirez PROTIMEon 02-14-2022 INR Coag (PPP) [Relative time] 1.00 {INR} Normal Comment on above: Performed By: #### L ACT #### [facility] [address] [place] [address] Dr. Ellen Ramirez INR GUIDELINES SEE BELOW Normal [facility] Comment on above: Result Comment: CARMEN RED INR: 2.0 - 3.0 CONDITIONS NOT LISTED BELOW 2.5 - 3.5 FOR PROSTHETIC HEART VALVE REPLACEMENT 2.5 - 3.5 RECURRENT THROMBOSIS Performed By: #### L ACT #### [facility] [address] [place] [address] Dr. Ellen Ramirez PT Coag (PPP) [Time] 10.8 s Normal 9.0-11.6 Comment on above: Performed By: #### L ACT #### [facility] [address] [place] [address] Dr. Ellen Ramirez PTTon 02-14-2022 aPTT Coag (Bld) [Time] 25.7 s Normal 22.3-36.2 Comment on above: Performed By: #### L ACT #### [facility] [address] [place] [address] Dr. Ellen Ramirez TSHon 02-14-2022 TSH 15.176 uIU/mL Critically high 0.358-3.[address] [facility] Comment on above: Performed By: #### L ACT #### [facility] [address] [place], [place] [address] Dr. Ellen Ramirez TSH RANGE SEE BELOW Normal Comment on above: Result Comment: <0.3 4 UIU/ml HYPERTHYROID 0.34-5.60 UIU/ml EUTHYROID >5.60 UIU/ml HYPOTHYROID Performed By: #### L ACT #### [facility] [address] [address] [address] Ellen Ramirez US PELVIS AND TRANSVAGon [...] by: AHSAN FLORES Date: 2022-02-14 15:03 Normal Encounters Encounter Date Encounter Type Care Provider Facility Start: 06-09-2024 End: 06-09-2024 ambulatory Patsy Villafana MD Facility:[facility] Start: 04-21-2024 End: 04-21-2024 ambulatory Patsy Villafana MD Facility:[facility] Start: 03-31-2024 End: 03-31-2024 ambulatory [facility] Start: 03-17-2024 End: 03-17-2024 ambulatory Patsy Villafana MD Facility:[facility] Start: 02-27-2024 End: 02-27-2024 ambulatory CATRACHO ROSALES [facility] Start: 12-06-2023 End: [...] examination DR JOSE DANIEL ROOT . [facility] Start: 04-11-2022 End: 04-12-[address] JOSE DANIEL ROOT . Facility:[facility] Start: 04-11-2022 End: 04-12-2022 Encounter for preprocedural laboratory examination DR JOSE DANIEL ROOT . Facility:[facility] Start: 04-05-2022 Encounter for other preprocedural examination DR JOSE DANIEL ROOT . [facility] Start: 04-03-2022 End: 04-04-[address] [...] Date Payer Category Payer Unknown 1980 Unknown [id number] 2.16.84 [id number] 1980 Unknown [id number] 2.16.84 0.1.696003.3.579.2.593 1980 Unknown [id number] 2.16.84 0.1.568354.3.579.2.593 1980 Unknown [id number] 2.16.84 0.1.710551.3.579.2.593 1980 Unknown [id number] 2.16.84 0.1.262360.3.579.2.593 1980 Unknown [id number] 2.16.84 0.1.891480.3.579.2.593 1980 Unknown [id number] 2.16.84 0.1.217559.3.579.2.593 1980 Unknown [id number] 2.16.84 0.1.773009.3.579.2.593 1980 Unknown [id number] 2.16.84 0.1.510301.3.579.2.593 1980 Unknown [id number] 2.16.84 0.1.408675.3.579.2.593 1980 Unknown [id number] 2.16.84 0.1.199854.3.579.2.593 1980 Unknown [id number] 2.16.84 0.1.789501.3.579.2.593 1980 Unknown [id number] 2.16.84 0.1.382599.3.579.2.593 1980 Unknown [id number] 2.16.84 0.1.872676.3.579.2.1258 1980 Unknown [id number] 2.16.84 0.1.352884.3.579.2.1258 1980 Unknown [id number] 2.16.84 0.1.768801.3.579.2.1258 1980 Unknown [id number] 2.16.84 0.1.210016.3.579.2.1258 1980 Unknown [id number] 2.16.84 0.1.219783.3.579.2.1258 1980 Unknown [id number] 2.16.84 0.1.138400.3.579.2.1258 1980 Unknown [id number] 2.16.8 [id number] 1980 Unknown [id number] 2.16.8 [id number] 1980 Unknown [id number] 2.16.8 40.1.492671.3.579.2.1285 1980 Unknown [id number] 2.16.8 40.1.917549.3.579.2.1285 1980 Unknown [id number] 2.16.8 40.1.762130.3.579.2.1285 1980 Unknown [id number] 2.16.8 40.1.903372.3.579.2.1285 1980 Unknown [id number] 2.16. 840.1.185615.3.579.2.196 1980 Unknown [id number] 2.16. 840.1.254843.3.579.2.196 1980 Unknown [id number] 2.16. 840.1.792710.3.579.2.196 1980 Unknown [id number] 2.16. [id number] 1959 Self-pay [id number] 1959 Unknown [id number] Clinical Note 11-19-2023 Note Date & Type [...] ANESTHESIA: General. SURGEON: Jose Daniel Root D.O. FORMS BUILDER: None. FINDINGS: Normal appearing cavity. No gross [...] taken to recovery in stable condition. [facility] Summary Purpose Family History No Family History Records FoundNo Family History Records FoundNo Family History Records FoundNo Family History Records Found Advance Directives No Advanced Directives Records FoundNo Advanced Directives Records FoundNo Advanced Directives Records FoundNo Advanced Directives Records Found Additional Source Comments INFORMATION SOURCE (unrecogn ized section and content) DATE CREATED AUTHOR 12/06/2022 [facility] DATE CREATED AUTHOR AUTHOR'S ORGANIZ ATION 12/09/2023 [facility] EPIC DATE CREATED AUTHOR AUTHOR'S ORGANIZ ATION 02/28/2024 [facility] DATE CREATED AUTHOR AUTHOR'S ORGANIZ ATION 06/20/2024 [facility] FOR RECORDS PERTAINING TO PATIENTS WHO [...] BE BASED ON THE PRIMARY CLINICAL RECORDS. [facility] [employer] [facility]. provides no warranty or guarantee of the accuracy or completeness of information in this document.
--- NOTE | 2024-07-17 13:32 | P.CN_ITS ---
Consult Note: HPI Data of Consult Patient: known to practice within the last 3 years Requesting Physician: Melissa Chi NP Primary Care Provider: CATRACHO ROSALES Consult Narrative Reason for consult: chronic low back pain Narrative: Eileen Dobsno a pleasant 43 year old female presents for evaluation and management of chronic low back pain greater than 3 years. Patient reports chronic low back pain, today 4/10 sharp stabbing ache, increasing to 5/10 with twisting standing walking and bending, improved with medications and rest. Patient continues have moderate pain impacting functional ability despite benefit from gabapentin 400mg TID, tramadol 50mg q6hrs, ibuprofen q8hrs, and orphenadrine. Patient underwent recent lumbar xray and MRI which is consistent with lumbar ddd and lumbar facet arthropathy. Patient was evaluated by NS who will see her back as needed. Engaged in provider guided HEP greater than 6 weeks without benefit, and water therapy without benefit. recently underwent bilateral L4-5 L5-S1 RFA with >50% improvement ongoing, bilateral L5/S1 TFESI with >50% improvement ongoing. left SIJ injection mild ongoing relief. cc:: CC: Melissa Chi NP Review of Systems ROS Status of ROS 10 or more systems reviewed and unremark able except as noted in history and below Musculoskeletal Reports: back pain and joint pain PFSH PFSH Medical History (Updated 06/19/24 @ 13:10 by Melissa Chi NP) Arthritis ?M19.90 - Unspecified osteoarthritis, unspecified site (ICD-10) Acid reflux ?K21.9 - Gastro-esophageal reflux disease without esophagitis (ICD-10) Hypothyroid ?E03.9 - Hypothyroidism, unspecified (ICD-10) Surgical History History of wisdom tooth extraction ?K08.409 - Partial loss of teeth, unspecified cause, unspecified class (ICD- 10) History of endometrial ablation ?Z98.890 - Other specified postprocedural states (ICD-10) History of tubal ligation ?Z98.51 - Tubal ligation status (ICD-10) Meds Home Medications and Allergies Home Medications ?Medication ?Instructions ?Recorded ?Confirmed ?Type gabapentin 400 mg capsule 400 mg PO TID 03/05/24 07/07/24 History ibuprofen 400 mg tablet (IBU) 400 mg PO Q8H PRN pain 03/05/24 07/07/24 History levothyroxine 75 mcg capsule 75 mcg PO DAILY 03/05/24 07/07/24 History orphenadrine citrate 100 mg mg PO 03/05/24 History tablet,extended release tramadol 50 mg tablet mg 03/05/24 History Allergies Allergy/AdvReac Type Severity Reaction Status Date / Time acetaminophen (From Tylenol) Allergy Mild Unknown Verified 07/07/24 07:29 iron AdvReac Mild Unknown Verified 07/07/24 07:29 Exam Constitutional Documenting provider has reviewed patient's vital signs: yes Common normals: no apparent distress, oriented x3, healthy appearing, alert and well nourished General appearance: cooperative HENMT Common normals: normocephalic, hearing grossly normal bilaterally and moist oral mucous membranes Head and scalp: normocephalic Eye Common normals: PERRL Pupil: PERRL Neck & C-Spine Common normals: full ROM General: normal visual inspection Chest Common normals: inspection of chest normal Respiratory Common normals: normal respiratory effort, no retractions and no use of accessory muscles Back & Pelvis Lumbar spine/lower back: ROM limited, pain with ROM and straight leg raise negative bilaterally; no lumbar spinal tenderness and no paraspinal muscle tenderness Sacroiliac joints: SI joints normal Other: positive facet loading at L3 left SIJ negative mahesh(patricks), gaenslens, thigh thrust, compression test strength 5/5 in BLE, sensation equal and intact Extremity Common normals: normal to inspection and full ROM Neuro Common normals: oriented x3, CN's II-XII intact bilaterally, moves all extremities, no focal motor deficits, no sensory deficits noted and deep tendon reflexes 2+ bilaterally Sensorium/orientation: alert Motor exam: strength 5/5 throughout and no movement abnormalities noted Psych Common normals: mental status grossly normal, thought process normal, cooperative, affect normal, speech normal and activity/motor behavior normal Speech: normal speech Thought process: normal thought process Assessment and Plan Assessment and Plan (1) Sacroiliitis: (2) Lumbar stenosis with neurogenic claudication: Assessment and Plan: >50% improvement ongoing from bilateral L5-S1 TFESI (3) Lumbar degenerative disc disease: (4) Lumbar spondylosis: Assessment and Plan: >50% improvement ongoing from bilateral l4-5 l5-s1 facet RFA Plan per pt pain well controlled at this time, pain only increasing to 5/10 at the worst f/u with NS PRN continue medications through PCP f/u PRN
== END 2024-07-17 13:03 | disposition home or self-care (01) ==
LOC: PM 13:02
PROVIDERS: PCP Family Medicine; Visit Provider Nurse Practitioner
DX: M46.1 Sacroiliitis, not elsewhere classified (principal); M48.062 Spinal stenosis, lumbar region with neurogenic claudication; M51.369 Other intervertebral disc degeneration, lumbar region without mention of lumbar back pain or lower extremity pain; M47.816 Spondylosis without myelopathy or radiculopathy, lumbar region
CPT/HCPCS: G0463

== ENCOUNTER 2024-08-12 15:52 | Outpatient (OUT) | payer BC, SELFPAY ==
[2024-08-12 16:49] LABS: Alanine Aminotransferase 22 U/L (14-59); Albumin Globulin Ratio 1.1; Albumin Level 3.9 g/dL (3.4-5.0); Alkaline Phosphatase 55 U/L (46-116); Anion Gap 14.2; Aspartate Amino Transferase 13 U/L (15-37); BUN Creatinine Ratio 7.4; Bilirubin Total 0.5 mg/dL (0.2-1.0); Calcium 9.7 mg/dL (8.5-10.1); Carbon Dioxide 26.5 mmol/L (21.0-32.0); Chloride 104 mmol/L (98-107); Chol HDL Ratio 2.5; Cholesterol 275 mg/dL (<=200); Estimated GFR (African America >60 (>=60 mL/min/1.73m^2); Estimated GFR (Non-African Ame >60 (>=60 mL/min/1.73m^2); Free T3 2.89 pg/mL (2.18-3.98); Globulin 3.4 g/dL; Glucose 91 mg/dL (74-106); HDL Cholesterol 111 mg/dL (40-60); Potassium 3.7 mmol/L (3.5-5.1); Sodium 141 mmol/L (136-145); Thyroid Stimulating Hormone 6.836 uIU/mL (0.358-3.740); Total Protein 7.3 g/dL (6.4-8.2); Triglycerides 65 mg/dL (<=150)
[2024-08-12 18:34] LABS: Free T4 0.73 ng/dL (0.76-1.46)
== END 2024-08-12 15:53 | disposition home or self-care (01) ==
PROVIDERS: PCP Family Medicine; Visit Provider Family Medicine
DX: E06.3 Autoimmune thyroiditis (principal); Z13.1 Encounter for screening for diabetes mellitus; Z13.220 Encounter for screening for lipoid disorders; E07.81 Sick-euthyroid syndrome; R53.82 Chronic fatigue, unspecified
CPT/HCPCS: 36415; 80053; 80061; 84439; 84443; 84481

== ENCOUNTER 2025-05-20 19:31 | Outpatient (REF) | payer BC, SELFPAY ==
--- OUTSIDE RECORDS SUMMARY | 2025-05-20 14:30 | XMS_ITS | Encounter Summary ---
Author Organization [facility] Address [address] [place] [address] Care Team Providers Care Rear Admiral Name Role Phone Manny Logan MD Primary Care Provider [phone] Reason for Visit * Reason Comments Gynecologic Exam Encounter Details Date Type Department Care Team (Latest Contact Info) Description 05/20/2025 2:30 PM EDT Procedure Visit MILI Meza [facility] [address] [place] [id number] Mary Grimaldo PA [address] [place], [facility] Well woman exam with routine gynecological exam; Breast cancer screening by mammogram Social History Tobacco Use Types Packs/Day Years Used Date Smoking Tobacco: Former Cigarettes Smokeless Tobacco: Never Alcohol Use Standard Drinks/Week Comments Never 0 (1 standard drink = 0.6 oz pur e alcohol) caffeine intake : 1-2 cups/day PHQ-2 Answer Date Recorded Patient Health Questionnaire-2 Score 0 05/05/2025 Comments No Sex and Gender Information Value Date Recorded Sex Assigned at Not on file Legal Sex Female 6:48 PM EDT Gender Identity Not on file Sexual Orientation Not on file documented as of this encounter Last Filed Vital Signs Vital Sign Reading Time Taken Comments Blood Pressure 122/74 05/20/2025 2:39 PM EDT Pulse - - Temperature - - Respiratory Rate - - Oxygen Saturation - - Inhaled Oxygen Concentration - - Weight 86.6 kg (191 lb) 05/20/2025 2:39 PM EDT Height 170.2 cm (5' 7 ) 05/20/2025 2:39 PM EDT Body Mass Index 29.91 05/20/2025 2:39 PM EDT documented in this encounter Progress Notes * Aurelia UribeFLAVIA - 05/20/2025 2:30 PM EDT Reason for Appointment: Patient ID: Eileen Dobson is a 45 y.o. female who presents for Gynecologic Exam Patient presents today for Annual Exam. MEDICATIONS Current Outpatient Medications Medication Instructions gabapentin (NEURONTIN) 400 mg, Oral, 4 times daily PRN, T Ibuprofen 600 mg, 3 times daily levothyroxine (SYNTHROID, LEVOXYL) 75 mcg, Oral, Daily before breakfast nabumetone (RELAFEN) 750 mg, Oral, 2 times daily predniSONE (Deltasone) 10 MG tablet Every 2 day tapering dose; 5,5,4,4,3,3,2,2,1,1,0.5,0.5 valACYclovir (Valtrex) 1 g tablet Take 2 tablets twice daily for 1 day at the onset of a cold sore. ALLERGIES Allergies Allergen Reactions Hydroxychloroquine Other Reaction(s): hives PROBLEMS Active Ambulatory Problems Diagnosis Date Noted DDD (degenerative disc disease), lumbosacral 05/16/2023 Acquired hypothyroidism 05/22/2023 Chronic fatigue 05/22/2023 Degenerative disc disease, cervical 05/22/2023 ESS (euthyroid sick syndrome) 05/22/2023 Former smoker 05/22/2023 Ramin's thyroiditis 05/22/2023 Heart murmur 05/22/2023 Overweight (BMI 25.0-29.9) 05/22/2023 Toxic diffuse goiter 05/22/2023 Vaping nicotine dependence, non-tobacco product 05/22/2023 Cold sore 07/31/2023 Neck pain, bilateral 11/15/2023 Paresthesia and pain of both upper extremities 11/15/2023 Resolved Ambulatory Problems Diagnosis Date Noted No Resolved Ambulatory Problems Past Medical History: Diagnosis Date Abnormal mammogram of left breast Acute medial meniscus tear Asthma (HCC) Bronchitis Chicken pox Essential hypertension Family history of cancer Graves disease Hypothyroidism Lipoma Microalbuminuria Migraine Migraine headache Pneumonia Proteinuria Smoker Tennis elbow Tension headache Thyroiditis Ulcerative colitis (HCC) Vaginal infection HISTORY PAST MEDICAL HISTORY SOCIAL HISTORY Past Medical History: Diagnosis Date Abnormal mammogram of left breast Acute medial meniscus tear Asthma (HCC) Bronchitis Chicken pox Essential hypertension Family history of cancer Graves disease Hypothyroidism Lipoma Microalbuminuria Migraine Migraine headache Pneumonia Proteinuria Smoker Tennis elbow Tension headache Thyroiditis Ulcerative colitis (HCC) 2011, 2013 Vaginal infection Social History Tobacco Use Smoking status: Former Types: Cigarettes Smokeless tobacco: Never Substance Use Topics Alcohol use: Never Comment: caffeine intake : 1-2 cups/day Drug use: Never FAMILY HISTORY Family History Problem Relation Name Age of Onset Breast cancer Mother Diabetes Father Hypertension Father Thyroid cancer Sister No Known Problems Brother Melanoma Paternal Grandmother Breast cancer Sibling SURGICAL HISTORY Past Surgical History: Procedure Laterality Date COLONOSCOPY X 5 - with biopsy 2011, 2013, 2014, 2018, 2021 EXCISION 10/10/2021 excision of ganglion cyst LT hand Dr. Mckeon IUD REMOVAL 2011 mirena KNEE SURGERY 2009 arthroscopy LIPOMA RESECTION 05/06/2020 Excision back lipoma w/ PCLaffay OTHER SURGICAL HISTORY 03/2022 Uterine ablasion, Dk, TBH TUBAL LIGATION 2016 VAGINAL DELIVERY x4 WISDOM TOOTH EXTRACTION REVIEW OF SYSTEMS Review of Systems: Review of Systems Constitutional: Negative. HENT: Negative. Eyes: Negative. Respiratory: Negative. Cardiovascular: Negative. Gastrointestinal: Negative. Genitourinary: Negative. Musculoskeletal: Negative. Skin: Negative. Neurological: Negative. All other systems reviewed and are negative. Hematological: Negative. Endocrine: Negative. Allergic/Immunologic: Negative. OBJECTIVE Objective: Physical Exam Constitutional: Appearance: Normal appearance. She is well-developed. Genitourinary: Vulva normal. Breasts: Breasts are soft. Right: Normal. Left: Normal. Cardiovascular: Rate and Rhythm: Normal rate and regular rhythm. Pulmonary: Effort: Pulmonary effort is normal. Breath sounds: Normal breath sounds. Abdominal: General: Bowel sounds are normal. There is no distension. Palpations: Abdomen is soft. Tenderness: There is no abdominal tenderness. There is no guarding or rebound. Musculoskeletal: General: No swelling. Normal range of motion. Right lower leg: No edema. Left lower leg: No edema. Neurological: Mental Status: She is alert and oriented to person, place, and time. Skin: General: Skin is warm and dry. Psychiatric: Mood and Affect: Mood normal. Behavior: Behavior normal. Vitals and nursing note reviewed. Exam conducted with a refractory technician present. Vitals: Estimated body mass index is 28.63 kg/m?? as calculated from the following: Height as of 05/05/25: 5' 7 . Weight as of 05/05/25: 182 lb 12.8 oz. BP: No LMP recorded. ASSESSMENT & PLAN ICD-10-CM 1. Well woman exam with routine gynecological exam Z01.419 Annual: Patient presents today for an annual exam. Patient states she is doing well and has no complaints. Pap was obtained without difficulty and patient given mammogram order to have scheduled/obtained. No orders of the defined types were placed in this encounter. Follow Up: Patient is to return in one year for annual unless needed otherwise. Documented by Aurelia Uribe MA on behalf of: JILLIAN Hillman documented in this encounter Plan of Treatment Scheduled Orders Name Type Priority Associated Diagnoses Orde r Schedule Bilateral screening mammogram Imaging Routine Breast cancer screening by mammogram Expected: 05/20/2025 (Approximate), Expires: 07/20/2026 THIN PREP TIS PAP AND HR HPV DNA Pathology and Cytology Routine Well woman exam with routine gynecological exam Ordered: 05/20/2025 documented as of this encounter Procedures Procedure Name Priority Date/Time Associated Diagnosis Comments PAP SMEAR Routine 06/19/2022 12:00 AM EDT documented in this encounter Results * Pap Smear (06/19/2022 12:00 AM EDT) Swab Cervical swab / Unknown us Bill Dk DO LAB CYTOLOGY ORDERABLES Final Re sult EXTERNAL LAB documented in this encounter Visit Diagnoses Diagnosis Well woman exam with routine gynecological exam Routine gynecological examination Breast cancer screening by mammogram documented in this encounter Care Teams Rear Admiral Relationship Specialty Start Date End Date Manny Logan MD [address] [address] PCP - General Family Medicine 01/30/23 documented as of this encounter
--- OUTSIDE RECORDS SUMMARY | 2025-05-20 19:34 | XMS_ITS | Encounter Summary ---
Author Organization [facility] Address [address] [facility] [place] [address] Care Team Providers Care Buttonhole Machine Operator Name Role Phone Manny Logan MD Unavailable [phone] Manny Logan MD Primary Care Provider [phone] Encounter Details Date Type Department Care Team (Late st Contact Info) Description 02/23/2023 Abstract [facility] 521 Family Medicine [address] [facility] [place] [address] Manny Logan MD [address] [place] [address] (Fax) Social History Tobacco Use Types Packs/Day Years Used Date Smoking Tobacco: Never Smokeless Tobacco: Never Tobacco Cessation:Counseling Given: Not Answered Alcohol Use Standard Drinks/Week Comments Never 0 (1 standard drink = 0.6 oz pur e alcohol) caffeine 1-2 cups/day Comments Unknown Sex and Gender Information Value Date Recorded Sex Assigned at Not on file Legal Sex Female 6:48 PM EDT Gender Identity Not on file Sexual Orientation Not on file documented as of this encounter Plan of Treatment Not on file documented as of this encounter Visit Diagnoses Not on filedocumented in this encounter Care Teams Buttonhole Machine Operator Relationship Specialty Start Date End Date Manny Logan MD [address] [place], [place] [id number] (Fax) PCP - [employer] [employer] 12/23/2008/23 Manny Logan MD [address] [place] [id number] PCP - General Family Medicine 01/30/23 documented as of this encounter
--- OUTSIDE RECORDS SUMMARY | 2025-05-20 19:34 | XMS_ITS | Encounter Summary ---
Author Organization [facility] Address [address] [place] [address] Care Team Providers Care Screwhead Polisher Name Role Phone Manny Logan MD Unavailable [phone] Manny Logan MD Primary Care Provider [phone] Encounter Details Date Type Department Care Team (Late st Contact Info) Description 01/31/2024 Abstract [facility] 521 Family Medicine [address] [facility] [place] [address] Manny Logan MD [address] [place] [address] 100 [place] [address] (Fax) Social History Tobacco Use Types Packs/Day Years Used Date Smoking Tobacco: Former Cigarettes Smokeless Tobacco: Never Alcohol Use Standard Drinks/Week Comments Never 0 (1 standard drink = 0.6 oz pur e alcohol) caffeine intake : 1-2 cups/day PHQ-2 Answer Date Recorded Patient Health Questionnaire-2 Score 0 11/15/2023 Comments No Sex and Gender Information Value Date Recorded Sex Assigned at Not on file Legal Sex Female 6:48 PM EDT Gender Identity Not on file Sexual Orientation Not on file documented as of this encounter Plan of Treatment Not on file documented as of this encounter Visit Diagnoses Not on filedocumented in this encounter Care Teams Screwhead Polisher Relationship Specialty Start Date End Date Manny Logan MD 112 [facility] 100 [place], [place] [id number] PCP - [place] [employer] 12/23/2008/23 Manny Logan MD [address] [place] [address] PCP - General Family Medicine 01/30/23 documented as of this encounter
--- OUTSIDE RECORDS SUMMARY | 2025-05-20 19:35 | XMS_ITS | Encounter Summary ---
Author Organization [facility] Address [address] [place] [address] Care Team Providers Care Keeler Polygraph Operator Name Role Phone Manny Logan MD Unavailable [phone] Manny Logan MD Primary Care Provider [phone] Encounter Details Date Type Department Care Team (Late st Contact Info) Description 04/22/2024 Orders Only [facility] 100 Family Medicine 112 [facility] 100 [place] [address] Manny Logan MD 112 [facility] 100 [place] [address] DDD (degenerative disc disease), lumbosacral Social History Tobacco Use Types Packs/Day Years [...] documented as of this encounter Visit Diagnoses Diagnosis DDD (degenerative disc disease), lumbosacral Degeneration of lumbar or lumbosacral intervertebral disc documented in this encounter Care Teams Keeler Polygraph Operator Relationship Specialty Start Date End Date Manny Logan MD [address] [place] [address] PCP - [place] [employer] 12/23/2008/23 Manny Logan MD [address] [place] [address] PCP - General Family Medicine 01/30/23 documented as of this encounter
--- OUTSIDE RECORDS SUMMARY | 2025-05-20 19:35 | XMS_ITS | Encounter Summary ---
Author Organization [facility] Address [address] [place] [address] Care Team Providers Care Marine Engineering Professor Name Role Phone Manny Logan MD Unavailable [phone] Manny Logan MD Primary Care Provider [phone] Reason for Visit * Reason Comments Med Refill Encounter Details Date Type Department Care Team (Late st Contact Info) Description 04/21/2024 Refill [facility] 521 Family Medicine [address] [place] [address] Manny Logan MD 112 [facility] 100 [place] [address] Sacroiliitis; Chronic pain syndrome Social History Tobacco Use Types Packs/Day Years [...] as of this encounter Visit Diagnoses Diagnosis Sacroiliitis Sacroiliitis, not elsewhere classified Chronic pain syndrome documented in this encounter Care Teams Marine Engineering Professor Relationship Specialty Start Date End Date Manny Logan MD [address] [place] [address] PCP - [employer] 12/23/2008/23 Manny Logan MD [address] [place] [address] PCP - General Family Medicine 01/30/23 documented as of this encounter
--- OUTSIDE RECORDS SUMMARY | 2025-05-20 19:35 | XMS_ITS | Encounter Summary ---
Author Organization [facility] Address [address] [facility] [place] [address] Care Team Providers Care Eye Technician Name Role Phone Manny Logan MD Primary Care Provider [phone] Encounter Details Date Type Department Care Team (Late st Contact Info) Description 05/20/2025 Bamboo flowsheet [facility] [address] [facility] [place] [address] Mary Grimaldo PA [address] [facility] [address] [place] [id number] Social History Tobacco Use Types Packs/Day Years [...] on filedocumented in this encounter Care Teams Eye Technician Relationship Specialty Start Date End Date Manny Logan MD [address] [place] [address] PCP - General Family Medicine 01/30/23 documented as of this encounter
--- OUTSIDE RECORDS SUMMARY | 2025-05-20 19:35 | XMS_ITS | Encounter Summary ---
Author Organization [facility] Address [address] [place] [address] Care Team Providers Care Assurance Associate Name Role Phone Manny Logan MD Unavailable [phone] Manny Logan MD Primary Care Provider [phone] Encounter Details Date Type Department Care Team (Late st Contact Info) Description 12/11/2023 Orders Only [facility] 521 Family Medicine [address] [place] [address] Manny Logan MD 112 [facility] [address] [place] [address] (Fax) Chronic pain syndrome Social History Tobacco Use [...] as of this encounter Visit Diagnoses Diagnosis Chronic pain syndrome documented in this encounter Care Teams Assurance Associate Relationship Specialty Start Date End Date Manny Logan MD [address] [place] [address] PCP - [place] [employer] 12/23/2008/23 Manny Logan MD [address] [place], [place] [address], [place] [address] PCP - General Family Medicine 01/30/23 documented as of this encounter
--- OUTSIDE RECORDS SUMMARY | 2025-05-20 19:35 | XMS_ITS | Encounter Summary ---
Author Organization [facility] Address [address] [place] [address] Care Team Providers Care Research Neuropsychologist Name Role Phone Manny Logan MD Unavailable [phone] Manny Logan MD Primary Care Provider [phone] Encounter Details Date Type Department Care Team (Late st Contact Info) Description 02/15/2024 Abstract [facility] 521 Family Medicine [address] [facility] [place] [address] Manny Logan MD [address] [place] [address] 100 [place] [address] (Fax) Social History Tobacco Use [...] on filedocumented in this encounter Care Teams Research Neuropsychologist Relationship Specialty Start Date End Date Manny Logan MD 112 [facility] 100 [place], [place] [phone] PCP - [place] [employer] 12/23/2008/23 Manny Logan MD [address] [place] [address] PCP - General Family Medicine 01/30/23 documented as of this encounter
--- OUTSIDE RECORDS SUMMARY | 2025-05-20 19:35 | XMS_ITS | Clinical Summary ---
Author Organization [facility] Address [address] [place] [address] Care Team Providers Care Closing Agent Name Role Phone Manny Logan MD Primary Care Provider [phone] Allergies Active Allergy Reactions Criticality Noted Date Comments Hydroxychloroquine 05/22/2023 Other Reaction(s): hives Medications valACYclovir (Valtrex) 1 g tabletIndicatio ns:Cold sore Take 2 tablets twice daily for 1 day at the onset of a cold sore. 20 tablet 3 Active Ibuprofen capsule Take 600 mg by mouth in the morning and 600 mg in the evening and 600 mg before bedtime. As needed for pain. Active levothyroxine (Synthroid, Levoxyl) 75 MCG tabletIndicatio ns:Acquired hypothyroidism, Chronic fatigue Take 1 tablet (75 mcg) by mouth in the morning. Take before meals. 90 tablet 5 025 Active Additional Information Patient not taking.Reported on 05/05/2025 gabapentin (Neurontin) 400 MG capsuleIndicati ons:DDD (degenerative disc disease), lumbosacral Take 1 capsule (400 mg) by mouth 4 (four) times a day as needed (pain) T 360 capsule 1 5 026 Active predniSONE (Deltasone) 10 MG tabletIndicatio ns:Achilles tendinitis of right lower extremity Every 2 day tapering dose; 5,5,4,4,3,3,2,2 ,1,1,0.5,0.5 31 tablet 5 Active nabumetone (Relafen) 750 MG tabletIndicatio ns:Achilles tendinitis of right lower extremity Take 1 tablet (750 mg) by mouth in the morning and 1 tablet (750 mg) before bedtime. 60 tablet 5 025 Active orphenadrine (Norflex) 100 MG 12 hr tabletIndicatio ns:Chronic pain syndrome Take 1 tablet (100 mg) by mouth 2 (two) times a day as needed for muscle spasms Do not crush, chew, or split. 60 tablet 4 025 Discontin ued(Med list cleanup) levothyroxine (Synthroid, Levoxyl) 75 MCG tabletIndicatio ns:Acquired hypothyroidism, Chronic fatigue Take 1 tablet (75 mcg) by mouth in the morning. Take before meals. 90 tablet 1 4 025 Discontin ued(Reord er) gabapentin (Neurontin) 400 MG capsuleIndicati ons:DDD (degenerative disc disease), lumbosacral Take 1 capsule (400 mg) by mouth 4 (four) times a day as needed (pain) T 360 capsule 1 4 025 Discontin ued(Reord er) Active Problems Problem Noted Date Diagnosed Date Neck pain, bilateral 11/15/2023 Paresthesia and pain of both upper extremities 0 11/15/2023 Cold sore 07/31/2023 Acquired hypothyroidism 05/22/2023 Chronic fatigue 05/22/2023 Degenerative disc disease, cervical 05/22/2023 ESS (euthyroid sick syndrome) 05/22/2023 Former smoker 05/22/2023 Ramin's thyroiditis 05/22/2023 Heart murmur 05/22/2023 Overweight (BMI 25.0-29.9) 05/22/2023 Toxic diffuse goiter 05/22/2023 Vaping nicotine dependence, non-tobacco product 05/22/2023 DDD (degenerative disc disease), lumbosacral Encounters Date Type Department Care Team Description 05/20/2025 2:30 PM EDT Procedure Visit [facility] [address] [place] [address] [place] [address] Mary Grimaldo PA Well woman exam with routine gynecological exam; Breast cancer screening by mammogram 05/20/2025 Bamboo flowsheet [facility] [address] [place] [address] Mary Grimaldo PA 05/05/2025 11:45 AM EDT Office Visit [facility] [address] Manny Logan MD Achilles tendinitis of right lower extremity (Primary Dx); DDD (degenerative disc disease), lumbosacral 05/05/2025 Bamboo flowsheet [facility] [address] Manny Logan MD 05/05/2025 Travel 04/28/[address] Telephone [facility] [address] [phone] Manny Logan MD from Last 3 Months Family History Medical History Relation Name Comments No Known Problems Brother Diabetes Father Hypertension Father Breast cancer Mother Melanoma Paternal Grandmother Breast cancer Sibling Thyroid cancer Sister Relation Name Status Comments Brother 1 brother Daughter Alive 1 daughter Father Alive Mother Paternal Grandmother Sibling Alive Sister 2 sisters Son Alive 3 sons Social History Tobacco Use Types Packs/Day Years Used Date Smoking Tobacco: Former Cigarettes Smokeless Tobacco: Never Tobacco Cessation:Counseling Given: Yes Alcohol Use Standard Drinks/Week Comments Never 0 (1 standard drink = 0.6 oz pur e alcohol) caffeine intake : 1-2 cups/day PHQ-2 Answer Date Recorded Patient Health Questionnaire-2 Score 0 05/05/2025 Comments No Sex and Gender Information Value Date Recorded Sex Assigned at Not on file Legal Sex Female 6:48 PM EDT Gender Identity Not on file Sexual Orientation Not on file Last Filed Vital Signs Vital Sign Reading Time Taken Comments Blood Pressure 122/74 05/20/2025 2:39 PM EDT Pulse 85 08/27/2024 2:55 PM EST Temperature - - Respiratory Rate - - Oxygen Saturation 99% 08/27/2024 2:55 PM EST Inhaled Oxygen Concentration - - Weight 86.6 kg (191 lb) 05/20/2025 2:39 PM EDT Height 170.2 cm (5' 7 ) 05/20/2025 2:39 PM EDT Body Mass Index 29.91 05/20/2025 2:39 PM EDT Plan of Treatment Health Maintenance Due Date Last Done Comments CT Colonography 1980 Colonoscopy 1980 Colorectal Cancer Screening 1980 FIT-DNA 1980 FIT 1980 FOBT 1980 Sigmoidoscopy 1980 HPV/Cotest 2010 Mammogram 2020 Influenza Vaccine (#1) 2025 Cervical Cancer Screening 06/19/2025 Pap Smear 06/19/2025 06/19/2022 Procedures Procedure Name Priority Date/Time Associated Diagnosis Comments PAP SMEAR Routine 06/19/2022 12:00 AM EDT from Last 3 Months or Most Recently Relevant to Health Maintenance Results * Pap Smear (06/19/2022 12:00 AM EDT) Swab Cervical swab / Unknown us Bill Dk DO LAB CYTOLOGY ORDERABLES Final Re sult EXTERNAL LAB from Last 3 Months or Most Recently Relevant to Health Maintenance Insurance [facility] Care Teams Closing Agent Relationship Specialty Start Date End Date Manny Logan MD [address] [address] PCP - General Family Medicine 01/30/23
--- OUTSIDE RECORDS SUMMARY | 2025-05-20 19:41 | XMS_ITS | CCD ---
Author Organization [facility]iniSy[facility] Care Team Providers Care Ton Container Shipper Name Role Phone DK ., DR SKY Admitting Unavailable REQUEST, DR NONE LISTED Primary Care Unavaila ble DK ., DR SKY Consulting Unavailable DK ., DR SKY Attending Unavailable REQUEST, DR MALAIKA LISTED Consulting Unavaila ble DK ., DR SKY Admitting Unavailable HEMEYER ., DR HAYDEN Primary Care Unavailable DK ., DR SKY Consulting Unavailable DK ., DR SKY Attending Unavailable HEMEYER ., DR HAYDEN Attending Unavailable HEMEYER ., DR HAYDEN Admitting Unavailable HEMEYER ., DR HAYDEN Primary Care Unavailable DK ., DR SKY Admitting Unavailable HEMEYER ., DR HAYDEN Consulting Unavailable HEMEYER ., DR HAYDEN Primary Care Unavailable DK ., DR SKY Attending Unavailable DK ., DR SKY Consulting Unavailable AGUBOSIM, ULICES Consulting Unavailable YESSY PATEL Consulting Unavailable DK ., DR SKY Consulting Unavailable HEMEYER ., DR HAYDEN Primary Care Unavailable DK ., DR SKY Attending Unavailable DK ., DR SKY Admitting Unavailable DK ., DR SKY Admitting Unavailable HEMEYER ., DR HAYDEN Primary Care Unavailable DK ., DR SKY Consulting Unavailable DK ., DR SKY Attending Unavailable SANDHU, JULIO [...] Unavailable HEMEYER ., DR HAYDEN Admitting Unavailable DK ., DR SKY Admitting Unavailable DK ., DR SKY Consulting Unavailable DK ., DR SKY Attending Unavailable HEMEYER ., DR HAYDEN Primary Care Unavailable ZIEBER, DR AHSAN Robert Consulting Unavailable DK ., DR SKY Consulting Unavailable HEMEYER ., DR HAYDEN Primary Care Unavailable DK ., DR SKY Attending Unavailable DK ., DR SKY Admitting Unavailable HEMEYER ., DR HAYDEN Primary Care Unavailable DK ., DR SKY Consulting Unavailable DK ., DR SKY Attending Unavailable DK ., DR SKY Admitting Unavailable DK ., DR SKY Admitting Unavailable HEMEYER ., DR HAYDEN Primary Care Unavailable DK ., DR SKY Attending Unavailable DK ., DR SKY Consulting Unavailable ZIEBER, DR AHSAN Robert Consulting Unavailable MANNY ROSALES Referring Unavailable FRIEDA LESTER Attending Unavailable Giedraitis , Andrius Willams Attending Unavailable Giedraitis , Andrius Imer Attending Unavailable Giedraitis , Andrius Vjarek Attending Unavailable Giedraitis , Andrius Vjarek Attending Unavailable Giedraitis , Andrius Imer Attending Unavailable Manny Rosales MD Unavailable [phone] Manny Rosales MD Primary Care Provider [phone] Manny Rosales MD Unavailable Manny Rosales MD Primary Care Provider Unavailable Primary Care Provider Unavailabl e MANNY ROSALES Attending Unavailable MANNY ROSALES Attending Unavailable Allergies Allergy Classification Reported Allergen(s) Allergy Type Date of Onset Reaction(s) Facility (2 sources) Acetaminophen Drug Allergy The [facility] Repository (2 sources) ferric carboxymaltose Drug Allergy 2 [facility] Repository (2 sources) Acetaminophen; Translations: [ACETAMINOPHEN] Drug Allergy 4 [facility] Repository (9 sources) Hydroxychloroquine; Translations: [HYDROXYCHLOROQUINE ] Drug Allergy 3 [facility] Repository Medications Current Medications Medication Drug Class(es) Dates Sig (Normalized) Sig (Original) gabapentin 400 mg oral capsule (10 sources) Anti-epileptic Agent Start: 05-05-2025 End: 11-01-2025 take 1 capsule by mouth four times daily as needed for pain gabapentin (Neurontin) 400 MG capsule Indications: DDD (degenerative disc disease), lumbosacral Take 1 capsule (400 mg) by mouth 4 (four) times a day as needed (pain) T 360 capsule 1 05/05/2025 11/01/2025 Active Start: 04-22-2024 End: 02-23-2025 take 1 capsule by mouth four times daily as needed for pain gabapentin (Neurontin) 400 MG capsule Indications: DDD (degenerative disc disease), lumbosacral Take 1 capsule (400 mg) by mouth 4 (four) times a day as needed (pain) T 360 capsule 1 08/27/2024 Active gabapentin (NEUR ONTIN) 400 mg capsule Take 1 capsule (400 mg total) by mouth. Active ibuprofen 200 mg oral capsule (8 sources) Nonsteroidal Anti-inflammatory Drug take 1 capsule by mouth in the morning as needed for pain, then take 1 capsule by mouth in the evening as needed for pain, then take 1 capsule by mouth at bedtime as needed for pain Ibuprofen capsule Take 600 mg by mouth in the morning and 600 mg in the evening and 600 mg before bedtime. As needed for pain. Active take 3 capsules by m outh three times daily ibuprofen 200 mg capsule Take 600 mg by mouth 3 (three) times a day. Active levothyroxine sodium 0.075 mg oral tablet (10 sources) l-Thyroxine Start: 04-29-2025 End: 07-28-2025 take 1 tablet by mouth before mealtime levothyroxine (Synthroid, Levoxyl) 75 MCG tablet Indications: Acquired hypothyroidism , Chronic fatigue Take 1 tablet (75 mcg) by mouth in the morning. Take before meals. 90 tablet 04/29/2025 07/28/2025 Active Start: 12-24-2022 End: 02-23-2025 take 1 tablet by mouth before mealtime levothyroxine (Synthroid, Levoxyl) 75 MCG tablet Indications: Acquired hypothyroidism (CMS/HCC) , Chronic fatigue Take 1 tablet (75 mcg) by mouth in the morning. Take before meals. 90 tablet 1 08/27/2024 02/23/2025 Active nabumetone 750 mg oral tablet (2 sources) Nonsteroidal Anti-inflammatory Drug Start: 05-05-2025 End: 06-04-2025 take 1 tablet by mouth in the morning nabumetone (Relafen) 750 MG tablet Indications: Achilles tendinitis of right lower extremity Take 1 tablet (750 mg) by mouth in the morning and 1 tablet (750 mg) before bedtime. 60 tablet 05/05/2025 06/04/2025 Active 12 hr orphenadrine citrate 100 mg extended release oral tablet (5 sources) Muscle Relaxant Start: 12-11-2023 take 1 tablet by mouth twice daily as needed for muscle spasms orphenadrine (Norflex) 100 MG 12 hr tablet Indications: Chronic pain syndrome Take 1 tablet (100 mg) by mouth 2 (two) times a day as needed for muscle spasms Do not crush, chew, or split. 60 tablet 12/11/2023 Active predniSONE 10 mg oral tablet (2 sources) Start: 05-05-2025 predniSONE (Deltasone) 10 MG tablet Indications: Achilles tendinitis of right lower extremity Every 2 day tapering dose; 5,5,4,4,3,3,2,2,1 ,1,0.5,0.5 31 tablet 05/05/2025 Active traMADol hydrochloride 50 mg oral tablet (1 source) Opioid Agonist Start: 01-22-2024 take 1 tablet by mouth every six hours as needed for pain traMADoL (ULTRAM) 50 mg tablet Take 1 tablet (50 mg total) by mouth every 6 (six) hours as needed for pain. 01/22/2024 Active valACYclovir 1000 mg oral tablet (7 sources) Herpesvirus Nucleoside Analog DNA Polymerase Inhibitor, Herpes Simplex Virus Nucleoside Analog DNA Polymerase Inhibitor, Herpes Zoster Virus Nucleoside Analog DNA Polymerase Inhibitor Start: 07-31-2023 valACYclovir (Valtrex) 1 g tablet Indications: Cold sore Take 2 tablets twice daily for 1 day at the onset of a cold sore. 20 tablet 07/31/2023 Active Completed/Discontinued Medications Medication Drug Class(es) Dates Sig (Normalized) Sig (Original) acetaminophen 500 mg oral tablet (4 sources) End: 08-27-2024 take 2 tablets by mouth every eight hours as needed for pain acetaminophen (Tylenol) 500 MG tablet Take 1,000 mg by mouth every 8 (eight) hours if needed for moderate pain 08/27/2024 Discontinued (Therapy completed) polysaccharide iron complex 391 mg oral capsule (4 sources) End: 08-27-2024 iron polysaccharides (ProFe) 391.3 (180 Fe) MG capsule Not Available Oral for 30 Days 08/27/2024 Discontinued (Therapy completed) Problems Active Problems Problem Classification Problem Date [...] [HEADACHE UNSPECIFIED] Onset: 12-05-2022 Malaise and fatigue (10 sources) Chronic fatigue, unspecified; Translations: [Fatigue] Onset: 03-21-2022 05-22-2023 Chronic Menstrual disorders (5 sources) Excessive and frequent menstruation with irregular cycle; Translations: [Excessive and frequent menstruation with regular cycle] Onset: 04-05-2022 Chronic Other aftercare (1 source) Other senior living (current) drug therapy; Translations: [OTH LONG-TERM CURRENT DRUG THERAPY] Onset: 12-05-2022 Episodic Other female genital disorders (1 source) Abnormal uterine and vaginal bleeding, unspecified; Translations: [ABNORMAL UTERINE VAGINAL BLEED UNS] Onset: 04-17-2022 Chronic Other screening for suspected conditions (not mental disorders or infectious disease) (5 sources) Encounter for screening for malignant neoplasm of cervix; Translations: [Patient encounter status] Onset: 06-19-2022 Episodic Other upper respiratory infections (1 source) Acute upper respiratory infection, unspecified; Translations: [ACUTE UP RESPIRATORY INFECTION UNS] Onset: 12-05-2022 Episodic Residual codes; unclassified (1 source) Pain, unspecified; Translations: [Pain, unspecified] Onset: 02-27-2024 Episodic Spondylosis; intervertebral disc disorders; other back problems (20 sources) Other intervertebral disc degeneration, lumbosacral region; Translations: [Spondylosis without myelopathy or radiculopathy, cervical region] Onset: 05-16-2023 05-16-2023 Chronic Substance-related disorders (8 sources) Nicotine dependence, cigarettes, uncomplicated; Translations: [Nicotine dependence] Onset: 12-05-2022 05-22-2023 Chronic Thyroid disorders (20 sources) Hypothyroidism, unspecified; Translations: [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 crisis or storm] Onset: 03-21-2022 05-22-2023 Chronic Unclassified (1 source) CONTACT W/AND (SUSP) [...] [IRON DEFICIENCY ANEMIA UNSPECIFIED] Onset: 03-02-2022 Episodic Heart valve disorders (7 sources) Heart murmur; Translations: [Cardiac murmur, unspecified] Onset: 05-22-2023 05-22-2023 Episodic Immunizations and screening for infectious disease (1 source) Encounter for screening for human papillomavirus (HPV); Translations: [ENC SCREENING HUMAN PAPILLOMAVIRUS] Onset: 06-21-2022 Episodic Other aftercare (4 sources) Encounter for follow-up examination after completed treatment for conditions other than malignant neoplasm; Translations: [ENC F/U EX AFTR CMPL TX NOT MAL JUJU] Onset: 05-08-2022 Episodic Other nervous system disorders (7 sources) Pain in limb - multiple; Translations: [Paresthesia of skin] Onset: 11-15-2023 11-15-2023 Episodic Other nutritional; endocrine; and metabolic disorders (7 sources) Body mass index 25-29 - overweight; Translations: [Overweight] Onset: 05-22-2023 05-22-2023 Episodic Ovarian cyst (4 sources) Other ovarian cyst, unspecified side; Translations: [OTHER OVARIAN CYST UNSPECIFIED SIDE] Onset: 03-30-2022 Episodic Screening and history of mental health and substance abuse codes (8 sources) Personal history of nicotine dependence; Translations: [Ex-smoker] Onset: 03-03-2022 05-22-2023 Episodic Spondylosis; intervertebral disc disorders; other back problems (9 sources) Spinal stenosis, cervical region; Translations: [Neck pain] Onset: 11-15-2023 11-15-2023 Episodic Thyroid disorders (13 sources) Sick-euthyroid syndrome; Translations: [Sick-euthyroid syndrome] Onset: 03-16-2022 Episodic Unclassified (1 source) COUGH, UNSPECIFIED; Translations: [COUGH, UNSPECIFIED] Onset: 12-02-2022 Viral infection (7 sources) Herpes labialis; Translations: [Herpesviral vesicular dermatitis] Onset: 07-31-2023 07-31-2023 Episodic Results Test Name Value Interpretation Reference Range Facility ALL LIPID PROFILE (FASTING)o n 08-12-2024 CHOL HDL RATIO 2.5 [facility] Comment on above: 3.3 - 4.4 LOW RISK 4.4 - 7.1 AVERAGE RISK 7.1 - 11.0 MODERATE RISK >11.0 HIGH RISK Cholesterol [Mass/Vol] 275 mg/dL High NINF - 200 mg/dL [facility] Cholesterol in HDL [Mass/Vol] 111 mg/dL High 40 - 60 mg/dL [facility] Comment on above: > or =60 mg/dl - LOW CARDIOVASCULAR RISK <40 mg/dl - HIGH CARDIOVASCULAR RISK Magnesium [Mass/Vol] 151 mg/dL [facility] Comment on above: <100 mg/dl OPTIMAL 100-129 mg/dl NEAR OR ABOVE OPTIMAL 130-159 mg/dl BORDERLINE HIGH 160-189 mg/dl HIGH >190 mg/dl VERY HIGH Magnesium [Mass/Vol] 13 mg/dL [facility] Triglyceride [Mass/Vol] 65 mg/dL NINF - 150 mg/dL [facility] ALL T3 FREEon 08-12-2024 Free T3 [Mass/Vol] 2.89 pg/mL 2.18 - 3. 98 pg/mL [facility] ALL THYROID STIM HORMONEon 1 10-12-2023 TSH Qn 6.836 m[IU]/L High [facility] CMP (CMP) (FOR REMOTE FH C USE)on 08-12-2024 Albumin [Mass/Vol] 3.9 g/dL 3.4 - 5.0 g/dL NO [facility] ALBUMIN GLOBULIN RATIO 1.1 [facility] ALP [Catalytic activity/Vol] 55 U/L 46 - 116 U/L [facility] ALT [Catalytic activity/Vol] 22 U/L 14 - 59 U/L [facility] Anion gap [Moles/Vol] 14.2 mmol/L [facility] AST [Catalytic activity/Vol] 13 U/L Low 15 - 37 U/L [facility] Bilirubin [Mass/Vol] 0.5 mg/dL 0.2 - 1 .0 mg/dL [facility] Calcium [Mass/Vol] 9.7 mg/dL 8.5 - 10. 1 mg/dL [facility] Chloride [Moles/Vol] 104 mmol/L 98 - 10 7 mmol/L [facility] CO2 [Moles/Vol] 26.5 mmol/L 21.0 - 32.0 mmol/L [facility] Creatinine [Mass/Vol] 0.95 mg/dL 0.55 - 1.02 mg/dL [facility] GFR/1.73 sq M.predicted CKD-EPI (S/P/Bld) [Vol rate/Area] >60 >=60 mL/min/1.73m 2 [facility] Globulin (S) [Mass/Vol] 3.4 g/dL [facility] Glucose [Mass/Vol] 91 mg/dL 74 - 106 mg/dL NO [facility] Potassium [Moles/Vol] 3.7 mmol/L 3.5 - 5.1 mmol/L [facility] Protein [Mass/Vol] 7.3 g/dL 6.4 - 8.2 g/dL NO [facility] Sodium [Moles/Vol] 141 mmol/L 136 - 145 mmol/L [facility] TB EGFR-NON AF SIERRA LEONEAN >60 >=60 mL/min/1.73m 2 [facility] Urea nitrogen [Mass/Vol] 7 mg/dL 7.0 - 18.0 mg/dL [facility] Urea nitrogen/Creatinine [Mass ratio] 7.4 mg/mg [facility] No Panel Informationon 08-12 Interpretation and review of laboratory results Abnormal [facility] CBC W MANUAL DIFFon 12-03-19 23 ATYPICAL LYMPH # Normal [facility] Comment on above: Performed By: #### C HUSSAIN #### [facility] [address] [place] [address] Dr. Ellen Ramirez ATYPICAL LYMPH % Normal [facility] Comment on above: Performed By: #### C HUSSAIN #### [facility] [address] [place] [address] Dr. Ellen Ramirez BAND # 0.0 103/ul Normal 0.0-0.3 [facility] Comment on above: Performed By: #### C HUSSAIN #### [facility] [address] [place] [address] Dr. Ellen Ramirez BAND % 0 % Normal 0-5 [facility] Comment on above: Performed By: #### C HUSSAIN #### [facility] [address] [place] [address] Dr. Ellen Ramirez BASOM # 0.00 103/ul Normal 0.00-0.10 [facility] Comment on above: Performed By: #### C HUSSAIN #### [facility] [address] [place] [address] Dr. Ellen Ramirez BASOM % 0.0 % Critically low 0.2-2.0 [facility] Comment on above: Performed By: #### C HUSSAIN #### [facility] [address] [place] [address] Dr. Ellen Ramirez BLAST # Normal [facility] Comment on above: Performed By: #### C HUSSAIN #### [facility] [address] [place] [address] Dr. Ellen Ramirez BLAST % Normal [facility] Comment on above: Performed By: #### C HUSSAIN #### [facility] [address] [place] [address] Dr. Ellen Ramirez CORRECTED WBC Normal 4.0-11.0 [facility] Comment on above: Performed By: #### C HUSSAIN #### [facility] [address] [place] [address] Dr. Ellen Ramirez EOS # 0.46 103/ul Normal 0.00-0.70 [facility] Comment on above: Performed By: #### C HUSSAIN #### [facility] [address] [address] [address] Ellen Ramirez EOS% 6.0 % Normal 0.9-7.0 [facility] Comment on above: Performed By: #### C HUSSAIN #### [facility] [address] [address] [address] Ellen Ramirez HCT 33.6 % Critically low 36.0-48.0 [facility] Comment on above: Performed By: #### C HUSSAIN #### [facility] [address] [address] [address] Ellen Ramirez HGB 11.5 g/dl Critically low 12.0-16.0 [facility] Comment on above: Performed By: #### C HUSSAIN #### [facility] [address] [address] [address] Ellen Ramirez LYMPHM # 0.15 103/ul Critically low 1.20-3.80 [facility] Comment on above: Performed By: #### Chavez NIXON #### [facility] [address] [address] [address] Ellen Ramirez LYMPHM% 2.0 % Critically low 20.5-60.0 [facility] Comment on above: Performed By: #### C HUSSAIN #### [facility] [address] [address] [address] Ellen Ramirez MCH 29.3 pg Normal 26.7-34.0 [facility] Comment on above: Performed By: #### C HUSSAIN #### [facility] [address] [address] [address] Ellen Ramirez MCHC 34.2 g/dl Normal 29.9-35.2 [facility] Comment on above: Performed By: #### Chavez NIXON #### [facility] [address] [address] [address] Ellen Ramirez MCV 85.5 fL Normal 81.0-99.0 [facility] Comment on above: Performed By: #### C BCVIRGINIE #### [facility] [address] [address] [address] Ellen Ramirez METAMYELOCYTE # Normal [facility] Comment on above: Performed By: #### C BCVIRGINIE #### [facility] [address] [address] [address] Ellen Ramirez METAMYELOCYTE % Normal [facility] Comment on above: Performed By: #### C BCMAN #### [facility] [address] [address] [address] Ellen Ramirez MONOM# 0.38 103/ul Normal 0.30-0.80 [facility] Comment on above: Performed By: #### C HUSSAIN #### [facility] [address] [place] [address] Dr. Ellen Ramirez MONOM% 5.0 % Normal 1.7-12.0 [facility] Comment on above: Performed By: #### C HUSSAIN #### [facility] [address] [place] [address] Dr. Ellen Ramirez MPV 9.4 fL Critically low 9.5-13.5 [facility] Comment on above: Performed By: #### C HUSSAIN #### [facility] [address] [place] [address] Dr. Ellen Ramirez MYELOCYTE # Normal [facility] Comment on above: Performed By: #### C HUSSAIN #### [facility] [address] [place] [address] Dr. Ellen Ramirez MYELOCYTE % Normal [facility] Comment on above: Performed By: #### C HUSSAIN #### [facility] [address] [address] [address] Ellen Ramirez NRBC Normal [facility] Comment on above: Performed By: #### C HUSSAIN #### [facility] [address] [place] [address] Dr. Ellen Ramirez PLT 281 103/ul Normal 150-450 [facility] Comment on above: Performed By: #### C HUSSAIN #### [facility] [address] [address] [address] Ellen Ramirez RBC 3.93 106/ul Critically low 4.20-5.40 The [facility] Comment on above: Performed By: #### Chavez NIXON #### [facility] [address] [address] [address] Ellen Ramirez RDW 13.0 % Normal 11.0-15.0 [facility] Comment on above: Performed By: #### Chavez NIXON #### [facility] [address] [address] [address] Ellen Ramirez SEG # 6.61 103/ul Critically high 1.40-6.50 [facility] Comment on above: Performed By: #### Chavez NIXON #### [facility] [address] [place] [address] Dr. Ellen Ramirez SEG % 87.0 % Critically high 43.0-75.0 The [facility] Comment on above: Performed By: #### Chavez NIXON #### [facility] [address] [address] [address] Ellen Ramirez WBC 7.6 103/ul Normal 4.0-11.0 [facility] Comment on above: Performed By: #### Chavez NIXON #### [facility] [address] [address] [address] Ellen Ramirez CPKon 12-02-2022 CK [Catalytic activity/Vol] 50 U/L Normal 26-192 [facility] Comment on above: Performed By: #### Chavez NIXON #### [facility] [address] [address] [address] Ellen Ramirez CRPon 12-02-2022 CRP 5.4 mg/dL Critically high <=1.0 The [facility] Comment on above: Performed By: #### Chavez NIXON #### [facility] [address] [address] [address] HEAD WO CONon [...] REBA LOWRY Date: 2022-12-02 00:24 Normal [facility] ER URINE PROFILEon 3 Bilirubin Ql (U) Negative Normal NEGATIVE [facility] Comment on above: Performed By: #### L ACT #### [facility] [address] [place] [address] Dr. Ellen Ramirez Clarity (U) CLEAR Normal CLEAR [facility] Comment on above: Performed By: #### L ACT #### [facility] [address] [place] [address] Dr. Ellen Ramirez Color (U) YELLOW Normal YELLOW [facility] Comment on above: Performed By: #### L ACT #### [facility] [address] [place] [address] Dr. Ellen Ramirez ERUAHD A micrscopic examination will be performed if indicated. Normal [facility] Comment on above: Performed By: #### L ACT #### [facility] [address] [place] [address] Dr. Ellen Ramirez Glucose Ql (U) Negative Normal NEGATIVE [facility] Comment on above: Performed By: #### L ACT #### [facility] [address] [place] [address] Dr. Ellen Ramierz Hemoglobin Ql (U) TRACE-INTACT Abnormal NEGATIVE [facility] Comment on above: Performed By: #### L ACT #### [facility] [address] [place] [address] Dr. Ellen Ramirez Ketones Ql (U) >=80 Abnormal NEGATIVE [facility] Comment on above: Performed By: #### L ACT #### [facility] [address] [place] [address] Dr. Ellen Ramirez LEUKOCYTES Negative Normal NEGATIVE [facility] Comment on above: Performed By: #### L ACT #### [facility] [address] [place] [address] Dr. Ellen Ramirez Nitrite Ql (U) Negative Normal NEGATIVE [facility] Comment on above: Performed By: #### L ACT #### [facility] [address] [place] [address] Dr. Ellen Ramirez pH (U) 6.0 [pH] Normal 5-9 [facility] Comment on above: Performed By: #### L ACT #### [facility] [address] [place] [address] Dr. Ellen Ramirez SPEC GRAVITY 1.015 Normal 1.005-<=1.025 [facility] Comment on above: Performed By: #### L ACT #### [facility] [address] [place] [address] Dr. Ellen Ramirez UA PROTEIN Negative Normal NEGATIVE/ TRACE The [facility] Comment on above: Performed By: #### L ACT #### [facility] [address] [place] [address] Dr. Ellen Ramirez UR MICRO IND NOT INDICATED Normal The [facility] Comment on above: Performed By: #### L ACT #### [facility] [address] [place] [address] Dr. Ellen Ramirez Urobilinogen Qn (U) 0.2 {Ajith'U}/dL Normal 0.2 - 1. 0 [facility] Comment on above: Performed By: #### L ACT #### [facility] [address] [place] [address] Dr. Ellen Ramirez LACTATE/LACTIC ACIDon 2022 Lactate [Moles/Vol] 0.7 mmol/L Normal 0.4-2.0 [facility] Comment on above: Performed By: #### L ACT #### [facility] [address] [place] [address] Dr. Ellen Ramirez MYOGLOBINon 12-02-2022 LORENA 30 ng/mL Normal 9-82 [facility] Comment on above: Performed By: #### C HUSSAIN #### [facility] [address] [place] [address] Dr. Ellen Ramirez PROF 14(COMP METB)on 023 Albumin [Mass/Vol] 3.7 g/dL Normal 3.4-5.0 [facility] Comment on above: Performed By: #### C HUSSAIN #### [facility] [address] [place] [address] Dr. Ellen Ramirez Albumin/Globulin [Mass ratio] 1.1 {ratio} Normal [facility] Comment on above: Performed By: #### C HUSSAIN #### [facility] [address] [place] [address] Dr. Ellen Ramirez ALP [Catalytic activity/Vol] 87 U/L Normal 46-116 [facility] Comment on above: Performed By: #### C HUSSAIN #### [facility] [address] [place] [address] Dr. Ellen Ramirez ALT [Catalytic activity/Vol] 43 U/L Normal 14-59 [facility] Comment on above: Performed By: #### C HUSSAIN #### [facility] [address] [place] [address] Dr. Ellen Ramirez Anion gap [Moles/Vol] 10.9 mmol/L Normal [facility] Comment on above: Performed By: #### C HUSSAIN #### [facility] [address] [place] [address] Dr. Ellen Ramirez AST [Catalytic activity/Vol] 35 U/L Normal 15-37 [facility] Comment on above: Performed By: #### C HUSSAIN #### [facility] [address] [place] [address] Dr. Ellen Ramirez Bilirubin [Mass/Vol] 0.3 mg/dL Normal 0.2-1.0 [facility] Comment on above: Performed By: #### C BCMAN #### [facility] [address] [place] [address] Dr. Ellen Ramirez Calcium [Mass/Vol] 8.6 mg/dL Normal 8.5-10.1 [facility] Comment on above: Performed By: #### C BCMAN #### [facility] [address] [address] [address] Ellen Ramirez Chloride [Moles/Vol] 102 mmol/L Normal 98-107 [facility] Comment on above: Performed By: #### C BCMAN #### [facility] [address] [place] [address] Dr. Ellen Ramirez CO2 [Moles/Vol] 25.4 mmol/L Normal 21.0-32.0 [facility] Comment on above: Performed By: #### C BCMAN #### [facility] [address] [place] [address] Dr. Ellen Ramirez Creatinine [Mass/Vol] 0.99 mg/dL Normal 0.55-1.02 [facility] Comment on above: Performed By: #### C BCMAN #### [facility] [address] [place] [address] Dr. Ellen Ramirez EGFR-AF SIERRA LEONEAN >60 Normal >=60 [facility] Comment on above: Performed By: #### C BCMAN #### [facility] [address] [place] [address] Dr. Ellen Ramirez EGFR-NON AF SIERRA LEONEAN >60 Normal >=60 [facility] Comment on above: Performed By: #### C BCMAN #### [facility] [address] [place] [address] Dr. Ellen Ramirez Globulin (S) [Mass/Vol] 3.3 g/dL Normal [facility] Comment on above: Performed By: #### C BCMAN #### [facility] [address] [place] [address] Dr. Ellen Ramirez Glucose [Mass/Vol] 107 mg/dL Critically high 74-106 [facility] Comment on above: Performed By: #### C BCMAN #### [facility] [address] [address] [address] Ellen Ramirez Potassium [Moles/Vol] 3.3 mmol/L Critically low 3.5-5.1 [facility] Comment on above: Performed By: #### C BCMAN #### [facility] [address] [address] [address] Ellen Ramirez Protein [Mass/Vol] 7.0 g/dL Normal 6.4-8.2 [facility] Comment on above: Performed By: #### C BCMAN #### [facility] [address] [address] [address] Ellen Ramirez Sodium [Moles/Vol] 135 mmol/L Critically low 136-145 [facility] Comment on above: Performed By: #### C BCVIRGINIE #### [facility] [address] [place] [address] Dr. Ellen Ramirez Urea nitrogen [Mass/Vol] 11.0 mg/dL Normal 7.0-18.0 [facility] Comment on above: Performed By: #### C BCVIRGINIE #### [facility] [address] [address] [address] Ellen Ramirez Urea nitrogen/Creatinine [Mass ratio] 11.1 mg/mg Normal [facility] Comment on above: Performed By: #### C BCVIRGINIE #### [facility] [address] [place] [address] Dr. Ellen Ramirez RESPIRATORY PANEL PLUSon Adenovirus Not detected Normal NOT DETECTED [facility] Comment on above: Performed By: #### C BCVIRGINIE #### [facility] [address] [place] [address] Dr. Ellen Verduzco. Parapertusis Not detected Normal NOT DETECTED The [facility] Comment on above: Performed By: #### C BCMAN #### [facility] [address] [address] [address] Ellen Verduzco. Pertussis Not detected Normal NOT DETECTED The [facility] Comment on above: Performed By: #### C BCMAN #### [facility] [address] [address] [address] Ellen Ramirez Chlamydia Pneumoniae Not detected Normal NOT DETECTED The [facility] Comment on above: Performed By: #### C BCMAN #### [facility] [address] [address] [address] Ellen Ramirez Coronavirus 229E Not detected Normal NOT DETECTED The [facility] Comment on above: Performed By: #### C BCMAN #### [facility] [address] [address] [address] Ellen Ramirez Coronavirus HKU1 Not detected Normal NOT DETECTED The [facility] Comment on above: Performed By: #### C BCMAN #### [facility] [address] [place] [address] Dr. Ellen Ramirez Coronavirus NL63 Not detected Normal NOT DETECTED The [facility] Comment on above: Performed By: #### C BCMAN #### [facility] [address] [place] [address] Dr. Ellen Ramirez Coronavirus OC43 Not detected Normal NOT DETECTED The [facility] Comment on above: Performed By: #### C BCMAN #### [facility] [address] [place] [address] Dr. Ellen Ramirez Influenza A H1 Not detected Normal NOT DETECTED [facility] Comment on above: Performed By: #### C BCMAN #### [facility] [address] [place] [address] Dr. Ellen Ramirez Influenza A H1 2009 Not detected Normal NOT DETECTED [facility] Comment on above: Performed By: #### C BCMAN #### [facility] [address] [place] [address] Dr. Ellen Ramirez Influenza A H3 Not detected Normal NOT DETECTED [facility] Comment on above: Performed By: #### C BCMAN #### [facility] [address] [place] [address] Dr. Ellen Ramirez Influenza B Not detected Normal NOT DETECTED The [facility] Comment on above: Performed By: #### C BCMAN #### [facility] [address] [place] [address] Dr. Ellen Ramirez Metapneumovirus Not detected Normal NOT DETECTED The [facility] Comment on above: Performed By: #### C BCMAN #### [facility] [address] [address] [address] Ellen Ramirez Mycoplas. Pneumoniae Not detected Normal NOT DETECTED The [facility] Comment on above: Performed By: #### C BCMAN #### [facility] [address] [address] [address] Ellen Ramirez Parainfluenza 1 Not detected Normal NOT DETECTED The [facility] Comment on above: Performed By: #### C BCMAN #### [facility] [address] [address] [address] Ellen Ramirez Parainfluenza 2 Not detected Normal NOT DETECTED The [facility] Comment on above: Performed By: #### C BCMAN #### [facility] [address] [place] [address] Dr. Ellen Ramirez Parainfluenza 3 Not detected Normal NOT DETECTED The [facility] Comment on above: Performed By: #### C BCMAN #### [facility] [address] [place] [address] Dr. Ellen Ramirez Parainfluenza 4 Not detected Normal NOT DETECTED The [facility] Comment on above: Performed By: #### C BCMAN #### [facility] [address] [place] [address] Dr. Ellen Ramirez Rhino/Enterovirus Not detected Normal NOT DETECTED The [facility] Comment on above: Performed By: #### C BCMAN #### [facility] [address] [address] [address] Ellen Ramirez RP2 Header 1 RESPIRATORY PANEL: VIRUSES Normal The [facility] Comment on above: Performed By: #### C BCMAN #### [facility] [address] [place] [address] Dr. Ellen Ramirez RP2 Header 2 RESPIRATORY PANEL: BACTERIA Normal The [facility] Comment on above: Performed By: #### C BCMAN #### [facility] [address] [address] [address] Ellen Ramirez RSV Not detected Normal NOT DETECTED [facility] Comment on above: Performed By: #### C JOVANMAN #### [facility] [address] [place] [address] Dr. Ellen Ramirez SARS-CoV-2 (COVID-19) RNA BEULAH+probe Ql (Unsp spec) Not detected Normal NOT DETECTED [facility] Comment on above: Performed By: #### C HUSSAIN #### [facility] [address] [place] [address] Dr. Ellen Ramirez SED RATE WESTERGRENon 2022 SED RATE 22 mm/hr Critically high <=20 [facility] Comment on above: Performed By: #### C HUSSAIN #### [facility] [address] [place] [address] Dr. Ellen Ramirez TSHon 12-02-2022 TSH 12.836 uIU/mL Critically high 0.358-3.740 [facility] Comment on above: Performed By: #### T SH #### [facility] [address] [place] [address] Dr. Ellen Ramirez XR CHEST 2 Von [...] by: REBA LOWRY Date: 2022-12-02 00:05 Normal [facility] PAP ACOG PANEL 2: 30 to 65on 06-26-2022 . . Normal The [facility] Comment on above: Result Comment: Perf ormed at: WB Performed By: #### [id number] #### [facility] [address] [place] [address] Dr. Ellen Ramirez Age Gdln ACOG Testing 30-65 Normal [facility] Comment on above: Performed By: #### [id number] #### [facility] [address] [place] [address] Dr. Ellen Ramirez DIAGNOSIS: Comment Normal [facility] Comment on above: Result Comment: NEGA TIVE FOR INTRAEPITHELIAL LESION OR MALIGNANCY. Performed at: WB Performed By: #### [id number] #### [facility] [address] [place] [address] Dr. Ellen Ramirez HPV Aptima Negative Normal Negative [facility] Comment on above: Result Comment: This nucleic acid amplification test detects fourteen high-risk HPV types (16,18,31,33,35,39,45,51,52,56,58,59,66,68) without differentiation. Performed at: =G Performed By: #### [id number] #### [facility] [address] [place] [address] Dr. lElen Ramirez Methodology: Comment Normal [facility] Comment on above: Result Comment: This liquid based ThinPrep(R) pap test was screened with the use of an image guided system. Performed at: WB Performed By: #### [id number] #### [facility] [address] [place] [address] Dr. Ellen Ramirez Note: Comment Normal [facility] Comment on above: Result Comment: The Pap smear is a screening test designed to aid in the detection of premalignant and malignant conditions of the uterine cervix. It is not a diagnostic procedure and should not be used as the sole means of detecting cervical cancer. Both false-positive and false-negative reports do occur. . Performed at: WB Performed By: #### [id number] #### [facility] [address] [place] [address] Dr. Ellen Ramirez Performed by: Comment Normal [facility] Comment on above: Result Comment: Pretty Aguilar, Dozer Operator (ASCP) Performed at: WB Performed By: #### [id number] #### [facility] [address] [place] [address] Dr. Ellen Ramirez Specimen adequacy: Comment Normal [facility] Comment on above: Result Comment: Sati sfactory for evaluation. Endocervical and/or squamous metaplastic cells (endocervical component) are present. Performed at: WB Performed By: #### [id number] #### [facility] [address] [place] [address] Dr. Ellen Ramirez Cytology Cervical or vaginal smear or scraping studyOrdered By: Jolene Huang on 06-19-2022 [facility] CBC AUTO DIFFon 05-08-2022 BASO # 0.0 103/ul Normal 0.0-0.1 [facility] Comment on above: Performed By: #### C BC #### [facility] [address] [address] [address] Ellen Ramirez Basophils/100 WBC (Bld) 0.4 % Normal 0.2-2.0 [facility] Comment on above: Performed By: #### C BC #### [facility] [address] [place] [address] Dr. Ellen Ramirez EO # 0.1 103/ul Normal 0.0-0.7 [facility] Comment on above: Performed By: #### C BC #### [facility] [address] [place] [address] Dr. Ellen Ramirez Eosinophils/100 WBC (Bld) 1.1 % Normal 0.9-7.0 [facility] Comment on above: Performed By: #### C BC #### [facility] [address] [place] [address] Dr. Ellen Ramirez Erythrocyte distribution width (RBC) [Ratio] 18.5 % Critically high 11.0-15.0 [facility] Comment on above: Performed By: #### C BC #### [facility] [address] [place] [address] Dr. Ellen Ramirez Hematocrit (Bld) [Volume fraction] 37.2 % Normal 36.0-48.0 [facility] Comment on above: Performed By: #### C BC #### [facility] [address] [place] [address] Dr. Ellen Ramirez Hemoglobin (Bld) [Mass/Vol] 12.0 g/dL Normal 12.0-16.0 [facility] Comment on above: Performed By: #### C BC #### [facility] [address] [place] [address] Dr. Ellen Ramirez IG # 0.01 10e3/ul Normal 0.00-0.03 [facility] Comment on above: Performed By: #### C BC #### [facility] [address] [place] [address] Dr. Ellen Ramirez IG % 0.2 % Normal 0.0-0.5 [facility] Comment on above: Performed By: #### C BC #### [facility] [address] [place] [address] Dr. Ellen Ramirez LYMPH # 1.4 103/ul Normal 1.2-3.8 [facility] Comment on above: Performed By: #### C BC #### [facility] [address] [place] [address] Dr. Ellen Ramirez Lymphocytes/100 WBC (Bld) 29.2 % Normal 20.5-60.0 [facility] Comment on above: Performed By: #### C BC #### [facility] [address] [place] [address] Dr. Ellen Ramirez MANUAL DIFF REQ NO Normal [facility] Comment on above: Performed By: #### C BC #### [facility] [address] [place] [address] Dr. Ellen Ramirez MCH (RBC) [Entitic mass] 28.0 pg Normal 26.7-34.0 [facility] Comment on above: Performed By: #### C BC #### [facility] [address] [place] [address] Dr. Ellen Ramirez MCHC (RBC) [Mass/Vol] 32.3 g/dL Normal 29.9-35.2 [facility] Comment on above: Performed By: #### C BC #### [facility] [address] [place] [address] Dr. Ellen Ramirez MCV (RBC) [Entitic vol] 86.7 fL Normal 81.0-99.0 [facility] Comment on above: Performed By: #### C BC #### [facility] [address] [place] [address] Dr. Ellen Ramirez MONO # 0.4 103/ul Normal 0.3-0.8 [facility] Comment on above: Performed By: #### C BC #### [facility] [address] [place] [address] Dr. Ellen Ramirez Monocytes/100 WBC (Bld) 8.0 % Normal 1.7-12.0 [facility] Comment on above: Performed By: #### C BC #### [facility] [address] [place] [address] Dr. Ellen Ramirez NEUT # 2.9 103/ul Normal 1.4-6.5 [facility] Comment on above: Performed By: #### C BC #### [facility] [address] [place] [address] Dr. Ellen Ramirez Neutrophils/100 WBC (Bld) 61.1 % Normal 43.0-75.0 [facility] Comment on above: Performed By: #### C BC #### [facility] [address] [place] [address] Dr. Ellen Ramirez Platelet mean volume (Bld) [Entitic vol] 9.5 fL Normal 9.5-13.5 [facility] Comment on above: Performed By: #### C BC #### [facility] [address] [place] [address] Dr. Ellen Ramirez PLT 282 103/ul Normal 150-450 [facility] Comment on above: Performed By: #### C BC #### [facility] [address] [place] [address] Dr. Ellen Ramirez RBC 4.29 106/ul Normal 4.20-5.40 [facility] Comment on above: Performed By: #### C BC #### [facility] [address] [place] [address] Dr. Ellen Ramirez WBC 4.7 103/ul Normal 4.0-11.0 [facility] Comment on above: Performed By: #### C BC #### [facility] [address] [place] [address] Dr. Ellen Ramirez FERRITINon 05-08-2022 Ferritin [Mass/Vol] 92.0 ng/mL Normal 6.2-137.0 [facility] Comment on above: Performed By: #### F ERR, FT4 #### [facility] [address] [place] [address] Dr. Ellen Ramirez FREE T4on 05-08-2022 Free T4 [Mass/Vol] 0.72 ng/dL Critically low 0.76-1.46 [facility] Comment on above: Performed By: #### F ERR, FT4 #### [facility] [address] [place] [address] Dr. Ellen Ramirez TSHon 05-08-2022 TSH 3.626 uIU/mL Normal 0.358-3.740 [facility] Comment on above: Performed By: #### C BCMAN #### [facility] [address] [place] [address] Dr. Ellen Ramirez CBC AUTO DIFFon 04-14-2022 BASO # 0.0 103/ul Normal 0.0-0.1 [facility] Comment on above: Performed By: #### L ACT #### [facility] [address] [place] [address] Dr. Ellen Ramirez Basophils/100 WBC (Bld) 0.5 % Normal 0.2-2.0 [facility] Comment on above: Performed By: #### L ACT #### [facility] [address] [place] [address] Dr. Ellen Ramirez EO # 0.1 103/ul Normal 0.0-0.7 [facility] Comment on above: Performed By: #### L ACT #### [facility] [address] [place] [address] Dr. Ellen Ramirez Eosinophils/100 WBC (Bld) 2.8 % Normal 0.9-7.0 [facility] Comment on above: Performed By: #### L ACT #### [facility] [address] [place] [address] Dr. Ellen Ramirez Erythrocyte distribution width (RBC) [Ratio] 24.2 % Critically high 11.0-15.0 [facility] Comment on above: Performed By: #### L ACT #### [facility] [address] [place] [address] Dr. Ellen Ramirez Hematocrit (Bld) [Volume fraction] 36.3 % Normal 36.0-48.0 [facility] Comment on above: Performed By: #### L ACT #### [facility] [address] [place] [address] Dr. Ellen Ramirez Hemoglobin (Bld) [Mass/Vol] 11.4 g/dL Critically low 12.0-16.0 [facility] Comment on above: Performed By: #### L ACT #### [facility] [address] [place] [address] Dr. Ellen Ramirez IG # 0.01 10e3/ul Normal 0.00-0.03 [facility] Comment on above: Performed By: #### L ACT #### [facility] [address] [place] [address] Dr. Ellen Ramirez IG % 0.3 % Normal 0.0-0.5 [facility] Comment on above: Performed By: #### L ACT #### [facility] [address] [place] [address] Dr. Ellen Ramirez LYMPH # 1.3 103/ul Normal 1.2-3.8 The [facility] Comment on above: Performed By: #### L ACT #### [facility] [address] [place] [address] Dr. Ellen Ramirez Lymphocytes/100 WBC (Bld) 32.6 % Normal 20.5-60.0 [facility] Comment on above: Performed By: #### L ACT #### [facility] [address] [place] [address] Dr. Ellen Ramirez MANUAL DIFF REQ NO Normal The [facility] Comment on above: Performed By: #### L ACT #### [facility] [address] [place] [address] Dr. Ellen Ramirez MCH (RBC) [Entitic mass] 25.9 pg Critically low 26.7-34.0 [facility] Comment on above: Performed By: #### L ACT #### [facility] [address] [place] [address] Dr. Ellen Ramirez MCHC (RBC) [Mass/Vol] 31.4 g/dL Normal 29.9-35.2 [facility] Comment on above: Performed By: #### L ACT #### [facility] [address] [address] [address] Ellen Ramirez MCV (RBC) [Entitic vol] 82.5 fL Normal 81.0-99.0 [facility] Comment on above: Performed By: #### L ACT #### [facility] [address] [address] [address] Ellen Ramirez MONO # 0.3 103/ul Normal 0.3-0.8 [facility] Comment on above: Performed By: #### L ACT #### [facility] [address] [place] [address] Dr. Ellen Ramirez Monocytes/100 WBC (Bld) 8.5 % Normal 1.7-12.0 [facility] Comment on above: Performed By: #### L ACT #### [facility] [address] [address] [address] Ellen Ramirez NEUT # 2.4 103/ul Normal 1.4-6.5 [facility] Comment on above: Performed By: #### L ACT #### [facility] [address] [place] [address] Dr. Ellen Ramirez Neutrophils/100 WBC (Bld) 60.0 % Normal 43.0-75.0 [facility] Comment on above: Performed By: #### L ACT #### [facility] [address] [address] [address] Ellen Ramirez Platelet mean volume (Bld) [Entitic vol] 9.6 fL Normal 9.5-13.5 The [facility] Comment on above: Performed By: #### L ACT #### [facility] [address] [place] [address] Dr. Ellen Ramirez PLT 264 103/ul Normal 150-450 The [facility] Comment on above: Performed By: #### L ACT #### [facility] [address] [place] [address] Dr. Ellen Ramirez RBC 4.40 106/ul Normal 4.20-5.40 [facility] Comment on above: Performed By: #### L ACT #### [facility] [address] [address] [address] Ellen Ramirez WBC 3.9 103/ul Critically low 4.0-11.0 [facility] Comment on above: Performed By: #### L ACT #### [facility] [address] [address] [address] Ellen Ramirez PREG HCG QUALon 04-14-2022 , QUAL Negative Normal NEGATIVE The [facility] Comment on above: Performed By: #### P REG #### [facility] [address] [address] [address] Ellen Ramirez Covid-19 PCR (CVDTB)on 03-24 SARS-CoV-2 (COVID-19) RNA BEULAH+probe Ql (Unsp spec) Not detected Normal NOT DETECTED The [facility] Comment on above: Result Comment: This test is not yet approved or cleared by the [place] FDA. When there are no FDA-approved or cleared tests available, and other criteria are met, FDA can make tests available under an emergency access mechanism called an Emergency Use Authorization (EUA). The EUA for this test is supported by the Pet Caretaker of Health and Human Service's (HHS's) declaration [...] SARS-CoV-2. Performed By: #### C VDTBH #### [facility] [address] [place] [address] Dr. Ellen Ramirez CBC W MANUAL DIFFon 03-30-20 22 ACANTHOCYTES 1+ Normal The [facility] Comment on above: Result Comment: Prev iously reported as: 1+ On 03/30/2022 14:46 By BQ2 Performed By: #### C BCVIRGINIE #### [facility] [address] [place] [address] Dr. Ellen Ramirez ATYPICAL LYMPH # Normal [facility] Comment on above: Performed By: #### C HUSSAIN #### [facility] [address] [place] [address] Dr. Ellen Ramirez ATYPICAL LYMPH % Normal The [facility] Comment on above: Performed By: #### C BCMAN #### [facility] [address] [place] [address] Dr. Ellen Ramirez BAND # Normal 0.0-0.3 [facility] Comment on above: Performed By: #### C HUSSAIN #### [facility] [address] [place] [address] Dr. Ellen Ramirez BAND % Normal 0-5 [facility] Comment on above: Performed By: #### C HUSSAIN #### [facility] [address] [place] [address] Dr. Ellen Ramirez BASOM # 0.00 103/ul Normal 0.00-0.10 [facility] Comment on above: Performed By: #### C HUSSAIN #### [facility] [address] [place] [address] Dr. Ellen Ramirez BASOM % 0.0 % Critically low 0.2-2.0 [facility] Comment on above: Performed By: #### C HUSSAIN #### [facility] [address] [place] [address] Dr. Ellen Ramirez BLAST # Normal [facility] Comment on above: Performed By: #### C HUSSAIN #### [facility] [address] [place] [address] Dr. Ellen Ramirez BLAST % Normal The [facility] Comment on above: Performed By: #### C HUSSAIN #### [facility] [address] [place] [address] Dr. Ellen Ramirez CORRECTED WBC Normal 4.0-11.0 The [facility] Comment on above: Performed By: #### C HUSSAIN #### [facility] [address] [address] [address] Ellen Ramirez EOS # 0.10 103/ul Normal 0.00-0.70 The [facility] Comment on above: Performed By: #### Chavez NIXON #### [facility] [address] [address] [address] Ellen Ramirez EOS% 2.0 % Normal 0.9-7.0 The [facility] Comment on above: Performed By: #### C HUSSAIN #### [facility] [address] [place] [address] Dr. Ellen Ramirez HCT 33.3 % Critically low 36.0-48.0 [facility] Comment on above: Performed By: #### C HUSSAIN #### [facility] [address] [place] [address] Dr. Ellen Ramirez HGB 10.4 g/dl Critically low 12.0-16.0 [facility] Comment on above: Performed By: #### Chavez NIXON #### [facility] [address] [place] [address] Dr. Ellen Ramirez LYMPHM # 1.78 103/ul Normal 1.20-3.80 The [facility] Comment on above: Performed By: #### Chavez NIXON #### [facility] [address] [place] [address] Dr. Ellen Ramirez LYMPHM% 37.0 % Normal 20.5-60.0 The [facility] Comment on above: Performed By: #### Chavez NIXON #### [facility] [address] [place] [address] Dr. Ellen Ramirez MCH 25.6 pg Critically low 26.7-34.0 [facility] Comment on above: Performed By: #### Chavez NIXON #### [facility] [address] [place] [address] Dr. Ellen Ramirez MCHC 31.2 g/dl Normal 29.9-35.2 The [facility] Comment on above: Performed By: #### Chavez NIXON #### [facility] [address] [place] [address] Dr. Ellen Ramirez MCV 81.8 fL Normal 81.0-99.0 [facility] Comment on above: Performed By: #### C BCMAN #### [facility] [address] [place] [address] Dr. Ellen Ramirez METAMYELOCYTE # Normal [facility] Comment on above: Performed By: #### C BCMAN #### [facility] [address] [place] [address] Dr. Ellen Ramirez METAMYELOCYTE % Normal The [facility] Comment on above: Performed By: #### C BCMAN #### [facility] [address] [place] [address] Dr. Ellen Ramirez MONOM# 0.43 103/ul Normal 0.30-0.80 [facility] Comment on above: Performed By: #### C BCVIRGINIE #### [facility] [address] [place] [address] Dr. Ellen Ramirez MONOM% 9.0 % Normal 1.7-12.0 [facility] Comment on above: Performed By: #### C HUSSAIN #### [facility] [address] [place] [address] Dr. Ellen Ramirez MPV 10.2 fL Normal 9.5-13.5 [facility] Comment on above: Performed By: #### C HUSSAIN #### [facility] [address] [place] [address] Dr. Ellen Ramirez MYELOCYTE # Normal The [facility] Comment on above: Performed By: #### C HUSSAIN #### [facility] [address] [place] [address] Dr. Ellen Ramirez MYELOCYTE % Normal The [facility] Comment on above: Performed By: #### C HUSSAIN #### [facility] [address] [place] [address] Dr. Ellen Ramirez NRBC Normal The [facility] Comment on above: Performed By: #### C BCVIRGINIE #### [facility] [address] [place] [address] Dr. Ellen Ramirez OVALOCYTES 1+ Normal The [facility] Comment on above: Result Comment: Prev iously reported as: 1+ On 03/30/2022 14:46 By BQ2 Performed By: #### C BCMAN #### [facility] [address] [address] [address] Ellen Ramirez PLT 302 103/ul Normal 150-450 [facility] Comment on above: Performed By: #### C BCMAN #### [facility] [address] [address] [address] Ellen Ramirez RBC 4.07 106/ul Critically low 4.20-5.40 [facility] Comment on above: Performed By: #### C BCVIRGINIE #### [facility] [address] [address] [address] Ellen Ramirez RDW 26.7 % Critically high 11.0-15.0 [facility] Comment on above: Performed By: #### C BCVIRGINIE #### [facility] [address] [place] [address] Dr. Ellen Ramirez SEG # 2.50 103/ul Normal 1.40-6.50 [facility] Comment on above: Performed By: #### C BCVIRGINIE #### [facility] [address] [place] [address] Dr. Ellen Ramirez SEG % 52.0 % Normal 43.0-75.0 [facility] Comment on above: Performed By: #### C BCVIRGINIE #### [facility] [address] [place] [address] Dr. Ellen Ramirez TEAR DROP CELLS 1+ Normal The [facility] Comment on above: Result Comment: Prev iously reported as: 1+ On 03/30/2022 14:46 By BQ2 Performed By: #### C BCVIRGINIE #### [facility] [address] [place] [address] Dr. Ellen Ramirez WBC 4.8 103/ul Normal 4.0-11.0 [facility] Comment on above: Performed By: #### C BCVIRGINIE #### [facility] [address] [place] [address] Dr. Ellen Ramirez US PELVIS AND TRANSVAGon [...] AHSAN FLORES Date: 2022-03-30 18:10 Normal The [facility] TSHon 03-16-2022 TSH 2.199 uIU/mL Normal 0.358-3.740 [facility] Comment on above: Performed By: #### T SH #### [facility] [address] [address] [address] Ellen Ramirez CBC AUTO DIFFon 02-14-2022 BASO # 0.0 103/ul Normal 0.0-0.1 [facility] Comment on above: Performed By: #### C HUSSAIN #### [facility] [address] [address] [address] Ellen Ramirez Basophils/100 WBC (Bld) 0.4 % Normal 0.2-2.0 [facility] Comment on above: Performed By: #### C BCMAN #### [facility] [address] [address] [address] Ellen Ramirez EO # 0.0 103/ul Normal 0.0-0.7 [facility] Comment on above: Performed By: #### C JOVANMAN #### [facility] [address] [address] [address] Ellen Ramirez Eosinophils/100 WBC (Bld) 0.4 % Critically low 0.9-7.0 [facility] Comment on above: Performed By: #### C HUSSAIN #### [facility] [address] [place] [address] Dr. Ellen Ramirez Erythrocyte distribution width (RBC) [Ratio] 16.4 % Critically high 11.0-15.0 [facility] Comment on above: Performed By: #### C HUSSAIN #### [facility] [address] [place] [address] Dr. Ellen Ramirez Hematocrit (Bld) [Volume fraction] 24.4 % Critically low 36.0-48.0 [facility] Comment on above: Performed By: #### C HUSSAIN #### [facility] [address] [place] [address] Dr. Ellen Ramirez Hemoglobin (Bld) [Mass/Vol] 7.0 g/dL Critically low 12.0-16.0 [facility] Comment on above: Performed By: #### C HUSSAIN #### [facility] [address] [place] [address] Dr. Ellen Ramirez IG # 0.02 10e3/ul Normal 0.00-0.03 [facility] Comment on above: Performed By: #### C HUSSAIN #### [facility] [address] [place] [address] Dr. Ellen Ramirez IG % 0.3 % Normal 0.0-0.5 [facility] Comment on above: Performed By: #### C HUSSAIN #### [facility] [address] [place] [address] Dr. Ellen Ramirez LYMPH # 1.6 103/ul Normal 1.2-3.8 The [facility] Comment on above: Performed By: #### C HUSSAIN #### [facility] [address] [place] [address] Dr. Ellen Ramirez Lymphocytes/100 WBC (Bld) 21.8 % Normal 20.5-60.0 [facility] Comment on above: Performed By: #### C HUSSAIN #### [facility] [address] [place] [address] Dr. Ellen Ramirez MANUAL DIFF REQ NO Normal [facility] Comment on above: Performed By: #### C HUSSAIN #### [facility] [address] [place] [address] Dr. Ellen Ramirez MCH (RBC) [Entitic mass] 20.0 pg Critically low 26.7-34.0 [facility] Comment on above: Performed By: #### C HUSSAIN #### [facility] [address] [place] [address] Dr. Ellen Ramirez MCHC (RBC) [Mass/Vol] 28.7 g/dL Critically low 29.9-35.2 The [facility] Comment on above: Result Comment: HYPO CHROMIC MICROCYTIC STOMATOCYTES SEEN Performed By: #### C HUSSAIN #### [facility] [address] [place] [address] Dr. Ellen Ramirez MCV (RBC) [Entitic vol] 69.7 fL Critically low 81.0-99.0 [facility] Comment on above: Performed By: #### C HUSSAIN #### [facility] [address] [place] [address] Dr. Ellen Ramirez MONO # 0.7 103/ul Normal 0.3-0.8 The [facility] Comment on above: Performed By: #### C HUSSAIN #### [facility] [address] [place] [address] Dr. Ellen Ramirez Monocytes/100 WBC (Bld) 9.3 % Normal 1.7-12.0 The [facility] Comment on above: Performed By: #### C HUSSAIN #### [facility] [address] [place] [address] Dr. Ellen Ramirez NEUT # 4.9 103/ul Normal 1.4-6.5 The [facility] Comment on above: Performed By: #### C HUSSAIN #### [facility] [address] [place] [address] Dr. Ellen Ramirez Neutrophils/100 WBC (Bld) 67.8 % Normal 43.0-75.0 The [facility] Comment on above: Performed By: #### C HUSSAIN #### [facility] [address] [place] [address] Dr. Ellen Ramirez Platelet mean volume (Bld) [Entitic vol] 9.8 fL Normal 9.5-13.5 The [facility] Comment on above: Performed By: #### C HUSSAIN #### [facility] [address] [place] [address] Dr. Ellen Ramirez PLT 391 103/ul Normal 150-450 The [facility] Comment on above: Performed By: #### C HUSSAIN #### [facility] [address] [address] [address] Ellen Ramirez RBC 3.50 106/ul Critically low 4.20-5.40 The [facility] Comment on above: Performed By: #### C HUSSAIN #### [facility] [address] [place] [address] Dr. Ellen Ramirez WBC 7.2 103/ul Normal 4.0-11.0 The [facility] Comment on above: Performed By: #### C HUSSAIN #### [facility] [address] [place] [address] Dr. Ellen Ramirez PREG QUANT HCGon 02-14-2022 HCG QUANT <1 Normal The [facility] Comment on above: Performed By: #### L ACT #### [facility] [address] [place] [address] Dr. Ellen Ramirez HCG RANGE SEE BELOW Normal The [facility] Comment on above: Result Comment: 5-50 0-1 WEEK 40-300 1-2 WEEKS 100-1,000 2-3 WEEKS 500-6,000 3-4 WEEKS 5,000-200,000 1-2 MONTHS 10,000-100,000 2-3 MONTHS 3,000-50,000 2ND TRIMESTER 1,000-50,000 3RD TRIMESTER Performed By: #### L ACT #### [facility] [address] [place] [address] Dr. Ellen Ramirez PROTIMEon 02-14-2022 INR Coag (PPP) [Relative time] 1.00 {INR} Normal The [facility] Comment on above: Performed By: #### L ACT #### [facility] [address] [place] [address] Dr. Ellen Ramirez INR GUIDELINES SEE BELOW Normal The [facility] Comment on above: Result Comment: CARMEN RED INR: 2.0 - 3.0 CONDITIONS NOT LISTED BELOW 2.5 - 3.5 FOR PROSTHETIC HEART VALVE REPLACEMENT 2.5 - 3.5 RECURRENT THROMBOSIS Performed By: #### L ACT #### [facility] [address] [address] [address] Ellen Ramirez PT Coag (PPP) [Time] 10.8 s Normal 9.0-11.6 [facility] Comment on above: Performed By: #### L ACT #### [facility] [address] [address] [address] Ellen Ramirez PTTon 02-14-2022 aPTT Coag (Bld) [Time] 25.7 s Normal 22.3-36.2 [facility] Comment on above: Performed By: #### L ACT #### [facility] [address] [place] [address] Dr. Ellen Ramirez TSHon 02-14-2022 TSH 15.176 uIU/mL Critically high 0.358-3.740 [facility] Comment on above: Performed By: #### L ACT #### [facility] [address] [place] [address] Dr. Ellen Ramirez TSH RANGE SEE BELOW Normal [facility] Comment on above: Result Comment: <0.3 4 UIU/ml HYPERTHYROID 0.34-5.60 UIU/ml EUTHYROID >5.60 UIU/ml HYPOTHYROID Performed By: #### L ACT #### [facility] [address] [place] [address] Dr. Ellen Ramirez US PELVIS AND TRANSVAGon [...] by: AHSAN FLORES Date: 2022-02-14 15:03 Normal [facility] Vital Signs Date Time Vital Sign Value Performing Clinician Yeimy patton 05-20-2025 14:39-0400 Body height 170.2 cm Mary WALSH Work Phone: [facility] 05-20-2025 14:39-0400 Body mass index (BMI) [Ratio] 29.91 kg/m2 Mary WALSH Work Phone: [facility] 05-20-2025 14:39-0400 Body weight 86.64 kg Mary WALSH Work Phone: [facility] 05-20-2025 14:39-0400 Diastolic blood pressure 74 mm[Hg] Mary WALSH Work Phone: [facility] 05-20-2025 14:39-0400 Systolic blood pressure 122 mm[Hg] Mary WALSH Work Phone: [facility] 08-27-2024 14:55-0500 Body height 170.2 cm Manny Rosales MD Work Phone: [facility] 08-27-2024 14:55-0500 Body mass index (BMI) [Ratio] 28.58 kg/m2 Manny Rosales MD Work Phone: [facility] 08-27-2024 14:55-0500 Body weight 82.78 kg Manny Rosales MD Work Phone: [facility] 08-27-2024 14:55-0500 Heart rate 85 /min Edward Hemeyer MD Work Phone: [facility] 08-27-2024 14:55-0500 SaO2% (BldA) [Mass fraction] 99 % Manny Rosales MD Work Phone: [facility] 02-27-2024 10:07-0400 Body height 170.2 cm Frieda Sell PA Work Phone: [facility] 02-27-2024 10:07-0400 Body mass index (BMI) [Ratio] 30.23 kg/m2 Frieda Sell PA Work Phone: [facility] [employer] [facility] 02-27-2024 10:07-0400 Body weight 87.54 kg Frieda Sell PA Work Phone: [facility] 02-27-2024 10:07-0400 Diastolic blood pressure 70 mm[Hg] Frieda Sell PA Work Phone: [facility] 02-27-2024 10:07-0400 Heart rate 76 /min Frieda Sell PA Work Phone: [facility] [employer] [facility] 02-27-2024 10:07-0400 Systolic blood pressure 120 mm[Hg] Frieda Sell PA Work Phone: [facility] Encounters Encounter Date Encounter Type Care Provider Facility Start: 05-20-2025 End: 05-20-2025 Patient encounter procedure Mary WALSH Work Phone: [facility] Start: 05-20-2025 End: 05-20-2025 Periodic preventive med est patient 40-64yrs Mary WALSH Work Phone: [facility] Comment on above: Well woman exam with routine gynecological exam; Breast cancer screening by mammogram Start: 05-20-2025 End: 05-20-2025 Bamboo flowsheet Mary WALSH Work Phone: [facility] Start: 05-20-2025 End: 05-20-2025 Bamboo flowsheet Mary WALSH Work Phone: [facility] Start: 05-05-2025 End: 05-05-2025 Bamboo flowsheet Manny Rosales MD Work Phone: [facility] [place] [facility] Start: 05-05-2025 End: 05-05-2025 Bamboo flowsheet Manny Rosales MD Work Phone: [facility] [place] [facility] Start: 05-05-2025 End: 05-05-2025 ambulatory MANNY ROSALES Not Available Start: 08-27-2024 End: 08-27-2024 Office outpatient visit 25 minutes Manny Rosales MD Work Phone: [facility] Comment on above: Acquired hypothyroid ism (CMS/HCC); Ramin's thyroiditis (CMS/HCC); ESS (euthyroid sick syndrome); Chronic fatigue; DDD (degenerative disc disease), lumbosacral Start: 08-27-2024 End: 08-27-2024 ambulatory MANNY ROSALES Not Available Start: 08-27-2024 End: 08-27-2024 Bamboo flowsheet Manny Rosales MD Work Phone: [facility] Start: 08-27-2024 End: 08-27-2024 Bamboo flowsheet Manny Rosales MD Work Phone: [facility] Start: 08-12-2024 End: 08-12-2024 Clinisync Result Encounter Manny Rosales MD Work Phone: [facility] Unsolicited Start: 08-12-2024 End: 08-12-2024 Clinisync Result Encounter Manny Rosales MD Work Phone: [facility] Unsolicited Start: 07-07-2024 End: 07-07-2024 ambulatory Patsy Villafana MD Facility: [facility] Start: 06-09-2024 End: 06-09-2024 ambulatory Patsy Villafana MD Facility: [facility] Start: 04-21-2024 End: 04-21-2024 ambulatory Patsy Villafana MD Facility:[facility] Start: 03-31-2024 End: 03-31-2024 ambulatory Patsy Villafana MD Facility:[facility] Start: 03-17-2024 End: 03-17-2024 ambulatory Patsy Villafana MD Facility:[facility] Start: 02-27-2024 End: 02-27-[address] [facility] Start: 02-27-2024 End: 02-27-2024 Office outpatient new 45 minutes Frieda WALSH Work Phone: [facility] Comment on above: DDD (degenerative di sc disease), lumbosacral (Primary Dx); Cervical spondylosis; Facet arthropathy, lumbar; Foraminal stenosis of cervical region Start: 12-02-2022 End: 12-02-[address] MANNY ROSALES . Facility:[facility] Start: 08-02-[address] MANNY ROSALES . Fac ility:[facility] Start: 06-19-2022 End: 06-19-[address] MANNY ROSALES . Facility:[facility] Start: 05-08-2022 End: 05-09-[address] JOSE DANIEL ROOT . Facility:[facility] Start: 04-14-2022 End: 04-14-[address] JOSE DANIEL ROOT . Facility:[facility] Start: 04-13-2022 Encounter for preprocedural laboratory examination DR JOSE DANIEL ROOT . [facility] Start: 04-11-2022 End: 04-12-[address] JOSE DANIEL ROOT . Facility:[facility] Start: 04-11-2022 End: 04-12-2022 Encounter for preprocedural laboratory examination DR JOSE DANIEL ROOT . Facility:[facility] Start: 04-05-2022 Encounter for other preprocedural examination DR JOSE DANIEL ROOT . [facility] Start: 04-03-2022 End: 04-04-[address] JOSE DANIEL ROOT . Facility:[facility] Start: 04-03-2022 End: 04-04-2022 Encounter for other preprocedural examination DR JOSE DANIEL ROOT . Facility:[facility] Start: 03-30-2022 End: 03-31-[address] JOSE DANIEL ROOT . Facility:[facility] Start: 03-16-2022 End: 03-17-[address] MANNY ROSALES . Facility:[facility] Start: 03-02-2022 End: 03-02-[address] MANNY ROSALES . Facility:[facility] Start: 03-02-2022 End: 03-02-[address] JOSE DANIEL ROOT . Facility:[facility] Start: 02-23-2022 End: 02-23-[address] JOSE DANIEL ROOT . Facility:[facility] Start: 02-14-2022 End: 02-15-[address] JOSE DANIEL ROOT . Facility: Procedures Date Procedure Procedure Detail Performing Clinician Start: 08-12-2024 ALL LIPID PROFILE (FASTING) Manny Rosales MD Work Phone: Start: 08-12-2024 ALL T3 FREE Manny adair MD Work Phone: Start: 08-12-2024 ALL THYROID STIM HORMONE Manny Rosales MD Work Phone: Start: 08-12-2024 [facility] CMP (CMP) (FOR R [facility] USE) Manny Rosales MD Work Phone: Start: 06-19-2022 Microscopic observat ion [Identifier] in Cervix by Cyto stain Mary WALSH Work Phone: Start: 06-19-2022 Cytp cerv/vag auto t hin layer prep mnl screen Jose Daniel Root DO Work Phone: Plan of Treatment Date Care Activity Detail Author Start: 06-19-2025 Screening for malign ant neoplasm of cervix [facility] Start: 05-25-2025 Influenza vaccination Influenza Vacc ine (#1) [facility] Start: 05-20-2025 End: 05-20-2025 Patient encounter procedure MILI PEÑALOZA Comment on above: Arrived Start: 05-20-2025 End: 07-20-2026 MG Breast - bilateral Screening Bilateral screening mammogram Imaging Routine Breast cancer screening by mammogram Expected: 05/20/2025 (Approximate), Expires: 07/20/2026 [facility] Work Phone: Comment on above: Expected: 05/20/2025 (Approximate), Expires: 07/20/2026 Start: 05-05-2025 End: 05-05-2025 Patient encounter procedure 05/05/2025 11:45 AM EDT Office Visit [facility] [place] [facility] [address] [facility] [place] [address] [place] [address] Manny Rosales MD [address] [place] [address] [place] [address] (Fax) Arrived [facility] Comment on above: Arrived Start: 02-26-2025 Adult BMI Screening Adult BMI Screen ing [facility] Start: 02-26-2025 Tobacco Screening Tobacco Screening [facility] Start: 11-25-2024 End: 08-27-2025 Thyrotropin [Units/volume] in Serum or Plasma TSH Lab Routine Acquired hypothyroidism (CMS/HCC) Chronic fatigue Expected: 11/25/2024 (Approximate), Expires: 08/27/2025 [facility] Work Phone: Comment on above: Expected: 11/25/2024 (Approximate), Expires: 08/27/2025 Start: 08-27-2024 End: 08-27-2024 Patient encounter procedure 08/27/2024 3:00 PM EST Office Visit [facility] [address] [place] [address] [place] [address] Manny Rosales MD [address] [place] [address] [address] (Fax) ESS (euthyroid sick syndrome); Ramin's thyroiditis (CMS/HCC); Acquired hypothyroidism (CMS/HCC); Chronic fatigue; Former smoker; Overweight (BMI 25.0-29.9) [facility] Comment on above: ESS (euthyroid sick syndrome); Ramin's thyroiditis (CMS/HCC); Acquired hypothyroidism (CMS/HCC); Chronic fatigue; Former smoker; Overweight (BMI 25.0-29.9) Start: 05-25-2024 Influenza vaccination [facility] Start: 2020 Screening for malign ant neoplasm of breast Mammogram [facility] Start: 2010 Screening for malign ant neoplasm of cervix [facility] Start: 2001 Screening for malign ant neoplasm of cervix Pap Smear [facility] Start: 1999 DTaP,Tdap and Td Vaccines (1 - Tdap) DTaP,Tdap and Td Vaccines (1 - Tdap) [facility] Start: 1998 Adult BMI Follow Up Plan Adult BMI F ollow Up Plan [facility] Start: 1992 Depression Screening Depression Scre ening [facility] Start: 1980 Screening for malign ant neoplasm of colon [facility] THIN PREP TIS PAP AN D HR HPV DNA THIN PREP TIS PAP AND HR HPV DNA Pathology and Cytology Routine Well woman exam with routine gynecological exam Ordered: 05/20/2025 [facility] Comment on above: Ordered: 05/20/2025 Payers Date Payer Category Payer Unknown 2022 [facility] Mem er [id number] 1980 Unknown [id number] 2.16.840.1.052087.3.579.2 .593 1980 Unknown [id number] 2.16.840.1.364766.3.579.2 .593 1980 Unknown [id number] 2.16.840.1.379792.3.579.2 .593 1980 Unknown [id number] 2.16.840.1.119507.3.579.2 .59 1980 Unknown [id number] 2.16.840.1.871988.3.579.2 .593 1980 Unknown [id number] 2.16.840.1.781487.3.579.2 .59 1980 Unknown [id number] 2.16.840.1.925629.3.579.2 .593 1980 Unknown [id number] 2.16.840.1.444175.3.579.2 .1980 Unknown [id number] 2.16.840.1.825016.3.579.2 .59 1980 Unknown [id number] 2.16.840.1.454228.3.579.2 .1980 Unknown [id number] 2.16.840.1.654380.3.579.2 .1980 Unknown [id number] 2.16.840.1.734659.3.579.2 .1980 Unknown [id number] 2.16.840.1.579096.3.579.2 .59 1980 Unknown [id number] 2.16.840.1.966713.3.579.2 .1285 1980 Unknown [id number] 2.16.840.1.443286.3.579.2 .1285 1980 Unknown [id number] 2.16.840.1.112334.3.579.2 .1285 1980 Unknown [id number] 2.16.840.1.143760.3.579.2 .1285 1980 Unknown [id number] 2.16.840.1.565317.3.579.2 .1285 1980 Unknown [id number] 2.16.840.1.780939.3.579.2 .1286 1980 Unknown [id number] 2.16.840.1.941762.3.579.2 .196 1980 Unknown [id number] 2.16.840.1.128922.3.579.2 .196 1980 Unknown [id number] 2.16.840.1.083108.3.579.2 .196 1980 Unknown [id number] 2.16.840.1.112514.3.579.2 .196 1980 Unknown [id number] 2.16.840.1.809875.3.579.2 .196 1980 Unknown [id number] 2.16.840.1.829900.3.579.2 .1259 1980 Unknown [id number] 2.16.840.1.997944.3.579.2 .1259 1959 Self-pay [id number] 1959 Unknown [id number] Social History Date Type Detail Facility Start: 05-23-2023 End: 02-27-2024 Tobacco smoking status WIIS Ex-smoker [facility] History of tobacco use Current smoker [facility] History of tobacco use Cigarette Smoker P [facility] Start: 05-23-2023 End: 02-27-2024 Tobacco use and exposure Smokeless tobacco non-user [facility] Start: 11-22-2023 End: 05-20-2025 Alcoholic beverage intake Lifetime non-drinker (finding) [facility] Start: 11-22-2023 End: 05-05-2025 History of Social function [facility] Start: 11-22-2023 End: 05-05-2025 Tobacco use panel [facility] Start: 11-14-2023 Alcohol Comment caffeine intak e : 1-2 cups/day [facility] Start: 1980 Sex assigned at Not on file P [facility] Childcare Unknown [facility] History of Present illness Narrative 05-20-2025 Aurelia Uribe MA - 05/20/2025 2:30 PM EDT Note Date & Type Note Facility 05-20-2025 History of Presen t illness Narrative Reason for Appointment: Patient ID: Eileen Balbuena is a 45 y.o. female who presents [...] nursing note reviewed. Exam conducted with a dust collector present. Vitals: Estimated body mass index is 28.63 kg/m as calculated from the following: Height as [...] of: JILLIAN Hillman documented in this encounter [facility] History of Present illness Narrative 08-27-2024 Manny Rosales MD - 08/27/2024 3:00 PM EST Note Date & Type Note Facility 08-27-2024 History of Presen t illness Narrative Images from the original note were not included. Patient ID: Eileen Balbuena is a 44 y.o. female who presents for: Thyroid: Pt here today to review his/hers thyroid labs and any medication changes needed. Fatigue: Present, worsened Weight Gain: Presentt Inability to lose weight: Present, Unchanged Hair Changes: Present, brittle and beaking Review of Systems Constitutional: Positive for fatigue. Negative for appetite change. HENT: Positive for voice change. Negative for trouble swallowing. Cardiovascular: Positive for palpitations. Musculoskeletal: Positive for arthralgias and myalgias. Psychiatric/Behavioral: Negative for sleep disturbance. The patient is nervous/anxious. Endocrine: Positive for cold intolerance. Negative for heat intolerance. Clinisync Result Encounter on 08/12/2024 Component Date Value Ref Range Status SODIUM 08/12/2024 141 136 - 145 mmol/L Final POTASSIUM 08/12/2024 3.7 3.5 - 5.1 mmol/L Final CHLORIDE 08/12/2024 104 98 - 107 mmol/L Final CARBON DIOXIDE 08/12/2024 26.5 21.0 - 32.0 mmol/L Final ANION GAP 08/12/2024 14.2 Final GLUCOSE 08/12/2024 91 74 - 106 mg/dL Final BLOOD UREA NITROGEN 08/12/2024 7.0 7.0 - 18.0 mg/dL Final CREATININE 08/12/2024 0.95 0.55 - 1.02 mg/dL Final TBH EGFR-AF [place] [facility] 08/12/2024 >60 >=60 mL/min/1.73m 2 Final [facility] EGFR-NON AF [place] 08/12/2024 >60 >=60 mL/min/1.73m 2 Final BUN CREATININE RATIO 08/12/2024 7.4 Final CALCIUM 08/12/2024 9.7 8.5 - 10.1 mg/dL Final BILIRUBIN TOTAL 08/12/2024 0.5 0.2 - 1.0 mg/dL Final ASPARTATE AMINO TRANSFERASE 08/12/2024 13 (L) 15 - 37 U/L Final ALANINE AMINOTRANSFERASE 08/12/2024 22 14 - 59 U/L Final ALKALINE PHOSPHATASE 08/12/2024 55 46 - 116 U/L Final TOTAL PROTEIN 08/12/2024 7.3 6.4 - 8.2 g/dL Final ALBUMIN LEVEL 08/12/2024 3.9 3.4 - 5.0 g/dL Final GLOBULIN 08/12/2024 3.4 g/dL Final ALBUMIN GLOBULIN RATIO 08/12/2024 1.1 Final TRIGLYCERIDES 08/12/2024 65 <=150 mg/dL Final CHOLESTEROL 08/12/2024 275 (H) <=200 mg/dL Final HDL CHOLESTEROL 08/12/2024 111 (H) 40 - 60 mg/dL Final Comment: > or =60 mg/dl - LOW CARDIOVASCULAR RISK <40 mg/dl - HIGH CARDIOVASCULAR RISK LDL CHOLESTEROL CALCULATED 08/12/2024 151.0 mg/dL Final Comment: <100 mg/dl OPTIMAL 100-129 mg/dl NEAR OR ABOVE OPTIMAL 130-159 mg/dl BORDERLINE HIGH 160-189 mg/dl HIGH >190 mg/dl VERY HIGH VLDL CHOLESTEROL 08/12/2024 13.0 mg/dL Final CHOL HDL RATIO 08/12/2024 2.5 Final Comment: 3.3 - 4.4 LOW RISK 4.4 - 7.1 AVERAGE RISK 7.1 - 11.0 MODERATE RISK >11.0 HIGH RISK FREE T3 08/12/2024 2.89 2.18 - 3.98 pg/mL Final THYROID STIMULATING HORMONE 08/12/2024 6.836 (H) 0.358 - 3.740 uIU/mL Final FREE T4 08/12/2024 0.73 (L) 0.76 - 1.46 ng/dL Final Objective The patient is pleasant and in no acute distress The patient does not appear to have a gross neurologic deficit. The patient has good eye contact and clear speech Visit Vitals Pulse 85 Ht 5' 7 Wt 182 lb 8 oz SpO2 99% BMI 28.58 kg/m OB Status Having periods Smoking Status Former BSA 1.98 m Allergies Allergen Reactions Hydroxychloroquine Other Reaction(s): hives Current Outpatient Medications on File Prior to Visit Medication Sig Dispense Refill Ibuprofen capsule Take 600 mg by mouth in the morning and 600 mg in the evening and 600 mg before bedtime. As needed for pain. orphenadrine (Norflex) 100 MG 12 hr tablet Take 1 tablet (100 mg) by mouth 2 (two) times a day as needed for muscle spasms Do not crush, chew, or split. 60 tablet 0 valACYclovir (Valtrex) 1 g tablet Take 2 tablets twice daily for 1 day at the onset of a cold sore. 20 tablet 0 No current facility-administered medications on file prior to visit. 1. Acquired hypothyroidism (CMS/HCC) Chronic problem with borderline control. The patient does note however that she has missed some doses of her levothyroxine. This may be why she is mildly hypothyroid at this point. We discussed the importance of her taking her thyroid regularly. We mutually agreed to currently renew. This is a complex chronic problem, unstable, not to goal; managment requires moderate decision making I reviewed diet and exercise with the patient. I discussed the patient's current psychosocial and physical condition and the stress impact upon them. I reviewed the multiple unique laboratories and explained the results to the patient. The patient has been re-educated concerning the above diagnoses and that the treatment for some of these may not be considered the standard of care, including TSH suppression when utilized. The patient has been re-educated and instructed concerning medication timing, diet, exercise, and stress reduction as appropriate. I reviewed the patient's current prescriptions and discussed the possibilities of medication renewals, adjustments, new medication start, or stop medication as appropriate The patient has been instructed to follow up and bring a diet and exercise log, and the importance of follow up and compliance. The patient was given a chance to ask questions today and all questions were answered. The patient is to contact us if any other questions arise or if any problems occur. - levothyroxine (Synthroid, Levoxyl) 75 MCG tablet; Take 1 tablet (75 mcg) by mouth in the morning. Take before meals. Dispense: 90 tablet; Refill: 1 - TSH; Future - TSH 2. Ramin's thyroiditis (CMS/HCC) Chronic problem that is currently clinically asymptomatic and follow longitudinally. Causative of the acquired hypothyroidism. 3. ESS (euthyroid sick syndrome) Chronic problem that is currently not under treatment. 4. Chronic fatigue Chronic problem, stable, complex in nature with moderate decision making. 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 We discussed how this is improved significantly. We discussed that the patient will almost certainly need to continue to make lifestyle changes including diet, sleep, exercise, and stress management as appropriate. We discussed how this is almost always a multifactorial problem. We further discussed how we will continue to search for refinements in their current treatments or evaluation for further disease processes and then support or treat them as appropriate. We discussed how we can frequently improve the symptoms, but may not be able to completely cure or resolve the issue. The patient was given a chance to ask questions and all questions were answered. - levothyroxine (Synthroid, Levoxyl) 75 MCG tablet; Take 1 tablet (75 mcg) by mouth in the morning. Take before meals. Dispense: 90 tablet; Refill: 1 - TSH; Future - TSH 5. DDD (degenerative disc disease), lumbosacral Chronic problem that is stable with intermittent pain. She has of the gabapentin intermittently but is in need of refill. In prescribing a renewal to their current medication, consideration of the following encompasses moderate decision making; the current prescriptions and supplements, the current allergies and medication intolerances, current medical conditions, and potential drug interactions. Any changes to risks, benefits, and reason for renewing their current medication due to the above were discussed. The patient was given a chance to ask questions today and all questions were answered. The patient is to contact us if any other questions arise or if any problems occur. (Utilizing the original guidelines or the 2020 office/outpatient code guidelines for selecting the level of E/M service, In both sets of guidelines, prescription drug management appears in the moderate medical decision making (MDM) row. Neither the original guidelines nor the new guidelines state that a new prescription or change is needed in order to credit prescription drug management) - gabapentin (Neurontin) 400 MG capsule; Take 1 capsule (400 mg) by mouth 4 (four) times a day as needed (pain) T Dispense: 360 capsule; Refill: 1 documented in this encounter [facility] History of Present illness Narrative 02-27-2024 JILLIAN Schmidt - 02/27/2024 9:40 AM EDT Note Date & Type Note Facility 02-27-2024 History of Presen t illness Narrative Images from the original note were not included. [facility] [address] [place] [address], [address] [place] [address] * CHART NOTE ? 02/27/2024 Patient: Eileen Balbuena 1980 [id number] Physician: Frieda Lester PA-C SUMMARY Chronic mechanical low back pain and neck pain with findings of L5-S1 lumbar degenerative disc disease and lumbar facet arthropathy and C5-6 and C6-7 broad-based disc bulges with bilateral foraminal stenosis at C6-7. PLAN The patient was seen and examined with Dr Romeo. MRIs of the cervical and lumbar spines were reviewed today in the office and reveal L5-S1 DDD with loss of disc space height, small central disc protrusion, facet arthropathy, and bilateral foraminal narrowing. C5-6 and C6-7 broad based disc bulge with loss of disc space height resulting in moderate bilateral foraminal narrowing at C6-7. Conservative treatment options as well as surgical intervention were discussed at length. Regarding the lumbar spine, we are recommending the patient undergo facet injections and possible ablation as already recommended by pain management. If these injections do not prove beneficial or if her symptoms worsen then we would be more than glad to see her back in the office and likely order a diskogram of the lumbar spine at L5-S1 with control of L3-4. Regarding the cervical spine, we are recommending holding off on all treatment at this time given the fact that her symptoms are currently well controlled. If in the future, the patient's neck pain returns then a referral to physical therapy with cervical traction would be indicated prior to cervical epidural steroid injections or facet injections. We will see the patient back in the office on an as-needed basis. Patient voiced understanding of the plan of care. I have instructed the patient to contact my office if any new questions, concerns, or symptoms develop. HISTORY OF PRESENT ILLNESS Ms Balbuena is a 43 year old female with history of chronic low back pain and neck pain. She states her low back pain has been present for 20 years. Pain radiates into the upper buttock bilaterally and along the lateral aspect of the left leg to the level of the knee. She denies numbness, tingling, paresthesias, weakness in the bilateral lower extremities. The patient has not had lumbar epidural steroid injections but has underwent formal physical therapy in June of last year without any significant lasting pain relief. Most recently she was recommended to start water therapy and did see pain management at [facility] for the possibility of steroid injections in her low back and her neck. They recommended facet injections and possible ablation. The patient's neck pain has also been present for quite some time but without radicular pain or weakness in the bilateral upper extremities. She notes numbness and tingling in the hands and arms, especially at nighttime. The patient tends to do a lot of stretching of her neck and currently is not having much neck pain at all. She has not had cervical epidural steroid injections but has had formal physical therapy a number of years ago including cervical traction which did seem to help some of her discomfort. Patient denies bowel and bladder dysfunction. HEALTH HISTORY Past Medical History Documented in chart and reviewed with the patient at this visit Family History Documented in chart and reviewed with the patient at this visit Social History Documented in chart and reviewed with the patient at this visit Surgeries/Hospitalizations Documented in chart and reviewed with the patient at this visit Current Medications Current Outpatient Medications on File Prior to Visit Medication Sig Dispense Refill gabapentin (NEURONTIN) 400 mg capsule Take 1 capsule (400 mg total) by mouth. ibuprofen 200 mg capsule Take 600 mg by mouth 3 (three) times a day. levothyroxine (SYNTHROID, LEVOTHROID) 75 MCG tablet Take 1 tablet (75 mcg total) by mouth in the morning. traMADoL (ULTRAM) 50 mg tablet Take 1 tablet (50 mg total) by mouth every 6 (six) hours as needed for pain. No current facility-administered medications on file prior to visit. Allergies Allergies Allergen Reactions Hydroxychloroquine Other Reaction(s): hives Tylenol [Acetaminophen] Hives Rapid Release REVIEW OF SYSTEMS A complete and comprehensive 10-system review was completed. Pertinent positives and negatives are mentioned in the history of the present illness. PHYSICAL EXAMINATION GENERAL APPEARANCE: Well developed, well nourished, in no acute distress . HEAD: Normocephalic, atraumatic . EYES: Pupils equal, round, reactive to light and accommodation, sclera non-icteric . NECK/THYROID: No particular tenderness on palpation of neck SKIN: Warm and dry, no suspicious lesions . MUSCULOSKELETAL: There is no atrophy or fasciculations. EXTREMITIES: No clubbing, cyanosis, or edema . NEUROLOGIC: Alert and oriented x 3. Memory seems to be intact. Concentration is good. Speech is clear and fluent. Fund of knowledge is normal. Moving all extremities freely. Gait is steady posture is normal. Strength is 5/5 in upper and lower extremities, sensation intact grossly. Romberg sign negative. Spurling's maneuver is negative. Ross's sign is negative, Tinel's is negative. Reflexes are equal bilaterally in upper and lower extremities. There is no ankle clonus. Babinski sign is negative. Able to perform rapidly alternating movements. Tenderness with palpation of the left SI joint. Negative SLR bilaterally. DIAGNOSTICS MRI of the cervical spine performed on December 06, 2023 reveals C5-6 broad-based disc bulge without significant canal stenosis or foraminal stenosis, C6-7 loss of disc space height and broad-based disc bulge resulting in moderate bilateral foraminal stenosis and mild canal stenosis. MRI of the lumbar spine performed on December 06, 2023 reveals L5-S1 loss of disc space height, small central disc protrusion with facet arthropathy and mild bilateral foraminal narrowing. Multilevel facet arthropathy noted with bilateral facet effusions throughout the lumbar spine seen. Plain film imaging of the cervical spine demonstrates narrowing of the C6-7 disc space with anterior cervical spondylosis. No excessive motion noted on flexion/extension of the cervical spine. Plain film imaging of the lumbar spine reveals severe degenerative disc disease at L5-S1 with loss of disc space height and no excessive motion noted on flexion/extension of the lumbar spine. Sincerely, Electronically signed by: Frieda Sell PA-C This note was created with the assistance of a speech recognition program with the goal of generating a timely record of the patient encounter. Inadvertent computerized automatic riveting machine operator errors related to syntax, spelling, homophones, and/or inaudibility may be present. JILLIAN Schmidt 02/27/24 1130 documented in this encounter [facility] Clinical Note 04-14-2022 Note Date & Type Note Facility 04-14-2022 Note OPERATIVE NOTE OPERATION DATE: 04/14/2022 PROCEDURE: Lilibeth endometrial ablation. PREOPERATIVE DIAGNOSIS: Menorrhagia. POSTOPERATIVE DIAGNOSIS: Menorrhagia. ANESTHESIA: General. SURGEON: Jose Daniel Root D.O. APARTMENT LEASING AGENT: None. FINDINGS: Normal appearing cavity. No [...] taken to recovery in stable condition. [facility] Evaluation note Note Date & Type Note Facility Evaluation note Diagnosis Acquired hypothyroidism (CMS/HCC) Unspecified hypothyroidism Ramin's thyroiditis (CMS/HCC) Chronic lymphocytic thyroiditis ESS (euthyroid sick syndrome) Euthyroid sick syndrome Chronic fatigue Other malaise and fatigue DDD (degenerative disc disease), lumbosacral Degeneration of lumbar or lumbosacral intervertebral disc documented in this encounter [facility] Evaluation note Note Date & Type Note Facility Evaluation note Diagnosis DDD (degenerative disc disease), lumbosacral- Primary Degeneration of lumbar or lumbosacral intervertebral disc Cervical spondylosis Cervical spondylosis without myelopathy Facet arthropathy, lumbar Foraminal stenosis of cervical region documented in this encounter [facility] Evaluation note Note Date & Type Note Facility Evaluation note Diagnosis Well woman exam with routine gynecological exam Routine gynecological examination Breast cancer screening by mammogram documented in this encounter [facility] Instructions Note Date & Type Note Facility Instructions Not on filedocumented in this en counter [facility] Summary Purpose Family History No Family History Records FoundNo Family History Records FoundNo Family History Records FoundNo Family History Records Found Advance Directives No Advanced Directives Records FoundNo Advanced Directives Records FoundNo Advanced Directives Records FoundNo Advanced Directives Records Found Additional Source Comments INFORMATION SOURCE (unrecogn ized section and content) DATE CREATED AUTHOR 12/06/2022 [facility] DATE CREATED AUTHOR AUTHOR'S ORGANIZ ATION 02/28/2024 [facility] DATE CREATED AUTHOR AUTHOR'S ORGANIZ ATION 07/23/2024 [facility] DATE CREATED AUTHOR AUTHOR'S ORGANIZ ATION 05/06/2025 [facility] EPIC Care Teams (unrecognized sec tion and content) [employer] Relationship Specialty Start Date End Date Manny Rosales MD [address] [place] [address] PCP - [place] [facility] 12/23/20 Manny Rosales MD [address] [place] [address] PCP - General Family Medicine 01/30/23 [employer] Relationship Specialty Start Date End Date Manny Rosales MD [address] [place] [address] PCP - [place] [facility] 12/23/20 Manny Rosales MD [address] [place] [address] (Fax) PCP - General Family Medicine 01/30/23 [employer] Relationship Specialty Start Date End Date Manny Rosales MD [address] [phone] (Fax) PCP - [facility] 12/23/20 Manny Rosales MD [address] [address] (Fax) PCP - General Family Medicine 01/30/23 [employer] Relationship Specialty Start Date End Date Manny Rosales MD [address] [phone] (Fax) PCP - General Family Medicine 01/30/23 [employer] Relationship Specialty Start Date End Date Manny Rosales MD [address] [address] (Fax) PCP - General Family Medicine 01/30/23 [employer] Relationship Specialty Start Date End Date Manny Rosales MD [address] [phone] (Fax) PCP - General Family Medicine 01/30/23 Reason for Visit (unrecogniz ed section and content) Reason Comments Hypothyroidism Reason Comments Consult Lumbar & Cervical Specialty Diagnoses / Procedures Referred By Contac t Referred To Contact Neurosurgery Diagnoses DDD (degenerative disc disease), lumbosacral Sacroiliitis (CMS-HCC) Chronic lumbosacral pain Procedures AMB REFERRAL TO NEUROSURGERY Manny Rosales MD [address] [place] [address] Fax: Deandre Arcos MD [address] [place] [address] Referral ID Status Reason Start Date Expiration Date V isits Requested Visits Authorized [id number] Pending Review 02/04/2024 08/02/2024 1 1 Reason Comments Gynecologic Exam FOR RECORDS PERTAINING TO PATIENTS WHO ARE [...] BE BASED ON THE PRIMARY CLINICAL RECORDS. [facility] [employer] [facility]. provides no warranty or guarantee of the accuracy or completeness of information in this document.
[2025-05-27 16:09] LABS: Age Gdln ACOG Testing Note (.); IGP, Aptima HPV, rfx 16/18,45 Note (.)
== END 2025-05-20 19:32 | disposition home or self-care (01) ==
LOC: LAB 19:31
PROVIDERS: PCP Family Medicine; Visit Provider Physician Assistant
DX: Z01.419 Encounter for gynecological examination (general) (routine) without abnormal findings (principal)
CPT/HCPCS: 87624; 88175